=== PATIENT | male | born 1960 | race Caucasian/White ===

== ENCOUNTER 2018-11-24 20:50 | Inpatient (IN) | payer OTHER ==
--- NOTE | 2018-11-24 21:04 | C.PDOC ---
History Of Present Illness Patient called EMS for shortness of breath. Walked down and met the ems after which he had a witnessed arrest. PEA then asystole. After about 14-16 min, 4 epi, and 1 defibrillation for v tach, ROSC. His own defibrillator fired twice after that. Pt is intubated with an adjuct airway. Time Seen by Provider: 11/24/18 21:03 Chief Complaint (Nursing): Cardiac Arrest History Per: EMS Reason For Code Blue: Full Arrest Circumstances: Brought To ED By EMS Arrest Witnessed By: Other (ems) CPR Initiated Prior To MD Arrival?: Yes Down-Time Before ACLS: Mins Treatment Initiated Prior To MD Arrival: Yes: CPR, Intubation, Defibrillation, IVF, ACLS Medication Initiation, IV Access Medications Given Prior To MD Arrival: Yes: Epinephrine - Initial Findings Mentation: Unresponsive Respirations: None (Assisted) Pulse: Weak Rhythm: Other (dual paced) Past Medical History Reviewed: Historical Data, Nursing Documentation, Vital Signs Family History: States: No Known Family Hx Review Of Systems Review Of Systems: ROS cannot be obtained secondary to pt's inabilty to answer questions. Physical Exam - Physical Exam Appears: In Acute Distress Skin: Pale Head: Normacephalic Throat: Other (intubated) Neck: Supple Chest: Symmetrical Cardiovascular: Rhythm Regular Respiratory: Decreased Breath Sounds, Rales, Rhonchi, No Wheezing Gastrointestinal/Abdominal: Soft, No Tenderness, Distention, Other (obese) Back: Normal Inspection Extremity: No Pedal Edema, Other (IO r tibia) Extremity: Bilateral: Atraumatic Neurological/Psych: Other (intubated , unresponsive) Gait: Unable To Assess ED Course And Treatment - Laboratory Results Result Diagrams: 11/24/18 21:09 ECG: Interpreted By Me, Viewed By Me ECG Rhythm: Nonspecific Changes O2 Sat by Pulse Oximetry: 99 Pulse Ox Interpretation: Normal - Radiology CXR: Interpreted by Me, Viewed By Me CXR Interpretation: Yes: Cardiomegaly, Other (acute pulm edema, left chest aicd). No: Infiltrates, Fracture - Other Rad chest X-Ray: Interpreted by Me, Viewed By Me Interpretation: repeat cxr- ett in place, chf Progress Note: 9:[address] jorge luis gold with amiodarone, ct head and will see the pt in the ed. called anesthisia to change the combitube to an ett. 10:10 dr kang at bedside. Disposition Discussed With Dr.: Kamilla Hernandez Comment: accepted the pt onher service and took over the care at 10:13 PM Doctor Will See Patient In The: ED Counseled Patient/Family Regarding: Studies Performed, Diagnosis - Disposition Disposition: HOSPITALIZED Disposition Time: 21:04 Condition: CRITICAL Forms: [facility] (Slovak) - POA Present On Arrival: Poor Glycemic Control - Clinical Impression Clinical Impression: Cardiac arrest Critical Care Time - Critical Care Note Total Time (in mins): 30 Documented critical care: time excludes all time spent performing seperately billable procedures. Decision To Admit - Pt Status Changed To: Hospital Disposition Of: Inpatient - Admit Certification Admit to Inpatient:: After my assessment, the patient will require hospitalization for at least two midnights. This is because of the severity of symptoms shown, intensity of services needed, and/or the medical risk in this patient being treated as an outpatient. - InPatient: Physician Admission Certification:: After my assessment, the patient will req uire hospitalization for at least two midnights. This is because of the severity of symptoms shown, intensity of services needed, and/or the medical risk in this patient being treated as an outpatient. - . Bed Request Type: ICU Admitting Physician: Kamilla Hernandez Patient Diagnosis: Cardiac arrest
[2018-11-24] MEDS ORDERED: Albuterol-Ipratrop 3 mg / 0.5 (3 ml) UD IH SCH (21:15)
[2018-11-24 21:19] LABS: BASO # 0.1 K/uL (0.0-0.2); EOS # 0.6 K/uL (0.0-0.7); MONO # 1.2 K/uL (0.0-0.8)
[2018-11-24 21:45] LABS: ALBUMIN 3.7 g/dL (3.5-5.0); CALCIUM 8.1 mg/dl (8.6-10.4)
[2018-11-24 21:49] LABS: PROTHROMBIN TIME 11.1 SECONDS (9.7-12.2)
[2018-11-24 21:55] LABS: TROPONIN I 0.067 ng/mL (0.00-0.120)
[2018-11-24 21:57] LABS: BASO % 0.4 % (0.0-2.0); EOS % 3.9 % (0.0-4.0); HEMOGLOBIN 16.2 g/dL (12.0-18.0); LYMPH # 4.2 K/uL (1.0-4.3); LYMPH % 27.3 % (20.0-40.0); MEAN CELL VOLUME 102.6 fL (80.0-94.0); MEAN CORPUSCULAR HEMOGLOBIN 32.2 pg (27.0-31.0); MEAN CORPUSCULAR HGB CONC 31.4 g/dL (33.0-37.0); MEAN PLATELET VOLUME 9.8 fL (7.2-11.7); MONO % 7.8 % (0.0-10.0); NEUT # 9.4 K/uL (1.8-7.0); NEUT % 60.6 % (50.0-75.0); NRBC % 0.1 % (0.0-2.0); RBC 5.01 Mil/uL (4.40-5.90); WHITE BLOOD COUNT 15.4 K/uL (4.8-10.8)
[2018-11-24] MEDS ORDERED: Lidocaine 1% PF (5ml) Amp INJ ONE (22:00)
[2018-11-24] MEDS ORDERED: Etomidate 20 mg/10ml Inj IV ONE (22:00)
[2018-11-24] MEDS ORDERED: Succinylcholine Chloride 20 mg/ml Syr (5 ml) IV ONE (22:05)
--- NOTE | 2018-11-24 22:10 | PCM.ANESI ---
Anesthesia Emergent Intubation - Diagnosis Working Diagnosis:: cardiac arrest - Consult Reason for Consult:: difficult intubation - Intubation Attempts Previous Number of Intubation Attempts:: 1 - Pre-Intubation Vital Signs Heart Rate: 80 FIO2: 100 Oxygen Delivery Method: combitube Level Of Consciousness: Sedated, Unable to follow directions - Airway Management Oropharyngeal Area Suctioned: Yes Possible Aspiration: Yes - Method of Intubation Intubation Method: Oral ETT ETT Size: 8.0 Lipline@: 23 Easy: Yes Atramatic: No (glidescop 4 used. ONe attempt by anesthesia. Blood/ secretions in airway.) - Intubation Devices [place] Scope Used: Yes (4) - Placement Confirmation Breath Sounds Present & Equal Bilaterally: Yes Positive EtCO2: Yes Portable CXR: Yes Recommendations: Ventilator, Chest X Ray
[2018-11-24 22:21] LABS: ARTERIAL BLOOD GAS HCO3 17.6 mmol/L (21-28); ARTERIAL BLOOD GAS O2 SAT 99.8 % (95-98); ARTERIAL BLOOD GAS PCO2 74 mm/Hg (35-45); ARTERIAL BLOOD GAS PH 7.08 (7.35-7.45); ARTERIAL BLOOD GAS PO2 167 mm/Hg (80-100); ARTERIAL BLOOD GAS TCO2 24.2 mmol/L (22-28)
--- NOTE | 2018-11-24 22:27 | CP.CCUPN ---
CCU Subjective - Physician Review Events Since Last Encounter (Free Text): 58 male with history of COPD, obesity, CHF, AICD/pacemake placement was brought to ER after cardiac arrest. As per EMS/ER Patient called EMS for shortness of breath. Walked down and met the EMS after which he had a witnessed arrest. PEA then asystole. After about 14-16 min, 4 epi, and 1 defibrillation for v tach, ROSC. His own defibrillator fired twice after that CCU Objective - Vital Signs / Intake & Output Vital Signs (Last 4 hours): Vital Signs Temp Pulse Resp BP Pulse Ox 11/24/18 22:14 99 11/24/18 22:09 80 11/24/18 20:56 97.4 F L 70 16 135/87 99 Intake and Output (Last 8hrs): Intake & Output 11/24/18 11/24/18 11/24/18 06:59 14:59 22:59 Weight 350 lb - Physical Exam Head: Positive for: Atraumatic Pupils: Positive for: Sluggish Conjunctiva: Positive for: Normal Ears: Positive for: Normal Nose (External): Positive for: Atraumatic Neck: Positive for: Normal Range of Motion Respiratory/Chest: Positive for: Rhonchi Cardiovascular: Positive for: Regular Rate and Rhythm Abdomen: Positive for: Normal Bowel Sounds, Other (obese) Upper Extremity: Positive for: Normal Inspection Lower Extremity: Positive for: Normal Inspection Neurological: Positive for: Other (no response to any stimuli, on ventilator) - Medications Active Medications: Active Medications Generic Name Dose Route Start Last Admin Trade Name Freq PRN Reason Stop Dose Admin Amiodarone HCl 900 mg/ 500 mls @ 33.33 mls/hr 11/24/18 21:42 Dextrose IV 11/25/18 12:42 .[id number] ONE Protocol 1 MG/MIN - Patient Studies Lab Studies: Lab Studies 11/24/18 11/24/18 11/24/18 Range/Units 22:17 21:09 21:09 WBC (4.8-10.8) K/uL RBC (4.40-5.90) Mil/uL Hgb (12.0-18.0) g/dL Hct (35.0-51.0) % MCV (80.0-94.0) fL MCH (27.0-31.0) pg MCHC (33.0-37.0) g/dL RDW (11.5-14.5) % Plt Count (130-400) K/uL MPV (7.2-11.7) fL Neut % (Auto) (50.0-75.0) % Lymph % (Auto) (20.0-40.0) % [place] % (Auto) (0.0-10.0) % Eos % (Auto) (0.0-4.0) % Baso % (Auto) (0.0-2.0) % Neut # (Auto) (1.8-7.0) K/uL Lymph # (Auto) (1.0-4.3) K/uL [place] # (Auto) (0.0-0.8) K/uL Eos # (Auto) (0.0-0.7) K/uL Baso # (Auto) (0.0-0.2) K/uL PT 11.1 (9.7-12.2) SECONDS INR 1.0 APTT 39.0 H (21-34) SECONDS Puncture Site Rra pCO2 74 H* (35-45) mm/Hg pO2 167 H (80-100) mm/Hg HCO3 17.6 L (21-28) mmol/L ABG pH 7.08 L* (7.35-7.45) ABG Total CO2 24.2 (22-28) mmol/L ABG O2 Saturation 99.8 H (95-98) % ABG Base Excess -9.4 L (-2.0-3.0) mmol/L Albert Test Na ABG Potassium 5.0 (3.6-5.2) mmol/L A-a O2 Difference 454.0 mm/Hg Respiratory Index 2.7 Glucose 237 H (75-110) mg/dl Lactate 2.9 H (0.7-2.1) mmol/L Vent Mode Prvc Mechanical Rate 16 FiO2 100.0 % Tidal Volume 600 PEEP 5 Crit Value Called To Sudhakar Crit Value Called By freddy Walsh md Crit Value Read Back Y Blood Gas Notified Time 2221 Sodium 136.0 137 (132-148) mmol/L Potassium 4.5 (3.6-5.2) mmol/L Chloride 103.0 99 (98-107) mmol/L Carbon Dioxide 20 L (22-30) mmol/L Anion Gap 23 H (10-20) BUN 18 (9-20) mg/dL Creatinine 1.5 (0.8-1.5) mg/dL Est GFR ( Amer) 58 Est GFR (Non-Af Amer) 48 POC Glucose (mg/dL) (65-110) mg/dL Random Glucose 222 H (75-110) mg/dL Calcium 8.1 L (8.6-10.4) mg/dl Total Bilirubin 0.4 (0.2-1.3) mg/dL AST 72 H (17-59) U/L ALT 70 (21-72) U/L Alkaline Phosphatase 81 (38-126) U/L Troponin I 0.0670 (0.00-0.120) ng/mL NT-Pro-B Natriuret Pep 1480 H (0-900) pg/mL Total Protein 7.4 (6.3-8.3) g/dL Albumin 3.7 (3.5-5.0) g/dL Globulin 3.6 (2.2-3.9) gm/dL Albumin/Globulin Ratio 1.0 (1.0-2.1) Lipase 151 (23-300) U/L Arterial Blood Potassium 5.0 (3.6-5.2) mmol/L 11/24/18 11/24/18 Range/Units 21:09 21:00 WBC 15.4 H (4.8-10.8) K/uL RBC 5.01 (4.40-5.90) Mil/uL Hgb 16.2 (12.0-18.0) g/dL Hct 51.4 H (35.0-51.0) % MCV 102.6 H (80.0-94.0) fL MCH 32.2 H (27.0-31.0) pg MCHC 31.4 L (33.0-37.0) g/dL RDW 17.0 H (11.5-14.5) % Plt Count 238 (130-400) K/uL MPV 9.8 (7.2-11.7) fL Neut % (Auto) 60.6 (50.0-75.0) % Lymph % (Auto) 27.3 (20.0-40.0) % [place] % (Auto) 7.8 (0.0-10.0) % Eos % (Auto) 3.9 (0.0-4.0) % Baso % (Auto) 0.4 (0.0-2.0) % Neut # (Auto) 9.4 H (1.8-7.0) K/uL Lymph # (Auto) 4.2 (1.0-4.3) K/uL [place] # (Auto) 1.2 H (0.0-0.8) K/uL Eos # (Auto) 0.6 (0.0-0.7) K/uL Baso # (Auto) 0.1 (0.0-0.2) K/uL PT (9.7-12.2) SECONDS INR APTT (21-34) SECONDS Puncture Site pCO2 (35-45) mm/Hg pO2 (80-100) mm/Hg HCO3 (21-28) mmol/L ABG pH (7.35-7.45) ABG Total CO2 (22-28) mmol/L ABG O2 Saturation (95-98) % ABG Base Excess (-2.0-3.0) mmol/L Albert Test ABG Potassium (3.6-5.2) mmol/L A-a O2 Difference mm/Hg Respiratory Index Glucose (75-110) mg/dl Lactate (0.7-2.1) mmol/L Vent Mode Mechanical Rate FiO2 % Tidal Volume PEEP Crit Value Called To Crit Value Called By Crit Value Read Back Blood Gas Notified Time Sodium (132-148) mmol/L Potassium (3.6-5.2) mmol/L Chloride (98-107) mmol/L Carbon Dioxide (22-30) mmol/L Anion Gap (10-20) BUN (9-20) mg/dL Creatinine (0.8-1.5) mg/dL Est GFR ( Amer) Est GFR (Non-Af Amer) POC Glucose (mg/dL) 197 H (65-110) mg/dL Random Glucose (75-110) mg/dL Calcium (8.6-10.4) mg/dl Total Bilirubin (0.2-1.3) mg/dL AST (17-59) U/L ALT (21-72) U/L Alkaline Phosphatase (38-126) U/L Troponin I (0.00-0.120) ng/mL NT-Pro-B Natriuret Pep (0-900) pg/mL Total Protein (6.3-8.3) g/dL Albumin (3.5-5.0) g/dL Globulin (2.2-3.9) gm/dL Albumin/Globulin Ratio (1.0-2.1) Lipase (23-300) U/L Arterial Blood Potassium (3.6-5.2) mmol/L Laboratory Results - last 24 hr 11/24/18 11/24/18 11/24/18 21:00 21:09 21:09 WBC 15.4 H RBC 5.01 Hgb 16.2 Hct 51.4 H MCV 102.6 H MCH 32.2 H MCHC 31.4 L RDW 17.0 H Plt Count 238 MPV 9.8 Neut % (Auto) 60.6 Lymph % (Auto) 27.3 [place] % (Auto) 7.8 Eos % (Auto) 3.9 Baso % (Auto) 0.4 Neut # (Auto) 9.4 H Lymph # (Auto) 4.2 [place] # (Auto) 1.2 H Eos # (Auto) 0.6 Baso # (Auto) 0.1 PT 11.1 INR 1.0 APTT 39.0 H Puncture Site pCO2 pO2 HCO3 ABG pH ABG Total CO2 ABG O2 Saturation ABG Base Excess Albert Test ABG Potassium A-a O2 Difference Respiratory Index Glucose Lactate Vent Mode Mechanical Rate FiO2 Tidal Volume PEEP Crit Value Called To Crit Value Called By Crit Value Read Back Blood Gas Notified Time Sodium Potassium Chloride Carbon Dioxide Anion Gap BUN Creatinine Est GFR ( Amer) Est GFR (Non-Af Amer) POC Glucose (mg/dL) 197 H Random Glucose Calcium Total Bilirubin AST ALT Alkaline Phosphatase Troponin I NT-Pro-B Natriuret Pep Total Protein Albumin Globulin Albumin/Globulin Ratio Lipase Arterial Blood Potassium 11/24/18 11/24/18 21:09 22:17 WBC RBC Hgb Hct MCV MCH MCHC RDW Plt Count MPV Neut % (Auto) Lymph % (Auto) [place] % (Auto) Eos % (Auto) Baso % (Auto) Neut # (Auto) Lymph # (Auto) [place] # (Auto) Eos # (Auto) Baso # (Auto) PT INR APTT Puncture Site Rra pCO2 74 H* pO2 167 H HCO3 17.6 L ABG pH 7.08 L* ABG Total CO2 24.2 ABG O2 Saturation 99.8 H ABG Base Excess -9.4 L Albert Test Na ABG Potassium 5.0 A-a O2 Difference 454.0 Respiratory Index 2.7 Glucose 237 H Lactate 2.9 H Vent Mode Prvc Mechanical Rate 16 FiO2 100.0 Tidal Volume 600 PEEP 5 Crit Value Called To Sudhakar Crit Value Called By freddy Walsh md Crit Value Read Back Y Blood Gas Notified Time 2220 Sodium 137 136.0 Potassium 4.5 Chloride 99 103.0 Carbon Dioxide 20 L Anion Gap 23 H BUN 18 Creatinine 1.5 Est GFR ( Amer) 58 Est GFR (Non-Af Amer) 48 POC Glucose (mg/dL) Random Glucose 222 H Calcium 8.1 L Total Bilirubin 0.4 AST 72 H ALT 70 Alkaline Phosphatase 81 Troponin I 0.0670 NT-Pro-B Natriuret Pep 1480 H Total Protein 7.4 Albumin 3.7 Globulin 3.6 Albumin/Globulin Ratio 1.0 Lipase 151 Arterial Blood Potassium 5.0 EKG/Cardiology Studies: Cardiology / EKG Studies 11/24/18 21:04 ELECTROCARDIOGRAM Stat Comment: Mode Of Transportation: BED Reason For Exam: chest pain Fingerstick Blood Sugar Results: 197 Assessment/Plan - Assessment and Plan (Free Text) Assessment: A/P Cardiac arrest, arrhythmia s/p AICD/pacemaker, respiratory failure, COPD, CHF, obesity, R/O pneumonia, R/O MA, ?anoxic encephalopathy - Ventilatory support - Therapeutic hypothermia - Cardiac enzymes - Cardiology consult a per PMD - Antibiotics - Amioderone drip - Neurology consult as per PMD - Poor prognosis critical care 40 min
[2018-11-24] MEDS ORDERED: Sodium Chloride 0.9% 1,000 ML IV SCH (22:45)
[2018-11-24] MEDS: Piperacillin/Tazobact 3.375 GM in Sodium Chloride 100 ML IVPB SCH (23:27)
[2018-11-24 23:35] LABS: SQUAMOUS EPITHIAL 1 /hpf (0-5); URINE BACTERIA OCC (<OCC); URINE BILIRUBIN NEGATIVE (NEGATIVE); URINE BLOOD NEGATIVE (NEGATIVE); URINE CLARITY Hazy (Clear); URINE COLOR Yellow (YELLOW); URINE GLUCOSE (UA) 1+ mg/dL (Normal); URINE LEUKOCYTE ESTERASE TRACE Leu/uL (Negative); URINE PROTEIN 2+ mg/dL (NEGATIVE); URINE UROBILINOGEN NORMAL mg/dL (0.2-1.0)
[2018-11-24 23:48] LABS: BARBITURATES, UR NEGATIVE (NEGATIVE); BENZODIAZEPINES, UR POSITIVE (NEGATIVE); OPIATES, UR NEGATIVE (NEGATIVE); PHENCYCLIDINE, UR NEGATIVE (NEGATIVE)
[2018-11-25] MEDS ORDERED: Iodixanol 320 mg/ml 150 ml Bottle IV ONE (00:10)
[2018-11-25] MEDS: Propofol 10 mg/ml 1,000 MG/100 ML VIAL IV PRN ×7 (01:14→21:27)
[2018-11-25] MEDS ORDERED: Insulin Human Regular 100 UNIT in Sodium Chloride 0.9% 99 ML IV SCH ×2 (01:45→01:59)
[2018-11-25] MEDS: Acetaminophen 650mg/20.3ml solution UD NG PRN ×2 (02:13→18:24)
[2018-11-25 02:37] LABS: BASO % 0.2 % (0.0-2.0); HEMOGLOBIN 16.1 g/dL (12.0-18.0); LYMPH # 0.6 K/uL (1.0-4.3); MEAN CELL VOLUME 100.6 fL (80.0-94.0); MEAN CORPUSCULAR HEMOGLOBIN 32.8 pg (27.0-31.0); MEAN CORPUSCULAR HGB CONC 32.6 g/dL (33.0-37.0); MEAN PLATELET VOLUME 8.7 fL (7.2-11.7); MONO # 1.4 K/uL (0.0-0.8); MONO % 6.9 % (0.0-10.0); NEUT # 17.9 K/uL (1.8-7.0); NEUT % 89.9 % (50.0-75.0); NRBC % 0.1 % (0.0-2.0); PLATELET COUNT 221 K/uL (130-400); RBC 4.92 Mil/uL (4.40-5.90); RED CELL DISTRIBUTION WIDTH 16.6 % (11.5-14.5); WHITE BLOOD COUNT 19.9 K/uL (4.8-10.8)
[2018-11-25 02:46] LABS: PROTHROMBIN TIME 11.2 SECONDS (9.7-12.2)
[2018-11-25 03:00] LABS: ALB/GLOB RATIO 1.1 (1.0-2.1); CALCIUM 7.4 mg/dl (8.6-10.4)
[2018-11-25 03:49] LABS: BANDS 3 % (0-2); LYMPHOCYTE 4 % (20-40); MONOCYTE 6 % (0-10); NEUTROPHIL 87 % (50-75); PLATELET ESTIMATE NORMAL (NORMAL); TOTAL CELLS COUNTED 100
[2018-11-25] MEDS ORDERED: Enoxaparin 40 mg Syringe SC SCH (04:00)
[2018-11-25] MEDS: Piperacillin/Tazobact 3.375 GM in Sodium Chloride 100 ML IVPB SCH ×4 (04:41→22:10)
[2018-11-25 05:41] LABS: ABG ALLEN TEST POS; ARTERIAL BLOOD GAS HCO3 22.8 mmol/L (21-28); ARTERIAL BLOOD GAS O2 SAT 100.4 % (95-98); ARTERIAL BLOOD GAS PCO2 49 mm/Hg (35-45); ARTERIAL BLOOD GAS PO2 221 mm/Hg (80-100); ARTERIAL BLOOD GAS TCO2 25.6 mmol/L (22-28)
--- NOTE | 2018-11-25 08:30 | CT ---
Date of service: 11/25/2018 PROCEDURE: CT HEAD WITHOUT CONTRAST. HISTORY: cardiac arrest COMPARISON: Not available TECHNIQUE: Axial computed tomography images were obtained through the head/brain without intravenous contrast. Radiation dose: Total exam DLP = 2623.28 mGy-cm. This CT exam was performed using one or more of the following dose reduction techniques: Automated exposure control, adjustment of the mA and/or kV according to patient size, and/or use of iterative reconstruction technique. FINDINGS: The examination is technically limited due to patient motion artifact, despite repeated attempts at imaging. HEMORRHAGE: No intracranial hemorrhage. BRAIN: No mass effect or edema. No atrophy. There is moderate periventricular white matter lucency consistent with chronic microvascular ischemic change. No evidence of acute infarct. VENTRICLES: Unremarkable. No hydrocephalus. CALVARIUM: Unremarkable. PARANASAL SINUSES: There is dependent fluid in both maxillary antra. The possibility acute sinusitis must be considered in the appropriate clinical setting. MASTOID AIR CELLS: Unremarkable as visualized. No inflammatory changes. OTHER FINDINGS: None. IMPRESSION: Moderate chronic white matter ischemic change. Fluid dependently in both maxillary antra. Possible acute sinusitis. No intracranial mass, hemorrhage or evidence of acute infarct. The preliminary findings for this examination were reported by [facility] at 12:40 a.m. on 11/25/2018. There is concurrence of this report with the preliminary findings.
[2018-11-25 09:07] LABS: VENOUS BLOOD GAS BASE EXCESS -2.6 mmol/L (0.0-2.0); VENOUS BLOOD GAS PCO2 74 mmHg (40-60); VENOUS BLOOD GAS PO2 24 mm/Hg (30-55); VENOUS BLOOD PH 7.18 (7.32-7.43)
[2018-11-25 09:15] LABS: BASO % 0.1 % (0.0-2.0); EOS % 0.1 % (0.0-4.0); HEMOGLOBIN 16.2 g/dL (12.0-18.0); LYMPH # 0.8 K/uL (1.0-4.3); LYMPH % 4.8 % (20.0-40.0); MEAN CELL VOLUME 99.2 fL (80.0-94.0); MEAN CORPUSCULAR HEMOGLOBIN 31.5 pg (27.0-31.0); MEAN CORPUSCULAR HGB CONC 31.8 g/dL (33.0-37.0); MEAN PLATELET VOLUME 8.9 fL (7.2-11.7); MONO # 1.2 K/uL (0.0-0.8); MONO % 7.1 % (0.0-10.0); NEUT # 15.5 K/uL (1.8-7.0); NEUT % 87.9 % (50.0-75.0); PLATELET COUNT 172 K/uL (130-400); RBC 5.13 Mil/uL (4.40-5.90); RED CELL DISTRIBUTION WIDTH 16.6 % (11.5-14.5); WHITE BLOOD COUNT 17.6 K/uL (4.8-10.8)
--- NOTE | 2018-11-25 09:17 | RAD ---
Date of service: 11/25/2018 PROCEDURE: CHEST RADIOGRAPH, 1 VIEW HISTORY: intubated COMPARISON: 11/24/2018 extensive left perihilar opacity. Possible pneumonia. This appears to have worsened compared to the prior examination. Follow-up advised. FINDINGS: LUNGS: Clear. PLEURA: No pneumothorax or pleural fluid seen. CARDIOVASCULAR: No aortic atherosclerotic calcification present. ETT noted with its tip approximately 2 cm above the tracheal yasemin. AICD noted. OSSEOUS STRUCTURES: No significant abnormalities. VISUALIZED UPPER ABDOMEN: Normal. OTHER FINDINGS: None. IMPRESSION: Increasing left perihilar opacity. Concerning for pneumonia.
[2018-11-25 09:20] LABS: INR 1.1; PROTHROMBIN TIME 11.8 SECONDS (9.7-12.2)
[2018-11-25 09:23] LABS: BLOOD UREA NITROGEN 23 mg/dL (9-20); CALCIUM 8.1 mg/dl (8.6-10.4); GFR NON-AFRICAN AMERICAN 52
[2018-11-25] MEDS: levETIRAcetam 500 MG in Sodium Chloride 0.9% 100 ML IVPB SCH (10:48)
[2018-11-25] MEDS: Heparin25000 units/250ml 1/2NS 25,000 UNITS/250 ML BAG IV PRN (10:49)
[2018-11-25 11:10] LABS: ANISOCYTOSIS SLIGHT; BANDS 6 % (0-2); LYMPHOCYTE 5 % (20-40); MONOCYTE 8 % (0-10); NEUTROPHIL 81 % (50-75); PLATELET ESTIMATE NORMAL (NORMAL); TOTAL CELLS COUNTED 100
--- NOTE | 2018-11-25 11:24 | CP.CCUPN ---
<Ruslan Mary - Last Filed: 11/25/18 11:43> CCU Subjective - Physician Review Subjective (Free Text): 11/25/18 11:22 PGY-1 Critical Care Progress Note for Dr. Ferguson Seen and examined at bedside, intubated on mechanical vent. Sedated. Therapeutic hypothermia. 12 pt ROS unobtained due to condition. CCU Objective - Vital Signs / Intake & Output Vital Signs (Last 4 hours): Vital Signs Temp Pulse Resp BP Pulse Ox 11/25/18 11:06 92.8 F L 60 23 106/78 100 11/25/18 11:00 92.8 F L 60 24 106/78 100 11/25/18 10:50 93.0 F L 60 24 100 11/25/18 10:40 93.0 F L 60 22 100 11/25/18 10:30 93.0 F L 64 16 100 11/25/18 10:20 93.0 F L 69 16 100 11/25/18 10:10 93.2 F L 60 24 100 11/25/18 10:07 102/77 11/25/18 10:05 93.2 F L 60 23 102/77 100 11/25/18 10:00 93.2 F L 60 19 102/77 100 11/25/18 09:50 93.0 F L 68 24 97 11/25/18 09:40 92.8 F L 59 L 24 11/25/18 09:30 92.7 F L 70 17 11/25/18 09:26 92.7 F L 69 20 99/82 L 11/25/18 09:20 92.5 F L 60 20 79 L 11/25/18 09:10 92.5 F L 60 21 84 L 11/25/18 09:00 92.3 F L 64 22 99/82 L 11/25/18 08:50 92.3 F L 66 21 11/25/18 08:40 92.3 F L 64 18 11/25/18 08:30 92.3 F L 64 21 124/89 11/25/18 08:20 92.3 F L 60 21 11/25/18 08:10 92.3 F L 60 21 11/25/18 08:00 92.5 F L 60 22 124/89 77 L 11/25/18 07:50 92.5 F L 60 20 11/25/18 07:40 92.5 F L 64 19 77 L 11/25/18 07:30 92.3 F L 63 20 Intake and Output (Last 8hrs): Intake & Output 11/24/18 11/25/18 11/25/18 22:59 06:59 14:59 Intake Total 394.9 232.3 Output Total 1570 910 Balance -1175.1 -677.7 Weight 158.757 kg 123.4 kg Intake: IV 131.6 100 Intake, IV Amount 263.3 132.3 Right AC 133.2 Right Distal Port Femoral 0 0 Right Medial Port Femoral 28 6 Right Proximal Port 102.1 126.3 Femoral Output: Urine 1570 910 Urethral (Grove) 1570 910 Other: # Bowel Movements 0 0 - Physical Exam Head: Positive for: Atraumatic Pupils: Positive for: Sluggish Conjunctiva: Positive for: Normal Ears: Positive for: Normal Nose (External): Positive for: Atraumatic Neck: Positive for: Normal Range of Motion Respiratory/Chest: Positive for: Rhonchi Cardiovascular: Positive for: Regular Rate and Rhythm Abdomen: Positive for: Normal Bowel Sounds, Other (obese) Upper Extremity: Positive for: Normal Inspection Lower Extremity: Positive for: Normal Inspection Neurological: Positive for: Other (no response to any stimuli, on ventilator) - Medications Active Medications: Active Medications Generic Name Dose Route Start Last Admin Trade Name Freq PRN Reason Stop Dose Admin Acetaminophen 975 mg 11/24/18 22:44 11/25/18 02:13 Tylenol 650mg/20.3ml Solution Ud NG 975 mg Q6 PRN Administration Rigors Aspirin 325 mg 11/25/18 10:00 11/25/18 10:07 Aspirin PO 325 mg DAILY MILEY Administration Famotidine 20 mg 11/24/18 23:00 11/25/18 10:07 Pepcid IVP 20 mg Q12 MILEY Administration Furosemide 40 mg 11/25/18 01:30 11/25/18 10:07 Lasix IV 40 mg Q12 MILEY Administration Piperacillin Sod/Tazobactam 100 mls @ 200 mls/hr 11/24/18 22:45 11/25/18 10:07 Sod 3.375 gm/ Sodium Chloride IVPB 200 mls/hr Q6H MILEY Administration Protocol Propofol 1,000 mg in 100 mls @ 4.763 mls/hr 11/25/18 00:52 11/25/18 10:11 Diprivan IV 27.29 mcg/kg/min .Q21H PRN 26 mls/hr Sedation Administration Protocol 5 MCG/KG/MIN Heparin Sodium/Sodium Chloride 25,000 units in 250 mls @ 14.808 mls/hr 11/25/18 09:49 11/25/18 10:49 Heparin 30985 Units/250ml 1/2 Normal Saline IV 12 units/kg/hr .[id number] PRN 14.808 mls/hr PROTOCOL Administration Protocol 12 UNITS/KG/HR Levetiracetam 500 mg/ Sodium 105 mls @ 420 mls/hr 11/25/18 10:00 11/25/18 10:48 Chloride IVPB 420 mls/hr Q12H MILEY Administration - Patient Studies Lab Studies: Lab Studies 11/25/18 11/25/18 11/25/18 Range/Units 09:03 09:02 09:02 WBC (4.8-10.8) K/uL RBC (4.40-5.90) Mil/uL Hgb (12.0-18.0) g/dL Hct (35.0-51.0) % MCV (80.0-94.0) fL MCH (27.0-31.0) pg MCHC (33.0-37.0) g/dL RDW (11.5-14.5) % Plt Count (130-400) K/uL MPV (7.2-11.7) fL Neut % (Auto) (50.0-75.0) % Lymph % (Auto) (20.0-40.0) % [place] % (Auto) (0.0-10.0) % Eos % (Auto) (0.0-4.0) % Baso % (Auto) (0.0-2.0) % Neut # (Auto) (1.8-7.0) K/uL Lymph # (Auto) (1.0-4.3) K/uL [place] # (Auto) (0.0-0.8) K/uL Eos # (Auto) (0.0-0.7) K/uL Baso # (Auto) (0.0-0.2) K/uL Neutrophils % (Manual) (50-75) % Band Neutrophils % (0-2) % Lymphocytes % (Manual) (20-40) % Monocytes % (Manual) (0-10) % Platelet Estimate (NORMAL) Anisocytosis (manual) PT 11.8 (9.7-12.2) SECONDS INR 1.1 APTT 32.0 D (21-34) SECONDS Puncture Site pCO2 (35-45) mm/Hg pO2 24 L (80-100) mm/Hg HCO3 (21-28) mmol/L ABG pH (7.35-7.45) ABG Total CO2 (22-28) mmol/L ABG O2 Saturation (95-98) % ABG Base Excess (-2.0-3.0) mmol/L Albert Test ABG Potassium (3.6-5.2) mmol/L VBG pH 7.18 L* (7.32-7.43) VBG pCO2 74 H* (40-60) mmHg VBG HCO3 21.0 mmol/L VBG Total CO2 29.9 H (22-28) mmol/L VBG O2 Sat (Calc) 47.2 (40-65) % VBG Base Excess -2.6 L (0.0-2.0) mmol/L VBG Potassium 4.0 (3.6-5.2) mmol/L A-a O2 Difference mm/Hg Respiratory Index Glucose 118 H (75-110) mg/dl Lactate 3.2 H (0.7-2.1) mmol/L Vent Mode Mechanical Rate FiO2 60.0 % Tidal Volume PEEP 5 Crit Value Called To Dr ferguson Crit Value 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 Crit Value Read Back Y Blood Gas Notified Time 910 Sodium 136.0 138 (132-148) mmol/L Potassium 4.8 (3.6-5.2) mmol/L Chloride 100.0 101 (98-107) mmol/L Carbon Dioxide 26 (22-30) mmol/L Anion Gap 16 (10-20) BUN 23 H (9-20) mg/dL Creatinine 1.4 (0.8-1.5) mg/dL Est GFR ( Amer) > 60 Est GFR (Non-Af Amer) 52 POC Glucose (mg/dL) (65-110) mg/dL Random Glucose 120 H D (75-110) mg/dL Calcium 8.1 L (8.6-10.4) mg/dl Phosphorus 5.5 H (2.5-4.5) mg/dL Magnesium 1.8 (1.6-2.3) mg/dL Total Bilirubin (0.2-1.3) mg/dL AST (17-59) U/L ALT (21-72) U/L Alkaline Phosphatase (38-126) U/L Total Creatine Kinase (55-170) U/L Troponin I (0.00-0.120) ng/mL NT-Pro-B Natriuret Pep (0-900) pg/mL Total Protein (6.3-8.3) g/dL Albumin (3.5-5.0) g/dL Globulin (2.2-3.9) gm/dL Albumin/Globulin Ratio (1.0-2.1) Lipase (23-300) U/L TSH 3rd Generation (0.46-4.68) mIU/L Arterial Blood Potassium (3.6-5.2) mmol/L Venous Blood Potassium 4.0 (3.6-5.2) mmol/L Urine Color (YELLOW) Urine Clarity (Clear) Urine pH (5.0-8.0) Ur Specific [place] (1.003-1.030) Urine Protein (NEGATIVE) mg/dL Urine Glucose (UA) (Normal) mg/dL Urine Ketones (NEGATIVE) mg/dL Urine Blood (NEGATIVE) Urine Nitrate (NEGATIVE) Urine Bilirubin (NEGATIVE) Urine Urobilinogen (0.2-1.0) mg/dL Ur Leukocyte Esterase (Negative) [place]icit[place]/uL Urine WBC (Auto) (0-5) /hpf Urine RBC (Auto) (0-3) /hpf Ur Squamous Epith Cells (0-5) /hpf Urine Bacteria (<OCC) Urine Opiates Screen (NEGATIVE) Urine Methadone Screen (NEGATIVE) Ur Barbiturates Screen (NEGATIVE) Ur Phencyclidine Scrn (NEGATIVE) Ur Amphetamines Screen (NEGATIVE) U Benzodiazepines Scrn (NEGATIVE) U Oth Cocaine Metabols (NEGATIVE) U Cannabinoids Screen (NEGATIVE) 11/25/18 11/25/18 11/25/18 Range/Units 09:02 08:59 08:06 WBC 17.6 H (4.8-10.8) K/uL RBC 5.13 (4.40-5.90) Mil/uL Hgb 16.2 (12.0-18.0) g/dL Hct 50.9 (35.0-51.0) % MCV 99.2 H (80.0-94.0) fL MCH 31.5 H (27.0-31.0) pg MCHC 31.8 L (33.0-37.0) g/dL RDW 16.6 H (11.5-14.5) % Plt Count 172 (130-400) K/uL MPV 8.9 (7.2-11.7) fL Neut % (Auto) 87.9 H (50.0-75.0) % Lymph % (Auto) 4.8 L (20.0-40.0) % [place] % (Auto) 7.1 (0.0-10.0) % Eos % (Auto) 0.1 (0.0-4.0) % Baso % (Auto) 0.1 (0.0-2.0) % Neut # (Auto) 15.5 H (1.8-7.0) K/uL Lymph # (Auto) 0.8 L (1.0-4.3) K/uL [place] # (Auto) 1.2 H (0.0-0.8) K/uL Eos # (Auto) 0.0 (0.0-0.7) K/uL Baso # (Auto) 0.0 (0.0-0.2) K/uL Neutrophils % (Manual) 81 H (50-75) % Band Neutrophils % 6 H (0-2) % Lymphocytes % (Manual) 5 L (20-40) % Monocytes % (Manual) 8 (0-10) % Platelet Estimate Normal (NORMAL) Anisocytosis (manual) Slight PT (9.7-12.2) SECONDS INR APTT (21-34) SECONDS Puncture Site pCO2 (35-45) mm/Hg pO2 (80-100) mm/Hg HCO3 (21-28) mmol/L ABG pH (7.35-7.45) ABG Total CO2 (22-28) mmol/L ABG O2 Saturation (95-98) % ABG Base Excess (-2.0-3.0) mmol/L Albert Test ABG Potassium (3.6-5.2) mmol/L VBG pH (7.32-7.43) VBG pCO2 (40-60) mmHg VBG HCO3 mmol/L VBG Total CO2 (22-28) mmol/L VBG O2 Sat (Calc) (40-65) % VBG Base Excess (0.0-2.0) mmol/L VBG Potassium (3.6-5.2) mmol/L A-a O2 Difference mm/Hg Respiratory Index Glucose (75-110) mg/dl Lactate (0.7-2.1) mmol/L Vent Mode Mechanical Rate FiO2 % Tidal Volume PEEP Crit Value Called To Crit Value Called By Crit Value Read Back Blood Gas Notified Time Sodium (132-148) mmol/L Potassium (3.6-5.2) mmol/L Chloride (98-107) mmol/L Carbon Dioxide (22-30) mmol/L Anion Gap (10-20) BUN (9-20) mg/dL Creatinine (0.8-1.5) mg/dL Est GFR ( Amer) Est GFR (Non-Af Amer) POC Glucose (mg/dL) 154 H 157 H (65-110) mg/dL Random Glucose (75-110) mg/dL Calcium (8.6-10.4) mg/dl Phosphorus (2.5-4.5) mg/dL Magnesium (1.6-2.3) mg/dL Total Bilirubin (0.2-1.3) mg/dL AST (17-59) U/L ALT (21-72) U/L Alkaline Phosphatase (38-126) U/L Total Creatine Kinase (55-170) U/L Troponin I (0.00-0.120) ng/mL NT-Pro-B Natriuret Pep (0-900) pg/mL Total Protein (6.3-8.3) g/dL Albumin (3.5-5.0) g/dL Globulin (2.2-3.9) gm/dL Albumin/Globulin Ratio (1.0-2.1) Lipase (23-300) U/L TSH 3rd Generation (0.46-4.68) mIU/L Arterial Blood Potassium (3.6-5.2) mmol/L Venous Blood Potassium (3.6-5.2) mmol/L Urine Color (YELLOW) Urine Clarity (Clear) Urine pH (5.0-8.0) Ur Specific [place] (1.003-1.030) Urine Protein (NEGATIVE) mg/dL Urine Glucose (UA) (Normal) mg/dL Urine Ketones (NEGATIVE) mg/dL Urine Blood (NEGATIVE) Urine Nitrate (NEGATIVE) Urine Bilirubin (NEGATIVE) Urine Urobilinogen (0.2-1.0) mg/dL Ur Leukocyte Esterase (Negative) [place]/uL Urine WBC (Auto) (0-5) /hpf Urine RBC (Auto) (0-3) /hpf Ur Squamous Epith Cells (0-5) /hpf Urine Bacteria (<OCC) Urine Opiates Screen (NEGATIVE) Urine Methadone Screen (NEGATIVE) Ur Barbiturates Screen (NEGATIVE) Ur Phencyclidine Scrn (NEGATIVE) Ur Amphetamines Screen (NEGATIVE) U Benzodiazepines Scrn (NEGATIVE) U Oth Cocaine Metabols (NEGATIVE) U Cannabinoids Screen (NEGATIVE) 11/25/18 11/25/18 11/25/18 Range/Units 07:15 06:59 05:55 WBC (4.8-10.8) K/uL RBC (4.40-5.90) Mil/uL Hgb (12.0-18.0) g/dL Hct (35.0-51.0) % MCV (80.0-94.0) fL MCH (27.0-31.0) pg MCHC (33.0-37.0) g/dL RDW (11.5-14.5) % Plt Count (130-400) K/uL MPV (7.2-11.7) fL Neut % (Auto) (50.0-75.0) % Lymph % (Auto) (20.0-40.0) % [place] % (Auto) (0.0-10.0) % Eos % (Auto) (0.0-4.0) % Baso % (Auto) (0.0-2.0) % Neut # (Auto) (1.8-7.0) K/uL Lymph # (Auto) (1.0-4.3) K/uL [place] # (Auto) (0.0-0.8) K/uL Eos # (Auto) (0.0-0.7) K/uL Baso # (Auto) (0.0-0.2) K/uL Neutrophils % (Manual) (50-75) % Band Neutrophils % (0-2) % Lymphocytes % (Manual) (20-40) % Monocytes % (Manual) (0-10) % Platelet Estimate (NORMAL) Anisocytosis (manual) PT (9.7-12.2) SECONDS INR APTT (21-34) SECONDS Puncture Site pCO2 (35-45) mm/Hg pO2 (80-100) mm/Hg HCO3 (21-28) mmol/L ABG pH (7.35-7.45) ABG Total CO2 (22-28) mmol/L ABG O2 Saturation (95-98) % ABG Base Excess (-2.0-3.0) mmol/L Albert Test ABG Potassium (3.6-5.2) mmol/L VBG pH (7.32-7.43) VBG pCO2 (40-60) mmHg VBG HCO3 mmol/L VBG Total CO2 (22-28) mmol/L VBG O2 Sat (Calc) (40-65) % VBG Base Excess (0.0-2.0) mmol/L VBG Potassium (3.6-5.2) mmol/L A-a O2 Difference mm/Hg Respiratory Index Glucose (75-110) mg/dl Lactate (0.7-2.1) mmol/L Vent Mode Mechanical Rate FiO2 % Tidal Volume PEEP Crit Value Called To Crit Value Called By Crit Value Read Back Blood Gas Notified Time Sodium (132-148) mmol/L Potassium (3.6-5.2) mmol/L Chloride (98-107) mmol/L Carbon Dioxide (22-30) mmol/L Anion Gap (10-20) BUN (9-20) mg/dL Creatinine (0.8-1.5) mg/dL Est GFR ( Amer) Est GFR (Non-Af Amer) POC Glucose (mg/dL) 180 H 155 H 179 H (65-110) mg/dL Random Glucose (75-110) mg/dL Calcium (8.6-10.4) mg/dl Phosphorus (2.5-4.5) mg/dL Magnesium (1.6-2.3) mg/dL Total Bilirubin (0.2-1.3) mg/dL AST (17-59) U/L ALT (21-72) U/L Alkaline Phosphatase (38-126) U/L Total Creatine Kinase (55-170) U/L Troponin I (0.00-0.120) ng/mL NT-Pro-B Natriuret Pep (0-900) pg/mL Total Protein (6.3-8.3) g/dL Albumin (3.5-5.0) g/dL Globulin (2.2-3.9) gm/dL Albumin/Globulin Ratio (1.0-2.1) Lipase (23-300) U/L TSH 3rd Generation (0.46-4.68) mIU/L Arterial Blood Potassium (3.6-5.2) mmol/L Venous Blood Potassium (3.6-5.2) mmol/L Urine Color (YELLOW) Urine Clarity (Clear) Urine pH (5.0-8.0) Ur Specific [place] (1.003-1.030) Urine Protein (NEGATIVE) mg/dL Urine Glucose (UA) (Normal) mg/dL Urine Ketones (NEGATIVE) mg/dL Urine Blood (NEGATIVE) Urine Nitrate (NEGATIVE) Urine Bilirubin (NEGATIVE) Urine Urobilinogen (0.2-1.0) mg/dL Ur Leukocyte Esterase (Negative) [place]/uL Urine WBC (Auto) (0-5) /hpf Urine RBC (Auto) (0-3) /hpf Ur Squamous Epith Cells (0-5) /hpf Urine Bacteria (<OCC) Urine Opiates Screen (NEGATIVE) Urine Methadone Screen (NEGATIVE) Ur Barbiturates Screen (NEGATIVE) Ur Phencyclidine Scrn (NEGATIVE) Ur Amphetamines Screen (NEGATIVE) U Benzodiazepines Scrn (NEGATIVE) U Oth Cocaine Metabols (NEGATIVE) U Cannabinoids Screen (NEGATIVE) 11/25/18 11/25/18 11/25/18 Range/Units 05:28 05:00 03:55 WBC (4.8-10.8) K/uL RBC (4.40-5.90) Mil/uL Hgb (12.0-18.0) g/dL Hct (35.0-51.0) % MCV (80.0-94.0) fL MCH (27.0-31.0) pg MCHC (33.0-37.0) g/dL RDW (11.5-14.5) % Plt Count (130-400) K/uL MPV (7.2-11.7) fL Neut % (Auto) (50.0-75.0) % Lymph % (Auto) (20.0-40.0) % [place] % (Auto) (0.0-10.0) % Eos % (Auto) (0.0-4.0) % Baso % (Auto) (0.0-2.0) % Neut # (Auto) (1.8-7.0) K/uL Lymph # (Auto) (1.0-4.3) K/uL [place] # (Auto) (0.0-0.8) K/uL Eos # (Auto) (0.0-0.7) K/uL Baso # (Auto) (0.0-0.2) K/uL Neutrophils % (Manual) (50-75) % Band Neutrophils % (0-2) % Lymphocytes % (Manual) (20-40) % Monocytes % (Manual) (0-10) % Platelet Estimate (NORMAL) Anisocytosis (manual) PT (9.7-12.2) SECONDS INR APTT (21-34) SECONDS Puncture Site Rr pCO2 49 H (35-45) mm/Hg pO2 221 H (80-100) mm/Hg HCO3 22.8 (21-28) mmol/L ABG pH 7.30 L (7.35-7.45) ABG Total CO2 25.6 (22-28) mmol/L ABG O2 Saturation 100.4 H (95-98) % ABG Base Excess -2.8 L (-2.0-3.0) mmol/L Albert Test Pos ABG Potassium 4.9 (3.6-5.2) mmol/L VBG pH (7.32-7.43) VBG pCO2 (40-60) mmHg VBG HCO3 mmol/L VBG Total CO2 (22-28) mmol/L VBG O2 Sat (Calc) (40-65) % VBG Base Excess (0.0-2.0) mmol/L VBG Potassium (3.6-5.2) mmol/L A-a O2 Difference 443.0 mm/Hg Respiratory Index 2.1 Glucose 136 H (75-110) mg/dl Lactate 2.3 H (0.7-2.1) mmol/L Vent Mode Prvc Mechanical Rate 20 FiO2 100.0 % Tidal Volume 600 PEEP 5 Crit Value Called To Crit Value Called By Crit Value Read Back Blood Gas Notified Time Sodium 133.0 (132-148) mmol/L Potassium (3.6-5.2) mmol/L Chloride 103.0 (98-107) mmol/L Carbon Dioxide (22-30) mmol/L Anion Gap (10-20) BUN (9-20) mg/dL Creatinine (0.8-1.5) mg/dL Est GFR ( Amer) Est GFR (Non-Af Amer) POC Glucose (mg/dL) 201 H 242 H (65-110) mg/dL Random Glucose (75-110) mg/dL Calcium (8.6-10.4) mg/dl Phosphorus (2.5-4.5) mg/dL Magnesium (1.6-2.3) mg/dL Total Bilirubin (0.2-1.3) mg/dL AST (17-59) U/L ALT (21-72) U/L Alkaline Phosphatase (38-126) U/L Total Creatine Kinase (55-170) U/L Troponin I (0.00-0.120) ng/mL NT-Pro-B Natriuret Pep (0-900) pg/mL Total Protein (6.3-8.3) g/dL Albumin (3.5-5.0) g/dL Globulin (2.2-3.9) gm/dL Albumin/Globulin Ratio (1.0-2.1) Lipase (23-300) U/L TSH 3rd Generation (0.46-4.68) mIU/L Arterial Blood Potassium 4.9 (3.6-5.2) mmol/L Venous Blood Potassium (3.6-5.2) mmol/L Urine Color (YELLOW) Urine Clarity (Clear) Urine pH (5.0-8.0) Ur Specific [place] (1.003-1.030) Urine Protein (NEGATIVE) mg/dL Urine Glucose (UA) (Normal) mg/dL Urine Ketones (NEGATIVE) mg/dL Urine Blood (NEGATIVE) Urine Nitrate (NEGATIVE) Urine Bilirubin (NEGATIVE) Urine Urobilinogen (0.2-1.0) mg/dL Ur Leukocyte Esterase (Negative) Felicit[place]/uL Urine WBC (Auto) (0-5) /hpf Urine RBC (Auto) (0-3) /hpf Ur Squamous Epith Cells (0-5) /hpf Urine Bacteria (<OCC) Urine Opiates Screen (NEGATIVE) Urine Methadone Screen (NEGATIVE) Ur Barbiturates Screen (NEGATIVE) Ur Phencyclidine Scrn (NEGATIVE) Ur Amphetamines Screen (NEGATIVE) U Benzodiazepines Scrn (NEGATIVE) U Oth Cocaine Metabols (NEGATIVE) U Cannabinoids Screen (NEGATIVE) 11/25/18 11/25/18 11/25/18 Range/Units 03:02 02:34 02:34 WBC (4.8-10.8) K/uL RBC (4.40-5.90) Mil/uL Hgb (12.0-18.0) g/dL Hct (35.0-51.0) % MCV (80.0-94.0) fL MCH (27.0-31.0) pg MCHC (33.0-37.0) g/dL RDW (11.5-14.5) % Plt Count (130-400) K/uL MPV (7.2-11.7) fL Neut % (Auto) (50.0-75.0) % Lymph % (Auto) (20.0-40.0) % [place] % (Auto) (0.0-10.0) % Eos % (Auto) (0.0-4.0) % Baso % (Auto) (0.0-2.0) % Neut # (Auto) (1.8-7.0) K/uL Lymph # (Auto) (1.0-4.3) K/uL [place] # (Auto) (0.0-0.8) K/uL Eos # (Auto) (0.0-0.7) K/uL Baso # (Auto) (0.0-0.2) K/uL Neutrophils % (Manual) (50-75) % Band Neutrophils % (0-2) % Lymphocytes % (Manual) (20-40) % Monocytes % (Manual) (0-10) % Platelet Estimate (NORMAL) Anisocytosis (manual) PT 11.2 (9.7-12.2) SECONDS INR 1.0 APTT 25.0 D (21-34) SECONDS Puncture Site pCO2 (35-45) mm/Hg pO2 (80-100) mm/Hg HCO3 (21-28) mmol/L ABG pH (7.35-7.45) ABG Total CO2 (22-28) mmol/L ABG O2 Saturation (95-98) % ABG Base Excess (-2.0-3.0) mmol/L Albert Test ABG Potassium (3.6-5.2) mmol/L VBG pH (7.32-7.43) VBG pCO2 (40-60) mmHg VBG HCO3 mmol/L VBG Total CO2 (22-28) mmol/L VBG O2 Sat (Calc) (40-65) % VBG Base Excess (0.0-2.0) mmol/L VBG Potassium (3.6-5.2) mmol/L A-a O2 Difference mm/Hg Respiratory Index Glucose (75-110) mg/dl Lactate (0.7-2.1) mmol/L Vent Mode Mechanical Rate FiO2 % Tidal Volume PEEP Crit Value Called To Crit Value Called By Crit Value Read Back Blood Gas Notified Time Sodium 138 (132-148) mmol/L Potassium 5.4 H (3.6-5.2) mmol/L Chloride 100 (98-107) mmol/L Carbon Dioxide 26 (22-30) mmol/L Anion Gap 18 (10-20) BUN 23 H (9-20) mg/dL Creatinine 1.6 H (0.8-1.5) mg/dL Est GFR ( Amer) 54 Est GFR (Non-Af Amer) 44 POC Glucose (mg/dL) 291 H (65-110) mg/dL Random Glucose 265 H (75-110) mg/dL Calcium 7.4 L (8.6-10.4) mg/dl Phosphorus 6.3 H (2.5-4.5) mg/dL Magnesium 1.7 (1.6-2.3) mg/dL Total Bilirubin 0.8 (0.2-1.3) mg/dL AST 114 H D (17-59) U/L ALT 96 H D (21-72) U/L Alkaline Phosphatase 99 (38-126) U/L Total Creatine Kinase 401 H (55-170) U/L Troponin I (0.00-0.120) ng/mL NT-Pro-B Natriuret Pep (0-900) pg/mL Total Protein 7.8 (6.3-8.3) g/dL Albumin 4.0 (3.5-5.0) g/dL Globulin 3.8 (2.2-3.9) gm/dL Albumin/Globulin Ratio 1.1 (1.0-2.1) Lipase (23-300) U/L TSH 3rd Generation (0.46-4.68) mIU/L Arterial Blood Potassium (3.6-5.2) mmol/L Venous Blood Potassium (3.6-5.2) mmol/L Urine Color (YELLOW) Urine Clarity (Clear) Urine pH (5.0-8.0) Ur Specific [place] (1.003-1.030) Urine Protein (NEGATIVE) mg/dL Urine Glucose (UA) (Normal) mg/dL Urine Ketones (NEGATIVE) mg/dL Urine Blood (NEGATIVE) Urine Nitrate (NEGATIVE) Urine Bilirubin (NEGATIVE) Urine Urobilinogen (0.2-1.0) mg/dL Ur Leukocyte Esterase (Negative) [place]/uL Urine WBC (Auto) (0-5) /hpf Urine RBC (Auto) (0-3) /hpf Ur Squamous Epith Cells (0-5) /hpf Urine Bacteria (<OCC) Urine Opiates Screen (NEGATIVE) Urine Methadone Screen (NEGATIVE) Ur Barbiturates Screen (NEGATIVE) Ur Phencyclidine Scrn (NEGATIVE) Ur Amphetamines Screen (NEGATIVE) U Benzodiazepines Scrn (NEGATIVE) U Oth Cocaine Metabols (NEGATIVE) U Cannabinoids Screen (NEGATIVE) 11/25/18 11/25/18 11/24/18 Range/Units 02:34 01:19 23:21 WBC 19.9 H (4.8-10.8) K/uL RBC 4.92 (4.40-5.90) Mil/uL Hgb 16.1 (12.0-18.0) g/dL Hct 49.5 (35.0-51.0) % MCV 100.6 H D (80.0-94.0) fL MCH 32.8 H (27.0-31.0) pg MCHC 32.6 L (33.0-37.0) g/dL RDW 16.6 H (11.5-14.5) % Plt Count 221 (130-400) K/uL MPV 8.7 (7.2-11.7) fL Neut % (Auto) 89.9 H (50.0-75.0) % Lymph % (Auto) 3.0 L (20.0-40.0) % [place] % (Auto) 6.9 (0.0-10.0) % Eos % (Auto) 0.0 (0.0-4.0) % Baso % (Auto) 0.2 (0.0-2.0) % Neut # (Auto) 17.9 H (1.8-7.0) K/uL Lymph # (Auto) 0.6 L (1.0-4.3) K/uL [place] # (Auto) 1.4 H (0.0-0.8) K/uL Eos # (Auto) 0.0 (0.0-0.7) K/uL Baso # (Auto) 0.0 (0.0-0.2) K/uL Neutrophils % (Manual) 87 H (50-75) % Band Neutrophils % 3 H (0-2) % Lymphocytes % (Manual) 4 L (20-40) % Monocytes % (Manual) 6 (0-10) % Platelet Estimate Normal (NORMAL) Anisocytosis (manual) PT (9.7-12.2) SECONDS INR APTT (21-34) SECONDS Puncture Site pCO2 (35-45) mm/Hg pO2 (80-100) mm/Hg HCO3 (21-28) mmol/L ABG pH (7.35-7.45) ABG Total CO2 (22-28) mmol/L ABG O2 Saturation (95-98) % ABG Base Excess (-2.0-3.0) mmol/L Albert Test ABG Potassium (3.6-5.2) mmol/L VBG pH (7.32-7.43) VBG pCO2 (40-60) mmHg VBG HCO3 mmol/L VBG Total CO2 (22-28) mmol/L VBG O2 Sat (Calc) (40-65) % VBG Base Excess (0.0-2.0) mmol/L VBG Potassium (3.6-5.2) mmol/L A-a O2 Difference mm/Hg Respiratory Index Glucose (75-110) mg/dl Lactate (0.7-2.1) mmol/L Vent Mode Mechanical Rate FiO2 % Tidal Volume PEEP Crit Value Called To Crit Value Called By Crit Value Read Back Blood Gas Notified Time Sodium (132-148) mmol/L Potassium (3.6-5.2) mmol/L Chloride (98-107) mmol/L Carbon Dioxide (22-30) mmol/L Anion Gap (10-20) BUN (9-20) mg/dL Creatinine (0.8-1.5) mg/dL Est GFR ( Amer) Est GFR (Non-Af Amer) POC Glucose (mg/dL) 266 H (65-110) mg/dL Random Glucose (75-110) mg/dL Calcium (8.6-10.4) mg/dl Phosphorus (2.5-4.5) mg/dL Magnesium (1.6-2.3) mg/dL Total Bilirubin (0.2-1.3) mg/dL AST (17-59) U/L ALT (21-72) U/L Alkaline Phosphatase (38-126) U/L Total Creatine Kinase (55-170) U/L Troponin I (0.00-0.120) ng/mL NT-Pro-B Natriuret Pep (0-900) pg/mL Total Protein (6.3-8.3) g/dL Albumin (3.5-5.0) g/dL Globulin (2.2-3.9) gm/dL Albumin/Globulin Ratio (1.0-2.1) Lipase (23-300) U/L TSH 3rd Generation (0.46-4.68) mIU/L Arterial Blood Potassium (3.6-5.2) mmol/L Venous Blood Potassium (3.6-5.2) mmol/L Urine Color (YELLOW) Urine Clarity (Clear) Urine pH (5.0-8.0) Ur Specific [place] (1.003-1.030) Urine Protein (NEGATIVE) mg/dL Urine Glucose (UA) (Normal) mg/dL Urine Ketones (NEGATIVE) mg/dL Urine Blood (NEGATIVE) Urine Nitrate (NEGATIVE) Urine Bilirubin (NEGATIVE) Urine Urobilinogen (0.2-1.0) mg/dL Ur Leukocyte Esterase (Negative) [place]/uL Urine WBC (Auto) (0-5) /hpf Urine RBC (Auto) (0-3) /hpf Ur Squamous Epith Cells (0-5) /hpf Urine Bacteria (<OCC) Urine Opiates Screen Negative (NEGATIVE) Urine Methadone Screen Negative (NEGATIVE) Ur Barbiturates Screen Negative (NEGATIVE) Ur Phencyclidine Scrn Negative (NEGATIVE) Ur Amphetamines Screen Negative (NEGATIVE) U Benzodiazepines Scrn Positive (NEGATIVE) U Oth Cocaine Metabols Negative (NEGATIVE) U Cannabinoids Screen Negative (NEGATIVE) 11/24/18 11/24/18 11/24/18 Range/Units 23:21 22:31 22:17 WBC (4.8-10.8) K/uL RBC (4.40-5.90) Mil/uL Hgb (12.0-18.0) g/dL Hct (35.0-51.0) % MCV (80.0-94.0) fL MCH (27.0-31.0) pg MCHC (33.0-37.0) g/dL RDW (11.5-14.5) % Plt Count (130-400) K/uL MPV (7.2-11.7) fL Neut % (Auto) (50.0-75.0) % Lymph % (Auto) (20.0-40.0) % [place] % (Auto) (0.0-10.0) % Eos % (Auto) (0.0-4.0) % Baso % (Auto) (0.0-2.0) % Neut # (Auto) (1.8-7.0) K/uL Lymph # (Auto) (1.0-4.3) K/uL [place] # (Auto) (0.0-0.8) K/uL Eos # (Auto) (0.0-0.7) K/uL Baso # (Auto) (0.0-0.2) K/uL Neutrophils % (Manual) (50-75) % Band Neutrophils % (0-2) % Lymphocytes % (Manual) (20-40) % Monocytes % (Manual) (0-10) % Platelet Estimate (NORMAL) Anisocytosis (manual) PT (9.7-12.2) SECONDS INR APTT (21-34) SECONDS Puncture Site Rra pCO2 74 H* (35-45) mm/Hg pO2 167 H (80-100) mm/Hg HCO3 17.6 L (21-28) mmol/L ABG pH 7.08 L* (7.35-7.45) ABG Total CO2 24.2 (22-28) mmol/L ABG O2 Saturation 99.8 H (95-98) % ABG Base Excess -9.4 L (-2.0-3.0) mmol/L Albert Test Na ABG Potassium 5.0 (3.6-5.2) mmol/L VBG pH (7.32-7.43) VBG pCO2 (40-60) mmHg VBG HCO3 mmol/L VBG Total CO2 (22-28) mmol/L VBG O2 Sat (Calc) (40-65) % VBG Base Excess (0.0-2.0) mmol/L VBG Potassium (3.6-5.2) mmol/L A-a O2 Difference 454.0 mm/Hg Respiratory Index 2.7 Glucose 237 H (75-110) mg/dl Lactate 2.9 H (0.7-2.1) mmol/L Vent Mode Prvc Mechanical Rate 16 FiO2 100.0 % Tidal Volume 600 PEEP 5 Crit Value Called To Lendl Crit Value Called By freddy Walsh md Crit Value Read Back Y Blood Gas Notified Time 2220 Sodium 136.0 (132-148) mmol/L Potassium (3.6-5.2) mmol/L Chloride 103.0 (98-107) mmol/L Carbon Dioxide (22-30) mmol/L Anion Gap (10-20) BUN (9-20) mg/dL Creatinine (0.8-1.5) mg/dL Est GFR ( Amer) Est GFR (Non-Af Amer) POC Glucose (mg/dL) (65-110) mg/dL Random Glucose (75-110) mg/dL Calcium (8.6-10.4) mg/dl Phosphorus (2.5-4.5) mg/dL Magnesium (1.6-2.3) mg/dL Total Bilirubin (0.2-1.3) mg/dL AST (17-59) U/L ALT (21-72) U/L Alkaline Phosphatase (38-126) U/L Total Creatine Kinase (55-170) U/L Troponin I (0.00-0.120) ng/mL NT-Pro-B Natriuret Pep (0-900) pg/mL Total Protein (6.3-8.3) g/dL Albumin (3.5-5.0) g/dL Globulin (2.2-3.9) gm/dL Albumin/Globulin Ratio (1.0-2.1) Lipase (23-300) U/L TSH 3rd Generation 7.81 H (0.46-4.68) mIU/L Arterial Blood Potassium 5.0 (3.6-5.2) mmol/L Venous Blood Potassium (3.6-5.2) mmol/L Urine Color Yellow (YELLOW) Urine Clarity Hazy (Clear) Urine pH 5.0 (5.0-8.0) Ur Specific [place] 1.021 (1.003-1.030) Urine Protein 2+ H (NEGATIVE) mg/dL Urine Glucose (UA) 1+ H (Normal) mg/dL Urine Ketones Negative (NEGATIVE) mg/dL Urine Blood Negative (NEGATIVE) Urine Nitrate Negative (NEGATIVE) Urine Bilirubin Negative (NEGATIVE) Urine Urobilinogen Normal (0.2-1.0) mg/dL Ur Leukocyte Esterase Trace (Negative) Felicit[place]/uL Urine WBC (Auto) 26 H (0-5) /hpf Urine RBC (Auto) 3 (0-3) /hpf Ur Squamous Epith Cells 1 (0-5) /hpf Urine Bacteria Occ H (<OCC) Urine Opiates Screen (NEGATIVE) Urine Methadone Screen (NEGATIVE) Ur Barbiturates Screen (NEGATIVE) Ur Phencyclidine Scrn (NEGATIVE) Ur Amphetamines Screen (NEGATIVE) U Benzodiazepines Scrn (NEGATIVE) U Oth Cocaine Metabols (NEGATIVE) U Cannabinoids Screen (NEGATIVE) 11/24/18 11/24/18 11/24/18 Range/Units 21:09 21:09 21:09 WBC 15.4 H (4.8-10.8) K/uL RBC 5.01 (4.40-5.90) Mil/uL Hgb 16.2 (12.0-18.0) g/dL Hct 51.4 H (35.0-51.0) % MCV 102.6 H (80.0-94.0) fL MCH 32.2 H (27.0-31.0) pg MCHC 31.4 L (33.0-37.0) g/dL RDW 17.0 H (11.5-14.5) % Plt Count 238 (130-400) K/uL MPV 9.8 (7.2-11.7) fL Neut % (Auto) 60.6 (50.0-75.0) % Lymph % (Auto) 27.3 (20.0-40.0) % [place] % (Auto) 7.8 (0.0-10.0) % Eos % (Auto) 3.9 (0.0-4.0) % Baso % (Auto) 0.4 (0.0-2.0) % Neut # (Auto) 9.4 H (1.8-7.0) K/uL Lymph # (Auto) 4.2 (1.0-4.3) K/uL [place] # (Auto) 1.2 H (0.0-0.8) K/uL Eos # (Auto) 0.6 (0.0-0.7) K/uL Baso # (Auto) 0.1 (0.0-0.2) K/uL Neutrophils % (Manual) (50-75) % Band Neutrophils % (0-2) % Lymphocytes % (Manual) (20-40) % Monocytes % (Manual) (0-10) % Platelet Estimate (NORMAL) Anisocytosis (manual) PT 11.1 (9.7-12.2) SECONDS INR 1.0 APTT 39.0 H (21-34) SECONDS Puncture Site pCO2 (35-45) mm/Hg pO2 (80-100) mm/Hg HCO3 (21-28) mmol/L ABG pH (7.35-7.45) ABG Total CO2 (22-28) mmol/L ABG O2 Saturation (95-98) % ABG Base Excess (-2.0-3.0) mmol/L Albert Test ABG Potassium (3.6-5.2) mmol/L VBG pH (7.32-7.43) VBG pCO2 (40-60) mmHg VBG HCO3 mmol/L VBG Total CO2 (22-28) mmol/L VBG O2 Sat (Calc) (40-65) % VBG Base Excess (0.0-2.0) mmol/L VBG Potassium (3.6-5.2) mmol/L A-a O2 Difference mm/Hg Respiratory Index Glucose (75-110) mg/dl Lactate (0.7-2.1) mmol/L Vent Mode Mechanical Rate FiO2 % Tidal Volume PEEP Crit Value Called To Crit Value Called By Crit Value Read Back Blood Gas Notified Time Sodium 137 (132-148) mmol/L Potassium 4.5 (3.6-5.2) mmol/L Chloride 99 (98-107) mmol/L Carbon Dioxide 20 L (22-30) mmol/L Anion Gap 23 H (10-20) BUN 18 (9-20) mg/dL Creatinine 1.5 (0.8-1.5) mg/dL Est GFR ( Amer) 58 Est GFR (Non-Af Amer) 48 POC Glucose (mg/dL) (65-110) mg/dL Random Glucose 222 H (75-110) mg/dL Calcium 8.1 L (8.6-10.4) mg/dl Phosphorus (2.5-4.5) mg/dL Magnesium (1.6-2.3) mg/dL Total Bilirubin 0.4 (0.2-1.3) mg/dL AST 72 H (17-59) U/L ALT 70 (21-72) U/L Alkaline Phosphatase 81 (38-126) U/L Total Creatine Kinase (55-170) U/L Troponin I 0.0670 (0.00-0.120) ng/mL NT-Pro-B Natriuret Pep 1480 H (0-900) pg/mL Total Protein 7.4 (6.3-8.3) g/dL Albumin 3.7 (3.5-5.0) g/dL Globulin 3.6 (2.2-3.9) gm/dL Albumin/Globulin Ratio 1.0 (1.0-2.1) Lipase 151 (23-300) U/L TSH 3rd Generation (0.46-4.68) mIU/L Arterial Blood Potassium (3.6-5.2) mmol/L Venous Blood Potassium (3.6-5.2) mmol/L Urine Color (YELLOW) Urine Clarity (Clear) Urine pH (5.0-8.0) Ur Specific [place] (1.003-1.030) Urine Protein (NEGATIVE) mg/dL Urine Glucose (UA) (Normal) mg/dL Urine Ketones (NEGATIVE) mg/dL Urine Blood (NEGATIVE) Urine Nitrate (NEGATIVE) Urine Bilirubin (NEGATIVE) Urine Urobilinogen (0.2-1.0) mg/dL Ur Leukocyte Esterase (Negative) [place]icit[place]/uL Urine WBC (Auto) (0-5) /hpf Urine RBC (Auto) (0-3) /hpf Ur Squamous Epith Cells (0-5) /hpf Urine Bacteria (<OCC) Urine Opiates Screen (NEGATIVE) Urine Methadone Screen (NEGATIVE) Ur Barbiturates Screen (NEGATIVE) Ur Phencyclidine Scrn (NEGATIVE) Ur Amphetamines Screen (NEGATIVE) U Benzodiazepines Scrn (NEGATIVE) U Oth Cocaine Metabols (NEGATIVE) U Cannabinoids Screen (NEGATIVE) 11/24/18 Range/Units 21:00 WBC (4.8-10.8) K/uL RBC (4.40-5.90) Mil/uL Hgb (12.0-18.0) g/dL Hct (35.0-51.0) % MCV (80.0-94.0) fL MCH (27.0-31.0) pg MCHC (33.0-37.0) g/dL RDW (11.5-14.5) % Plt Count (130-400) K/uL MPV (7.2-11.7) fL Neut % (Auto) (50.0-75.0) % Lymph % (Auto) (20.0-40.0) % [place] % (Auto) (0.0-10.0) % Eos % (Auto) (0.0-4.0) % Baso % (Auto) (0.0-2.0) % Neut # (Auto) (1.8-7.0) K/uL Lymph # (Auto) (1.0-4.3) K/uL [place] # (Auto) (0.0-0.8) K/uL Eos # (Auto) (0.0-0.7) K/uL Baso # (Auto) (0.0-0.2) K/uL Neutrophils % (Manual) (50-75) % Band Neutrophils % (0-2) % Lymphocytes % (Manual) (20-40) % Monocytes % (Manual) (0-10) % Platelet Estimate (NORMAL) Anisocytosis (manual) PT (9.7-12.2) SECONDS INR APTT (21-34) SECONDS Puncture Site pCO2 (35-45) mm/Hg pO2 (80-100) mm/Hg HCO3 (21-28) mmol/L ABG pH (7.35-7.45) ABG Total CO2 (22-28) mmol/L ABG O2 Saturation (95-98) % ABG Base Excess (-2.0-3.0) mmol/L Albert Test ABG Potassium (3.6-5.2) mmol/L VBG pH (7.32-7.43) VBG pCO2 (40-60) mmHg VBG HCO3 mmol/L VBG Total CO2 (22-28) mmol/L VBG O2 Sat (Calc) (40-65) % VBG Base Excess (0.0-2.0) mmol/L VBG Potassium (3.6-5.2) mmol/L A-a O2 Difference mm/Hg Respiratory Index Glucose (75-110) mg/dl Lactate (0.7-2.1) mmol/L Vent Mode Mechanical Rate FiO2 % Tidal Volume PEEP Crit Value Called To Crit Value Called By Crit Value Read Back Blood Gas Notified Time Sodium (132-148) mmol/L Potassium (3.6-5.2) mmol/L Chloride (98-107) mmol/L Carbon Dioxide (22-30) mmol/L Anion Gap (10-20) BUN (9-20) mg/dL Creatinine (0.8-1.5) mg/dL Est GFR ( Amer) Est GFR (Non-Af Amer) POC Glucose (mg/dL) 197 H (65-110) mg/dL Random Glucose (75-110) mg/dL Calcium (8.6-10.4) mg/dl Phosphorus (2.5-4.5) mg/dL Magnesium (1.6-2.3) mg/dL Total Bilirubin (0.2-1.3) mg/dL AST (17-59) U/L ALT (21-72) U/L Alkaline Phosphatase (38-126) U/L Total Creatine Kinase (55-170) U/L Troponin I (0.00-0.120) ng/mL NT-Pro-B Natriuret Pep (0-900) pg/mL Total Protein (6.3-8.3) g/dL Albumin (3.5-5.0) g/dL Globulin (2.2-3.9) gm/dL Albumin/Globulin Ratio (1.0-2.1) Lipase (23-300) U/L TSH 3rd Generation (0.46-4.68) mIU/L Arterial Blood Potassium (3.6-5.2) mmol/L Venous Blood Potassium (3.6-5.2) mmol/L Urine Color (YELLOW) Urine Clarity (Clear) Urine pH (5.0-8.0) Ur Specific [place] (1.003-1.030) Urine Protein (NEGATIVE) mg/dL Urine Glucose (UA) (Normal) mg/dL Urine Ketones (NEGATIVE) mg/dL Urine Blood (NEGATIVE) Urine Nitrate (NEGATIVE) Urine Bilirubin (NEGATIVE) Urine Urobilinogen (0.2-1.0) mg/dL Ur Leukocyte Esterase (Negative) [place]/uL Urine WBC (Auto) (0-5) /hpf Urine RBC (Auto) (0-3) /hpf Ur Squamous Epith Cells (0-5) /hpf Urine Bacteria (<OCC) Urine Opiates Screen (NEGATIVE) Urine Methadone Screen (NEGATIVE) Ur Barbiturates Screen (NEGATIVE) Ur Phencyclidine Scrn (NEGATIVE) Ur Amphetamines Screen (NEGATIVE) U Benzodiazepines Scrn (NEGATIVE) U Oth Cocaine Metabols (NEGATIVE) U Cannabinoids Screen (NEGATIVE) Laboratory Results - last 24 hr 11/24/18 11/24/18 11/24/18 21:00 21:09 21:09 WBC 15.4 H RBC 5.01 Hgb 16.2 Hct 51.4 H MCV 102.6 H MCH 32.2 H MCHC 31.4 L RDW 17.0 H Plt Count 238 MPV 9.8 Neut % (Auto) 60.6 Lymph % (Auto) 27.3 [place] % (Auto) 7.8 Eos % (Auto) 3.9 Baso % (Auto) 0.4 Neut # (Auto) 9.4 H Lymph # (Auto) 4.2 [place] # (Auto) 1.2 H Eos # (Auto) 0.6 Baso # (Auto) 0.1 Neutrophils % (Manual) Band Neutrophils % Lymphocytes % (Manual) Monocytes % (Manual) Platelet Estimate Anisocytosis (manual) PT 11.1 INR 1.0 APTT 39.0 H Puncture Site pCO2 pO2 HCO3 ABG pH ABG Total CO2 ABG O2 Saturation ABG Base Excess Albert Test ABG Potassium VBG pH VBG pCO2 VBG HCO3 VBG Total CO2 VBG O2 Sat (Calc) VBG Base Excess VBG Potassium A-a O2 Difference Respiratory Index Glucose Lactate Vent Mode Mechanical Rate FiO2 Tidal Volume PEEP Crit Value Called To Crit Value Called By Crit Value Read Back Blood Gas Notified Time Sodium Potassium Chloride Carbon Dioxide Anion Gap BUN Creatinine Est GFR ( Amer) Est GFR (Non-Af Amer) POC Glucose (mg/dL) 197 H Random Glucose Calcium Phosphorus Magnesium Total Bilirubin AST ALT Alkaline Phosphatase Total Creatine Kinase Troponin I NT-Pro-B Natriuret Pep Total Protein Albumin Globulin Albumin/Globulin Ratio Lipase TSH 3rd Generation Arterial Blood Potassium Venous Blood Potassium Urine Color Urine Clarity Urine pH Ur Specific [place] Urine Protein Urine Glucose (UA) Urine Ketones Urine Blood Urine Nitrate Urine Bilirubin Urine Urobilinogen Ur Leukocyte Esterase Urine WBC (Auto) Urine RBC (Auto) Ur Squamous Epith Cells Urine Bacteria Urine Opiates Screen Urine Methadone Screen Ur Barbiturates Screen Ur Phencyclidine Scrn Ur Amphetamines Screen U Benzodiazepines Scrn U Oth Cocaine Metabols U Cannabinoids Screen 11/24/18 11/24/18 11/24/18 21:09 22:17 22:31 WBC RBC Hgb Hct MCV MCH MCHC RDW Plt Count MPV Neut % (Auto) Lymph % (Auto) [place] % (Auto) Eos % (Auto) Baso % (Auto) Neut # (Auto) Lymph # (Auto) [place] # (Auto) Eos # (Auto) Baso # (Auto) Neutrophils % (Manual) Band Neutrophils % Lymphocytes % (Manual) Monocytes % (Manual) Platelet Estimate Anisocytosis (manual) PT INR APTT Puncture Site Rra pCO2 74 H* pO2 167 H HCO3 17.6 L ABG pH 7.08 L* ABG Total CO2 24.2 ABG O2 Saturation 99.8 H ABG Base Excess -9.4 L Albert Test Na ABG Potassium 5.0 VBG pH VBG pCO2 VBG HCO3 VBG Total CO2 VBG O2 Sat (Calc) VBG Base Excess VBG Potassium A-a O2 Difference 454.0 Respiratory Index 2.7 Glucose 237 H Lactate 2.9 H Vent Mode Prvc Mechanical Rate 16 FiO2 100.0 Tidal Volume 600 PEEP 5 Crit Value Called To Lendl Crit Value Called By freddy Walsh md Crit Value Read Back Y Blood Gas Notified Time 2221 Sodium 137 136.0 Potassium 4.5 Chloride 99 103.0 Carbon Dioxide 20 L Anion Gap 23 H BUN 18 Creatinine 1.5 Est GFR ( Amer) 58 Est GFR (Non-Af Amer) 48 POC Glucose (mg/dL) Random Glucose 222 H Calcium 8.1 L Phosphorus Magnesium Total Bilirubin 0.4 AST 72 H ALT 70 Alkaline Phosphatase 81 Total Creatine Kinase Troponin I 0.0670 NT-Pro-B Natriuret Pep 1480 H Total Protein 7.4 Albumin 3.7 Globulin 3.6 Albumin/Globulin Ratio 1.0 Lipase 151 TSH 3rd Generation 7.81 H Arterial Blood Potassium 5.0 Venous Blood Potassium Urine Color Urine Clarity Urine pH Ur Specific [place] Urine Protein Urine Glucose (UA) Urine Ketones Urine Blood Urine Nitrate Urine Bilirubin Urine Urobilinogen Ur Leukocyte Esterase Urine WBC (Auto) Urine RBC (Auto) Ur Squamous Epith Cells Urine Bacteria Urine Opiates Screen Urine Methadone Screen Ur Barbiturates Screen Ur Phencyclidine Scrn Ur Amphetamines Screen U Benzodiazepines Scrn U Oth Cocaine Metabols U Cannabinoids Screen 11/24/18 11/24/18 11/25/18 23:21 23:21 01:19 WBC RBC Hgb Hct MCV MCH MCHC RDW Plt Count MPV Neut % (Auto) Lymph % (Auto) [place] % (Auto) Eos % (Auto) Baso % (Auto) Neut # (Auto) Lymph # (Auto) [place] # (Auto) Eos # (Auto) Baso # (Auto) Neutrophils % (Manual) Band Neutrophils % Lymphocytes % (Manual) Monocytes % (Manual) Platelet Estimate Anisocytosis (manual) PT INR APTT Puncture Site pCO2 pO2 HCO3 ABG pH ABG Total CO2 ABG O2 Saturation ABG Base Excess Albert Test ABG Potassium VBG pH VBG pCO2 VBG HCO3 VBG Total CO2 VBG O2 Sat (Calc) VBG Base Excess VBG Potassium A-a O2 Difference Respiratory Index Glucose Lactate Vent Mode Mechanical Rate FiO2 Tidal Volume PEEP Crit Value Called To Crit Value Called By Crit Value Read Back Blood Gas Notified Time Sodium Potassium Chloride Carbon Dioxide Anion Gap BUN Creatinine Est GFR ( Amer) Est GFR (Non-Af Amer) POC Glucose (mg/dL) 266 H Random Glucose Calcium Phosphorus Magnesium Total Bilirubin AST ALT Alkaline Phosphatase Total Creatine Kinase Troponin I NT-Pro-B Natriuret Pep Total Protein Albumin Globulin Albumin/Globulin Ratio Lipase TSH 3rd Generation Arterial Blood Potassium Venous Blood Potassium Urine Color Yellow Urine Clarity Hazy Urine pH 5.0 Ur Specific [place] 1.021 Urine Protein 2+ H Urine Glucose (UA) 1+ H Urine Ketones Negative Urine Blood Negative Urine Nitrate Negative Urine Bilirubin Negative Urine Urobilinogen Normal Ur Leukocyte Esterase Trace Urine WBC (Auto) 26 H Urine RBC (Auto) 3 Ur Squamous Epith Cells 1 Urine Bacteria Occ H Urine Opiates Screen Negative Urine Methadone Screen Negative Ur Barbiturates Screen Negative Ur Phencyclidine Scrn Negative Ur Amphetamines Screen Negative U Benzodiazepines Scrn Positive U Oth Cocaine Metabols Negative U Cannabinoids Screen Negative 11/25/18 11/25/18 11/25/18 02:34 02:34 02:34 WBC 19.9 H RBC 4.92 Hgb 16.1 Hct 49.5 MCV 100.6 H D MCH 32.8 H MCHC 32.6 L RDW 16.6 H Plt Count 221 MPV 8.7 Neut % (Auto) 89.9 H Lymph % (Auto) 3.0 L [place] % (Auto) 6.9 Eos % (Auto) 0.0 Baso % (Auto) 0.2 Neut # (Auto) 17.9 H Lymph # (Auto) 0.6 L [place] # (Auto) 1.4 H Eos # (Auto) 0.0 Baso # (Auto) 0.0 Neutrophils % (Manual) 87 H Band Neutrophils % 3 H Lymphocytes % (Manual) 4 L Monocytes % (Manual) 6 Platelet Estimate Normal Anisocytosis (manual) PT 11.2 INR 1.0 APTT 25.0 D Puncture Site pCO2 pO2 HCO3 ABG pH ABG Total CO2 ABG O2 Saturation ABG Base Excess Albert Test ABG Potassium VBG pH VBG pCO2 VBG HCO3 VBG Total CO2 VBG O2 Sat (Calc) VBG Base Excess VBG Potassium A-a O2 Difference Respiratory Index Glucose Lactate Vent Mode Mechanical Rate FiO2 Tidal Volume PEEP Crit Value Called To Crit Value Called By Crit Value Read Back Blood Gas Notified Time Sodium 138 Potassium 5.4 H Chloride 100 Carbon Dioxide 26 Anion Gap 18 BUN 23 H Creatinine 1.6 H Est GFR ( Amer) 54 Est GFR (Non-Af Amer) 44 POC Glucose (mg/dL) Random Glucose 265 H Calcium 7.4 L Phosphorus 6.3 H Magnesium 1.7 Total Bilirubin 0.8 AST 114 H D ALT 96 H D Alkaline Phosphatase 99 Total Creatine Kinase 401 H Troponin I NT-Pro-B Natriuret Pep Total Protein 7.8 Albumin 4.0 Globulin 3.8 Albumin/Globulin Ratio 1.1 Lipase TSH 3rd Generation Arterial Blood Potassium Venous Blood Potassium Urine Color Urine Clarity Urine pH Ur Specific [place] Urine Protein Urine Glucose (UA) Urine Ketones Urine Blood Urine Nitrate Urine Bilirubin Urine Urobilinogen Ur Leukocyte Esterase Urine WBC (Auto) Urine RBC (Auto) Ur Squamous Epith Cells Urine Bacteria Urine Opiates Screen Urine Methadone Screen Ur Barbiturates Screen Ur Phencyclidine Scrn Ur Amphetamines Screen U Benzodiazepines Scrn U Oth Cocaine Metabols U Cannabinoids Screen 11/25/18 11/25/18 11/25/18 03:02 03:55 05:00 WBC RBC Hgb Hct MCV MCH MCHC RDW Plt Count MPV Neut % (Auto) Lymph % (Auto) [place] % (Auto) Eos % (Auto) Baso % (Auto) Neut # (Auto) Lymph # (Auto) [place] # (Auto) Eos # (Auto) Baso # (Auto) Neutrophils % (Manual) Band Neutrophils % Lymphocytes % (Manual) Monocytes % (Manual) Platelet Estimate Anisocytosis (manual) PT INR APTT Puncture Site pCO2 pO2 HCO3 ABG pH ABG Total CO2 ABG O2 Saturation ABG Base Excess Albert Test ABG Potassium VBG pH VBG pCO2 VBG HCO3 VBG Total CO2 VBG O2 Sat (Calc) VBG Base Excess VBG Potassium A-a O2 Difference Respiratory Index Glucose Lactate Vent Mode Mechanical Rate FiO2 Tidal Volume PEEP Crit Value Called To Crit Value Called By Crit Value Read Back Blood Gas Notified Time Sodium Potassium Chloride Carbon Dioxide Anion Gap BUN Creatinine Est GFR ( Amer) Est GFR (Non-Af Amer) POC Glucose (mg/dL) 291 H 242 H 201 H Random Glucose Calcium Phosphorus Magnesium Total Bilirubin AST ALT Alkaline Phosphatase Total Creatine Kinase Troponin I NT-Pro-B Natriuret Pep Total Protein Albumin Globulin Albumin/Globulin Ratio Lipase TSH 3rd Generation Arterial Blood Potassium Venous Blood Potassium Urine Color Urine Clarity Urine pH Ur Specific [place] Urine Protein Urine Glucose (UA) Urine Ketones Urine Blood Urine Nitrate Urine Bilirubin Urine Urobilinogen Ur Leukocyte Esterase Urine WBC (Auto) Urine RBC (Auto) Ur Squamous Epith Cells Urine Bacteria Urine Opiates Screen Urine Methadone Screen Ur Barbiturates Screen Ur Phencyclidine Scrn Ur Amphetamines Screen U Benzodiazepines Scrn U Oth Cocaine Metabols U Cannabinoids Screen 11/25/18 11/25/18 11/25/18 05:28 05:55 06:59 WBC RBC Hgb Hct MCV MCH MCHC RDW Plt Count MPV Neut % (Auto) Lymph % (Auto) [place] % (Auto) Eos % (Auto) Baso % (Auto) Neut # (Auto) Lymph # (Auto) [place] # (Auto) Eos # (Auto) Baso # (Auto) Neutrophils % (Manual) Band Neutrophils % Lymphocytes % (Manual) Monocytes % (Manual) Platelet Estimate Anisocytosis (manual) PT INR APTT Puncture Site Rr pCO2 49 H pO2 221 H HCO3 22.8 ABG pH 7.30 L ABG Total CO2 25.6 ABG O2 Saturation 100.4 H ABG Base Excess -2.8 L Albert Test Pos ABG Potassium 4.9 VBG pH VBG pCO2 VBG HCO3 VBG Total CO2 VBG O2 Sat (Calc) VBG Base Excess VBG Potassium A-a O2 Difference 443.0 Respiratory Index 2.1 Glucose 136 H Lactate 2.3 H Vent Mode Prvc Mechanical Rate 20 FiO2 100.0 Tidal Volume 600 PEEP 5 Crit Value Called To Crit Value Called By Crit Value Read Back Blood Gas Notified Time Sodium 133.0 Potassium Chloride 103.0 Carbon Dioxide Anion Gap BUN Creatinine Est GFR ( Amer) Est GFR (Non-Af Amer) POC Glucose (mg/dL) 179 H 155 H Random Glucose Calcium Phosphorus Magnesium Total Bilirubin AST ALT Alkaline Phosphatase Total Creatine Kinase Troponin I NT-Pro-B Natriuret Pep Total Protein Albumin Globulin Albumin/Globulin Ratio Lipase TSH 3rd Generation Arterial Blood Potassium 4.9 Venous Blood Potassium Urine Color Urine Clarity Urine pH Ur Specific [place] Urine Protein Urine Glucose (UA) Urine Ketones Urine Blood Urine Nitrate Urine Bilirubin Urine Urobilinogen Ur Leukocyte Esterase Urine WBC (Auto) Urine RBC (Auto) Ur Squamous Epith Cells Urine Bacteria Urine Opiates Screen Urine Methadone Screen Ur Barbiturates Screen Ur Phencyclidine Scrn Ur Amphetamines Screen U Benzodiazepines Scrn U Oth Cocaine Metabols U Cannabinoids Screen 11/25/18 11/25/18 11/25/18 07:15 08:06 08:59 WBC RBC Hgb Hct MCV MCH MCHC RDW Plt Count MPV Neut % (Auto) Lymph % (Auto) [place] % (Auto) Eos % (Auto) Baso % (Auto) Neut # (Auto) Lymph # (Auto) [place] # (Auto) Eos # (Auto) Baso # (Auto) Neutrophils % (Manual) Band Neutrophils % Lymphocytes % (Manual) Monocytes % (Manual) Platelet Estimate Anisocytosis (manual) PT INR APTT Puncture Site pCO2 pO2 HCO3 ABG pH ABG Total CO2 ABG O2 Saturation ABG Base Excess Albert Test ABG Potassium VBG pH VBG pCO2 VBG HCO3 VBG Total CO2 VBG O2 Sat (Calc) VBG Base Excess VBG Potassium A-a O2 Difference Respiratory Index Glucose Lactate Vent Mode Mechanical Rate FiO2 Tidal Volume PEEP Crit Value Called To Crit Value Called By Crit Value Read Back Blood Gas Notified Time Sodium Potassium Chloride Carbon Dioxide Anion Gap BUN Creatinine Est GFR ( Amer) Est GFR (Non-Af Amer) POC Glucose (mg/dL) 180 H 157 H 154 H Random Glucose Calcium Phosphorus Magnesium Total Bilirubin AST ALT Alkaline Phosphatase Total Creatine Kinase Troponin I NT-Pro-B Natriuret Pep Total Protein Albumin Globulin Albumin/Globulin Ratio Lipase TSH 3rd Generation Arterial Blood Potassium Venous Blood Potassium Urine Color Urine Clarity Urine pH Ur Specific [place] Urine Protein Urine Glucose (UA) Urine Ketones Urine Blood Urine Nitrate Urine Bilirubin Urine Urobilinogen Ur Leukocyte Esterase Urine WBC (Auto) Urine RBC (Auto) Ur Squamous Epith Cells Urine Bacteria Urine Opiates Screen Urine Methadone Screen Ur Barbiturates Screen Ur Phencyclidine Scrn Ur Amphetamines Screen U Benzodiazepines Scrn U Oth Cocaine Metabols U Cannabinoids Screen 11/25/18 11/25/18 11/25/18 09:02 09:02 09:02 WBC 17.6 H RBC 5.13 Hgb 16.2 Hct 50.9 MCV 99.2 H MCH 31.5 H MCHC 31.8 L RDW 16.6 H Plt Count 172 MPV 8.9 Neut % (Auto) 87.9 H Lymph % (Auto) 4.8 L [place] % (Auto) 7.1 Eos % (Auto) 0.1 Baso % (Auto) 0.1 Neut # (Auto) 15.5 H Lymph # (Auto) 0.8 L [place] # (Auto) 1.2 H Eos # (Auto) 0.0 Baso # (Auto) 0.0 Neutrophils % (Manual) 81 H Band Neutrophils % 6 H Lymphocytes % (Manual) 5 L Monocytes % (Manual) 8 Platelet Estimate Normal Anisocytosis (manual) Slight PT 11.8 INR 1.1 APTT 32.0 D Puncture Site pCO2 pO2 HCO3 ABG pH ABG Total CO2 ABG O2 Saturation ABG Base Excess Albert Test ABG Potassium VBG pH VBG pCO2 VBG HCO3 VBG Total CO2 VBG O2 Sat (Calc) VBG Base Excess VBG Potassium A-a O2 Difference Respiratory Index Glucose Lactate Vent Mode Mechanical Rate FiO2 Tidal Volume PEEP Crit Value Called To Crit Value Called By Crit Value Read Back Blood Gas Notified Time Sodium 138 Potassium 4.8 Chloride 101 Carbon Dioxide 26 Anion Gap 16 BUN 23 H Creatinine 1.4 Est GFR ( Amer) > 60 Est GFR (Non-Af Amer) 52 POC Glucose (mg/dL) Random Glucose 120 H D Calcium 8.1 L Phosphorus 5.5 H Magnesium 1.8 Total Bilirubin AST ALT Alkaline Phosphatase Total Creatine Kinase Troponin I NT-Pro-B Natriuret Pep Total Protein Albumin Globulin Albumin/Globulin Ratio Lipase TSH 3rd Generation Arterial Blood Potassium Venous Blood Potassium Urine Color Urine Clarity Urine pH Ur Specific [place] Urine Protein Urine Glucose (UA) Urine Ketones Urine Blood Urine Nitrate Urine Bilirubin Urine Urobilinogen Ur Leukocyte Esterase Urine WBC (Auto) Urine RBC (Auto) Ur Squamous Epith Cells Urine Bacteria Urine Opiates Screen Urine Methadone Screen Ur Barbiturates Screen Ur Phencyclidine Scrn Ur Amphetamines Screen U Benzodiazepines Scrn U Oth Cocaine Metabols U Cannabinoids Screen 11/25/18 09:03 WBC RBC Hgb Hct MCV MCH MCHC RDW Plt Count MPV Neut % (Auto) Lymph % (Auto) [place] % (Auto) Eos % (Auto) Baso % (Auto) Neut # (Auto) Lymph # (Auto) [place] # (Auto) Eos # (Auto) Baso # (Auto) Neutrophils % (Manual) Band Neutrophils % Lymphocytes % (Manual) Monocytes % (Manual) Platelet Estimate Anisocytosis (manual) PT INR APTT Puncture Site pCO2 pO2 24 L HCO3 ABG pH ABG Total CO2 ABG O2 Saturation ABG Base Excess Albert Test ABG Potassium VBG pH 7.18 L* VBG pCO2 74 H* VBG HCO3 21.0 VBG Total CO2 29.9 H VBG O2 Sat (Calc) 47.2 VBG Base Excess -2.6 L VBG Potassium 4.0 A-a O2 Difference Respiratory Index Glucose 118 H Lactate 3.2 H Vent Mode Mechanical Rate FiO2 60.0 Tidal Volume PEEP 5 Crit Value Called To Dr ferguson Crit Value 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 Crit Value Read Back Y Blood Gas Notified Time 910 Sodium 136.0 Potassium Chloride 100.0 Carbon Dioxide Anion Gap BUN Creatinine Est GFR ( Amer) Est GFR (Non-Af Amer) POC Glucose (mg/dL) Random Glucose Calcium Phosphorus Magnesium Total Bilirubin AST ALT Alkaline Phosphatase Total Creatine Kinase Troponin I NT-Pro-B Natriuret Pep Total Protein Albumin Globulin Albumin/Globulin Ratio Lipase TSH 3rd Generation Arterial Blood Potassium Venous Blood Potassium 4.0 Urine Color Urine Clarity Urine pH Ur Specific [place] Urine Protein Urine Glucose (UA) Urine Ketones Urine Blood Urine Nitrate Urine Bilirubin Urine Urobilinogen Ur Leukocyte Esterase Urine WBC (Auto) Urine RBC (Auto) Ur Squamous Epith Cells Urine Bacteria Urine Opiates Screen Urine Methadone Screen Ur Barbiturates Screen Ur Phencyclidine Scrn Ur Amphetamines Screen U Benzodiazepines Scrn U Oth Cocaine Metabols U Cannabinoids Screen Radiology Impressions: Radiology Impressions Head CT 11/24/18 21:43 IMPRESSION: Moderate chronic white matter ischemic change. Fluid dependently in both maxillary antra. Possible acute sinusitis. No intracranial mass, hemorrhage or evidence of acute infarct. Chest X-Ray 11/25/18 07:00 IMPRESSION: Increasing left perihilar opacity. Concerning for pneumonia. EKG/Cardiology Studies: Cardiology / EKG Studies 11/24/18 21:04 ELECTROCARDIOGRAM Stat Comment: Mode Of Transportation: BED Reason For Exam: chest pain Fingerstick Blood Sugar Results: 154 Review of Systems - Review of Systems Systems not reviewed;Unavailable: Intubated Assessment/Plan - Assessment and Plan (Free Text) Assessment: 58 year old obese male with pmhx of COPD, CHF, AICD placement brought in by ALS s/p witnessed cardiac arrest. PEA then asystole. Code approximately 22 minutes per ALS, epi x4 for PEA, defibrillation x 1 for pulseless vtach with ROSC. P atient's own defibrillator fired 2x afterwards. Plan: Neuro -convulsive activity noted per nurse -sedated, propofol gtt -Neurology (Dr. Alcantara) on board -Keppra 500 mg IVPB q12 Pulm -vent settings: R 20, VT 600mL, FiO2 60%, PEEP 5 -CXR (11/25): increasing L perihilar opacity concerning for PNA -empiric coverage with zosyn CV -T 92.8, therapeutic hypothermia -VBG pH 7.18, pC02 74, HCO3 21, lactate 3.2 -EKG: atrial sensed ventricular paced rhythm -troponin wnl Heme -WBC 17.6 (11/25) with bandemia GI -pepcid 20 mg IVP q12 Endo -no acute issues ID -zosyn 3.375 q6h for empiric coverage -f/u cultures PPx, Diet, Disposition -DVT: heparin gtt -GI: pepcid 20 mg IVP q12 -Diet: NPO Case discussed with Dr. Ivan Mary DO, PGY-1 <Wilfredo Ferguson S - Last Filed: 11/25/18 18:39> CCU Subjective - Physician Review Critical Care Time Spent (in minutes): 45 CCU Objective - Vital Signs / Intake & Output Vital Signs (Last 4 hours): Vital Signs Temp Pulse Resp BP Pulse Ox 11/25/18 18:00 90.7 F L 64 24 126/87 11/25/18 17:50 90.7 F L 60 14 11/25/18 17:40 90.9 F L 60 24 11/25/18 17:30 92.3 F L 60 24 92 L 11/25/18 17:20 92.3 F L 69 24 94 L 11/25/18 17:10 92.3 F L 73 14 122/81 90 L 11/25/18 17:00 92.1 F L 65 24 122/81 93 L 11/25/18 16:50 92.1 F L 74 25 H 94 L 11/25/18 16:40 91.9 F L 68 18 97 11/25/18 16:30 91.8 F L 64 14 99 11/25/18 16:20 91.6 F L 60 17 97 11/25/18 16:10 91.4 F L 60 15 99 11/25/18 16:07 91.4 F L 60 17 118/101 H 96 11/25/18 16:00 91.4 F L 60 17 118/101 H 96 11/25/18 15:50 91.4 F L 60 16 98 11/25/18 15:40 91.4 F L 62 19 99 11/25/18 15:30 91.2 F L 60 16 99 11/25/18 15:20 91.2 F L 60 16 98 11/25/18 15:10 91.2 F L 60 16 99 11/25/18 15:07 91.2 F L 60 17 56/35 L 98 11/25/18 15:00 91.2 F L 64 16 11/25/18 14:50 91.2 F L 74 21 11/25/18 14:40 91.2 F L 64 16 100 Intake and Output (Last 8hrs): Intake & Output 11/25/18 11/25/18 11/25/18 06:59 14:59 22:59 Intake Total 394.9 569.9 528.7 Output Total 1570 191 610 Balance -1175.1 -1340.1 -81.3 Weight 272 lb 0.807 oz Intake: IV 131.6 200 180 Intake, IV Amount 263.3 369.9 348.7 Right AC 133.2 59.6 44.7 Right Distal Port Femoral 0 50 200 Right Medial Port Femoral 28 56 Right Proximal Port 102.1 204.3 104 Femoral Output: Urine 1570 191 610 Urethral (Grove) 1570 1910 610 Other: # Bowel Movements 0 0 - Medications Active Medications: Active Medications Generic Name Dose Route Start Last Admin Trade Name Freq PRN Reason Stop Dose Admin Acetaminophen 975 mg 11/24/18 22:44 11/25/18 18:24 Tylenol 650mg/20.3ml Solution Ud NG 975 mg Q6 PRN Administration Rigors Aspirin 325 mg 11/25/18 10:00 11/25/18 10:07 Aspirin PO 325 mg DAILY MILEY Administration Famotidine 20 mg 11/24/18 23:00 11/25/18 10:07 Pepcid IVP 20 mg Q12 MILEY Administration Furosemide 40 mg 11/25/18 01:30 11/25/18 10:07 Lasix IV 40 mg Q12 MIELY Administration Piperacillin Sod/Tazobactam 100 mls @ 200 mls/hr 11/24/18 22:45 11/25/18 16: 21 Sod 3.375 gm/ Sodium Chloride IVPB 200 mls/hr Q6H MILEY Administration Protocol Heparin Sodium/Sodium Chloride 25,000 units in 250 mls @ 14.808 mls/hr 09:49 11/25/18 18:00 Heparin 41547 Units/250ml 1/2 Normal Saline IV 0 units/kg/hr .[id number] PRN 0 mls/hr PROTOCOL Titration Protocol 12 UNITS/KG/HR Levetiracetam 500 mg/ Sodium 105 mls @ 420 mls/hr 11/25/18 10:00 11/25/18 10:48 Chloride IVPB 420 mls/hr Q12H MILEY Administration Propofol 1,000 mg in 100 mls @ 3.702 mls/hr 11/25/18 12:27 11/25/18 17:57 Diprivan IV 35 mcg/kg/min .Q24H PRN 25.914 mls/hr TITRATE PER MD ORDER Administration Protocol 5 MCG/KG/MIN - Patient Studies Lab Studies: Lab Studies 11/25/18 11/25/18 11/25/18 Range/Units 17:23 14:50 14:50 WBC 16.0 H (4.8-10.8) K/uL RBC 5.14 (4.40-5.90) Mil/uL Hgb 16.9 (12.0-18.0) g/dL Hct 51.0 (35.0-51.0) % MCV 99.2 H (80.0-94.0) fL MCH 32.9 H (27.0-31.0) pg MCHC 33.2 (33.0-37.0) g/dL RDW 16.0 H (11.5-14.5) % Plt Count 165 (130-400) K/uL MPV 8.9 (7.2-11.7) fL Neut % (Auto) 88.2 H (50.0-75.0) % Lymph % (Auto) 5.5 L (20.0-40.0) % [place] % (Auto) 5.8 (0.0-10.0) % Eos % (Auto) 0.2 (0.0-4.0) % Baso % (Auto) 0.3 (0.0-2.0) % Neut # (Auto) 14.1 H (1.8-7.0) K/uL Lymph # (Auto) 0.9 L (1.0-4.3) K/uL [place] # (Auto) 0.9 H (0.0-0.8) K/uL Eos # (Auto) 0.0 (0.0-0.7) K/uL Baso # (Auto) 0.0 (0.0-0.2) K/uL Neutrophils % (Manual) 84 H (50-75) % Band Neutrophils % (0-2) % Lymphocytes % (Manual) 10 L (20-40) % Monocytes % (Manual) 6 (0-10) % Platelet Estimate Normal (NORMAL) RBC Morphology Normal Anisocytosis (manual) PT (9.7-12.2) SECONDS INR APTT 137.0 H* D (21-34) SECONDS Puncture Site pCO2 (35-45) mm/Hg pO2 (80-100) mm/Hg HCO3 (21-28) mmol/L ABG pH (7.35-7.45) ABG Total CO2 (22-28) mmol/L ABG O2 Saturation (95-98) % ABG Base Excess (-2.0-3.0) mmol/L Albert Test ABG Potassium (3.6-5.2) mmol/L VBG pH (7.32-7.43) VBG pCO2 (40-60) mmHg VBG HCO3 mmol/L VBG Total CO2 (22-28) mmol/L VBG O2 Sat (Calc) (40-65) % VBG Base Excess (0.0-2.0) mmol/L VBG Potassium (3.6-5.2) mmol/L A-a O2 Difference mm/Hg Respiratory Index Glucose (75-110) mg/dl Lactate (0.7-2.1) mmol/L Vent Mode Mechanical Rate FiO2 % Tidal Volume PEEP Crit Value Called To Crit Value Called By Crit Value Read Back Blood Gas Notified Time Sodium 140 (132-148) mmol/L Potassium 4.2 (3.6-5.2) mmol/L Chloride 98 (98-107) mmol/L Carbon Dioxide 30 (22-30) mmol/L Anion Gap 16 (10-20) BUN 21 H (9-20) mg/dL Creatinine 1.3 (0.8-1.5) mg/dL Est GFR ( Amer) > 60 Est GFR (Non-Af Amer) 56 POC Glucose (mg/dL) (65-110) mg/dL Random Glucose 132 H (75-110) mg/dL Calcium 8.4 L (8.6-10.4) mg/dl Phosphorus 5.0 H (2.5-4.5) mg/dL Magnesium 1.9 (1.6-2.3) mg/dL Total Bilirubin (0.2-1.3) mg/dL AST (17-59) U/L ALT (21-72) U/L Alkaline Phosphatase (38-126) U/L Total Creatine Kinase (55-170) U/L Troponin I (0.00-0.120) ng/mL NT-Pro-B Natriuret Pep (0-900) pg/mL Total Protein (6.3-8.3) g/dL Albumin (3.5-5.0) g/dL Globulin (2.2-3.9) gm/dL Albumin/Globulin Ratio (1.0-2.1) Lipase (23-300) U/L TSH 3rd Generation (0.46-4.68) mIU/L Arterial Blood Potassium (3.6-5.2) mmol/L Venous Blood Potassium (3.6-5.2) mmol/L Urine Color (YELLOW) Urine Clarity (Clear) Urine pH (5.0-8.0) Ur Specific [place] (1.003-1.030) Urine Protein (NEGATIVE) mg/dL Urine Glucose (UA) (Normal) mg/dL Urine Ketones (NEGATIVE) mg/dL Urine Blood (NEGATIVE) Urine Nitrate (NEGATIVE) Urine Bilirubin (NEGATIVE) Urine Urobilinogen (0.2-1.0) mg/dL Ur Leukocyte Esterase (Negative) [place]icit[place]/uL Urine WBC (Auto) (0-5) /hpf Urine RBC (Auto) (0-3) /hpf Ur Squamous Epith Cells (0-5) /hpf Urine Bacteria (<OCC) Urine Opiates Screen (NEGATIVE) Urine Methadone Screen (NEGATIVE) Ur Barbiturates Screen (NEGATIVE) Ur Phencyclidine Scrn (NEGATIVE) Ur Amphetamines Screen (NEGATIVE) U Benzodiazepines Scrn (NEGATIVE) U Oth Cocaine Metabols (NEGATIVE) U Cannabinoids Screen (NEGATIVE) 11/25/18 11/25/18 11/25/18 Range/Units 09:03 09:02 09:02 WBC (4.8-10.8) K/uL RBC (4.40-5.90) Mil/uL Hgb (12.0-18.0) g/dL Hct (35.0-51.0) % MCV (80.0-94.0) fL MCH (27.0-31.0) pg MCHC (33.0-37.0) g/dL RDW (11.5-14.5) % Plt Count (130-400) K/uL MPV (7.2-11.7) fL Neut % (Auto) (50.0-75.0) % Lymph % (Auto) (20.0-40.0) % [place] % (Auto) (0.0-10.0) % Eos % (Auto) (0.0-4.0) % Baso % (Auto) (0.0-2.0) % Neut # (Auto) (1.8-7.0) K/uL Lymph # (Auto) (1.0-4.3) K/uL [place] # (Auto) (0.0-0.8) K/uL Eos # (Auto) (0.0-0.7) K/uL Baso # (Auto) (0.0-0.2) K/uL Neutrophils % (Manual) (50-75) % Band Neutrophils % (0-2) % Lymphocytes % (Manual) (20-40) % Monocytes % (Manual) (0-10) % Platelet Estimate (NORMAL) RBC Morphology Anisocytosis (manual) PT 11.8 (9.7-12.2) SECONDS INR 1.1 APTT 32.0 D (21-34) SECONDS Puncture Site pCO2 (35-45) mm/Hg pO2 24 L (80-100) mm/Hg HCO3 (21-28) mmol/L ABG pH (7.35-7.45) ABG Total CO2 (22-28) mmol/L ABG O2 Saturation (95-98) % ABG Base Excess (-2.0-3.0) mmol/L Albert Test ABG Potassium (3.6-5.2) mmol/L VBG pH 7.18 L* (7.32-7.43) VBG pCO2 74 H* (40-60) mmHg VBG HCO3 21.0 mmol/L VBG Total CO2 29.9 H (22-28) mmol/L VBG O2 Sat (Calc) 47.2 (40-65) % VBG Base Excess -2.6 L (0.0-2.0) mmol/L VBG Potassium 4.0 (3.6-5.2) mmol/L A-a O2 Difference mm/Hg Respiratory Index Glucose 118 H (75-110) mg/dl Lactate 3.2 H (0.7-2.1) mmol/L Vent Mode Mechanical Rate FiO2 60.0 % Tidal Volume PEEP 5 Crit Value Called To Dr ferguson Crit Value 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 Crit Value Read Back Y Blood Gas Notified Time 910 Sodium 136.0 138 (132-148) mmol/L Potassium 4.8 (3.6-5.2) mmol/L Chloride 100.0 101 (98-107) mmol/L Carbon Dioxide 26 (22-30) mmol/L Anion Gap 16 (10-20) BUN 23 H (9-20) mg/dL Creatinine 1.4 (0.8-1.5) mg/dL Est GFR ( Amer) > 60 Est GFR (Non-Af Amer) 52 POC Glucose (mg/dL) (65-110) mg/dL Random Glucose 120 H D (75-110) mg/dL Calcium 8.1 L (8.6-10.4) mg/dl Phosphorus 5.5 H (2.5-4.5) mg/dL Magnesium 1.8 (1.6-2.3) mg/dL Total Bilirubin (0.2-1.3) mg/dL AST (17-59) U/L ALT (21-72) U/L Alkaline Phosphatase (38-126) U/L Total Creatine Kinase (55-170) U/L Troponin I (0.00-0.120) ng/mL NT-Pro-B Natriuret Pep (0-900) pg/mL Total Protein (6.3-8.3) g/dL Albumin (3.5-5.0) g/dL Globulin (2.2-3.9) gm/dL Albumin/Globulin Ratio (1.0-2.1) Lipase (23-300) U/L TSH 3rd Generation (0.46-4.68) mIU/L Arterial Blood Potassium (3.6-5.2) mmol/L Venous Blood Potassium 4.0 (3.6-5.2) mmol/L Urine Color (YELLOW) Urine Clarity (Clear) Urine pH (5.0-8.0) Ur Specific [place] (1.003-1.030) Urine Protein (NEGATIVE) mg/dL Urine Glucose (UA) (Normal) mg/dL Urine Ketones (NEGATIVE) mg/dL Urine Blood (NEGATIVE) Urine Nitrate (NEGATIVE) Urine Bilirubin (NEGATIVE) Urine Urobilinogen (0.2-1.0) mg/dL Ur Leukocyte Esterase (Negative) Felicit[place]/uL Urine WBC (Auto) (0-5) /hpf Urine RBC (Auto) (0-3) /hpf Ur Squamous Epith Cells (0-5) /hpf Urine Bacteria (<OCC) Urine Opiates Screen (NEGATIVE) Urine Methadone Screen (NEGATIVE) Ur Barbiturates Screen (NEGATIVE) Ur Phencyclidine Scrn (NEGATIVE) Ur Amphetamines Screen (NEGATIVE) U Benzodiazepines Scrn (NEGATIVE) U Oth Cocaine Metabols (NEGATIVE) U Cannabinoids Screen (NEGATIVE) 11/25/18 11/25/18 11/25/18 Range/Units 09:02 08:59 08:06 WBC 17.6 H (4.8-10.8) K/uL RBC 5.13 (4.40-5.90) Mil/uL Hgb 16.2 (12.0-18.0) g/dL Hct 50.9 (35.0-51.0) % MCV 99.2 H (80.0-94.0) fL MCH 31.5 H (27.0-31.0) pg MCHC 31.8 L (33.0-37.0) g/dL RDW 16.6 H (11.5-14.5) % Plt Count 172 (130-400) K/uL MPV 8.9 (7.2-11.7) fL Neut % (Auto) 87.9 H (50.0-75.0) % Lymph % (Auto) 4.8 L (20.0-40.0) % [place] % (Auto) 7.1 (0.0-10.0) % Eos % (Auto) 0.1 (0.0-4.0) % Baso % (Auto) 0.1 (0.0-2.0) % Neut # (Auto) 15.5 H (1.8-7.0) K/uL Lymph # (Auto) 0.8 L (1.0-4.3) K/uL [place] # (Auto) 1.2 H (0.0-0.8) K/uL Eos # (Auto) 0.0 (0.0-0.7) K/uL Baso # (Auto) 0.0 (0.0-0.2) K/uL Neutrophils % (Manual) 81 H (50-75) % Band Neutrophils % 6 H (0-2) % Lymphocytes % (Manual) 5 L (20-40) % Monocytes % (Manual) 8 (0-10) % Platelet Estimate Normal (NORMAL) RBC Morphology Anisocytosis (manual) Slight PT (9.7-12.2) SECONDS INR APTT (21-34) SECONDS Puncture Site pCO2 (35-45) mm/Hg pO2 (80-100) mm/Hg HCO3 (21-28) mmol/L ABG pH (7.35-7.45) ABG Total CO2 (22-28) mmol/L ABG O2 Saturation (95-98) % ABG Base Excess (-2.0-3.0) mmol/L Albert Test ABG Potassium (3.6-5.2) mmol/L VBG pH (7.32-7.43) VBG pCO2 (40-60) mmHg VBG HCO3 mmol/L VBG Total CO2 (22-28) mmol/L VBG O2 Sat (Calc) (40-65) % VBG Base Excess (0.0-2.0) mmol/L VBG Potassium (3.6-5.2) mmol/L A-a O2 Difference mm/Hg Respiratory Index Glucose (75-110) mg/dl Lactate (0.7-2.1) mmol/L Vent Mode Mechanical Rate FiO2 % Tidal Volume PEEP Crit Value Called To Crit Value Called By Crit Value Read Back Blood Gas Notified Time Sodium (132-148) mmol/L Potassium (3.6-5.2) mmol/L Chloride (98-107) mmol/L Carbon Dioxide (22-30) mmol/L Anion Gap (10-20) BUN (9-20) mg/dL Creatinine (0.8-1.5) mg/dL Est GFR ( Amer) Est GFR (Non-Af Amer) POC Glucose (mg/dL) 154 H 157 H (65-110) mg/dL Random Glucose (75-110) mg/dL Calcium (8.6-10.4) mg/dl Phosphorus (2.5-4.5) mg/dL Magnesium (1.6-2.3) mg/dL Total Bilirubin (0.2-1.3) mg/dL AST (17-59) U/L ALT (21-72) U/L Alkaline Phosphatase (38-126) U/L Total Creatine Kinase (55-170) U/L Troponin I (0.00-0.120) ng/mL NT-Pro-B Natriuret Pep (0-900) pg/mL Total Protein (6.3-8.3) g/dL Albumin (3.5-5.0) g/dL Globulin (2.2-3.9) gm/dL Albumin/Globulin Ratio (1.0-2.1) Lipase (23-300) U/L TSH 3rd Generation (0.46-4.68) mIU/L Arterial Blood Potassium (3.6-5.2) mmol/L Venous Blood Potassium (3.6-5.2) mmol/L Urine Color (YELLOW) Urine Clarity (Clear) Urine pH (5.0-8.0) Ur Specific [place] (1.003-1.030) Urine Protein (NEGATIVE) mg/dL Urine Glucose (UA) (Normal) mg/dL Urine Ketones (NEGATIVE) mg/dL Urine Blood (NEGATIVE) Urine Nitrate (NEGATIVE) Urine Bilirubin (NEGATIVE) Urine Urobilinogen (0.2-1.0) mg/dL Ur Leukocyte Esterase (Negative) Felicit[place]/uL Urine WBC (Auto) (0-5) /hpf Urine RBC (Auto) (0-3) /hpf Ur Squamous Epith Cells (0-5) /hpf Urine Bacteria (<OCC) Urine Opiates Screen (NEGATIVE) Urine Methadone Screen (NEGATIVE) Ur Barbiturates Screen (NEGATIVE) Ur Phencyclidine Scrn (NEGATIVE) Ur Amphetamines Screen (NEGATIVE) U Benzodiazepines Scrn (NEGATIVE) U Oth Cocaine Metabols (NEGATIVE) U Cannabinoids Screen (NEGATIVE) 11/25/18 11/25/18 11/25/18 Range/Units 07:15 06:59 05:55 WBC (4.8-10.8) K/uL RBC (4.40-5.90) Mil/uL Hgb (12.0-18.0) g/dL Hct (35.0-51.0) % MCV (80.0-94.0) fL MCH (27.0-31.0) pg MCHC (33.0-37.0) g/dL RDW (11.5-14.5) % Plt Count (130-400) K/uL MPV (7.2-11.7) fL Neut % (Auto) (50.0-75.0) % Lymph % (Auto) (20.0-40.0) % [place] % (Auto) (0.0-10.0) % Eos % (Auto) (0.0-4.0) % Baso % (Auto) (0.0-2.0) % Neut # (Auto) (1.8-7.0) K/uL Lymph # (Auto) (1.0-4.3) K/uL [place] # (Auto) (0.0-0.8) K/uL Eos # (Auto) (0.0-0.7) K/uL Baso # (Auto) (0.0-0.2) K/uL Neutrophils % (Manual) (50-75) % Band Neutrophils % (0-2) % Lymphocytes % (Manual) (20-40) % Monocytes % (Manual) (0-10) % Platelet Estimate (NORMAL) RBC Morphology Anisocytosis (manual) PT (9.7-12.2) SECONDS INR APTT (21-34) SECONDS Puncture Site pCO2 (35-45) mm/Hg pO2 (80-100) mm/Hg HCO3 (21-28) mmol/L ABG pH (7.35-7.45) ABG Total CO2 (22-28) mmol/L ABG O2 Saturation (95-98) % ABG Base Excess (-2.0-3.0) mmol/L Albert Test ABG Potassium (3.6-5.2) mmol/L VBG pH (7.32-7.43) VBG pCO2 (40-60) mmHg VBG HCO3 mmol/L VBG Total CO2 (22-28) mmol/L VBG O2 Sat (Calc) (40-65) % VBG Base Excess (0.0-2.0) mmol/L VBG Potassium (3.6-5.2) mmol/L A-a O2 Difference mm/Hg Respiratory Index Glucose (75-110) mg/dl Lactate (0.7-2.1) mmol/L Vent Mode Mechanical Rate FiO2 % Tidal Volume PEEP Crit Value Called To Crit Value Called By Crit Value Read Back Blood Gas Notified Time Sodium (132-148) mmol/L Potassium (3.6-5.2) mmol/L Chloride (98-107) mmol/L Carbon Dioxide (22-30) mmol/L Anion Gap (10-20) BUN (9-20) mg/dL Creatinine (0.8-1.5) mg/dL Est GFR ( Amer) Est GFR (Non-Af Amer) POC Glucose (mg/dL) 180 H 155 H 179 H (65-110) mg/dL Random Glucose (75-110) mg/dL Calcium (8.6-10.4) mg/dl Phosphorus (2.5-4.5) mg/dL Magnesium (1.6-2.3) mg/dL Total Bilirubin (0.2-1.3) mg/dL AST (17-59) U/L ALT (21-72) U/L Alkaline Phosphatase (38-126) U/L Total Creatine Kinase (55-170) U/L Troponin I (0.00-0.120) ng/mL NT-Pro-B Natriuret Pep (0-900) pg/mL Total Protein (6.3-8.3) g/dL Albumin (3.5-5.0) g/dL Globulin (2.2-3.9) gm/dL Albumin/Globulin Ratio (1.0-2.1) Lipase (23-300) U/L TSH 3rd Generation (0.46-4.68) mIU/L Arterial Blood Potassium (3.6-5.2) mmol/L Venous Blood Potassium (3.6-5.2) mmol/L Urine Color (YELLOW) Urine Clarity (Clear) Urine pH (5.0-8.0) Ur Specific [place] (1.003-1.030) Urine Protein (NEGATIVE) mg/dL Urine Glucose (UA) (Normal) mg/dL Urine Ketones (NEGATIVE) mg/dL Urine Blood (NEGATIVE) Urine Nitrate (NEGATIVE) Urine Bilirubin (NEGATIVE) Urine Urobilinogen (0.2-1.0) mg/dL Ur Leukocyte Esterase (Negative) Felicit[place]/uL Urine WBC (Auto) (0-5) /hpf Urine RBC (Auto) (0-3) /hpf Ur Squamous Epith Cells (0-5) /hpf Urine Bacteria (<OCC) Urine Opiates Screen (NEGATIVE) Urine Methadone Screen (NEGATIVE) Ur Barbiturates Screen (NEGATIVE) Ur Phencyclidine Scrn (NEGATIVE) Ur Amphetamines Screen (NEGATIVE) U Benzodiazepines Scrn (NEGATIVE) U Oth Cocaine Metabols (NEGATIVE) U Cannabinoids Screen (NEGATIVE) 11/25/18 11/25/18 11/25/18 Range/Units 05:28 05:00 03:55 WBC (4.8-10.8) K/uL RBC (4.40-5.90) Mil/uL Hgb (12.0-18.0) g/dL Hct (35.0-51.0) % MCV (80.0-94.0) fL MCH (27.0-31.0) pg MCHC (33.0-37.0) g/dL RDW (11.5-14.5) % Plt Count (130-400) K/uL MPV (7.2-11.7) fL Neut % (Auto) (50.0-75.0) % Lymph % (Auto) (20.0-40.0) % [place] % (Auto) (0.0-10.0) % Eos % (Auto) (0.0-4.0) % Baso % (Auto) (0.0-2.0) % Neut # (Auto) (1.8-7.0) K/uL Lymph # (Auto) (1.0-4.3) K/uL [place] # (Auto) (0.0-0.8) K/uL Eos # (Auto) (0.0-0.7) K/uL Baso # (Auto) (0.0-0.2) K/uL Neutrophils % (Manual) (50-75) % Band Neutrophils % (0-2) % Lymphocytes % (Manual) (20-40) % Monocytes % (Manual) (0-10) % Platelet Estimate (NORMAL) RBC Morphology Anisocytosis (manual) PT (9.7-12.2) SECONDS INR APTT (21-34) SECONDS Puncture Site Rr pCO2 49 H (35-45) mm/Hg pO2 221 H (80-100) mm/Hg HCO3 22.8 (21-28) mmol/L ABG pH 7.30 L (7.35-7.45) ABG Total CO2 25.6 (22-28) mmol/L ABG O2 Saturation 100.4 H (95-98) % ABG Base Excess -2.8 L (-2.0-3.0) mmol/L Albert Test Pos ABG Potassium 4.9 (3.6-5.2) mmol/L VBG pH (7.32-7.43) VBG pCO2 (40-60) mmHg VBG HCO3 mmol/L VBG Total CO2 (22-28) mmol/L VBG O2 Sat (Calc) (40-65) % VBG Base Excess (0.0-2.0) mmol/L VBG Potassium (3.6-5.2) mmol/L A-a O2 Difference 443.0 mm/Hg Respiratory Index 2.1 Glucose 136 H (75-110) mg/dl Lactate 2.3 H (0.7-2.1) mmol/L Vent Mode Prvc Mechanical Rate 20 FiO2 100.0 % Tidal Volume 600 PEEP 5 Crit Value Called To Crit Value Called By Crit Value Read Back Blood Gas Notified Time Sodium 133.0 (132-148) mmol/L Potassium (3.6-5.2) mmol/L Chloride 103.0 (98-107) mmol/L Carbon Dioxide (22-30) mmol/L Anion Gap (10-20) BUN (9-20) mg/dL Creatinine (0.8-1.5) mg/dL Est GFR ( Amer) Est GFR (Non-Af Amer) POC Glucose (mg/dL) 201 H 242 H (65-110) mg/dL Random Glucose (75-110) mg/dL Calcium (8.6-10.4) mg/dl Phosphorus (2.5-4.5) mg/dL Magnesium (1.6-2.3) mg/dL Total Bilirubin (0.2-1.3) mg/dL AST (17-59) U/L ALT (21-72) U/L Alkaline Phosphatase (38-126) U/L Total Creatine Kinase (55-170) U/L Troponin I (0.00-0.120) ng/mL NT-Pro-B Natriuret Pep (0-900) pg/mL Total Protein (6.3-8.3) g/dL Albumin (3.5-5.0) g/dL Globulin (2.2-3.9) gm/dL Albumin/Globulin Ratio (1.0-2.1) Lipase (23-300) U/L TSH 3rd Generation (0.46-4.68) mIU/L Arterial Blood Potassium 4.9 (3.6-5.2) mmol/L Venous Blood Potassium (3.6-5.2) mmol/L Urine Color (YELLOW) Urine Clarity (Clear) Urine pH (5.0-8.0) Ur Specific [place] (1.003-1.030) Urine Protein (NEGATIVE) mg/dL Urine Glucose (UA) (Normal) mg/dL Urine Ketones (NEGATIVE) mg/dL Urine Blood (NEGATIVE) Urine Nitrate (NEGATIVE) Urine Bilirubin (NEGATIVE) Urine Urobilinogen (0.2-1.0) mg/dL Ur Leukocyte Esterase (Negative) [place]/uL Urine WBC (Auto) (0-5) /hpf Urine RBC (Auto) (0-3) /hpf Ur Squamous Epith Cells (0-5) /hpf Urine Bacteria (<OCC) Urine Opiates Screen (NEGATIVE) Urine Methadone Screen (NEGATIVE) Ur Barbiturates Screen (NEGATIVE) Ur Phencyclidine Scrn (NEGATIVE) Ur Amphetamines Screen (NEGATIVE) U Benzodiazepines Scrn (NEGATIVE) U Oth Cocaine Metabols (NEGATIVE) U Cannabinoids Screen (NEGATIVE) 11/25/18 11/25/18 11/25/18 Range/Units 03:02 02:34 02:34 WBC (4.8-10.8) K/uL RBC (4.40-5.90) Mil/uL Hgb (12.0-18.0) g/dL Hct (35.0-51.0) % MCV (80.0-94.0) fL MCH (27.0-31.0) pg MCHC (33.0-37.0) g/dL RDW (11.5-14.5) % Plt Count (130-400) K/uL MPV (7.2-11.7) fL Neut % (Auto) (50.0-75.0) % Lymph % (Auto) (20.0-40.0) % [place] % (Auto) (0.0-10.0) % Eos % (Auto) (0.0-4.0) % Baso % (Auto) (0.0-2.0) % Neut # (Auto) (1.8-7.0) K/uL Lymph # (Auto) (1.0-4.3) K/uL [place] # (Auto) (0.0-0.8) K/uL Eos # (Auto) (0.0-0.7) K/uL Baso # (Auto) (0.0-0.2) K/uL Neutrophils % (Manual) (50-75) % Band Neutrophils % (0-2) % Lymphocytes % (Manual) (20-40) % Monocytes % (Manual) (0-10) % Platelet Estimate (NORMAL) RBC Morphology Anisocytosis (manual) PT 11.2 (9.7-12.2) SECONDS INR 1.0 APTT 25.0 D (21-34) SECONDS Puncture Site pCO2 (35-45) mm/Hg pO2 (80-100) mm/Hg HCO3 (21-28) mmol/L ABG pH (7.35-7.45) ABG Total CO2 (22-28) mmol/L ABG O2 Saturation (95-98) % ABG Base Excess (-2.0-3.0) mmol/L Albert Test ABG Potassium (3.6-5.2) mmol/L VBG pH (7.32-7.43) VBG pCO2 (40-60) mmHg VBG HCO3 mmol/L VBG Total CO2 (22-28) mmol/L VBG O2 Sat (Calc) (40-65) % VBG Base Excess (0.0-2.0) mmol/L VBG Potassium (3.6-5.2) mmol/L A-a O2 Difference mm/Hg Respiratory Index Glucose (75-110) mg/dl Lactate (0.7-2.1) mmol/L Vent Mode Mechanical Rate FiO2 % Tidal Volume PEEP Crit Value Called To Crit Value Called By Crit Value Read Back Blood Gas Notified Time Sodium 138 (132-148) mmol/L Potassium 5.4 H (3.6-5.2) mmol/L Chloride 100 (98-107) mmol/L Carbon Dioxide 26 (22-30) mmol/L Anion Gap 18 (10-20) BUN 23 H (9-20) mg/dL Creatinine 1.6 H (0.8-1.5) mg/dL Est GFR ( Amer) 54 Est GFR (Non-Af Amer) 44 POC Glucose (mg/dL) 291 H (65-110) mg/dL Random Glucose 265 H (75-110) mg/dL Calcium 7.4 L (8.6-10.4) mg/dl Phosphorus 6.3 H (2.5-4.5) mg/dL Magnesium 1.7 (1.6-2.3) mg/dL Total Bilirubin 0.8 (0.2-1.3) mg/dL AST 114 H D (17-59) U/L ALT 96 H D (21-72) U/L Alkaline Phosphatase 99 (38-126) U/L Total Creatine Kinase 401 H (55-170) U/L Troponin I (0.00-0.120) ng/mL NT-Pro-B Natriuret Pep (0-900) pg/mL Total Protein 7.8 (6.3-8.3) g/dL Albumin 4.0 (3.5-5.0) g/dL Globulin 3.8 (2.2-3.9) gm/dL Albumin/Globulin Ratio 1.1 (1.0-2.1) Lipase (23-300) U/L TSH 3rd Generation (0.46-4.68) mIU/L Arterial Blood Potassium (3.6-5.2) mmol/L Venous Blood Potassium (3.6-5.2) mmol/L Urine Color (YELLOW) Urine Clarity (Clear) Urine pH (5.0-8.0) Ur Specific [place] (1.003-1.030) Urine Protein (NEGATIVE) mg/dL Urine Glucose (UA) (Normal) mg/dL Urine Ketones (NEGATIVE) mg/dL Urine Blood (NEGATIVE) Urine Nitrate (NEGATIVE) Urine Bilirubin (NEGATIVE) Urine Urobilinogen (0.2-1.0) mg/dL Ur Leukocyte Esterase (Negative) [place]/uL Urine WBC (Auto) (0-5) /hpf Urine RBC (Auto) (0-3) /hpf Ur Squamous Epith Cells (0-5) /hpf Urine Bacteria (<OCC) Urine Opiates Screen (NEGATIVE) Urine Methadone Screen (NEGATIVE) Ur Barbiturates Screen (NEGATIVE) Ur Phencyclidine Scrn (NEGATIVE) Ur Amphetamines Screen (NEGATIVE) U Benzodiazepines Scrn (NEGATIVE) U Oth Cocaine Metabols (NEGATIVE) U Cannabinoids Screen (NEGATIVE) 11/25/18 11/25/18 11/24/18 Range/Units 02:34 01:19 23:21 WBC 19.9 H (4.8-10.8) K/uL RBC 4.92 (4.40-5.90) Mil/uL Hgb 16.1 (12.0-18.0) g/dL Hct 49.5 (35.0-51.0) % MCV 100.6 H D (80.0-94.0) fL MCH 32.8 H (27.0-31.0) pg MCHC 32.6 L (33.0-37.0) g/dL RDW 16.6 H (11.5-14.5) % Plt Count 221 (130-400) K/uL MPV 8.7 (7.2-11.7) fL Neut % (Auto) 89.9 H (50.0-75.0) % Lymph % (Auto) 3.0 L (20.0-40.0) % [place] % (Auto) 6.9 (0.0-10.0) % Eos % (Auto) 0.0 (0.0-4.0) % Baso % (Auto) 0.2 (0.0-2.0) % Neut # (Auto) 17.9 H (1.8-7.0) K/uL Lymph # (Auto) 0.6 L (1.0-4.3) K/uL [place] # (Auto) 1.4 H (0.0-0.8) K/uL Eos # (Auto) 0.0 (0.0-0.7) K/uL Baso # (Auto) 0.0 (0.0-0.2) K/uL Neutrophils % (Manual) 87 H (50-75) % Band Neutrophils % 3 H (0-2) % Lymphocytes % (Manual) 4 L (20-40) % Monocytes % (Manual) 6 (0-10) % Platelet Estimate Normal (NORMAL) RBC Morphology Anisocytosis (manual) PT (9.7-12.2) SECONDS INR APTT (21-34) SECONDS Puncture Site pCO2 (35-45) mm/Hg pO2 (80-100) mm/Hg HCO3 (21-28) mmol/L ABG pH (7.35-7.45) ABG Total CO2 (22-28) mmol/L ABG O2 Saturation (95-98) % ABG Base Excess (-2.0-3.0) mmol/L Albert Test ABG Potassium (3.6-5.2) mmol/L VBG pH (7.32-7.43) VBG pCO2 (40-60) mmHg VBG HCO3 mmol/L VBG Total CO2 (22-28) mmol/L VBG O2 Sat (Calc) (40-65) % VBG Base Excess (0.0-2.0) mmol/L VBG Potassium (3.6-5.2) mmol/L A-a O2 Difference mm/Hg Respiratory Index Glucose (75-110) mg/dl Lactate (0.7-2.1) mmol/L Vent Mode Mechanical Rate FiO2 % Tidal Volume PEEP Crit Value Called To Crit Value Called By Crit Value Read Back Blood Gas Notified Time Sodium (132-148) mmol/L Potassium (3.6-5.2) mmol/L Chloride (98-107) mmol/L Carbon Dioxide (22-30) mmol/L Anion Gap (10-20) BUN (9-20) mg/dL Creatinine (0.8-1.5) mg/dL Est GFR ( Amer) Est GFR (Non-Af Amer) POC Glucose (mg/dL) 266 H (65-110) mg/dL Random Glucose (75-110) mg/dL Calcium (8.6-10.4) mg/dl Phosphorus (2.5-4.5) mg/dL Magnesium (1.6-2.3) mg/dL Total Bilirubin (0.2-1.3) mg/dL AST (17-59) U/L ALT (21-72) U/L Alkaline Phosphatase (38-126) U/L Total Creatine Kinase (55-170) U/L Troponin I (0.00-0.120) ng/mL NT-Pro-B Natriuret Pep (0-900) pg/mL Total Protein (6.3-8.3) g/dL Albumin (3.5-5.0) g/dL Globulin (2.2-3.9) gm/dL Albumin/Globulin Ratio (1.0-2.1) Lipase (23-300) U/L TSH 3rd Generation (0.46-4.68) mIU/L Arterial Blood Potassium (3.6-5.2) mmol/L Venous Blood Potassium (3.6-5.2) mmol/L Urine Color (YELLOW) Urine Clarity (Clear) Urine pH (5.0-8.0) Ur Specific [place] (1.003-1.030) Urine Protein (NEGATIVE) mg/dL Urine Glucose (UA) (Normal) mg/dL Urine Ketones (NEGATIVE) mg/dL Urine Blood (NEGATIVE) Urine Nitrate (NEGATIVE) Urine Bilirubin (NEGATIVE) Urine Urobilinogen (0.2-1.0) mg/dL Ur Leukocyte Esterase (Negative) Felicita/uL Urine WBC (Auto) (0-5) /hpf Urine RBC (Auto) (0-3) /hpf Ur Squamous Epith Cells (0-5) /hpf Urine Bacteria (<OCC) Urine Opiates Screen Negative (NEGATIVE) Urine Methadone Screen Negative (NEGATIVE) Ur Barbiturates Screen Negative (NEGATIVE) Ur Phencyclidine Scrn Negative (NEGATIVE) Ur Amphetamines Screen Negative (NEGATIVE) U Benzodiazepines Scrn Positive (NEGATIVE) U Oth Cocaine Metabols Negative (NEGATIVE) U Cannabinoids Screen Negative (NEGATIVE) 11/24/18 11/24/18 11/24/18 Range/Units 23:21 22:31 22:17 WBC (4.8-10.8) K/uL RBC (4.40-5.90) Mil/uL Hgb (12.0-18.0) g/dL Hct (35.0-51.0) % MCV (80.0-94.0) fL MCH (27.0-31.0) pg MCHC (33.0-37.0) g/dL RDW (11.5-14.5) % Plt Count (130-400) K/uL MPV (7.2-11.7) fL Neut % (Auto) (50.0-75.0) % Lymph % (Auto) (20.0-40.0) % [place] % (Auto) (0.0-10.0) % Eos % (Auto) (0.0-4.0) % Baso % (Auto) (0.0-2.0) % Neut # (Auto) (1.8-7.0) K/uL Lymph # (Auto) (1.0-4.3) K/uL [place] # (Auto) (0.0-0.8) K/uL Eos # (Auto) (0.0-0.7) K/uL Baso # (Auto) (0.0-0.2) K/uL Neutrophils % (Manual) (50-75) % Band Neutrophils % (0-2) % Lymphocytes % (Manual) (20-40) % Monocytes % (Manual) (0-10) % Platelet Estimate (NORMAL) RBC Morphology Anisocytosis (manual) PT (9.7-12.2) SECONDS INR APTT (21-34) SECONDS Puncture Site Rra pCO2 74 H* (35-45) mm/Hg pO2 167 H (80-100) mm/Hg HCO3 17.6 L (21-28) mmol/L ABG pH 7.08 L* (7.35-7.45) ABG Total CO2 24.2 (22-28) mmol/L ABG O2 Saturation 99.8 H (95-98) % ABG Base Excess -9.4 L (-2.0-3.0) mmol/L Albert Test Na ABG Potassium 5.0 (3.6-5.2) mmol/L VBG pH (7.32-7.43) VBG pCO2 (40-60) mmHg VBG HCO3 mmol/L VBG Total CO2 (22-28) mmol/L VBG O2 Sat (Calc) (40-65) % VBG Base Excess (0.0-2.0) mmol/L VBG Potassium (3.6-5.2) mmol/L A-a O2 Difference 454.0 mm/Hg Respiratory Index 2.7 Glucose 237 H (75-110) mg/dl Lactate 2.9 H (0.7-2.1) mmol/L Vent Mode Prvc Mechanical Rate 16 FiO2 100.0 % Tidal Volume 600 PEEP 5 Crit Value Called To Sudhakar Crit Value Called By freddy Walsh md Crit Value Read Back Y Blood Gas Notified Time 2220 Sodium 136.0 (132-148) mmol/L Potassium (3.6-5.2) mmol/L Chloride 103.0 (98-107) mmol/L Carbon Dioxide (22-30) mmol/L Anion Gap (10-20) BUN (9-20) mg/dL Creatinine (0.8-1.5) mg/dL Est GFR ( Amer) Est GFR (Non-Af Amer) POC Glucose (mg/dL) (65-110) mg/dL Random Glucose (75-110) mg/dL Calcium (8.6-10.4) mg/dl Phosphorus (2.5-4.5) mg/dL Magnesium (1.6-2.3) mg/dL Total Bilirubin (0.2-1.3) mg/dL AST (17-59) U/L ALT (21-72) U/L Alkaline Phosphatase (38-126) U/L Total Creatine Kinase (55-170) U/L Troponin I (0.00-0.120) ng/mL NT-Pro-B Natriuret Pep (0-900) pg/mL Total Protein (6.3-8.3) g/dL Albumin (3.5-5.0) g/dL Globulin (2.2-3.9) gm/dL Albumin/Globulin Ratio (1.0-2.1) Lipase (23-300) U/L TSH 3rd Generation 7.81 H (0.46-4.68) mIU/L Arterial Blood Potassium 5.0 (3.6-5.2) mmol/L Venous Blood Potassium (3.6-5.2) mmol/L Urine Color Yellow (YELLOW) Urine Clarity Hazy (Clear) Urine pH 5.0 (5.0-8.0) Ur Specific [place] 1.021 (1.003-1.030) Urine Protein 2+ H (NEGATIVE) mg/dL Urine Glucose (UA) 1+ H (Normal) mg/dL Urine Ketones Negative (NEGATIVE) mg/dL Urine Blood Negative (NEGATIVE) Urine Nitrate Negative (NEGATIVE) Urine Bilirubin Negative (NEGATIVE) Urine Urobilinogen Normal (0.2-1.0) mg/dL Ur Leukocyte Esterase Trace (Negative) Felicit[place]/uL Urine WBC (Auto) 26 H (0-5) /hpf Urine RBC (Auto) 3 (0-3) /hpf Ur Squamous Epith Cells 1 (0-5) /hpf Urine Bacteria Occ H (<OCC) Urine Opiates Screen (NEGATIVE) Urine Methadone Screen (NEGATIVE) Ur Barbiturates Screen (NEGATIVE) Ur Phencyclidine Scrn (NEGATIVE) Ur Amphetamines Screen (NEGATIVE) U Benzodiazepines Scrn (NEGATIVE) U Oth Cocaine Metabols (NEGATIVE) U Cannabinoids Screen (NEGATIVE) 11/24/18 11/24/18 11/24/18 Range/Units 21:09 21:09 21:09 WBC 15.4 H (4.8-10.8) K/uL RBC 5.01 (4.40-5.90) Mil/uL Hgb 16.2 (12.0-18.0) g/dL Hct 51.4 H (35.0-51.0) % MCV 102.6 H (80.0-94.0) fL MCH 32.2 H (27.0-31.0) pg MCHC 31.4 L (33.0-37.0) g/dL RDW 17.0 H (11.5-14.5) % Plt Count 238 (130-400) K/uL MPV 9.8 (7.2-11.7) fL Neut % (Auto) 60.6 (50.0-75.0) % Lymph % (Auto) 27.3 (20.0-40.0) % [place] % (Auto) 7.8 (0.0-10.0) % Eos % (Auto) 3.9 (0.0-4.0) % Baso % (Auto) 0.4 (0.0-2.0) % Neut # (Auto) 9.4 H (1.8-7.0) K/uL Lymph # (Auto) 4.2 (1.0-4.3) K/uL [place] # (Auto) 1.2 H (0.0-0.8) K/uL Eos # (Auto) 0.6 (0.0-0.7) K/uL Baso # (Auto) 0.1 (0.0-0.2) K/uL Neutrophils % (Manual) (50-75) % Band Neutrophils % (0-2) % Lymphocytes % (Manual) (20-40) % Monocytes % (Manual) (0-10) % Platelet Estimate (NORMAL) RBC Morphology Anisocytosis (manual) PT 11.1 (9.7-12.2) SECONDS INR 1.0 APTT 39.0 H (21-34) SECONDS Puncture Site pCO2 (35-45) mm/Hg pO2 (80-100) mm/Hg HCO3 (21-28) mmol/L ABG pH (7.35-7.45) ABG Total CO2 (22-28) mmol/L ABG O2 Saturation (95-98) % ABG Base Excess (-2.0-3.0) mmol/L Albert Test ABG Potassium (3.6-5.2) mmol/L VBG pH (7.32-7.43) VBG pCO2 (40-60) mmHg VBG HCO3 mmol/L VBG Total CO2 (22-28) mmol/L VBG O2 Sat (Calc) (40-65) % VBG Base Excess (0.0-2.0) mmol/L VBG Potassium (3.6-5.2) mmol/L A-a O2 Difference mm/Hg Respiratory Index Glucose (75-110) mg/dl Lactate (0.7-2.1) mmol/L Vent Mode Mechanical Rate FiO2 % Tidal Volume PEEP Crit Value Called To Crit Value Called By Crit Value Read Back Blood Gas Notified Time Sodium 137 (132-148) mmol/L Potassium 4.5 (3.6-5.2) mmol/L Chloride 99 (98-107) mmol/L Carbon Dioxide 20 L (22-30) mmol/L Anion Gap 23 H (10-20) BUN 18 (9-20) mg/dL Creatinine 1.5 (0.8-1.5) mg/dL Est GFR ( Amer) 58 Est GFR (Non-Af Amer) 48 POC Glucose (mg/dL) (65-110) mg/dL Random Glucose 222 H (75-110) mg/dL Calcium 8.1 L (8.6-10.4) mg/dl Phosphorus (2.5-4.5) mg/dL Magnesium (1.6-2.3) mg/dL Total Bilirubin 0.4 (0.2-1.3) mg/dL AST 72 H (17-59) U/L ALT 70 (21-72) U/L Alkaline Phosphatase 81 (38-126) U/L Total Creatine Kinase (55-170) U/L Troponin I 0.0670 (0.00-0.120) ng/mL NT-Pro-B Natriuret Pep 1480 H (0-900) pg/mL Total Protein 7.4 (6.3-8.3) g/dL Albumin 3.7 (3.5-5.0) g/dL Globulin 3.6 (2.2-3.9) gm/dL Albumin/Globulin Ratio 1.0 (1.0-2.1) Lipase 151 (23-300) U/L TSH 3rd Generation (0.46-4.68) mIU/L Arterial Blood Potassium (3.6-5.2) mmol/L Venous Blood Potassium (3.6-5.2) mmol/L Urine Color (YELLOW) Urine Clarity (Clear) Urine pH (5.0-8.0) Ur Specific [place] (1.003-1.030) Urine Protein (NEGATIVE) mg/dL Urine Glucose (UA) (Normal) mg/dL Urine Ketones (NEGATIVE) mg/dL Urine Blood (NEGATIVE) Urine Nitrate (NEGATIVE) Urine Bilirubin (NEGATIVE) Urine Urobilinogen (0.2-1.0) mg/dL Ur Leukocyte Esterase (Negative) Felicit[place]/uL Urine WBC (Auto) (0-5) /hpf Urine RBC (Auto) (0-3) /hpf Ur Squamous Epith Cells (0-5) /hpf Urine Bacteria (<OCC) Urine Opiates Screen (NEGATIVE) Urine Methadone Screen (NEGATIVE) Ur Barbiturates Screen (NEGATIVE) Ur Phencyclidine Scrn (NEGATIVE) Ur Amphetamines Screen (NEGATIVE) U Benzodiazepines Scrn (NEGATIVE) U Oth Cocaine Metabols (NEGATIVE) U Cannabinoids Screen (NEGATIVE) 11/24/18 Range/Units 21:00 WBC (4.8-10.8) K/uL RBC (4.40-5.90) Mil/uL Hgb (12.0-18.0) g/dL Hct (35.0-51.0) % MCV (80.0-94.0) fL MCH (27.0-31.0) pg MCHC (33.0-37.0) g/dL RDW (11.5-14.5) % Plt Count (130-400) K/uL MPV (7.2-11.7) fL Neut % (Auto) (50.0-75.0) % Lymph % (Auto) (20.0-40.0) % [place] % (Auto) (0.0-10.0) % Eos % (Auto) (0.0-4.0) % Baso % (Auto) (0.0-2.0) % Neut # (Auto) (1.8-7.0) K/uL Lymph # (Auto) (1.0-4.3) K/uL [place] # (Auto) (0.0-0.8) K/uL Eos # (Auto) (0.0-0.7) K/uL Baso # (Auto) (0.0-0.2) K/uL Neutrophils % (Manual) (50-75) % Band Neutrophils % (0-2) % Lymphocytes % (Manual) (20-40) % Monocytes % (Manual) (0-10) % Platelet Estimate (NORMAL) RBC Morphology Anisocytosis (manual) PT (9.7-12.2) SECONDS INR APTT (21-34) SECONDS Puncture Site pCO2 (35-45) mm/Hg pO2 (80-100) mm/Hg HCO3 (21-28) mmol/L ABG pH (7.35-7.45) ABG Total CO2 (22-28) mmol/L ABG O2 Saturation (95-98) % ABG Base Excess (-2.0-3.0) mmol/L Albert Test ABG Potassium (3.6-5.2) mmol/L VBG pH (7.32-7.43) VBG pCO2 (40-60) mmHg VBG HCO3 mmol/L VBG Total CO2 (22-28) mmol/L VBG O2 Sat (Calc) (40-65) % VBG Base Excess (0.0-2.0) mmol/L VBG Potassium (3.6-5.2) mmol/L A-a O2 Difference mm/Hg Respiratory Index Glucose (75-110) mg/dl Lactate (0.7-2.1) mmol/L Vent Mode Mechanical Rate FiO2 % Tidal Volume PEEP Crit Value Called To Crit Value Called By Crit Value Read Back Blood Gas Notified Time Sodium (132-148) mmol/L Potassium (3.6-5.2) mmol/L Chloride (98-107) mmol/L Carbon Dioxide (22-30) mmol/L Anion Gap (10-20) BUN (9-20) mg/dL Creatinine (0.8-1.5) mg/dL Est GFR ( Amer) Est GFR (Non-Af Amer) POC Glucose (mg/dL) 197 H (65-110) mg/dL Random Glucose (75-110) mg/dL Calcium (8.6-10.4) mg/dl Phosphorus (2.5-4.5) mg/dL Magnesium (1.6-2.3) mg/dL Total Bilirubin (0.2-1.3) mg/dL AST (17-59) U/L ALT (21-72) U/L Alkaline Phosphatase (38-126) U/L Total Creatine Kinase (55-170) U/L Troponin I (0.00-0.120) ng/mL NT-Pro-B Natriuret Pep (0-900) pg/mL Total Protein (6.3-8.3) g/dL Albumin (3.5-5.0) g/dL Globulin (2.2-3.9) gm/dL Albumin/Globulin Ratio (1.0-2.1) Lipase (23-300) U/L TSH 3rd Generation (0.46-4.68) mIU/L Arterial Blood Potassium (3.6-5.2) mmol/L Venous Blood Potassium (3.6-5.2) mmol/L Urine Color (YELLOW) Urine Clarity (Clear) Urine pH (5.0-8.0) Ur Specific [place] (1.003-1.030) Urine Protein (NEGATIVE) mg/dL Urine Glucose (UA) (Normal) mg/dL Urine Ketones (NEGATIVE) mg/dL Urine Blood (NEGATIVE) Urine Nitrate (NEGATIVE) Urine Bilirubin (NEGATIVE) Urine Urobilinogen (0.2-1.0) mg/dL Ur Leukocyte Esterase (Negative) Felicit[place]/uL Urine WBC (Auto) (0-5) /hpf Urine RBC (Auto) (0-3) /hpf Ur Squamous Epith Cells (0-5) /hpf Urine Bacteria (<OCC) Urine Opiates Screen (NEGATIVE) Urine Methadone Screen (NEGATIVE) Ur Barbiturates Screen (NEGATIVE) Ur Phencyclidine Scrn (NEGATIVE) Ur Amphetamines Screen (NEGATIVE) U Benzodiazepines Scrn (NEGATIVE) U Oth Cocaine Metabols (NEGATIVE) U Cannabinoids Screen (NEGATIVE) Laboratory Results - last 24 hr 11/24/18 11/24/18 11/24/18 21:00 21:09 21:09 WBC 15.4 H RBC 5.01 Hgb 16.2 Hct 51.4 H MCV 102.6 H MCH 32.2 H MCHC 31.4 L RDW 17.0 H Plt Count 238 MPV 9.8 Neut % (Auto) 60.6 Lymph % (Auto) 27.3 [place] % (Auto) 7.8 Eos % (Auto) 3.9 Baso % (Auto) 0.4 Neut # (Auto) 9.4 H Lymph # (Auto) 4.2 [place] # (Auto) 1.2 H Eos # (Auto) 0.6 Baso # (Auto) 0.1 Neutrophils % (Manual) Band Neutrophils % Lymphocytes % (Manual) Monocytes % (Manual) Platelet Estimate RBC Morphology Anisocytosis (manual) PT 11.1 INR 1.0 APTT 39.0 H Puncture Site pCO2 pO2 HCO3 ABG pH ABG Total CO2 ABG O2 Saturation ABG Base Excess Albert Test ABG Potassium VBG pH VBG pCO2 VBG HCO3 VBG Total CO2 VBG O2 Sat (Calc) VBG Base Excess VBG Potassium A-a O2 Difference Respiratory Index Glucose Lactate Vent Mode Mechanical Rate FiO2 Tidal Volume PEEP Crit Value Called To Crit Value Called By Crit Value Read Back Blood Gas Notified Time Sodium Potassium Chloride Carbon Dioxide Anion Gap BUN Creatinine Est GFR ( Amer) Est GFR (Non-Af Amer) POC Glucose (mg/dL) 197 H Random Glucose Calcium Phosphorus Magnesium Total Bilirubin AST ALT Alkaline Phosphatase Total Creatine Kinase Troponin I NT-Pro-B Natriuret Pep Total Protein Albumin Globulin Albumin/Globulin Ratio Lipase TSH 3rd Generation Arterial Blood Potassium Venous Blood Potassium Urine Color Urine Clarity Urine pH Ur Specific [place] Urine Protein Urine Glucose (UA) Urine Ketones Urine Blood Urine Nitrate Urine Bilirubin Urine Urobilinogen Ur Leukocyte Esterase Urine WBC (Auto) Urine RBC (Auto) Ur Squamous Epith Cells Urine Bacteria Urine Opiates Screen Urine Methadone Screen Ur Barbiturates Screen Ur Phencyclidine Scrn Ur Amphetamines Screen U Benzodiazepines Scrn U Oth Cocaine Metabols U Cannabinoids Screen 11/24/18 11/24/18 11/24/18 21:09 22:17 22:31 WBC RBC Hgb Hct MCV MCH MCHC RDW Plt Count MPV Neut % (Auto) Lymph % (Auto) [place] % (Auto) Eos % (Auto) Baso % (Auto) Neut # (Auto) Lymph # (Auto) [place] # (Auto) Eos # (Auto) Baso # (Auto) Neutrophils % (Manual) Band Neutrophils % Lymphocytes % (Manual) Monocytes % (Manual) Platelet Estimate RBC Morphology Anisocytosis (manual) PT INR APTT Puncture Site Rra pCO2 74 H* pO2 167 H HCO3 17.6 L ABG pH 7.08 L* ABG Total CO2 24.2 ABG O2 Saturation 99.8 H ABG Base Excess -9.4 L Albert Test Na ABG Potassium 5.0 VBG pH VBG pCO2 VBG HCO3 VBG Total CO2 VBG O2 Sat (Calc) VBG Base Excess VBG Potassium A-a O2 Difference 454.0 Respiratory Index 2.7 Glucose 237 H Lactate 2.9 H Vent Mode Prvc Mechanical Rate 16 FiO2 100.0 Tidal Volume 600 PEEP 5 Crit Value Called To Lendl Crit Value Called By freddy Walsh md Crit Value Read Back Y Blood Gas Notified Time 222 Sodium 137 136.0 Potassium 4.5 Chloride 99 103.0 Carbon Dioxide 20 L Anion Gap 23 H BUN 18 Creatinine 1.5 Est GFR ( Amer) 58 Est GFR (Non-Af Amer) 48 POC Glucose (mg/dL) Random Glucose 222 H Calcium 8.1 L Phosphorus Magnesium Total Bilirubin 0.4 AST 72 H ALT 70 Alkaline Phosphatase 81 Total Creatine Kinase Troponin I 0.0670 NT-Pro-B Natriuret Pep 1480 H Total Protein 7.4 Albumin 3.7 Globulin 3.6 Albumin/Globulin Ratio 1.0 Lipase 151 TSH 3rd Generation 7.81 H Arterial Blood Potassium 5.0 Venous Blood Potassium Urine Color Urine Clarity Urine pH Ur Specific [place] Urine Protein Urine Glucose (UA) Urine Ketones Urine Blood Urine Nitrate Urine Bilirubin Urine Urobilinogen Ur Leukocyte Esterase Urine WBC (Auto) Urine RBC (Auto) Ur Squamous Epith Cells Urine Bacteria Urine Opiates Screen Urine Methadone Screen Ur Barbiturates Screen Ur Phencyclidine Scrn Ur Amphetamines Screen U Benzodiazepines Scrn U Oth Cocaine Metabols U Cannabinoids Screen 11/24/18 11/24/18 11/25/18 23:21 23:21 01:19 WBC RBC Hgb Hct MCV MCH MCHC RDW Plt Count MPV Neut % (Auto) Lymph % (Auto) [place] % (Auto) Eos % (Auto) Baso % (Auto) Neut # (Auto) Lymph # (Auto) [place] # (Auto) Eos # (Auto) Baso # (Auto) Neutrophils % (Manual) Band Neutrophils % Lymphocytes % (Manual) Monocytes % (Manual) Platelet Estimate RBC Morphology Anisocytosis (manual) PT INR APTT Puncture Site pCO2 pO2 HCO3 ABG pH ABG Total CO2 ABG O2 Saturation ABG Base Excess Albert Test ABG Potassium VBG pH VBG pCO2 VBG HCO3 VBG Total CO2 VBG O2 Sat (Calc) VBG Base Excess VBG Potassium A-a O2 Difference Respiratory Index Glucose Lactate Vent Mode Mechanical Rate FiO2 Tidal Volume PEEP Crit Value Called To Crit Value Called By Crit Value Read Back Blood Gas Notified Time Sodium Potassium Chloride Carbon Dioxide Anion Gap BUN Creatinine Est GFR ( Amer) Est GFR (Non-Af Amer) POC Glucose (mg/dL) 266 H Random Glucose Calcium Phosphorus Magnesium Total Bilirubin AST ALT Alkaline Phosphatase Total Creatine Kinase Troponin I NT-Pro-B Natriuret Pep Total Protein Albumin Globulin Albumin/Globulin Ratio Lipase TSH 3rd Generation Arterial Blood Potassium Venous Blood Potassium Urine Color Yellow Urine Clarity Hazy Urine pH 5.0 Ur Specific [place] 1.021 Urine Protein 2+ H Urine Glucose (UA) 1+ H Urine Ketones Negative Urine Blood Negative Urine Nitrate Negative Urine Bilirubin Negative Urine Urobilinogen Normal Ur Leukocyte Esterase Trace Urine WBC (Auto) 26 H Urine RBC (Auto) 3 Ur Squamous Epith Cells 1 Urine Bacteria Occ H Urine Opiates Screen Negative Urine Methadone Screen Negative Ur Barbiturates Screen Negative Ur Phencyclidine Scrn Negative Ur Amphetamines Screen Negative U Benzodiazepines Scrn Positive U Oth Cocaine Metabols Negative U Cannabinoids Screen Negative 11/25/18 11/25/18 11/25/18 02:34 02:34 02:34 WBC 19.9 H RBC 4.92 Hgb 16.1 Hct 49.5 MCV 100.6 H D MCH 32.8 H MCHC 32.6 L RDW 16.6 H Plt Count 221 MPV 8.7 Neut % (Auto) 89.9 H Lymph % (Auto) 3.0 L [place] % (Auto) 6.9 Eos % (Auto) 0.0 Baso % (Auto) 0.2 Neut # (Auto) 17.9 H Lymph # (Auto) 0.6 L [place] # (Auto) 1.4 H Eos # (Auto) 0.0 Baso # (Auto) 0.0 Neutrophils % (Manual) 87 H Band Neutrophils % 3 H Lymphocytes % (Manual) 4 L Monocytes % (Manual) 6 Platelet Estimate Normal RBC Morphology Anisocytosis (manual) PT 11.2 INR 1.0 APTT 25.0 D Puncture Site pCO2 pO2 HCO3 ABG pH ABG Total CO2 ABG O2 Saturation ABG Base Excess Albert Test ABG Potassium VBG pH VBG pCO2 VBG HCO3 VBG Total CO2 VBG O2 Sat (Calc) VBG Base Excess VBG Potassium A-a O2 Difference Respiratory Index Glucose Lactate Vent Mode Mechanical Rate FiO2 Tidal Volume PEEP Crit Value Called To Crit Value Called By Crit Value Read Back Blood Gas Notified Time Sodium 138 Potassium 5.4 H Chloride 100 Carbon Dioxide 26 Anion Gap 18 BUN 23 H Creatinine 1.6 H Est GFR ( Amer) 54 Est GFR (Non-Af Amer) 44 POC Glucose (mg/dL) Random Glucose 265 H Calcium 7.4 L Phosphorus 6.3 H Magnesium 1.7 Total Bilirubin 0.8 AST 114 H D ALT 96 H D Alkaline Phosphatase 99 Total Creatine Kinase 401 H Troponin I NT-Pro-B Natriuret Pep Total Protein 7.8 Albumin 4.0 Globulin 3.8 Albumin/Globulin Ratio 1.1 Lipase TSH 3rd Generation Arterial Blood Potassium Venous Blood Potassium Urine Color Urine Clarity Urine pH Ur Specific [place] Urine Protein Urine Glucose (UA) Urine Ketones Urine Blood Urine Nitrate Urine Bilirubin Urine Urobilinogen Ur Leukocyte Esterase Urine WBC (Auto) Urine RBC (Auto) Ur Squamous Epith Cells Urine Bacteria Urine Opiates Screen Urine Methadone Screen Ur Barbiturates Screen Ur Phencyclidine Scrn Ur Amphetamines Screen U Benzodiazepines Scrn U Oth Cocaine Metabols U Cannabinoids Screen 11/25/18 11/25/18 11/25/18 03:02 03:55 05:00 WBC RBC Hgb Hct MCV MCH MCHC RDW Plt Count MPV Neut % (Auto) Lymph % (Auto) [place] % (Auto) Eos % (Auto) Baso % (Auto) Neut # (Auto) Lymph # (Auto) [place] # (Auto) Eos # (Auto) Baso # (Auto) Neutrophils % (Manual) Band Neutrophils % Lymphocytes % (Manual) Monocytes % (Manual) Platelet Estimate RBC Morphology Anisocytosis (manual) PT INR APTT Puncture Site pCO2 pO2 HCO3 ABG pH ABG Total CO2 ABG O2 Saturation ABG Base Excess Albert Test ABG Potassium VBG pH VBG pCO2 VBG HCO3 VBG Total CO2 VBG O2 Sat (Calc) VBG Base Excess VBG Potassium A-a O2 Difference Respiratory Index Glucose Lactate Vent Mode Mechanical Rate FiO2 Tidal Volume PEEP Crit Value Called To Crit Value Called By Crit Value Read Back Blood Gas Notified Time Sodium Potassium Chloride Carbon Dioxide Anion Gap BUN Creatinine Est GFR ( Amer) Est GFR (Non-Af Amer) POC Glucose (mg/dL) 291 H 242 H 201 H Random Glucose Calcium Phosphorus Magnesium Total Bilirubin AST ALT Alkaline Phosphatase Total Creatine Kinase Troponin I NT-Pro-B Natriuret Pep Total Protein Albumin Globulin Albumin/Globulin Ratio Lipase TSH 3rd Generation Arterial Blood Potassium Venous Blood Potassium Urine Color Urine Clarity Urine pH Ur Specific [place] Urine Protein Urine Glucose (UA) Urine Ketones Urine Blood Urine Nitrate Urine Bilirubin Urine Urobilinogen Ur Leukocyte Esterase Urine WBC (Auto) Urine RBC (Auto) Ur Squamous Epith Cells Urine Bacteria Urine Opiates Screen Urine Methadone Screen Ur Barbiturates Screen Ur Phencyclidine Scrn Ur Amphetamines Screen U Benzodiazepines Scrn U Oth Cocaine Metabols U Cannabinoids Screen 11/25/18 11/25/18 11/25/18 05:28 05:55 06:59 WBC RBC Hgb Hct MCV MCH MCHC RDW Plt Count MPV Neut % (Auto) Lymph % (Auto) [place] % (Auto) Eos % (Auto) Baso % (Auto) Neut # (Auto) Lymph # (Auto) [place] # (Auto) Eos # (Auto) Baso # (Auto) Neutrophils % (Manual) Band Neutrophils % Lymphocytes % (Manual) Monocytes % (Manual) Platelet Estimate RBC Morphology Anisocytosis (manual) PT INR APTT Puncture Site Rr pCO2 49 H pO2 221 H HCO3 22.8 ABG pH 7.30 L ABG Total CO2 25.6 ABG O2 Saturation 100.4 H ABG Base Excess -2.8 L Albert Test Pos ABG Potassium 4.9 VBG pH VBG pCO2 VBG HCO3 VBG Total CO2 VBG O2 Sat (Calc) VBG Base Excess VBG Potassium A-a O2 Difference 443.0 Respiratory Index 2.1 Glucose 136 H Lactate 2.3 H Vent Mode Prvc Mechanical Rate 20 FiO2 100.0 Tidal Volume 600 PEEP 5 Crit Value Called To Crit Value Called By Crit Value Read Back Blood Gas Notified Time Sodium 133.0 Potassium Chloride 103.0 Carbon Dioxide Anion Gap BUN Creatinine Est GFR ( Amer) Est GFR (Non-Af Amer) POC Glucose (mg/dL) 179 H 155 H Random Glucose Calcium Phosphorus Magnesium Total Bilirubin AST ALT Alkaline Phosphatase Total Creatine Kinase Troponin I NT-Pro-B Natriuret Pep Total Protein Albumin Globulin Albumin/Globulin Ratio Lipase TSH 3rd Generation Arterial Blood Potassium 4.9 Venous Blood Potassium Urine Color Urine Clarity Urine pH Ur Specific [place] Urine Protein Urine Glucose (UA) Urine Ketones Urine Blood Urine Nitrate Urine Bilirubin Urine Urobilinogen Ur Leukocyte Esterase Urine WBC (Auto) Urine RBC (Auto) Ur Squamous Epith Cells Urine Bacteria Urine Opiates Screen Urine Methadone Screen Ur Barbiturates Screen Ur Phencyclidine Scrn Ur Amphetamines Screen U Benzodiazepines Scrn U Oth Cocaine Metabols U Cannabinoids Screen 11/25/18 11/25/18 11/25/18 07:15 08:06 08:59 WBC RBC Hgb Hct MCV MCH MCHC RDW Plt Count MPV Neut % (Auto) Lymph % (Auto) [place] % (Auto) Eos % (Auto) Baso % (Auto) Neut # (Auto) Lymph # (Auto) [place] # (Auto) Eos # (Auto) Baso # (Auto) Neutrophils % (Manual) Band Neutrophils % Lymphocytes % (Manual) Monocytes % (Manual) Platelet Estimate RBC Morphology Anisocytosis (manual) PT INR APTT Puncture Site pCO2 pO2 HCO3 ABG pH ABG Total CO2 ABG O2 Saturation ABG Base Excess [place] Test ABG Potassium VBG pH VBG pCO2 VBG HCO3 VBG Total CO2 VBG O2 Sat (Calc) VBG Base Excess VBG Potassium A-a O2 Difference Respiratory Index Glucose Lactate Vent Mode Mechanical Rate FiO2 Tidal Volume PEEP Crit Value Called To Crit Value Called By Crit Value Read Back Blood Gas Notified Time Sodium Potassium Chloride Carbon Dioxide Anion Gap BUN Creatinine Est GFR ( Amer) Est GFR (Non-Af Amer) POC Glucose (mg/dL) 180 H 157 H 154 H Random Glucose Calcium Phosphorus Magnesium Total Bilirubin AST ALT Alkaline Phosphatase Total Creatine Kinase Troponin I NT-Pro-B Natriuret Pep Total Protein Albumin Globulin Albumin/Globulin Ratio Lipase TSH 3rd Generation Arterial Blood Potassium Venous Blood Potassium Urine Color Urine Clarity Urine pH Ur Specific [place] Urine Protein Urine Glucose (UA) Urine Ketones Urine Blood Urine Nitrate Urine Bilirubin Urine Urobilinogen Ur Leukocyte Esterase Urine WBC (Auto) Urine RBC (Auto) Ur Squamous Epith Cells Urine Bacteria Urine Opiates Screen Urine Methadone Screen Ur Barbiturates Screen Ur Phencyclidine Scrn Ur Amphetamines Screen U Benzodiazepines Scrn U Oth Cocaine Metabols U Cannabinoids Screen 11/25/18 11/25/18 11/25/18 09:02 09:02 09:02 WBC 17.6 H RBC 5.13 Hgb 16.2 Hct 50.9 MCV 99.2 H MCH 31.5 H MCHC 31.8 L RDW 16.6 H Plt Count 172 MPV 8.9 Neut % (Auto) 87.9 H Lymph % (Auto) 4.8 L [place] % (Auto) 7.1 Eos % (Auto) 0.1 Baso % (Auto) 0.1 Neut # (Auto) 15.5 H Lymph # (Auto) 0.8 L [place] # (Auto) 1.2 H Eos # (Auto) 0.0 Baso # (Auto) 0.0 Neutrophils % (Manual) 81 H Band Neutrophils % 6 H Lymphocytes % (Manual) 5 L Monocytes % (Manual) 8 Platelet Estimate Normal RBC Morphology Anisocytosis (manual) Slight PT 11.8 INR 1.1 APTT 32.0 D Puncture Site pCO2 pO2 HCO3 ABG pH ABG Total CO2 ABG O2 Saturation ABG Base Excess [place] Test ABG Potassium VBG pH VBG pCO2 VBG HCO3 VBG Total CO2 VBG O2 Sat (Calc) VBG Base Excess VBG Potassium A-a O2 Difference Respiratory Index Glucose Lactate Vent Mode Mechanical Rate FiO2 Tidal Volume PEEP Crit Value Called To Crit Value Called By Crit Value Read Back Blood Gas Notified Time Sodium 138 Potassium 4.8 Chloride 101 Carbon Dioxide 26 Anion Gap 16 BUN 23 H Creatinine 1.4 Est GFR ( Amer) > 60 Est GFR (Non-Af Amer) 52 POC Glucose (mg/dL) Random Glucose 120 H D Calcium 8.1 L Phosphorus 5.5 H Magnesium 1.8 Total Bilirubin AST ALT Alkaline Phosphatase Total Creatine Kinase Troponin I NT-Pro-B Natriuret Pep Total Protein Albumin Globulin Albumin/Globulin Ratio Lipase TSH 3rd Generation Arterial Blood Potassium Venous Blood Potassium Urine Color Urine Clarity Urine pH Ur Specific [place] Urine Protein Urine Glucose (UA) Urine Ketones Urine Blood Urine Nitrate Urine Bilirubin Urine Urobilinogen Ur Leukocyte Esterase Urine WBC (Auto) Urine RBC (Auto) Ur Squamous Epith Cells Urine Bacteria Urine Opiates Screen Urine Methadone Screen Ur Barbiturates Screen Ur Phencyclidine Scrn Ur Amphetamines Screen U Benzodiazepines Scrn U Oth Cocaine Metabols U Cannabinoids Screen 11/25/18 11/25/18 11/25/18 09:03 14:50 14:50 WBC 16.0 H RBC 5.14 Hgb 16.9 Hct 51.0 MCV 99.2 H MCH 32.9 H MCHC 33.2 RDW 16.0 H Plt Count 165 MPV 8.9 Neut % (Auto) 88.2 H Lymph % (Auto) 5.5 L [place] % (Auto) 5.8 Eos % (Auto) 0.2 Baso % (Auto) 0.3 Neut # (Auto) 14.1 H Lymph # (Auto) 0.9 L [place] # (Auto) 0.9 H Eos # (Auto) 0.0 Baso # (Auto) 0.0 Neutrophils % (Manual) 84 H Band Neutrophils % Lymphocytes % (Manual) 10 L Monocytes % (Manual) 6 Platelet Estimate Normal RBC Morphology Normal Anisocytosis (manual) PT INR APTT Puncture Site pCO2 pO2 24 L HCO3 ABG pH ABG Total CO2 ABG O2 Saturation ABG Base Excess Albert Test ABG Potassium VBG pH 7.18 L* VBG pCO2 74 H* VBG HCO3 21.0 VBG Total CO2 29.9 H VBG O2 Sat (Calc) 47.2 VBG Base Excess -2.6 L VBG Potassium 4.0 A-a O2 Difference Respiratory Index Glucose 118 H Lactate 3.2 H Vent Mode Mechanical Rate FiO2 60.0 Tidal Volume PEEP 5 Crit Value Called To Dr ferguson Crit Value 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 Crit Value Read Back Y Blood Gas Notified Time 910 Sodium 136.0 140 Potassium 4.2 Chloride 100.0 98 Carbon Dioxide 30 Anion Gap 16 BUN 21 H Creatinine 1.3 Est GFR ( Amer) > 60 Est GFR (Non-Af Amer) 56 POC Glucose (mg/dL) Random Glucose 132 H Calcium 8.4 L Phosphorus 5.0 H Magnesium 1.9 Total Bilirubin AST ALT Alkaline Phosphatase Total Creatine Kinase Troponin I NT-Pro-B Natriuret Pep Total Protein Albumin Globulin Albumin/Globulin Ratio Lipase TSH 3rd Generation Arterial Blood Potassium Venous Blood Potassium 4.0 Urine Color Urine Clarity Urine pH Ur Specific [place] Urine Protein Urine Glucose (UA) Urine Ketones Urine Blood Urine Nitrate Urine Bilirubin Urine Urobilinogen Ur Leukocyte Esterase Urine WBC (Auto) Urine RBC (Auto) Ur Squamous Epith Cells Urine Bacteria Urine Opiates Screen Urine Methadone Screen Ur Barbiturates Screen Ur Phencyclidine Scrn Ur Amphetamines Screen U Benzodiazepines Scrn U Oth Cocaine Metabols U Cannabinoids Screen 11/25/18 17:23 WBC RBC Hgb Hct MCV MCH MCHC RDW Plt Count MPV Neut % (Auto) Lymph % (Auto) [place] % (Auto) Eos % (Auto) Baso % (Auto) Neut # (Auto) Lymph # (Auto) [place] # (Auto) Eos # (Auto) Baso # (Auto) Neutrophils % (Manual) Band Neutrophils % Lymphocytes % (Manual) Monocytes % (Manual) Platelet Estimate RBC Morphology Anisocytosis (manual) PT INR APTT 137.0 H* D Puncture Site pCO2 pO2 HCO3 ABG pH ABG Total CO2 ABG O2 Saturation ABG Base Excess Albert Test ABG Potassium VBG pH VBG pCO2 VBG HCO3 VBG Total CO2 VBG O2 Sat (Calc) VBG Base Excess VBG Potassium A-a O2 Difference Respiratory Index Glucose Lactate Vent Mode Mechanical Rate FiO2 Tidal Volume PEEP Crit Value Called To Crit Value Called By Crit Value Read Back Blood Gas Notified Time Sodium Potassium Chloride Carbon Dioxide Anion Gap BUN Creatinine Est GFR ( Amer) Est GFR (Non-Af Amer) POC Glucose (mg/dL) Random Glucose Calcium Phosphorus Magnesium Total Bilirubin AST ALT Alkaline Phosphatase Total Creatine Kinase Troponin I NT-Pro-B Natriuret Pep Total Protein Albumin Globulin Albumin/Globulin Ratio Lipase TSH 3rd Generation Arterial Blood Potassium Venous Blood Potassium Urine Color Urine Clarity Urine pH Ur Specific [place] Urine Protein Urine Glucose (UA) Urine Ketones Urine Blood Urine Nitrate Urine Bilirubin Urine Urobilinogen Ur Leukocyte Esterase Urine WBC (Auto) Urine RBC (Auto) Ur Squamous Epith Cells Urine Bacteria Urine Opiates Screen Urine Methadone Screen Ur Barbiturates Screen Ur Phencyclidine Scrn Ur Amphetamines Screen U Benzodiazepines Scrn U Oth Cocaine Metabols U Cannabinoids Screen Radiology Impressions: Radiology Impressions Chest X-Ray 11/24/18 21:04 IMPRESSION: Two external defibrillator pads project over the lower chest. Dual lead left-sided pacemaker. Cardiomegaly. Atherosclerotic calcifications present. Moderate interstitial prominence may reflect infection or edema. Head CT 11/24/18 21:43 IMPRESSION: Moderate chronic white matter ischemic change. Fluid dependently in both maxillary antra. Possible acute sinusitis. No intracranial mass, hemorrhage or evidence of acute infarct. Chest X-Ray 11/24/18 21:51 IMPRESSION: Moderate interstitial prominence may reflect infection or edema. Bilateral hilar prominence versus central vascular congestion. Cardiomegaly. Aortic ectasia. Dual lead left-sided AICD. Endotracheal tube terminates approximately 5 cm above the yasemin. 2 external defibrillator pads noted. Head/Neck CTA 11/25/18 00:16 IMPRESSION: Calcified plaque in the carotid bifurcations with no significant stenosis CT Angiography of the Brain. HISTORY: cardiac arrest COMPARISON: None available. TECHNIQUE: CT angiography of the intracranial arteries was performed. Coronal and sagittal maximum intensity projection reformated images were generated. Radiation dose: Total exam DLP = 983.74 mGy-cm. This CT exam was performed using one or more of the following dose reduction techniques: Automated exposure control, adjustment of the mA and/or kV according to patient size, and/or use of iterative reconstruction technique. FINDINGS: INTERNAL CEREBRAL ARTERIES: Unremarkable. The skull base, petrous, cavernous and supraclinoid segments are bilaterally widely patent. ANTERIOR CEREBRAL ARTERIES: Unremarkable. A1 and A2 segments are widely patent. Smaller distal branches unremarkable, as visualized. MIDDLE CEREBRAL ARTERIES: Unremarkable. M1 and M2 segments are widely patent. Perisylvian branches grossly symmetric. POSTERIOR CIRCULATION: Basilar Artery: Unremarkable. Distal Vertebral Arteries: Unremarkable. Posterior Cerebral Arteries: Unremarkable. Posterior Inferior Cerebellar Arteries: Unremarkable. ANEURYSM/ VASCULAR MALFORMATIONS: None. OTHER FINDINGS: The report concurs with the preliminary [facility] report IMPRESSION: Unremarkable CT Angiography of the Brain. Chest X-Ray 11/25/18 07:00 IMPRESSION: Increasing left perihilar opacity. Concerning for pneumonia. EKG/Cardiology Studies: Cardiology / EKG Studies 11/24/18 21:04 ELECTROCARDIOGRAM Stat Comment: Mode Of Transportation: BED Reason For Exam: chest pain Attending/Attestation - Attestation I have personally seen and examined this patient.: Yes I have fully participated in the care of the patient.: Yes I have reviewed all pertinent clinical information: Yes Notes (Text): 11/25/18 18:38 Patient seen and examined in the intensive care unit. Case discussed with housestaff in the morning rounds. 58 year old obese male with pmhx of COPD, CHF, AICD placement brought in by ALS s/p witnessed cardiac arrest. PEA then asystole. Code approximately 22 minutes per ALS, epi x4 for PEA, defibrillation x 1 for pulseless vtach with ROSC. Patient's own defibrillator fired 2x afterwards. Twitching and myoclonic jerks of the body noted Started on Keppra Continue with code freeze EEG and repeat CAT scan of head Prognosis Continue heparin drip, case discussed with cardiology
--- NOTE | 2018-11-25 12:26 | CP.PCM.CON ---
History of Present Illness - History of Present Illness History of Present Illness: Consultation s/p cardiac arrest 58-year-old male brought in after a witnessed cardiac arrest by EMS apparently called EMS for complaints of shortness of breath walkdown and met the EMS after which she had a witnessed arrest PEA then asystole after about 14 to 16 minutes patient had 4 episodes 1 defibrillation for V. tach had return of spontaneous circulation patient had a history of AICD which fired twice patient was intubated and brought to [facility] emergency room. Past medical history significant for CHF obesity COPD AICD/pacemaker. Patient currently nonresponsive on hypothermia protocol as per review of active medication record patient is on aspirin Lasix Zosyn being sedated with propofol on IV heparin drip and getting amiodarone and is receiving hypothermia protocol. EKG showed atrial sensed V paced rhythm initial troponin was normal. NT proBNP was 1480. Review of Systems - Review of Systems Systems not reviewed;Unavailable: Acuity of Condition - Constitutional Constitutional: As Per HPI - EENT Eyes: As Per HPI Ears: As Per HPI Nose/Mouth/Throat: As Per HPI - Cardiovascular Cardiovascular: As Per HPI - Respiratory Respiratory: As Per HPI - Gastrointestinal Gastrointestinal: As Per HPI - Genitourinary Genitourinary: As Per HPI - Reproductive: Male Reproductive:Male: As Per HPI - Musculoskeletal Musculoskeletal: As Per HPI - Integumentary Integumentary: As Per HPI - Neurological Neurological: As Per HPI - Psychiatric Psychiatric: As Per HPI - Endocrine Endocrine: As Per HPI - Hematologic/Lymphatic Hematologic: As Per HPI Past Patient History - Past Medical History & Family History Past Medical History?: Yes - Past Social History Smoking Status: Never Smoked - CARDIAC Hx Hypertension: Yes Hx Pacemaker: Yes - PULMONARY Hx Chronic Obstructive Pulmonary Disease (COPD): Yes Hx Sleep Apnea: Yes - NEUROLOGICAL Hx Migraine: Yes - HEENT Hx Cataracts: Yes - INTEGUMENTARY Other/Comment: rash - MUSCULOSKELETAL/RHEUMATOLOGICAL Hx Back Pain: Yes Hx Falls: No - GASTROINTESTINAL Hx Gastroesophageal Reflux: Yes Hx Nausea: Yes - PSYCHIATRIC Hx Anxiety: Yes Hx Depression: Yes Hx Substance Use: No - SURGICAL HISTORY Other/Comment: pacemaker 1 month ago - ANESTHESIA Hx Anesthesia: Yes (unknown) Hx Anesthesia Reactions: No Meds Allergies/Adverse Reactions: Allergies Allergy/AdvReac Type Severity Reaction Status Date / Time Unobtainable Allergy Verified 11/24/18 21:04 - Medications Medications: Current Medications Acetaminophen (Tylenol 650mg/20.3ml Solution Ud) 975 mg NG Q6 PRN PRN Reason: Rigors Last Admin: 11/25/18 02:13 Dose: 975 mg Aspirin (Aspirin) 325 mg PO DAILY [facility] Last Admin: 11/25/18 10:07 Dose: 325 mg Famotidine (Pepcid) 20 mg IVP Q12 [facility] Last Admin: 11/25/18 10:07 Dose: 20 mg Furosemide (Lasix) 40 mg IV Q12 [facility] Last Admin: 11/25/18 10:07 Dose: 40 mg Piperacillin Sod/Tazobactam (Sod 3.375 gm/ Sodium Chloride) 100 mls @ 200 mls/hr IVPB Q6H [facility]; Protocol Last Admin: 11/25/18 10:07 Dose: 200 mls/hr Heparin Sodium/Sodium Chloride (Heparin 37711 Units/250ml 1/2 Normal Saline) 2 5,000 units in 250 mls @ 14.808 mls/hr IV .[id number] PRN; Protocol PRN Reason: PROTOCOL Last Admin: 11/25/18 10:49 Dose: 12 units/kg/hr, 14.808 mls/hr Levetiracetam 500 mg/ Sodium (Chloride) 105 mls @ 420 mls/hr IVPB Q12H [facility] Last Admin: 11/25/18 10:48 Dose: 420 mls/hr Propofol (Diprivan) 1,000 mg in 100 mls @ 3.702 mls/hr IV .Q24H PRN; Protocol PRN Reason: TITRATE PER MD ORDER Physical Exam - Constitutional Appears: Toxic - Head Exam Head Exam: ATRAUMATIC, NORMAL INSPECTION, NORMOCEPHALIC - Eye Exam Eye Exam: PERRL - ENT Exam ENT Exam: Mucous Membranes Moist, Normal Exam - Neck Exam Neck exam: Positive for: Normal Inspection - Respiratory Exam Respiratory Exam: Clear to Auscultation Bilateral, Rales, NORMAL BREATHING PAT TERN - Cardiovascular Exam Cardiovascular Exam: REGULAR RHYTHM, RRR, +S1, +S2, Systolic Murmur - GI/Abdominal Exam GI & Abdominal Exam: Normal Bowel Sounds, Soft. absent: Tenderness - Extremities Exam Extremities exam: Positive for: normal inspection - Back Exam Back exam: NORMAL INSPECTION - Neurological Exam Neurological exam: Altered - Skin Skin Exam: Dry, Intact, Normal Color, Warm Results - Vital Signs Recent Vital Signs: Last Vital Signs Temp 95.5 F L 11/25/18 12:00 Pulse 60 11/25/18 12:00 Resp 24 11/25/18 12:00 BP 109/80 11/25/18 12:00 Pulse Ox 100 11/25/18 12:00 - Labs Result Diagrams: 11/25/18 09:02 11/25/18 09:02 Labs: Laboratory Results - last 24 hr 11/24/18 11/24/18 11/24/18 21:00 21:09 21:09 WBC 15.4 H RBC 5.01 Hgb 16.2 Hct 51.4 H MCV 102.6 H MCH 32.2 H MCHC 31.4 L RDW 17.0 H Plt Count 238 MPV 9.8 Neut % (Auto) 60.6 Lymph % (Auto) 27.3 Granite % (Auto) 7.8 Eos % (Auto) 3.9 Baso % (Auto) 0.4 Neut # (Auto) 9.4 H Lymph # (Auto) 4.2 Granite # (Auto) 1.2 H Eos # (Auto) 0.6 Baso # (Auto) 0.1 Neutrophils % (Manual) Band Neutrophils % Lymphocytes % (Manual) Monocytes % (Manual) Platelet Estimate Anisocytosis (manual) PT 11.1 INR 1.0 APTT 39.0 H Puncture Site pCO2 pO2 HCO3 ABG pH ABG Total CO2 ABG O2 Saturation ABG Base Excess Albert Test ABG Potassium VBG pH VBG pCO2 VBG HCO3 VBG Total CO2 VBG O2 Sat (Calc) VBG Base Excess VBG Potassium A-a O2 Difference Respiratory Index Glucose Lactate Vent Mode Mechanical Rate FiO2 Tidal Volume PEEP Crit Value Called To Crit Value Called By Crit Value Read Back Blood Gas Notified Time Sodium Potassium Chloride Carbon Dioxide Anion Gap BUN Creatinine Est GFR ( Amer) Est GFR (Non-Af Amer) POC Glucose (mg/dL) 197 H Random Glucose Calcium Phosphorus Magnesium Total Bilirubin AST ALT Alkaline Phosphatase Total Creatine Kinase Troponin I NT-Pro-B Natriuret Pep Total Protein Albumin Globulin Albumin/Globulin Ratio Lipase TSH 3rd Generation Arterial Blood Potassium Venous Blood Potassium Urine Color Urine Clarity Urine pH Ur Specific [place] Urine Protein Urine Glucose (UA) Urine Ketones Urine Blood Urine Nitrate Urine Bilirubin Urine Urobilinogen Ur Leukocyte Esterase Urine WBC (Auto) Urine RBC (Auto) Ur Squamous Epith Cells Urine Bacteria Urine Opiates Screen Urine Methadone Screen Ur Barbiturates Screen Ur Phencyclidine Scrn Ur Amphetamines Screen U Benzodiazepines Scrn U Oth Cocaine Metabols U Cannabinoids Screen 11/24/18 11/24/18 11/24/18 21:09 22:17 22:31 WBC RBC Hgb Hct MCV MCH MCHC RDW Plt Count MPV Neut % (Auto) Lymph % (Auto) Granite % (Auto) Eos % (Auto) Baso % (Auto) Neut # (Auto) Lymph # (Auto) [place] # (Auto) Eos # (Auto) Baso # (Auto) Neutrophils % (Manual) Band Neutrophils % Lymphocytes % (Manual) Monocytes % (Manual) Platelet Estimate Anisocytosis (manual) PT INR APTT Puncture Site Rra pCO2 74 H* pO2 167 H HCO3 17.6 L ABG pH 7.08 L* ABG Total CO2 24.2 ABG O2 Saturation 99.8 H ABG Base Excess -9.4 L Albert Test Na ABG Potassium 5.0 VBG pH VBG pCO2 VBG HCO3 VBG Total CO2 VBG O2 Sat (Calc) VBG Base Excess VBG Potassium A-a O2 Difference 454.0 Respiratory Index 2.7 Glucose 237 H Lactate 2.9 H Vent Mode Prvc Mechanical Rate 16 FiO2 100.0 Tidal Volume 600 PEEP 5 Crit Value Called To Lendl Crit Value Called By freddy Walsh md Crit Value Read Back Y Blood Gas Notified Time 2221 Sodium 137 136.0 Potassium 4.5 Chloride 99 103.0 Carbon Dioxide 20 L Anion Gap 23 H BUN 18 Creatinine 1.5 Est GFR ( Amer) 58 Est GFR (Non-Af Amer) 48 POC Glucose (mg/dL) Random Glucose 222 H Calcium 8.1 L Phosphorus Magnesium Total Bilirubin 0.4 AST 72 H ALT 70 Alkaline Phosphatase 81 Total Creatine Kinase Troponin I 0.0670 NT-Pro-B Natriuret Pep 1480 H Total Protein 7.4 Albumin 3.7 Globulin 3.6 Albumin/Globulin Ratio 1.0 Lipase 151 TSH 3rd Generation 7.81 H Arterial Blood Potassium 5.0 Venous Blood Potassium Urine Color Urine Clarity Urine pH Ur Specific [place] Urine Protein Urine Glucose (UA) Urine Ketones Urine Blood Urine Nitrate Urine Bilirubin Urine Urobilinogen Ur Leukocyte Esterase Urine WBC (Auto) Urine RBC (Auto) Ur Squamous Epith Cells Urine Bacteria Urine Opiates Screen Urine Methadone Screen Ur Barbiturates Screen Ur Phencyclidine Scrn Ur Amphetamines Screen U Benzodiazepines Scrn U Oth Cocaine Metabols U Cannabinoids Screen 11/24/18 11/24/18 11/25/18 23:21 23:21 01:19 WBC RBC Hgb Hct MCV MCH MCHC RDW Plt Count MPV Neut % (Auto) Lymph % (Auto) Granite % (Auto) Eos % (Auto) Baso % (Auto) Neut # (Auto) Lymph # (Auto) [place] # (Auto) Eos # (Auto) Baso # (Auto) Neutrophils % (Manual) Band Neutrophils % Lymphocytes % (Manual) Monocytes % (Manual) Platelet Estimate Anisocytosis (manual) PT INR APTT Puncture Site pCO2 pO2 HCO3 ABG pH ABG Total CO2 ABG O2 Saturation ABG Base Excess Albert Test ABG Potassium VBG pH VBG pCO2 VBG HCO3 VBG Total CO2 VBG O2 Sat (Calc) VBG Base Excess VBG Potassium A-a O2 Difference Respiratory Index Glucose Lactate Vent Mode Mechanical Rate FiO2 Tidal Volume PEEP Crit Value Called To Crit Value Called By Crit Value Read Back Blood Gas Notified Time Sodium Potassium Chloride Carbon Dioxide Anion Gap BUN Creatinine Est GFR ( Amer) Est GFR (Non-Af Amer) POC Glucose (mg/dL) 266 H Random Glucose Calcium Phosphorus Magnesium Total Bilirubin AST ALT Alkaline Phosphatase Total Creatine Kinase Troponin I NT-Pro-B Natriuret Pep Total Protein Albumin Globulin Albumin/Globulin Ratio Lipase TSH 3rd Generation Arterial Blood Potassium Venous Blood Potassium Urine Color Yellow Urine Clarity Hazy Urine pH 5.0 Ur Specific [place] 1.021 Urine Protein 2+ H Urine Glucose (UA) 1+ H Urine Ketones Negative Urine Blood Negative Urine Nitrate Negative Urine Bilirubin Negative Urine Urobilinogen Normal Ur Leukocyte Esterase Trace Urine WBC (Auto) 26 H Urine RBC (Auto) 3 Ur Squamous Epith Cells 1 Urine Bacteria Occ H Urine Opiates Screen Negative Urine Methadone Screen Negative Ur Barbiturates Screen Negative Ur Phencyclidine Scrn Negative Ur Amphetamines Screen Negative U Benzodiazepines Scrn Positive U Oth Cocaine Metabols Negative U Cannabinoids Screen Negative 11/25/18 11/25/18 11/25/18 02:34 02:34 02:34 WBC 19.9 H RBC 4.92 Hgb 16.1 Hct 49.5 MCV 100.6 H D MCH 32.8 H MCHC 32.6 L RDW 16.6 H Plt Count 221 MPV 8.7 Neut % (Auto) 89.9 H Lymph % (Auto) 3.0 L [place] % (Auto) 6.9 Eos % (Auto) 0.0 Baso % (Auto) 0.2 Neut # (Auto) 17.9 H Lymph # (Auto) 0.6 L [place] # (Auto) 1.4 H Eos # (Auto) 0.0 Baso # (Auto) 0.0 Neutrophils % (Manual) 87 H Band Neutrophils % 3 H Lymphocytes % (Manual) 4 L Monocytes % (Manual) 6 Platelet Estimate Normal Anisocytosis (manual) PT 11.2 INR 1.0 APTT 25.0 D Puncture Site pCO2 pO2 HCO3 ABG pH ABG Total CO2 ABG O2 Saturation ABG Base Excess Albert Test ABG Potassium VBG pH VBG pCO2 VBG HCO3 VBG Total CO2 VBG O2 Sat (Calc) VBG Base Excess VBG Potassium A-a O2 Difference Respiratory Index Glucose Lactate Vent Mode Mechanical Rate FiO2 Tidal Volume PEEP Crit Value Called To Crit Value Called By Crit Value Read Back Blood Gas Notified Time Sodium 138 Potassium 5.4 H Chloride 100 Carbon Dioxide 26 Anion Gap 18 BUN 23 H Creatinine 1.6 H Est GFR ( Amer) 54 Est GFR (Non-Af Amer) 44 POC Glucose (mg/dL) Random Glucose 265 H Calcium 7.4 L Phosphorus 6.3 H Magnesium 1.7 Total Bilirubin 0.8 AST 114 H D ALT 96 H D Alkaline Phosphatase 99 Total Creatine Kinase 401 H Troponin I NT-Pro-B Natriuret Pep Total Protein 7.8 Albumin 4.0 Globulin 3.8 Albumin/Globulin Ratio 1.1 Lipase TSH 3rd Generation Arterial Blood Potassium Venous Blood Potassium Urine Color Urine Clarity Urine pH Ur Specific [place] Urine Protein Urine Glucose (UA) Urine Ketones Urine Blood Urine Nitrate Urine Bilirubin Urine Urobilinogen Ur Leukocyte Esterase Urine WBC (Auto) Urine RBC (Auto) Ur Squamous Epith Cells Urine Bacteria Urine Opiates Screen Urine Methadone Screen Ur Barbiturates Screen Ur Phencyclidine Scrn Ur Amphetamines Screen U Benzodiazepines Scrn U Oth Cocaine Metabols U Cannabinoids Screen 11/25/18 11/25/18 11/25/18 03:02 03:55 05:00 WBC RBC Hgb Hct MCV MCH MCHC RDW Plt Count MPV Neut % (Auto) Lymph % (Auto) Gran[place] % (Auto) Eos % (Auto) Baso % (Auto) Neut # (Auto) Lymph # (Auto) [place] # (Auto) Eos # (Auto) Baso # (Auto) Neutrophils % (Manual) Band Neutrophils % Lymphocytes % (Manual) Monocytes % (Manual) Platelet Estimate Anisocytosis (manual) PT INR APTT Puncture Site pCO2 pO2 HCO3 ABG pH ABG Total CO2 ABG O2 Saturation ABG Base Excess Albert Test ABG Potassium VBG pH VBG pCO2 VBG HCO3 VBG Total CO2 VBG O2 Sat (Calc) VBG Base Excess VBG Potassium A-a O2 Difference Respiratory Index Glucose Lactate Vent Mode Mechanical Rate FiO2 Tidal Volume PEEP Crit Value Called To Crit Value Called By Crit Value Read Back Blood Gas Notified Time Sodium Potassium Chloride Carbon Dioxide Anion Gap BUN Creatinine Est GFR ( Amer) Est GFR (Non-Af Amer) POC Glucose (mg/dL) 291 H 242 H 201 H Random Glucose Calcium Phosphorus Magnesium Total Bilirubin AST ALT Alkaline Phosphatase Total Creatine Kinase Troponin I NT-Pro-B Natriuret Pep Total Protein Albumin Globulin Albumin/Globulin Ratio Lipase TSH 3rd Generation Arterial Blood Potassium Venous Blood Potassium Urine Color Urine Clarity Urine pH Ur Specific [place] Urine Protein Urine Glucose (UA) Urine Ketones Urine Blood Urine Nitrate Urine Bilirubin Urine Urobilinogen Ur Leukocyte Esterase Urine WBC (Auto) Urine RBC (Auto) Ur Squamous Epith Cells Urine Bacteria Urine Opiates Screen Urine Methadone Screen Ur Barbiturates Screen Ur Phencyclidine Scrn Ur Amphetamines Screen U Benzodiazepines Scrn U Oth Cocaine Metabols U Cannabinoids Screen 11/25/18 11/25/18 11/25/18 05:28 05:55 06:59 WBC RBC Hgb Hct MCV MCH MCHC RDW Plt Count MPV Neut % (Auto) Lymph % (Auto) Granite % (Auto) Eos % (Auto) Baso % (Auto) Neut # (Auto) Lymph # (Auto) [place] # (Auto) Eos # (Auto) Baso # (Auto) Neutrophils % (Manual) Band Neutrophils % Lymphocytes % (Manual) Monocytes % (Manual) Platelet Estimate Anisocytosis (manual) PT INR APTT Puncture Site Rr pCO2 49 H pO2 221 H HCO3 22.8 ABG pH 7.30 L ABG Total CO2 25.6 ABG O2 Saturation 100.4 H ABG Base Excess -2.8 L Albert Test Pos ABG Potassium 4.9 VBG pH VBG pCO2 VBG HCO3 VBG Total CO2 VBG O2 Sat (Calc) VBG Base Excess VBG Potassium A-a O2 Difference 443.0 Respiratory Index 2.1 Glucose 136 H Lactate 2.3 H Vent Mode Prvc Mechanical Rate 20 FiO2 100.0 Tidal Volume 600 PEEP 5 Crit Value Called To Crit Value Called By Crit Value Read Back Blood Gas Notified Time Sodium 133.0 Potassium Chloride 103.0 Carbon Dioxide Anion Gap BUN Creatinine Est GFR ( Amer) Est GFR (Non-Af Amer) POC Glucose (mg/dL) 179 H 155 H Random Glucose Calcium Phosphorus Magnesium Total Bilirubin AST ALT Alkaline Phosphatase Total Creatine Kinase Troponin I NT-Pro-B Natriuret Pep Total Protein Albumin Globulin Albumin/Globulin Ratio Lipase TSH 3rd Generation Arterial Blood Potassium 4.9 Venous Blood Potassium Urine Color Urine Clarity Urine pH Ur Specific [place] Urine Protein Urine Glucose (UA) Urine Ketones Urine Blood Urine Nitrate Urine Bilirubin Urine Urobilinogen Ur Leukocyte Esterase Urine WBC (Auto) Urine RBC (Auto) Ur Squamous Epith Cells Urine Bacteria Urine Opiates Screen Urine Methadone Screen Ur Barbiturates Screen Ur Phencyclidine Scrn Ur Amphetamines Screen U Benzodiazepines Scrn U Oth Cocaine Metabols U Cannabinoids Screen 11/25/18 11/25/18 11/25/18 07:15 08:06 08:59 WBC RBC Hgb Hct MCV MCH MCHC RDW Plt Count MPV Neut % (Auto) Lymph % (Auto) [place] % (Auto) Eos % (Auto) Baso % (Auto) Neut # (Auto) Lymph # (Auto) [place] # (Auto) Eos # (Auto) Baso # (Auto) Neutrophils % (Manual) Band Neutrophils % Lymphocytes % (Manual) Monocytes % (Manual) Platelet Estimate Anisocytosis (manual) PT INR APTT Puncture Site pCO2 pO2 HCO3 ABG pH ABG Total CO2 ABG O2 Saturation ABG Base Excess Albert Test ABG Potassium VBG pH VBG pCO2 VBG HCO3 VBG Total CO2 VBG O2 Sat (Calc) VBG Base Excess VBG Potassium A-a O2 Difference Respiratory Index Glucose Lactate Vent Mode Mechanical Rate FiO2 Tidal Volume PEEP Crit Value Called To Crit Value Called By Crit Value Read Back Blood Gas Notified Time Sodium Potassium Chloride Carbon Dioxide Anion Gap BUN Creatinine Est GFR ( Amer) Est GFR (Non-Af Amer) POC Glucose (mg/dL) 180 H 157 H 154 H Random Glucose Calcium Phosphorus Magnesium Total Bilirubin AST ALT Alkaline Phosphatase Total Creatine Kinase Troponin I NT-Pro-B Natriuret Pep Total Protein Albumin Globulin Albumin/Globulin Ratio Lipase TSH 3rd Generation Arterial Blood Potassium Venous Blood Potassium Urine Color Urine Clarity Urine pH Ur Specific [place] Urine Protein Urine Glucose (UA) Urine Ketones Urine Blood Urine Nitrate Urine Bilirubin Urine Urobilinogen Ur Leukocyte Esterase Urine WBC (Auto) Urine RBC (Auto) Ur Squamous Epith Cells Urine Bacteria Urine Opiates Screen Urine Methadone Screen Ur Barbiturates Screen Ur Phencyclidine Scrn Ur Amphetamines Screen U Benzodiazepines Scrn U Oth Cocaine Metabols U Cannabinoids Screen 11/25/18 11/25/18 11/25/18 09:02 09:02 09:02 WBC 17.6 H RBC 5.13 Hgb 16.2 Hct 50.9 MCV 99.2 H MCH 31.5 H MCHC 31.8 L RDW 16.6 H Plt Count 172 MPV 8.9 Neut % (Auto) 87.9 H Lymph % (Auto) 4.8 L [place] % (Auto) 7.1 Eos % (Auto) 0.1 Baso % (Auto) 0.1 Neut # (Auto) 15.5 H Lymph # (Auto) 0.8 L [place] # (Auto) 1.2 H Eos # (Auto) 0.0 Baso # (Auto) 0.0 Neutrophils % (Manual) 81 H Band Neutrophils % 6 H Lymphocytes % (Manual) 5 L Monocytes % (Manual) 8 Platelet Estimate Normal Anisocytosis (manual) Slight PT 11.8 INR 1.1 APTT 32.0 D Puncture Site pCO2 pO2 HCO3 ABG pH ABG Total CO2 ABG O2 Saturation ABG Base Excess Albert Test ABG Potassium VBG pH VBG pCO2 VBG HCO3 VBG Total CO2 VBG O2 Sat (Calc) VBG Base Excess VBG Potassium A-a O2 Difference Respiratory Index Glucose Lactate Vent Mode Mechanical Rate FiO2 Tidal Volume PEEP Crit Value Called To Crit Value Called By Crit Value Read Back Blood Gas Notified Time Sodium 138 Potassium 4.8 Chloride 101 Carbon Dioxide 26 Anion Gap 16 BUN 23 H Creatinine 1.4 Est GFR ( Amer) > 60 Est GFR (Non-Af Amer) 52 POC Glucose (mg/dL) Random Glucose 120 H D Calcium 8.1 L Phosphorus 5.5 H Magnesium 1.8 Total Bilirubin AST ALT Alkaline Phosphatase Total Creatine Kinase Troponin I NT-Pro-B Natriuret Pep Total Protein Albumin Globulin Albumin/Globulin Ratio Lipase TSH 3rd Generation Arterial Blood Potassium Venous Blood Potassium Urine Color Urine Clarity Urine pH Ur Specific [place] Urine Protein Urine Glucose (UA) Urine Ketones Urine Blood Urine Nitrate Urine Bilirubin Urine Urobilinogen Ur Leukocyte Esterase Urine WBC (Auto) Urine RBC (Auto) Ur Squamous Epith Cells Urine Bacteria Urine Opiates Screen Urine Methadone Screen Ur Barbiturates Screen Ur Phencyclidine Scrn Ur Amphetamines Screen U Benzodiazepines Scrn U Oth Cocaine Metabols U Cannabinoids Screen 11/25/18 09:03 WBC RBC Hgb Hct MCV MCH MCHC RDW Plt Count MPV Neut % (Auto) Lymph % (Auto) [place] % (Auto) Eos % (Auto) Baso % (Auto) Neut # (Auto) Lymph # (Auto) [place] # (Auto) Eos # (Auto) Baso # (Auto) Neutrophils % (Manual) Band Neutrophils % Lymphocytes % (Manual) Monocytes % (Manual) Platelet Estimate Anisocytosis (manual) PT INR APTT Puncture Site pCO2 pO2 24 L HCO3 ABG pH ABG Total CO2 ABG O2 Saturation ABG Base Excess Albert Test ABG Potassium VBG pH 7.18 L* VBG pCO2 74 H* VBG HCO3 21.0 VBG Total CO2 29.9 H VBG O2 Sat (Calc) 47.2 VBG Base Excess -2.6 L VBG Potassium 4.0 A-a O2 Difference Respiratory Index Glucose 118 H Lactate 3.2 H Vent Mode Mechanical Rate FiO2 60.0 Tidal Volume PEEP 5 Crit Value Called To Dr ferguson Crit Value 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 soaker soda worker Crit Value Read Back Y Blood Gas Notified Time 910 Sodium 136.0 Potassium Chloride 100.0 Carbon Dioxide Anion Gap BUN Creatinine Est GFR ( Amer) Est GFR (Non-Af Amer) POC Glucose (mg/dL) Random Glucose Calcium Phosphorus Magnesium Total Bilirubin AST ALT Alkaline Phosphatase Total Creatine Kinase Troponin I NT-Pro-B Natriuret Pep Total Protein Albumin Globulin Albumin/Globulin Ratio Lipase TSH 3rd Generation Arterial Blood Potassium Venous Blood Potassium 4.0 Urine Color Urine Clarity Urine pH Ur Specific [place] Urine Protein Urine Glucose (UA) Urine Ketones Urine Blood Urine Nitrate Urine Bilirubin Urine Urobilinogen Ur Leukocyte Esterase Urine WBC (Auto) Urine RBC (Auto) Ur Squamous Epith Cells Urine Bacteria Urine Opiates Screen Urine Methadone Screen Ur Barbiturates Screen Ur Phencyclidine Scrn Ur Amphetamines Screen U Benzodiazepines Scrn U Oth Cocaine Metabols U Cannabinoids Screen Assessment & Plan (1) Cardiac arrest Assessment and Plan: etiology unclear echo neuro eval ? PE on IV heparin getting hypothermia protocol overall poor prognosis further titration based on clinical course Status: Acute
--- NOTE | 2018-11-25 13:07 | CT ---
Date of service: 11/25/2018 PROCEDURE: CT Angiography of the neck with contrast HISTORY: cardiac arrest COMPARISON: None. TECHNIQUE: Contiguous axial images of the neck were obtained from the level of the skull-base to the superior mediastinum in the arteriographic phase of enhancement. Coronal and sagittal reformats or also generated. IV contrast dose: Radiation dose: Total exam DLP = 983.74 mGy-cm. This CT exam was performed using one or more of the following dose reduction techniques: Automated exposure control, adjustment of the mA and/or kV according to patient size, and/or use of iterative reconstruction technique. FINDINGS: RIGHT CAROTID ARTERIES: Common Carotid Artery: Normal. Carotid Bifurcation: Calcified plaque with no significant stenosis Internal Carotid Artery:Normal. External Carotid Artery (proximal branches): Normal. LEFT CAROTID ARTERIES: Common Carotid Artery: Normal. Carotid Bifurcation: Calcified plaque with no significant stenosis Internal Carotid Artery:Normal. External Carotid Artery (proximal branches): Normal. VERTEBRAL ARTERIES: Right Vertebral Artery: Normal. Left Vertebral Artery: Normal. OTHER FINDINGS: no aortic atherosclerotic calcification or mural plaque present. Bilateral posterior upper lobe infiltrates IMPRESSION: Calcified plaque in the carotid bifurcations with no significant stenosis CT Angiography of the Brain. HISTORY: cardiac arrest COMPARISON: None available. TECHNIQUE: CT angiography of the intracranial arteries was performed. Coronal and sagittal maximum intensity projection reformated images were generated. Radiation dose: Total exam DLP = 983.74 mGy-cm. This CT exam was performed using one or more of the following dose reduction techniques: Automated exposure control, adjustment of the mA and/or kV according to patient size, and/or use of iterative reconstruction technique. FINDINGS: INTERNAL CEREBRAL ARTERIES: Unremarkable. The skull base, petrous, cavernous and supraclinoid segments are bilaterally widely patent. ANTERIOR CEREBRAL ARTERIES: Unremarkable. A1 and A2 segments are widely patent. Smaller distal branches unremarkable, as visualized. MIDDLE CEREBRAL ARTERIES: Unremarkable. M1 and M2 segments are widely patent. Perisylvian branches grossly symmetric. POSTERIOR CIRCULATION: Basilar Artery: Unremarkable. Distal Vertebral Arteries: Unremarkable. Posterior Cerebral Arteries: Unremarkable. Posterior Inferior Cerebellar Arteries: Unremarkable. ANEURYSM/ VASCULAR MALFORMATIONS: None. OTHER FINDINGS: The report concurs with the preliminary [facility] report IMPRESSION: Unremarkable CT Angiography of the Brain.
[2018-11-25 14:57] LABS: BASO % 0.3 % (0.0-2.0); EOS % 0.2 % (0.0-4.0); HEMOGLOBIN 16.9 g/dL (12.0-18.0); LYMPH # 0.9 K/uL (1.0-4.3); LYMPH % 5.5 % (20.0-40.0); MEAN CELL VOLUME 99.2 fL (80.0-94.0); MEAN CORPUSCULAR HEMOGLOBIN 32.9 pg (27.0-31.0); MEAN CORPUSCULAR HGB CONC 33.2 g/dL (33.0-37.0); MEAN PLATELET VOLUME 8.9 fL (7.2-11.7); MONO # 0.9 K/uL (0.0-0.8); MONO % 5.8 % (0.0-10.0); NEUT # 14.1 K/uL (1.8-7.0); NEUT % 88.2 % (50.0-75.0); NRBC % 0.1 % (0.0-2.0); PLATELET COUNT 165 K/uL (130-400); RBC 5.14 Mil/uL (4.40-5.90)
[2018-11-25 15:12] LABS: BLOOD UREA NITROGEN 21 mg/dL (9-20); CALCIUM 8.4 mg/dl (8.6-10.4); GFR NON-AFRICAN AMERICAN 56
--- NOTE | 2018-11-25 15:22 | RAD ---
HISTORY: chest pain COMPARISON: No prior. TECHNIQUE: Chest, one view. FINDINGS: 2 external defibrillator pads project over the lower chest. LUNGS: Moderate interstitial prominence may reflect infection or edema. Please note that chest x-ray has limited sensitivity for the detection of pulmonary masses. PLEURA: No significant pleural effusion identified. No definite pneumothorax . CARDIOVASCULAR: Dual lead left-sided pacemaker. Cardiomegaly. Atherosclerotic calcifications present. OSSEOUS STRUCTURES: Degenerative changes. Osseous demineralization. VISUALIZED UPPER ABDOMEN: Unremarkable. OTHER FINDINGS: None. IMPRESSION: Two external defibrillator pads project over the lower chest. Dual lead left-sided pacemaker. Cardiomegaly. Atherosclerotic calcifications present. Moderate interstitial prominence may reflect infection or edema.
[2018-11-25 15:27] LABS: LYMPHOCYTE 10 % (20-40); MONOCYTE 6 % (0-10); NEUTROPHIL 84 % (50-75); TOTAL CELLS COUNTED 100
[2018-11-25 15:28] LABS: PLATELET ESTIMATE NORMAL (NORMAL)
--- NOTE | 2018-11-25 15:28 | RAD ---
HISTORY: post intubation COMPARISON: Chest x-ray performed 11/24/18 at 2113 hr TECHNIQUE: Chest, one view. FINDINGS: Endotracheal tube terminates approximately 5 cm above the yasemin. LUNGS: Moderate interstitial prominence may reflect infection or edema. Bilateral hilar prominence versus central vascular congestion. Please note that chest x-ray has limited sensitivity for the detection of pulmonary masses. PLEURA: No significant pleural effusion identified. No definite pneumothorax . CARDIOVASCULAR: Cardiomegaly. Aortic ectasia. Dual lead left-sided AICD. 2 external defibrillator pads noted. OSSEOUS STRUCTURES: Degenerative changes of the spine. VISUALIZED UPPER ABDOMEN: Unremarkable. OTHER FINDINGS: None. IMPRESSION: Moderate interstitial prominence may reflect infection or edema. Bilateral hilar prominence versus central vascular congestion. Cardiomegaly. Aortic ectasia. Dual lead left-sided AICD. Endotracheal tube terminates approximately 5 cm above the yasemin. 2 external defibrillator pads noted.
[2018-11-25] MEDS ORDERED: levETIRAcetam 1,000 MG in Sodium Chloride 0.9% 100 ML IVPB ONE (16:02)
[2018-11-25 20:40] LABS: BASO % 0.1 % (0.0-2.0); EOS % 0.2 % (0.0-4.0); LYMPH # 1.2 K/uL (1.0-4.3); MEAN CELL VOLUME 96.6 fL (80.0-94.0); MEAN CORPUSCULAR HEMOGLOBIN 31.7 pg (27.0-31.0); MEAN CORPUSCULAR HGB CONC 32.8 g/dL (33.0-37.0); MEAN PLATELET VOLUME 9.2 fL (7.2-11.7); MONO # 0.9 K/uL (0.0-0.8); MONO % 5.6 % (0.0-10.0); NEUT # 14.5 K/uL (1.8-7.0); NEUT % 87.1 % (50.0-75.0); NRBC % 0.1 % (0.0-2.0); PLATELET COUNT 154 K/uL (130-400); RBC 5.38 Mil/uL (4.40-5.90); RED CELL DISTRIBUTION WIDTH 16.4 % (11.5-14.5); WHITE BLOOD COUNT 16.6 K/uL (4.8-10.8)
[2018-11-25 20:53] LABS: BLOOD UREA NITROGEN 23 mg/dL (9-20); CALCIUM 8.5 mg/dl (8.6-10.4); GFR NON-AFRICAN AMERICAN > 60
[2018-11-25 22:41] LABS: EOSINOPHIL 1 % (0-4); LYMPHOCYTE 6 % (20-40); MONOCYTE 5 % (0-10); NEUTROPHIL 88 % (50-75); PLATELET ESTIMATE NORMAL (NORMAL); TOTAL CELLS COUNTED 100
[2018-11-26] MEDS: Propofol 10 mg/ml 1,000 MG/100 ML VIAL IV PRN ×5 (01:20→22:30)
[2018-11-26] MEDS: Acetaminophen 650mg/20.3ml solution UD NG PRN (01:30)
[2018-11-26] MEDS: Piperacillin/Tazobact 3.375 GM in Sodium Chloride 100 ML IVPB SCH ×4 (04:31→22:38)
[2018-11-26 05:29] LABS: ABG ALLEN TEST POS; ARTERIAL BLOOD GAS HCO3 25.1 mmol/L (21-28); ARTERIAL BLOOD GAS HEMOGLOBIN 17.2 g/dL (11.7-17.4); ARTERIAL BLOOD GAS O2 SAT 99.5 % (95-98); ARTERIAL BLOOD GAS PCO2 45 mm/Hg (35-45); ARTERIAL BLOOD GAS PH 7.37 (7.35-7.45); ARTERIAL BLOOD GAS PO2 108 mm/Hg (80-100); ARTERIAL BLOOD GAS TCO2 27.4 mmol/L (22-28)
[2018-11-26 05:52] LABS: BASO % 0.2 % (0.0-2.0); EOS # 0.1 K/uL (0.0-0.7); EOS % 0.3 % (0.0-4.0); HEMOGLOBIN 16.9 g/dL (12.0-18.0); LYMPH % 6.3 % (20.0-40.0); MEAN CELL VOLUME 97.8 fL (80.0-94.0); MEAN CORPUSCULAR HEMOGLOBIN 31.8 pg (27.0-31.0); MEAN CORPUSCULAR HGB CONC 32.5 g/dL (33.0-37.0); MEAN PLATELET VOLUME 9.4 fL (7.2-11.7); MONO % 6.4 % (0.0-10.0); NEUT # 13.1 K/uL (1.8-7.0); NEUT % 86.8 % (50.0-75.0); PLATELET COUNT 151 K/uL (130-400); RBC 5.31 Mil/uL (4.40-5.90); RED CELL DISTRIBUTION WIDTH 16.3 % (11.5-14.5); WHITE BLOOD COUNT 15.1 K/uL (4.8-10.8)
[2018-11-26 06:17] LABS: ALBUMIN 3.8 g/dL (3.5-5.0); ALT/SGPT 71 U/L (21-72); AST/SGOT 89 U/L (17-59); BLOOD UREA NITROGEN 24 mg/dL (9-20); CALCIUM 8.2 mg/dl (8.6-10.4); GFR NON-AFRICAN AMERICAN 56
--- NOTE | 2018-11-26 06:57 | CARD ---
APPROVED REPORT Date of service: 11/25/2018 EXAM: Two-dimensional and M-mode echocardiogram with Doppler and color Doppler. Other Information Quality : TDSRhythm : INDICATION Dyspnea RISK FACTORS Hypertension 2D DIMENSIONS IVSd1.5 (0.7-1.1cm)LVDd5.3 (3.9-5.9cm) PWd1.4 (0.7-1.1cm)LA Grcnhm03 (18-58mL) LVDs4.2 (2.5-4.0cm)FS (%) 21.0 % M-Mode DIMENSIONS Left Atrium (MM)4.19 (2.5-4.0cm)IVSd1.86 (0.7-1.1cm) Aortic Root3.43 (2.2-3.7cm)LVDd6.07 (4.0-5.6cm) Aortic Cusp Exc.2.06 (1.5-2.0cm)PWd1.38 (0.7-1.1cm) FS (%) 38 %LVDs3.76 (2.0-3.8cm) Mitral Valve MV E Abwyxrsj82.2cm/sMV A Vqwfovus84.7cm/sE/A ratio0.8 TDI Lateral E' Peak V4.29cm/sMedial E' Peak V4.29cm/sE/Lateral E'16.4 E/Medial E'16.4 Tricuspid Valve TR Peak Rmuohsrm163tx/sTR Peak Gr.46bkEpEDOZ40hwSf LEFT VENTRICLE The Left Ventricle is mildly dilated. There is mild concentric left ventricular hypertrophy. Left ventricle systolic function is mildly impaired. The Ejection Fraction is 40-45%. Regional wall motion abnormalities noted. Tissue Doppler imaging reveals abnormal left ventricular diastolic dysfunction. RIGHT VENTRICLE The right ventricle is normal size. There is normal right ventricular wall thickness. Systolic function is mildly reduced. There is a pacemaker lead in the right ventricle. ATRIA The left atrium is mildly dilated. The right atrium is mildly dilated. The interatrial septum is intact with no evidence for an atrial septal defect. AORTIC VALVE The aortic valve is normal in structure. No aortic regurgitation is present. There is no aortic valvular stenosis. MITRAL VALVE The mitral valve is normal in structure. There is no evidence of mitral valve prolapse. There is no mitral valve stenosis. Mitral regurgitation is mild. TRICUSPID VALVE The tricuspid valve is normal in structure. There is trace tricuspid regurgitation. Right ventricular systolic pressure is estimated at less than 30 mmHg. There is no pulmonary hypertension. PULMONIC VALVE The pulmonic valve is not well visualized. There is mild pulmonic valvular regurgitation. GREAT VESSELS The aortic root is normal in size. PERICARDIAL EFFUSION There is no significant pericardial effusion. <Conclusion> Left ventricle systolic function is mildly impaired. The Ejection Fraction is 40-45%. Diastolic dysfunction. Hypertensive heart disease. No aortic regurgitation is present. Mitral regurgitation is mild. There is trace tricuspid regurgitation. There is no pulmonary hypertension. There is mild pulmonic valvular regurgitation.
--- NOTE | 2018-11-26 07:40 | CP.PCM.PN ---
<Reina Bergman - Last Filed: 11/26/18 16:56> Subjective - Date & Time of Evaluation Date of Evaluation: 11/26/18 Time of Evaluation: 07:36 - Subjective Subjective: Reina Bergman, PGY [address] Romano: Pt remained intubated and sedated. Will be entering warming stage of code freeze today. Objective - Vital Signs/Intake and Output Vital Signs (last 24 hours): Temp Pulse Resp BP Pulse Ox 93.7 F L 70 20 127/90 99 11/26/18 06:20 11/26/18 06:20 11/26/18 06:20 11/26/18 06:17 11/26/18 06:20 Intake and Output: 11/26/18 11/26/18 06:59 18:59 Intake Total 1120.50 Output Total 1166 Balance -45.50 - Medications Medications: Current Medications Aspirin (Aspirin) 325 mg PO DAILY MILEY Last Admin: 11/25/18 10:07 Dose: 325 mg Famotidine (Pepcid) 20 mg IVP Q12 MILEY Last Admin: 11/25/18 22:09 Dose: 20 mg Furosemide (Lasix) 40 mg IV Q12 MILEY Last Admin: 11/25/18 22:09 Dose: 40 mg Piperacillin Sod/Tazobactam (Sod 3.375 gm/ Sodium Chloride) 100 mls @ 200 mls/hr IVPB Q6H MILEY; Protocol Last Admin: 11/26/18 04:31 Dose: 200 mls/hr Heparin Sodium/Sodium Chloride (Heparin 44017 Units/250ml 1/2 Normal Saline) 25,000 units in 250 mls @ 14.808 mls/hr IV .[id number] PRN; Protocol PRN Reason: PROTOCOL Last Titration: 11/26/18 02:50 Dose: 5.99 units/kg/hr, 7.4 mls/hr Levetiracetam 500 mg/ Sodium (Chloride) 105 mls @ 420 mls/hr IVPB Q12H MILEY Last Admin: 11/25/18 10:48 Dose: 420 mls/hr Propofol (Diprivan) 1,000 mg in 100 mls @ 3.702 mls/hr IV .Q24H PRN; Protocol PRN Reason: TITRATE PER MD ORDER Last Titration: 11/26/18 06:27 Dose: 40 mcg/kg/min, 29.616 mls/hr - Labs Labs: 11/26/18 05:48 11/26/18 05:48 PT 11.8 SECONDS (9.7-12.2) 11/25/18 09:02 INR 1.1 11/25/18 09:02 APTT 137.0 SECONDS (21-34) H* D 11/25/18 17:23 - Constitutional Appears: Other (intubated and sedated) - Head Exam Head Exam: ATRAUMATIC, NORMAL INSPECTION - Eye Exam Eye Exam: EOMI, Normal appearance - ENT Exam Additional comments: ETT noted and secured - Respiratory Exam Respiratory Exam: absent: Respiratory Distress - Cardiovascular Exam Cardiovascular Exam: RRR, +S1, +S2. absent: Gallop, Murmur - GI/Abdominal Exam GI & Abdominal Exam: Soft, Normal Bowel Sounds. absent: Guarding, Rigid - Back Exam Back Exam: absent: CVA tenderness (L), CVA tenderness (R) - Neurological Exam Additional comments: Pt is intubated and sedated Assessment and Plan - Assessment and Plan (Free Text) Assessment: Pt is a 58 yo obese male with pmhx of COPD, CHF, AICD placement brought in by ALS s/p cardiac arrest. PEA then asystole. Code approximately 22 minutes per ALS, epi x4 for PEA, defibrillation x 1 for pulseless vtach with ROSC. Patient's own defibrillator fired 2x afterwards. Plan: Code freeze protocol - will enter warming phase today Echo completed: RV normal size, LV EF 40-45% with noted diastolic dysfunction Episode of VTACH noted on AICD on interrogation prior to episode which brought pt to hospital Pt on heparin drip for suspected PE <Chase Romano - Last Filed: 12/01/18 09:36> Objective - Vital Signs/Intake and Output Vital Signs (last 24 hours): Temp Pulse Resp BP Pulse Ox 98.9 F 60 0 L 46/21 L 83 L 12/01/18 04:00 12/01/18 05:41 12/01/18 06:00 12/01/18 05:41 12/01/18 05:41 Intake and Output: 12/01/18 12/01/18 06:59 18:59 Intake Total 77.50 Output Total 0 Balance 77.50 - Medications Medications: Current Medications Acetaminophen (Tylenol 650mg/20.3ml Solution Ud) 975 mg GT Q6 PRN Last Admin: 11/27/18 02:49 Dose: 975 mg Hydromorphone HCl (Dilaudid) 1 mg IVP Q4H PRN PRN Reason: Agitation Morphine Sulfate 100 mg/ (Sodium Chloride) 100 mls @ 30 mls/hr IV .Q3H20M PRN; Protocol PRN Reason: Pain, severe (8-10) Last Admin: 11/30/18 19:33 Dose: 30 mls/hr - Labs Labs: 11/29/18 05:52 11/29/18 05:47 PT 12.8 SECONDS (9.7-12.2) H 11/27/18 20:16 INR 1.2 11/27/18 20:16 APTT 31.0 SECONDS (21-34) D 11/27/18 20:16 Assessment and Plan (1) Cardiac arrest Status: Acute Attending/Attestation - Attestation I have personally seen and examined this patient.: Yes I have fully participated in the care of the patient.: Yes I have reviewed all pertinent clinical information, including history, physical exam and plan: Yes
[2018-11-26] MEDS ORDERED: Acetaminophen 650mg/20.3ml solution UD PO STA (08:11)
--- NOTE | 2018-11-26 08:54 | RAD ---
Chest x-ray single frontal view HISTORY: Intubated. Comparison: 11/25/2018 Findings: Lines and tubes in stable position. Left-sided pacemaker. Enlarged ectatic aorta. Cardiomegaly. Bilateral hilar prominence. Moderate to severe venous congestion. Patchy consolidative opacification at the right lung base. Punctate nodular density in the bilateral mid lung zones. Degenerative changes in the spine and shoulders. Chronic deformity of the mid left clavicle. Impression: Lines and tubes in stable position. Left-sided pacemaker. Enlarged ectatic aorta. Cardiomegaly. Bilateral hilar prominence. Moderate to severe venous congestion. Patchy consolidative opacification at the right lung base. Punctate nodular density in the bilateral mid lung zones.
[2018-11-26 09:12] LABS: ANISOCYTOSIS SLIGHT; BANDS 3 % (0-2); EOSINOPHIL 1 % (0-4); LYMPHOCYTE 4 % (20-40); MONOCYTE 5 % (0-10); NEUTROPHIL 87 % (50-75); PLATELET ESTIMATE NORMAL (NORMAL); TOTAL CELLS COUNTED 100
--- NOTE | 2018-11-26 09:21 | PCM.VEEG ---
Video EEG - Procedure Start Date: 11/25/18 Start Time: 18:10 End Date: 11/26/18 End Time: 09:00 Technical Summary: DATA ACQUISITION: This was a multichannel inpatient video-EEG, a minimum of 22 channels were uti lized, performed in accordance with recommendations specified by the [place] [employer] (Courtney Condon et al. ACNS Guideline 1: Minimum Technical Requirements for Performing Clinical Electroencephalography. Journal of Clinical Neurophysiology 2016;33:303-7). The 10-20 electrode placement system was utilized in accordance with guidelines detailed by the International Federation of Clinical Neurophysiology (Fay Duarte et al. The Ten-Twenty Electrode System of the International Federation. Recommendations for the Practice of Clinical Neurophysiology: Guidelines of the International Federation of Clinical Physiology 1999; EEG Suppl. 52.). DATA REVIEW / SPIKE DETECTION / DIGITAL ANALYSIS: The entire EEG was scanned and reviewed. Synchronized audio and video recording were reviewed at the time of each alarm and whenever an abnormality or suspicious activity was noted. The entire recording was analyzed utilizing an automated digital spike and seizure analysis program and all automatic spike and seizure detections were manually reviewed. A compressed spectral array was displayed and reviewed alongside the raw EEG tracings. In addition, further analysis of the EEG was performed when abnormalities were identified, including montage changes, dipole source localization, and frequency band identification. Video portion of the study is necessary to correlate abnormal EEG activity with clinical behavior. This study was attended 24 hours per day. - Interpretation Description of the study: Indication cardiac arrest EEG Finding during wakefulness: There was an excessive amount of muscle artifact, that did not allow a proper evaluation of the EEG. There was no normal awake architecture seen, thought out the record and when the patient was not stimulated the frequencies were in the 4 to 5 Hz seen diffusely bilaterally with inter mixed bifrontal sharp waves, with minimal reactivity of the EEG. In addition there were periods of relative EEG attenuation lasting 1 to 2 seconds. There were also occasional sharp waves seen bifrontally. EEG Finding during sleep: No discernible sleep architecture was seen. Interictal non-epileptiform abnormalities: None Interictal epileptiform abnormalities: None Ictal epileptiform abnormalities: None - Impression Impression: Poor EEG record due to marked muscle activity that does not allow a proper EEG evaluation. This was an abnormal video EEG, monitoring study, due to the presence of; 1- Moderate attenuated slowing and disorganization of the EEG No seizures were seen. Not in status epilepticus. INTERPRETATION: The above findings are in keeping with a moderate non specific diffuse disturbance of cortical activity, in keeping with a diffuse santacruz matter dysfunction. The findings do not suggest a specific etiology. Technically poor EEG due to excessive muscle artifact.
--- NOTE | 2018-11-26 09:52 | HP ---
The patient was seen and examined on 11/25/2018. CHIEF COMPLAINT: Cardiac arrest. HISTORY OF PRESENT ILLNESS: Mr. Eric Ford is a 58-year-old male. EMS was called for shortness of breath. he had a witnessed cardiac arrest, PEA, then asystole after about 14 to 15 minutes. Four epinephrine and one defibrillation given for ventricular tachycardia. His own defibrillator fired twice. After that, the patient is intubated with an adjuvant airway. I saw the patient in the ICU. EKG shows atrial sensed V-paced rhythm. Initial troponin was normal. ProBNP was 1480. PAST MEDICAL HISTORY: History of pacemaker, hypertension, COPD, sleep apnea, migraine, cataract, back pain, nausea, anxiety, and depression. ALLERGIES: THE PATIENT'S ALLERGIES ARE UNOBTAINABLE, THE PATIENT IS UNRESPONSIVE. FAMILY HISTORY: Unknown. HABITS: Unknown. HOME MEDICATIONS: Unknown. REVIEW OF SYSTEMS: The patient is intubated, unresponsive. Cannot do review of systems. PHYSICAL EXAMINATION: VITAL SIGNS: Temperature 91.4, pulse 60, blood pressure 118/101, respiratory rate 17. HEENT: Head: Normocephalic and atraumatic. Eyes: Closed. Nose: Patent. Mucous membranes moist. NECK: Supple. RESPIRATORY: Clear to auscultation. Bilateral rales. Normal breathing pattern. CARDIOVASCULAR: Regular rate and rhythm. RPR. Positive S1, positive S2. Systolic murmur. ABDOMEN: Soft. Bowel sounds are present. No organomegaly. EXTREMITIES: No edema. No cyanosis. NEUROLOGICAL: We cannot do examination. LABORATORY DATA: White blood cell is 17.6, hemoglobin 16.3, hematocrit 50.9, platelets 172. Sodium 138, potassium 4.2, BUN 23, creatinine 1.4, glucose of 120. ASSESSMENT AND PLAN: Mr. Eric Ford is a 58-year-old male with leukocytosis, hyperglycemia, came with cardiac arrest, etiology unclear. Pulmonary embolism, on intravenous heparin. Getting hypothermia protocol. Has hypothermia. Overall poor prognosis. Further titration based on clinical course. Appreciated cardiology input. Seen by Jaquelin, nurse practitioner. Neurologist is loading the patient with Keppra 1 g intravenously one dose followed by Keppra 500 mg every 12 hours. Continue with electroencephalogram for further evaluation of the patient's seizure activity. CAT scan of the head was done. CAT scan shows moderate chronic white matter ischemic changes, fluid dependently in both maxillary and possibly acute sinusitis. No intracranial mass, hemorrhage, or evidence of acute infarction. Chest x-ray shows increasing left perihilar opacity concerning of pneumonia. Looks like the patient has a history of chronic obstructive pulmonary disease, congestive heart failure, automatic implantable cardioverter-defibrillator. Has witnessed cardiac arrest, pulseless electrical activity, then asystole. Code approximately 22 minutes per advanced life support, epinephrine 4 for pulseless electrical activity. Defibrillation one time for pulseless ventricular tachycardia with presybeterian of spontaneous circulation. The patient is on defibrillator, fired x2. Convulsive rescue team noted per nursing staff, started Keppra. Pepcid given, gastrointestinal prophylaxis. Started on Zosyn for clinical coverage. Heparin was given for deep venous thrombosis prophylaxis. The patient is nothing by mouth. Repeat labs. We will follow up. Kamilla Hernandez MD MTDD
[2018-11-26 10:05] LABS: BASO % 0.2 % (0.0-2.0); EOS # 0.1 K/uL (0.0-0.7); EOS % 0.4 % (0.0-4.0); HEMOGLOBIN 15.7 g/dL (12.0-18.0); LYMPH % 7.5 % (20.0-40.0); MEAN CELL VOLUME 97.2 fL (80.0-94.0); MEAN CORPUSCULAR HEMOGLOBIN 32.8 pg (27.0-31.0); MEAN CORPUSCULAR HGB CONC 33.8 g/dL (33.0-37.0); MEAN PLATELET VOLUME 9.3 fL (7.2-11.7); MONO # 0.6 K/uL (0.0-0.8); MONO % 4.7 % (0.0-10.0); NEUT # 11.3 K/uL (1.8-7.0); NEUT % 87.2 % (50.0-75.0); PLATELET COUNT 166 K/uL (130-400); RBC 4.79 Mil/uL (4.40-5.90); RED CELL DISTRIBUTION WIDTH 16.2 % (11.5-14.5)
[2018-11-26] MEDS: levETIRAcetam 500 MG in Sodium Chloride 0.9% 100 ML IVPB SCH (10:18)
[2018-11-26 10:21] LABS: ALBUMIN 3.4 g/dL (3.5-5.0); ALT/SGPT 63 U/L (21-72); AST/SGOT 96 U/L (17-59); BLOOD UREA NITROGEN 24 mg/dL (9-20); GFR NON-AFRICAN AMERICAN 56
[2018-11-26] MEDS: Heparin25000 units/250ml 1/2NS 25,000 UNITS/250 ML BAG IV PRN (10:25)
--- NOTE | 2018-11-26 10:32 | CP.PCM.PN ---
Subjective - Date & Time of Evaluation Date of Evaluation: 11/26/18 Time of Evaluation: 10:30 - Subjective Subjective: in rewarming phase of code freeze no response so far Objective - Vital Signs/Intake and Output Vital Signs (last 24 hours): Temp Pulse Resp BP Pulse Ox 95.4 F L 72 24 100/63 100 11/26/18 09:40 11/26/18 09:40 11/26/18 09:40 11/26/18 09:25 11/26/18 09:40 Intake and Output: 11/26/18 11/26/18 06:59 18:59 Intake Total 1135.50 209.7 Output Total 1166 166 Balance -30.50 43.7 - Medications Medications: Current Medications Aspirin (Aspirin) 325 mg PO DAILY MILEY Last Admin: 11/26/18 09:26 Dose: 325 mg Famotidine (Pepcid) 20 mg IVP Q12 MILEY Last Admin: 11/26/18 09:25 Dose: 20 mg Furosemide (Lasix) 40 mg IV Q12 MILEY Last Admin: 11/26/18 09:25 Dose: 40 mg Piperacillin Sod/Tazobactam (Sod 3.375 gm/ Sodium Chloride) 100 mls @ 200 mls/hr IVPB Q6H MILEY; Protocol Last Admin: 11/26/18 04:31 Dose: 200 mls/hr Heparin Sodium/Sodium Chloride (Heparin 47993 Units/250ml 1/2 Normal Saline) 25,000 units in 250 mls @ 14.808 mls/hr IV .[id number] PRN; Protocol PRN Reason: PROTOCOL Last Admin: 11/26/18 10:25 Dose: 5.99 units/kg/hr, 7.4 mls/hr Levetiracetam 500 mg/ Sodium (Chloride) 105 mls @ 420 mls/hr IVPB Q12H MILEY Last Admin: 11/26/18 10:18 Dose: 420 mls/hr Propofol (Diprivan) 1,000 mg in 100 mls @ 3.702 mls/hr IV .Q24H PRN; Protocol PRN Reason: TITRATE PER MD ORDER Last Admin: 11/26/18 09:21 Dose: 40 mcg/kg/min, 29.616 mls/hr Vancomycin/Sodium Chloride (Vancomycin 1 Gm/Ns 200 Ml) 1 gm in 200 mls @ 133.333 mls/hr IVPB Q12H MILEY; Protocol Stop: 12/01/18 11:01 - Labs Labs: 11/26/18 09:49 11/26/18 09:49 PT 11.8 SECONDS (9.7-12.2) 11/25/18 09:02 INR 1.1 11/25/18 09:02 APTT 57.0 SECONDS (21-34) H D 11/26/18 09:49 - Constitutional Appears: Toxic - Head Exam Head Exam: ATRAUMATIC, NORMAL INSPECTION, NORMOCEPHALIC - Eye Exam Pupil Exam: Miosis - ENT Exam ENT Exam: Mucous Membranes Moist, Normal Exam - Neck Exam Neck Exam: Full ROM, Normal Inspection. absent: Lymphadenopathy - Respiratory Exam Respiratory Exam: Clear to Ausculation Bilateral, NORMAL BREATHING PATTERN Additional comments: intubated - Cardiovascular Exam Cardiovascular Exam: REGULAR RHYTHM, +S1, +S2, Murmur - GI/Abdominal Exam GI & Abdominal Exam: Soft, Normal Bowel Sounds. absent: Tenderness - Extremities Exam Extremities Exam: Full ROM, Normal Capillary Refill, Normal Inspection. absent: Joint Swelling, Pedal Edema - Back Exam Back Exam: NORMAL INSPECTION - Neurological Exam Neurological Exam: Altered - Skin Skin Exam: Dry, Intact, Normal Color, Warm Assessment and Plan (1) Cardiac arrest Assessment & Plan: EF 40-45% In rewarming phase on IV heparin for possible PE etiology ? v-tach induced for myocardial scar from prior ablation procedure minimal response overall poor prognosis and chance of survival Status: Acute
[2018-11-26 10:45] LABS: BANDS 7 % (0-2); LYMPHOCYTE 5 % (20-40); MONOCYTE 3 % (0-10); NEUTROPHIL 85 % (50-75); TOTAL CELLS COUNTED 100
[2018-11-26 10:46] LABS: ANISOCYTOSIS SLIGHT; PLATELET ESTIMATE NORMAL (NORMAL)
[2018-11-26] MEDS: Vancomycin 1 gm/NS 200 ml 1 GM/200 ML BAG IVPB SCH ×2 (11:17→23:39)
[2018-11-26] MEDS ORDERED: Potassium Chloride 20 mEq ER Tab PO ONE (11:24)
--- NOTE | 2018-11-26 11:25 | CP.PCM.CON ---
<Valentin Sanders - Last Filed: 11/26/18 15:29> History of Present Illness - History of Present Illness History of Present Illness: PGY-1 Neurology consult note for Dr Nuñez Patient is a 58 year old male with pmhx of COPD, CHF, AICD placement, brought to the ED by ambulance on 11/24 for sudden cardiac arrest at home, on PEA and asystole, ACLS protocol and 4 rounds of epi given to patient at site for 22 minutes, was brought to [facility] and intubated in hospital. Consult placed for Neurology for witnessed generalized seizure by nursing staff since admission to ICU. Patient is currently sedated and intubated, does not respond to command, no family at bedside, not clear if patient had previous seizures in the past or if this is new onset. Patient received loading dose of Keppra yesterday, is cur rently on Keppra 500mg Q12H. Patient placed on 24 hour video EEG since yesterday. As per nurse, patient opens his eyes at times, and has mild tremors on left arm. ROS unobtainable due to patient's current status. Pmhx/shx: as above All: unobtainable Meds: see record Sochx/fhx: unobtainable Review of Systems - Review of Systems Systems not reviewed;Unavailable: Acuity of Condition, Intubated Past Patient History - Past Medical History & Family History Past Medical History?: Yes - Past Social History Smoking Status: Never Smoked - CARDIAC Hx Hypertension: Yes Hx Pacemaker: Yes - PULMONARY Hx Chronic Obstructive Pulmonary Disease (COPD): Yes Hx Sleep Apnea: Yes - NEUROLOGICAL Hx Migraine: Yes - HEENT Hx Cataracts: Yes - INTEGUMENTARY Other/Comment: rash - MUSCULOSKELETAL/RHEUMATOLOGICAL Hx Back Pain: Yes Hx Falls: No - GASTROINTESTINAL Hx Gastroesophageal Reflux: Yes Hx Nausea: Yes - PSYCHIATRIC Hx Anxiety: Yes Hx Depression: Yes Hx Substance Use: No - SURGICAL HISTORY Other/Comment: pacemaker 1 month ago - ANESTHESIA Hx Anesthesia: Yes (unknown) Hx Anesthesia Reactions: No Meds Allergies/Adverse Reactions: Allergies Allergy/AdvReac Type Severity Reaction Status Date / Time Unobtainable Allergy Verified 11/24/18 21:04 - Medications Medications: Current Medications Acetaminophen (Tylenol 325mg Tab) 975 mg GT Q6 PRN PRN Reason: Fever >100.4 F Aspirin (Aspirin) 325 mg PO DAILY [facility] Last Admin: 11/26/18 09:26 Dose: 325 mg Famotidine (Pepcid) 20 mg IVP Q12 [facility] Last Admin: 11/26/18 09:25 Dose: 20 mg Furosemide (Lasix) 40 mg IV Q12 [facility] Last Admin: 11/26/18 09:25 Dose: 40 mg Piperacillin Sod/Tazobactam (Sod 3.375 gm/ Sodium Chloride) 100 mls @ 200 mls/hr IVPB Q6H [facility]; Protocol Last Admin: 11/26/18 10:33 Dose: 200 mls/hr Heparin Sodium/Sodium Chloride (Heparin 67403 Units/250ml 1/2 Normal Saline) 25,000 units in 250 mls @ 14.808 mls/hr IV .[id number] PRN; Protocol PRN Reason: PROTOCOL Last Admin: 11/26/18 10:25 Dose: 5.99 units/kg/hr, 7.4 mls/hr Levetiracetam 500 mg/ Sodium (Chloride) 105 mls @ 420 mls/hr IVPB Q12H [facility] Last Admin: 11/26/18 10:18 Dose: 420 mls/hr Propofol (Diprivan) 1,000 mg in 100 mls @ 3.702 mls/hr IV .Q24H PRN; Protocol PRN Reason: TITRATE PER MD ORDER Last Admin: 11/26/18 09:21 Dose: 40 mcg/kg/min, 29.616 mls/hr Vancomycin/Sodium Chloride (Vancomycin 1 Gm/Ns 200 Ml) 1 gm in 200 mls @ 133.333 mls/hr IVPB Q12H [facility]; Protocol Stop: 12/01/18 11:01 Last Admin: 11/26/18 11:17 Dose: 133.333 mls/hr Potassium Chloride (K-Dur 20 Meq Er Tab) 40 meq PO ONCE ONE Stop: 11/26/18 11:25 Physical Exam - Constitutional Appears: In Acute Distress - Head Exam Head Exam: ATRAUMATIC, NORMOCEPHALIC Additional comments: head wrapped with dressing for vEEG - Eye Exam Pupil Exam: Mydriatic, NORMAL ACCOMODATION - ENT Exam Additional comments: intubated - Neurological Exam Additional comments: not alert, unable to assess for orientation due to pt on sedation and intubated unable to do full neurological exam due to pt status - Expanded Neurological Exam Expanded Coma Scale Eye Opening: None Coma Scale Motor Response: None Coma Scale Verbal: None Coma Scale Total: 3 Results - Vital Signs Recent Vital Signs: Last Vital Signs Temp 96.5 F L 11/26/18 11:00 Pulse 73 11/26/18 11:00 Resp 21 11/26/18 11:00 BP 142/93 H 11/26/18 11:00 Pulse Ox 97 11/26/18 11:00 - Labs Result Diagrams: 11/26/18 09:49 11/26/18 09:49 Labs: Laboratory Results - last 24 hr 11/25/18 11/25/18 11/25/18 14:50 14:50 17:23 WBC 16.0 H RBC 5.14 Hgb 16.9 Hct 51.0 MCV 99.2 H MCH 32.9 H MCHC 33.2 RDW 16.0 H Plt Count 165 MPV 8.9 Neut % (Auto) 88.2 H Lymph % (Auto) 5.5 L York % (Auto) 5.8 Eos % (Auto) 0.2 Baso % (Auto) 0.3 Neut # (Auto) 14.1 H Lymph # (Auto) 0.9 L [place] # (Auto) 0.9 H Eos # (Auto) 0.0 Baso # (Auto) 0.0 Neutrophils % (Manual) 84 H Band Neutrophils % Lymphocytes % (Manual) 10 L Monocytes % (Manual) 6 Eosinophils % (Manual) Platelet Estimate Normal RBC Morphology Normal Anisocytosis (manual) APTT 137.0 H* D Puncture Site pCO2 pO2 HCO3 ABG pH ABG Total CO2 ABG O2 Saturation ABG Base Excess ABG Hemoglobin ABG Carboxyhemoglobin POC ABG HHb (Measured) ABG Methemoglobin Albert Test A-a O2 Difference Respiratory Index Hgb O2 Saturation Vent Mode Mechanical Rate FiO2 Tidal Volume PEEP Sodium 140 Potassium 4.2 Chloride 98 Carbon Dioxide 30 Anion Gap 16 BUN 21 H Creatinine 1.3 Est GFR ( Amer) > 60 Est GFR (Non-Af Amer) 56 Random Glucose 132 H Calcium 8.4 L Phosphorus 5.0 H Magnesium 1.9 Total Bilirubin AST ALT Alkaline Phosphatase Total Protein Albumin Globulin Albumin/Globulin Ratio 11/25/18 11/25/18 11/26/18 20:31 20:31 01:00 WBC 16.6 H RBC 5.38 Hgb 17.0 Hct 52.0 H MCV 96.6 H D MCH 31.7 H MCHC 32.8 L RDW 16.4 H Plt Count 154 MPV 9.2 Neut % (Auto) 87.1 H Lymph % (Auto) 7.0 L York % (Auto) 5.6 Eos % (Auto) 0.2 Baso % (Auto) 0.1 Neut # (Auto) 14.5 H Lymph # (Auto) 1.2 York # (Auto) 0.9 H Eos # (Auto) 0.0 Baso # (Auto) 0.0 Neutrophils % (Manual) 88 H Band Neutrophils % Lymphocytes % (Manual) 6 L Monocytes % (Manual) 5 Eosinophils % (Manual) 1 Platelet Estimate Normal RBC Morphology Anisocytosis (manual) APTT 120.0 H* D Puncture Site pCO2 pO2 HCO3 ABG pH ABG Total CO2 ABG O2 Saturation ABG Base Excess ABG Hemoglobin ABG Carboxyhemoglobin POC ABG HHb (Measured) ABG Methemoglobin Albert Test A-a O2 Difference Respiratory Index Hgb O2 Saturation Vent Mode Mechanical Rate FiO2 Tidal Volume PEEP Sodium 139 Potassium 4.3 Chloride 98 Carbon Dioxide 27 Anion Gap 18 BUN 23 H Creatinine 1.2 Est GFR ( Amer) > 60 Est GFR (Non-Af Amer) > 60 Random Glucose 125 H Calcium 8.5 L Phosphorus 4.7 H Magnesium 2.0 Total Bilirubin AST ALT Alkaline Phosphatase Total Protein Albumin Globulin Albumin/Globulin Ratio 11/26/18 11/26/18 11/26/18 05:20 05:48 05:48 WBC 15.1 H RBC 5.31 Hgb 16.9 Hct 51.9 H MCV 97.8 H MCH 31.8 H MCHC 32.5 L RDW 16.3 H Plt Count 151 MPV 9.4 Neut % (Auto) 86.8 H Lymph % (Auto) 6.3 L York % (Auto) 6.4 Eos % (Auto) 0.3 Baso % (Auto) 0.2 Neut # (Auto) 13.1 H Lymph # (Auto) 1.0 York # (Auto) 1.0 H Eos # (Auto) 0.1 Baso # (Auto) 0.0 Neutrophils % (Manual) 87 H Band Neutrophils % 3 H Lymphocytes % (Manual) 4 L Monocytes % (Manual) 5 Eosinophils % (Manual) 1 Platelet Estimate Normal RBC Morphology Anisocytosis (manual) Slight APTT Puncture Site Rr pCO2 45 pO2 108 H HCO3 25.1 ABG pH 7.37 ABG Total CO2 27.4 ABG O2 Saturation 99.5 H ABG Base Excess 0.2 ABG Hemoglobin 17.2 ABG Carboxyhemoglobin 1.5 POC ABG HHb (Measured) 0.5 ABG Methemoglobin 0.7 Albert Test Pos A-a O2 Difference 277.0 Respiratory Index 2.8 Hgb O2 Saturation 97.2 Vent Mode Prvc Mechanical Rate 24 FiO2 60.0 Tidal Volume 600 PEEP 5 Sodium 138 Potassium 4.0 Chloride 99 Carbon Dioxide 28 Anion Gap 16 BUN 24 H Creatinine 1.3 Est GFR ( Amer) > 60 Est GFR (Non-Af Amer) 56 Random Glucose 110 Calcium 8.2 L Phosphorus 5.4 H Magnesium 2.0 Total Bilirubin 0.8 AST 89 H D ALT 71 Alkaline Phosphatase 96 Total Protein 7.6 Albumin 3.8 Globulin 3.8 Albumin/Globulin Ratio 1.0 11/26/18 11/26/18 11/26/18 09:49 09:49 09:49 WBC 13.0 H RBC 4.79 Hgb 15.7 Hct 46.6 MCV 97.2 H MCH 32.8 H MCHC 33.8 RDW 16.2 H Plt Count 166 MPV 9.3 Neut % (Auto) 87.2 H Lymph % (Auto) 7.5 L [place] % (Auto) 4.7 Eos % (Auto) 0.4 Baso % (Auto) 0.2 Neut # (Auto) 11.3 H Lymph # (Auto) 1.0 York # (Auto) 0.6 Eos # (Auto) 0.1 Baso # (Auto) 0.0 Neutrophils % (Manual) 85 H Band Neutrophils % 7 H Lymphocytes % (Manual) 5 L Monocytes % (Manual) 3 Eosinophils % (Manual) Platelet Estimate Normal RBC Morphology Anisocytosis (manual) Slight APTT 57.0 H D Puncture Site pCO2 pO2 HCO3 ABG pH ABG Total CO2 ABG O2 Saturation ABG Base Excess ABG Hemoglobin ABG Carboxyhemoglobin POC ABG HHb (Measured) ABG Methemoglobin Albert Test A-a O2 Difference Respiratory Index Hgb O2 Saturation Vent Mode Mechanical Rate FiO2 Tidal Volume PEEP Sodium 138 Potassium 3.0 L Chloride 98 Carbon Dioxide 26 Anion Gap 18 BUN 24 H Creatinine 1.3 Est GFR ( Amer) > 60 Est GFR (Non-Af Amer) 56 Random Glucose 105 Calcium 8.0 L Phosphorus 4.8 H Magnesium 1.8 Total Bilirubin 0.7 AST 96 H ALT 63 Alkaline Phosphatase 84 Total Protein 6.8 Albumin 3.4 L Globulin 3.4 Albumin/Globulin Ratio 1.0 Assessment & Plan - Assessment and Plan (Free Text) Plan: 58 year old male with pmhx of COPD, CHF, AICD placement, was brought to hospital by [facility] ambulance for sudden cardiac arrest, currently sedated and intubated, consulted for possible gen seizure, video EEG shows sharp waves, patient loaded with 1gm Keppra, continued with 500mg Keppra Q12H, possible anoxic brain injury 1. keppra 1gm IVPB today 2. increase keppra to 750mg Q12H, start tomorrow morning 3. continuous video EEG ordered for tomorrow 4. palliative care - f/u recs 5. seizure precautions 6. continue medical management as per cardio and medical team Plan d/w Dr Joaquin Sanders PGY-1 - Date & Time Date: 11/26/18 Time: 10:15 <Humaira Nuñez - Last Filed: 12/02/18 11:27> Results - Vital Signs Recent Vital Signs: Last Vital Signs Temp 98.9 F 12/01/18 04:00 Pulse 60 12/01/18 05:41 Resp 0 L 12/01/18 06:00 BP 46/21 L 12/01/18 05:41 Pulse Ox 83 L 12/01/18 05:41 - Labs Result Diagrams: 11/29/18 05:52 11/29/18 05:47 Assessment & Plan - Assessment and Plan (Free Text) Plan: All medical record entries made by the Resident. were at my direction and personally dictated by me. I have reviewed the chart and agree that the record accurately reflects my personal performance of the history, physical exam, medical decision making, and the department course for this patient. 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 His prognosis is guarded. Dr Nuñez Neurology
--- NOTE | 2018-11-26 11:30 | CP.CCUPN ---
<Ruslan Mary - Last Filed: 11/26/18 11:27> CCU Subjective - Physician Review Subjective (Free Text): 11/26/18 11:27 PGY-1 Critical Care Progress Note for Dr. Love See and examined at bedside this AM on mechanical vent, FIO2 60% sedated, on propofol gtt heparin gtt for possible PE Neuro recs appreciated keppra 500 q12 for seizure activity continuous VEEG in rewarming phase of code freeze no response thus far CCU Objective - Vital Signs / Intake & Output Vital Signs (Last 4 hours): Vital Signs Temp Pulse Resp BP Pulse Ox 11/26/18 11:00 96.3 F L 78 24 142/93 H 97 11/26/18 10:50 96.3 F L 75 24 100 11/26/18 10:40 96.3 F L 78 25 H 100 11/26/18 10:30 96.1 F L 76 24 100 11/26/18 10:20 96.1 F L 76 24 100 11/26/18 10:10 95.9 F L 77 25 H 100 11/26/18 10:04 95.9 F L 77 25 H 134/82 100 11/26/18 10:00 95.9 F L 76 21 134/82 100 11/26/18 09:50 95.7 F L 74 24 100 11/26/18 09:40 95.4 F L 72 24 100 11/26/18 09:30 95.2 F L 68 24 98 11/26/18 09:25 100/63 11/26/18 09:21 62 24 100/63 11/26/18 09:20 94.8 F L 66 21 99 11/26/18 09:10 94.8 F L 64 24 99 11/26/18 09:04 94.6 F L 63 24 100/63 99 11/26/18 09:00 94.6 F L 63 24 99 11/26/18 08:50 94.5 F L 62 24 99 11/26/18 08:40 94.5 F L 62 24 99 11/26/18 08:30 94.6 F L 60 20 99 11/26/18 08:20 94.6 F L 60 12 100 11/26/18 08:10 94.8 F L 61 5 L 100 05/08/19 08:04 94.8 F L 62 12 98/62 L 100 11/26/18 08:00 94.8 F L 63 21 98/62 L 99 11/26/18 07:50 95.0 F L 61 24 100 11/26/18 07:45 96.3 F L 61 24 107/72 11/26/18 07:40 94.8 F L 62 24 100 11/26/18 07:30 94.8 F L 63 24 100 Intake and Output (Last 8hrs): Intake & Output 11/25/18 11/26/18 11/26/18 22:59 06:59 14:59 Intake Total 877.1 787.10 484.1 Output Total 832 944 366 Balance 45.1 -156.90 118.1 Weight 123.5 kg Intake: IV 280 375.90 94.1 Intake, IV Amount 597.1 371.2 390.0 Right AC 89.1 62.9 37.0 Right Distal Port Femoral 300 100 204 Right Proximal Port 208 208.3 149.0 Femoral Other 40 Output: Urine 832 944 366 Urethral (Grove) 832 944 366 Other: # Bowel Movements 0 0 0 - Physical Exam Head: Positive for: Atraumatic Pupils: Positive for: Sluggish Conjunctiva: Positive for: Normal Ears: Positive for: Normal Nose (External): Positive for: Atraumatic Neck: Positive for: Normal Range of Motion Respiratory/Chest: Positive for: Rhonchi Cardiovascular: Positive for: Regular Rate and Rhythm Abdomen: Positive for: Normal Bowel Sounds, Other (obese) Upper Extremity: Positive for: Normal Inspection Lower Extremity: Positive for: Normal Inspection Neurological: Positive for: Other (no response to any stimuli, on ventilator) - Medications Active Medications: Active Medications Generic Name Dose Route Start Last Admin Trade Name Freq PRN Reason Stop Dose Admin Acetaminophen 975 mg 11/26/18 11:17 Tylenol 325mg Tab GT Q6 PRN Fever >100.4 F Aspirin 325 mg 11/25/18 10:00 11/26/18 09:26 Aspirin PO 325 mg DAILY MILEY Administration Famotidine 20 mg 11/24/18 23:00 11/26/18 09:25 Pepcid IVP 20 mg Q12 MILEY Administration Furosemide 40 mg 11/25/18 01:30 11/26/18 09:25 Lasix IV 40 mg Q12 MILEY Administration Piperacillin Sod/Tazobactam 100 mls @ 200 mls/hr 11/24/18 22:45 11/26/18 10:33 Sod 3.375 gm/ Sodium Chloride IVPB 200 mls/hr Q6H MILEY Administration Protocol Heparin Sodium/Sodium Chloride 25,000 units in 250 mls @ 14.808 mls/hr 11/25/18 09:49 11/26/18 10:25 Heparin 11442 Units/250ml 1/2 Normal Saline IV 5.99 units/kg/hr .[id number] PRN 7.4 mls/hr PROTOCOL Administration Protocol 12 UNITS/KG/HR Levetiracetam 500 mg/ Sodium 105 mls @ 420 mls/hr 11/25/18 10:00 11/26/18 10:18 Chloride IVPB 420 mls/hr Q12H MILEY Administration Propofol 1,000 mg in 100 mls @ 3.702 mls/hr 11/25/18 12:27 11/26/18 09:21 Diprivan IV 40 mcg/kg/min .Q24H PRN 29.616 mls/hr TITRATE PER MD ORDER Administration Protocol 5 MCG/KG/MIN Vancomycin/Sodium Chloride 1 gm in 200 mls @ 133.333 mls/hr 11/26/18 11:00 11/26/18 11:17 Vancomycin 1 Gm/Ns 200 Ml IVPB 12/01/18 11:01 133.333 mls/hr Q12H MILEY Administration Protocol - Patient Studies Lab Studies: Microbiology Studies 11/24/18 23:35 S.aureus & Coag-Neg Staph PNA FISH - Final Blood Blood Culture - Preliminary Gram Positive Cocci Gram Stain - Final 11/24/18 23:35 Blood Culture - Preliminary Blood NO GROWTH AFTER 24 HOURS Lab Studies 11/26/18 11/26/18 11/26/18 Range/Units 09:49 09:49 09:49 WBC 13.0 H (4.8-10.8) K/uL RBC 4.79 (4.40-5.90) Mil/uL Hgb 15.7 (12.0-18.0) g/dL Hct 46.6 (35.0-51.0) % MCV 97.2 H (80.0-94.0) fL MCH 32.8 H (27.0-31.0) pg MCHC 33.8 (33.0-37.0) g/dL RDW 16.2 H (11.5-14.5) % Plt Count 166 (130-400) K/uL MPV 9.3 (7.2-11.7) fL Neut % (Auto) 87.2 H (50.0-75.0) % Lymph % (Auto) 7.5 L (20.0-40.0) % Alcorn % (Auto) 4.7 (0.0-10.0) % Eos % (Auto) 0.4 (0.0-4.0) % Baso % (Auto) 0.2 (0.0-2.0) % Neut # (Auto) 11.3 H (1.8-7.0) K/uL Lymph # (Auto) 1.0 (1.0-4.3) K/uL Alcorn # (Auto) 0.6 (0.0-0.8) K/uL Eos # (Auto) 0.1 (0.0-0.7) K/uL Baso # (Auto) 0.0 (0.0-0.2) K/uL Neutrophils % (Manual) 85 H (50-75) % Band Neutrophils % 7 H (0-2) % Lymphocytes % (Manual) 5 L (20-40) % Monocytes % (Manual) 3 (0-10) % Eosinophils % (Manual) (0-4) % Platelet Estimate Normal (NORMAL) RBC Morphology Anisocytosis (manual) Slight APTT 57.0 H D (21-34) SECONDS Puncture Site pCO2 (35-45) mm/Hg pO2 (80-100) mm/Hg HCO3 (21-28) mmol/L ABG pH (7.35-7.45) ABG Total CO2 (22-28) mmol/L ABG O2 Saturation (95-98) % ABG Base Excess (-2.0-3.0) mmol/L ABG Hemoglobin (11.7-17.4) g/dL ABG Carboxyhemoglobin (0.5-1.5) % POC ABG HHb (Measured) (0.0-5.0) % ABG Methemoglobin (0.0-3.0) % Albert Test A-a O2 Difference mm/Hg Respiratory Index Hgb O2 Saturation (95.0-98.0) % Vent Mode Mechanical Rate FiO2 % Tidal Volume PEEP Sodium 138 (132-148) mmol/L Potassium 3.0 L (3.6-5.2) mmol/L Chloride 98 (98-107) mmol/L Carbon Dioxide 26 (22-30) mmol/L Anion Gap 18 (10-20) BUN 24 H (9-20) mg/dL Creatinine 1.3 (0.8-1.5) mg/dL Est GFR ( Amer) > 60 Est GFR (Non-Af Amer) 56 Random Glucose 105 (75-110) mg/dL Calcium 8.0 L (8.6-10.4) mg/dl Phosphorus 4.8 H (2.5-4.5) mg/dL Magnesium 1.8 (1.6-2.3) mg/dL Total Bilirubin 0.7 (0.2-1.3) mg/dL AST 96 H (17-59) U/L ALT 63 (21-72) U/L Alkaline Phosphatase 84 (38-126) U/L Total Protein 6.8 (6.3-8.3) g/dL Albumin 3.4 L (3.5-5.0) g/dL Globulin 3.4 (2.2-3.9) gm/dL Albumin/Globulin Ratio 1.0 (1.0-2.1) 11/26/18 11/26/18 11/26/18 Range/Units 05:48 05:48 05:20 WBC 15.1 H (4.8-10.8) K/uL RBC 5.31 (4.40-5.90) Mil/uL Hgb 16.9 (12.0-18.0) g/dL Hct 51.9 H (35.0-51.0) % MCV 97.8 H (80.0-94.0) fL MCH 31.8 H (27.0-31.0) pg MCHC 32.5 L (33.0-37.0) g/dL RDW 16.3 H (11.5-14.5) % Plt Count 151 (130-400) K/uL MPV 9.4 (7.2-11.7) fL Neut % (Auto) 86.8 H (50.0-75.0) % Lymph % (Auto) 6.3 L (20.0-40.0) % Alcorn % (Auto) 6.4 (0.0-10.0) % Eos % (Auto) 0.3 (0.0-4.0) % Baso % (Auto) 0.2 (0.0-2.0) % Neut # (Auto) 13.1 H (1.8-7.0) K/uL Lymph # (Auto) 1.0 (1.0-4.3) K/uL Alcorn # (Auto) 1.0 H (0.0-0.8) K/uL Eos # (Auto) 0.1 (0.0-0.7) K/uL Baso # (Auto) 0.0 (0.0-0.2) K/uL Neutrophils % (Manual) 87 H (50-75) % Band Neutrophils % 3 H (0-2) % Lymphocytes % (Manual) 4 L (20-40) % Monocytes % (Manual) 5 (0-10) % Eosinophils % (Manual) 1 (0-4) % Platelet Estimate Normal (NORMAL) RBC Morphology Anisocytosis (manual) Slight APTT (21-34) SECONDS Puncture Site Rr pCO2 45 (35-45) mm/Hg pO2 108 H (80-100) mm/Hg HCO3 25.1 (21-28) mmol/L ABG pH 7.37 (7.35-7.45) ABG Total CO2 27.4 (22-28) mmol/L ABG O2 Saturation 99.5 H (95-98) % ABG Base Excess 0.2 (-2.0-3.0) mmol/L ABG Hemoglobin 17.2 (11.7-17.4) g/dL ABG Carboxyhemoglobin 1.5 (0.5-1.5) % POC ABG HHb (Measured) 0.5 (0.0-5.0) % ABG Methemoglobin 0.7 (0.0-3.0) % Albert Test Pos A-a O2 Difference 277.0 mm/Hg Respiratory Index 2.8 Hgb O2 Saturation 97.2 (95.0-98.0) % Vent Mode Prvc Mechanical Rate 24 FiO2 60.0 % Tidal Volume 600 PEEP 5 Sodium 138 (132-148) mmol/L Potassium 4.0 (3.6-5.2) mmol/L Chloride 99 (98-107) mmol/L Carbon Dioxide 28 (22-30) mmol/L Anion Gap 16 (10-20) BUN 24 H (9-20) mg/dL Creatinine 1.3 (0.8-1.5) mg/dL Est GFR ( Amer) > 60 Est GFR (Non-Af Amer) 56 Random Glucose 110 (75-110) mg/dL Calcium 8.2 L (8.6-10.4) mg/dl Phosphorus 5.4 H (2.5-4.5) mg/dL Magnesium 2.0 (1.6-2.3) mg/dL Total Bilirubin 0.8 (0.2-1.3) mg/dL AST 89 H D (17-59) U/L ALT 71 (21-72) U/L Alkaline Phosphatase 96 (38-126) U/L Total Protein 7.6 (6.3-8.3) g/dL Albumin 3.8 (3.5-5.0) g/dL Globulin 3.8 (2.2-3.9) gm/dL Albumin/Globulin Ratio 1.0 (1.0-2.1) 11/26/18 11/25/18 11/25/18 Range/Units 01:00 20:31 20:31 WBC 16.6 H (4.8-10.8) K/uL RBC 5.38 (4.40-5.90) Mil/uL Hgb 17.0 (12.0-18.0) g/dL Hct 52.0 H (35.0-51.0) % MCV 96.6 H D (80.0-94.0) fL MCH 31.7 H (27.0-31.0) pg MCHC 32.8 L (33.0-37.0) g/dL RDW 16.4 H (11.5-14.5) % Plt Count 154 (130-400) K/uL MPV 9.2 (7.2-11.7) fL Neut % (Auto) 87.1 H (50.0-75.0) % Lymph % (Auto) 7.0 L (20.0-40.0) % Alcorn % (Auto) 5.6 (0.0-10.0) % Eos % (Auto) 0.2 (0.0-4.0) % Baso % (Auto) 0.1 (0.0-2.0) % Neut # (Auto) 14.5 H (1.8-7.0) K/uL Lymph # (Auto) 1.2 (1.0-4.3) K/uL Alcorn # (Auto) 0.9 H (0.0-0.8) K/uL Eos # (Auto) 0.0 (0.0-0.7) K/uL Baso # (Auto) 0.0 (0.0-0.2) K/uL Neutrophils % (Manual) 88 H (50-75) % Band Neutrophils % (0-2) % Lymphocytes % (Manual) 6 L (20-40) % Monocytes % (Manual) 5 (0-10) % Eosinophils % (Manual) 1 (0-4) % Platelet Estimate Normal (NORMAL) RBC Morphology Anisocytosis (manual) APTT 120.0 H* D (21-34) SECONDS Puncture Site pCO2 (35-45) mm/Hg pO2 (80-100) mm/Hg HCO3 (21-28) mmol/L ABG pH (7.35-7.45) ABG Total CO2 (22-28) mmol/L ABG O2 Saturation (95-98) % ABG Base Excess (-2.0-3.0) mmol/L ABG Hemoglobin (11.7-17.4) g/dL ABG Carboxyhemoglobin (0.5-1.5) % POC ABG HHb (Measured) (0.0-5.0) % ABG Methemoglobin (0.0-3.0) % Albert Test A-a O2 Difference mm/Hg Respiratory Index Hgb O2 Saturation (95.0-98.0) % Vent Mode Mechanical Rate FiO2 % Tidal Volume PEEP Sodium 139 (132-148) mmol/L Potassium 4.3 (3.6-5.2) mmol/L Chloride 98 (98-107) mmol/L Carbon Dioxide 27 (22-30) mmol/L Anion Gap 18 (10-20) BUN 23 H (9-20) mg/dL Creatinine 1.2 (0.8-1.5) mg/dL Est GFR ( Amer) > 60 Est GFR (Non-Af Amer) > 60 Random Glucose 125 H (75-110) mg/dL Calcium 8.5 L (8.6-10.4) mg/dl Phosphorus 4.7 H (2.5-4.5) mg/dL Magnesium 2.0 (1.6-2.3) mg/dL Total Bilirubin (0.2-1.3) mg/dL AST (17-59) U/L ALT (21-72) U/L Alkaline Phosphatase (38-126) U/L Total Protein (6.3-8.3) g/dL Albumin (3.5-5.0) g/dL Globulin (2.2-3.9) gm/dL Albumin/Globulin Ratio (1.0-2.1) 11/25/18 11/25/18 11/25/18 Range/Units 17:23 14:50 14:50 WBC 16.0 H (4.8-10.8) K/uL RBC 5.14 (4.40-5.90) Mil/uL Hgb 16.9 (12.0-18.0) g/dL Hct 51.0 (35.0-51.0) % MCV 99.2 H (80.0-94.0) fL MCH 32.9 H (27.0-31.0) pg MCHC 33.2 (33.0-37.0) g/dL RDW 16.0 H (11.5-14.5) % Plt Count 165 (130-400) K/uL MPV 8.9 (7.2-11.7) fL Neut % (Auto) 88.2 H (50.0-75.0) % Lymph % (Auto) 5.5 L (20.0-40.0) % Alcorn % (Auto) 5.8 (0.0-10.0) % Eos % (Auto) 0.2 (0.0-4.0) % Baso % (Auto) 0.3 (0.0-2.0) % Neut # (Auto) 14.1 H (1.8-7.0) K/uL Lymph # (Auto) 0.9 L (1.0-4.3) K/uL Alcorn # (Auto) 0.9 H (0.0-0.8) K/uL Eos # (Auto) 0.0 (0.0-0.7) K/uL Baso # (Auto) 0.0 (0.0-0.2) K/uL Neutrophils % (Manual) 84 H (50-75) % Band Neutrophils % (0-2) % Lymphocytes % (Manual) 10 L (20-40) % Monocytes % (Manual) 6 (0-10) % Eosinophils % (Manual) (0-4) % Platelet Estimate Normal (NORMAL) RBC Morphology Normal Anisocytosis (manual) APTT 137.0 H* D (21-34) SECONDS Puncture Site pCO2 (35-45) mm/Hg pO2 (80-100) mm/Hg HCO3 (21-28) mmol/L ABG pH (7.35-7.45) ABG Total CO2 (22-28) mmol/L ABG O2 Saturation (95-98) % ABG Base Excess (-2.0-3.0) mmol/L ABG Hemoglobin (11.7-17.4) g/dL ABG Carboxyhemoglobin (0.5-1.5) % POC ABG HHb (Measured) (0.0-5.0) % ABG Methemoglobin (0.0-3.0) % Albert Test A-a O2 Difference mm/Hg Respiratory Index Hgb O2 Saturation (95.0-98.0) % Vent Mode Mechanical Rate FiO2 % Tidal Volume PEEP Sodium 140 (132-148) mmol/L Potassium 4.2 (3.6-5.2) mmol/L Chloride 98 (98-107) mmol/L Carbon Dioxide 30 (22-30) mmol/L Anion Gap 16 (10-20) BUN 21 H (9-20) mg/dL Creatinine 1.3 (0.8-1.5) mg/dL Est GFR ( Amer) > 60 Est GFR (Non-Af Amer) 56 Random Glucose 132 H (75-110) mg/dL Calcium 8.4 L (8.6-10.4) mg/dl Phosphorus 5.0 H (2.5-4.5) mg/dL Magnesium 1.9 (1.6-2.3) mg/dL Total Bilirubin (0.2-1.3) mg/dL AST (17-59) U/L ALT (21-72) U/L Alkaline Phosphatase (38-126) U/L Total Protein (6.3-8.3) g/dL Albumin (3.5-5.0) g/dL Globulin (2.2-3.9) gm/dL Albumin/Globulin Ratio (1.0-2.1) Laboratory Results - last 24 hr 11/25/18 11/25/18 11/25/18 14:50 14:50 17:23 WBC 16.0 H RBC 5.14 Hgb 16.9 Hct 51.0 MCV 99.2 H MCH 32.9 H MCHC 33.2 RDW 16.0 H Plt Count 165 MPV 8.9 Neut % (Auto) 88.2 H Lymph % (Auto) 5.5 L Alcorn % (Auto) 5.8 Eos % (Auto) 0.2 Baso % (Auto) 0.3 Neut # (Auto) 14.1 H Lymph # (Auto) 0.9 L Alcorn # (Auto) 0.9 H Eos # (Auto) 0.0 Baso # (Auto) 0.0 Neutrophils % (Manual) 84 H Band Neutrophils % Lymphocytes % (Manual) 10 L Monocytes % (Manual) 6 Eosinophils % (Manual) Platelet Estimate Normal RBC Morphology Normal Anisocytosis (manual) APTT 137.0 H* D Puncture Site pCO2 pO2 HCO3 ABG pH ABG Total CO2 ABG O2 Saturation ABG Base Excess ABG Hemoglobin ABG Carboxyhemoglobin POC ABG HHb (Measured) ABG Methemoglobin Albert Test A-a O2 Difference Respiratory Index Hgb O2 Saturation Vent Mode Mechanical Rate FiO2 Tidal Volume PEEP Sodium 140 Potassium 4.2 Chloride 98 Carbon Dioxide 30 Anion Gap 16 BUN 21 H Creatinine 1.3 Est GFR ( Amer) > 60 Est GFR (Non-Af Amer) 56 Random Glucose 132 H Calcium 8.4 L Phosphorus 5.0 H Magnesium 1.9 Total Bilirubin AST ALT Alkaline Phosphatase Total Protein Albumin Globulin Albumin/Globulin Ratio 11/25/18 11/25/18 11/26/18 20:31 20:31 01:00 WBC 16.6 H RBC 5.38 Hgb 17.0 Hct 52.0 H MCV 96.6 H D MCH 31.7 H MCHC 32.8 L RDW 16.4 H Plt Count 154 MPV 9.2 Neut % (Auto) 87.1 H Lymph % (Auto) 7.0 L Alcorn % (Auto) 5.6 Eos % (Auto) 0.2 Baso % (Auto) 0.1 Neut # (Auto) 14.5 H Lymph # (Auto) 1.2 Alcorn # (Auto) 0.9 H Eos # (Auto) 0.0 Baso # (Auto) 0.0 Neutrophils % (Manual) 88 H Band Neutrophils % Lymphocytes % (Manual) 6 L Monocytes % (Manual) 5 Eosinophils % (Manual) 1 Platelet Estimate Normal RBC Morphology Anisocytosis (manual) APTT 120.0 H* D Puncture Site pCO2 pO2 HCO3 ABG pH ABG Total CO2 ABG O2 Saturation ABG Base Excess ABG Hemoglobin ABG Carboxyhemoglobin POC ABG HHb (Measured) ABG Methemoglobin Albert Test A-a O2 Difference Respiratory Index Hgb O2 Saturation Vent Mode Mechanical Rate FiO2 Tidal Volume PEEP Sodium 139 Potassium 4.3 Chloride 98 Carbon Dioxide 27 Anion Gap 18 BUN 23 H Creatinine 1.2 Est GFR ( Amer) > 60 Est GFR (Non-Af Amer) > 60 Random Glucose 125 H Calcium 8.5 L Phosphorus 4.7 H Magnesium 2.0 Total Bilirubin AST ALT Alkaline Phosphatase Total Protein Albumin Globulin Albumin/Globulin Ratio 11/26/18 11/26/18 11/26/18 05:20 05:48 05:48 WBC 15.1 H RBC 5.31 Hgb 16.9 Hct 51.9 H MCV 97.8 H MCH 31.8 H MCHC 32.5 L RDW 16.3 H Plt Count 151 MPV 9.4 Neut % (Auto) 86.8 H Lymph % (Auto) 6.3 L Alcorn % (Auto) 6.4 Eos % (Auto) 0.3 Baso % (Auto) 0.2 Neut # (Auto) 13.1 H Lymph # (Auto) 1.0 Alcorn # (Auto) 1.0 H Eos # (Auto) 0.1 Baso # (Auto) 0.0 Neutrophils % (Manual) 87 H Band Neutrophils % 3 H Lymphocytes % (Manual) 4 L Monocytes % (Manual) 5 Eosinophils % (Manual) 1 Platelet Estimate Normal RBC Morphology Anisocytosis (manual) Slight APTT Puncture Site Rr pCO2 45 pO2 108 H HCO3 25.1 ABG pH 7.37 ABG Total CO2 27.4 ABG O2 Saturation 99.5 H ABG Base Excess 0.2 ABG Hemoglobin 17.2 ABG Carboxyhemoglobin 1.5 POC ABG HHb (Measured) 0.5 ABG Methemoglobin 0.7 Albert Test Pos A-a O2 Difference 277.0 Respiratory Index 2.8 Hgb O2 Saturation 97.2 Vent Mode Prvc Mechanical Rate 24 FiO2 60.0 Tidal Volume 600 PEEP 5 Sodium 138 Potassium 4.0 Chloride 99 Carbon Dioxide 28 Anion Gap 16 BUN 24 H Creatinine 1.3 Est GFR ( Amer) > 60 Est GFR (Non-Af Amer) 56 Random Glucose 110 Calcium 8.2 L Phosphorus 5.4 H Magnesium 2.0 Total Bilirubin 0.8 AST 89 H D ALT 71 Alkaline Phosphatase 96 Total Protein 7.6 Albumin 3.8 Globulin 3.8 Albumin/Globulin Ratio 1.0 11/26/18 11/26/18 11/26/18 09:49 09:49 09:49 WBC 13.0 H RBC 4.79 Hgb 15.7 Hct 46.6 MCV 97.2 H MCH 32.8 H MCHC 33.8 RDW 16.2 H Plt Count 166 MPV 9.3 Neut % (Auto) 87.2 H Lymph % (Auto) 7.5 L Alcorn % (Auto) 4.7 Eos % (Auto) 0.4 Baso % (Auto) 0.2 Neut # (Auto) 11.3 H Lymph # (Auto) 1.0 Alcorn # (Auto) 0.6 Eos # (Auto) 0.1 Baso # (Auto) 0.0 Neutrophils % (Manual) 85 H Band Neutrophils % 7 H Lymphocytes % (Manual) 5 L Monocytes % (Manual) 3 Eosinophils % (Manual) Platelet Estimate Normal RBC Morphology Anisocytosis (manual) Slight APTT 57.0 H D Puncture Site pCO2 pO2 HCO3 ABG pH ABG Total CO2 ABG O2 Saturation ABG Base Excess ABG Hemoglobin ABG Carboxyhemoglobin POC ABG HHb (Measured) ABG Methemoglobin Albert Test A-a O2 Difference Respiratory Index Hgb O2 Saturation Vent Mode Mechanical Rate FiO2 Tidal Volume PEEP Sodium 138 Potassium 3.0 L Chloride 98 Carbon Dioxide 26 Anion Gap 18 BUN 24 H Creatinine 1.3 Est GFR ( Amer) > 60 Est GFR (Non-Af Amer) 56 Random Glucose 105 Calcium 8.0 L Phosphorus 4.8 H Magnesium 1.8 Total Bilirubin 0.7 AST 96 H ALT 63 Alkaline Phosphatase 84 Total Protein 6.8 Albumin 3.4 L Globulin 3.4 Albumin/Globulin Ratio 1.0 Radiology Impressions: Radiology Impressions Chest X-Ray 11/24/18 21:04 IMPRESSION: Two external defibrillator pads project over the lower chest. Dual lead left-sided pacemaker. Cardiomegaly. Atherosclerotic calcifications present. Moderate interstitial prominence may reflect infection or edema. Chest X-Ray 11/24/18 21:51 IMPRESSION: Moderate interstitial prominence may reflect infection or edema. Bilateral hilar prominence versus central vascular congestion. Cardiomegaly. Aortic ectasia. Dual lead left-sided AICD. Endotracheal tube terminates approximately 5 cm above the yasemin. 2 external defibrillator pads noted. Head/Neck CTA 11/25/18 00:16 IMPRESSION: Calcified plaque in the carotid bifurcations with no significant stenosis CT Angiography of the Brain. HISTORY: cardiac arrest COMPARISON: None available. TECHNIQUE: CT angiography of the intracranial arteries was performed. Coronal and sagittal maximum intensity projection reformated images were generated. Radiation dose: Total exam DLP = 983.74 mGy-cm. This CT exam was performed using one or more of the following dose reduction techniques: Automated exposure control, adjustment of the mA and/or kV according to patient size, and/or use of iterative reconstruction technique. FINDINGS: INTERNAL CEREBRAL ARTERIES: Unremarkable. The skull base, petrous, cavernous and supraclinoid segments are bilaterally widely patent. ANTERIOR CEREBRAL ARTERIES: Unremarkable. A1 and A2 segments are widely patent. Smaller distal branches unremarkable, as visualized. MIDDLE CEREBRAL ARTERIES: Unremarkable. M1 and M2 segments are widely patent. Perisylvian branches grossly symmetric. POSTERIOR CIRCULATION: Basilar Artery: Unremarkable. Distal Vertebral Arteries: Unremarkable. Posterior Cerebral Arteries: Unremarkable. Posterior Inferior Cerebellar Arteries: Unremarkable. ANEURYSM/ VASCULAR MALFORMATIONS: None. OTHER FINDINGS: The report concurs with the preliminary [facility] report IMPRESSION: Unremarkable CT Angiography of the Brain. Chest X-Ray 11/26/18 07:00 Impression: Lines and tubes in stable position. Left-sided pacemaker. Enlarged ectatic aorta. Cardiomegaly. Bilateral hilar prominence. Moderate to severe venous congestion. Patchy consolidative opacification at the right lung base. Punctate nodular density in the bilateral mid lung zones. Fingerstick Blood Sugar Results: 109 Review of Systems - Review of Systems All systems: reviewed and no additional remarkable complaints except Review of Systems: as per HPI Assessment/Plan - Assessment and Plan (Free Text) Assessment: 58 year old obese male with pmhx of COPD, CHF, AICD placement brought in by ALS s/p witnessed cardiac arrest. PEA then asystole. Code approximately 22 minutes per ALS, epi x4 for PEA, defibrillation x 1 for pulseless vtach with ROSC. Patient's own defibrillator fired 2x afterwards. Plan: Neuro -convulsive activity noted per nurse -sedated, propofol gtt -Neurology (Dr. Alcantara) on board -Keppra 500 mg IVPB q12 Pulm -vent settings: R 20, VT 600mL, FiO2 60%, PEEP 5 -CXR (11/25): increasing L perihilar opacity concerning for PNA -empiric coverage with zosyn CV -T 92.8, therapeutic hypothermia -VBG pH 7.18, pC02 74, HCO3 21, lactate 3.2 -EKG: atrial sensed ventricular paced rhythm -troponin wnl Heme -WBC 17.6 (11/25) with bandemia GI -pepcid 20 mg IVP q12 Endo -no acute issues ID -zosyn 3.375 q6h for empiric coverage -f/u cultures PPx, Diet, Disposition -DVT: heparin gtt -GI: pepcid 20 mg IVP q12 -Diet: NPO Case discussed with Dr. Ivan Mary DO, PGY-1 <Wilfredo Love S - Last Filed: 11/26/18 17:16> CCU Subjective - Physician Review Critical Care Time Spent (in minutes): 40 CCU Objective - Vital Signs / Intake & Output Vital Signs (Last 4 hours): Vital Signs Temp Pulse Resp BP Pulse Ox 11/26/18 17:04 83.7 F L 84 18 149/92 H 98 11/26/18 17:00 82.0 F L 86 24 99 11/26/18 16:58 80.6 F L 103 H 17 133/97 H 100 11/26/18 16:50 75.4 F L 87 14 88 L 11/26/18 16:40 66.6 F L 95 H 16 99 11/26/18 16:30 97.0 F L 80 24 99 11/26/18 16:20 97.0 F L 79 24 99 11/26/18 16:10 96.8 F L 89 24 99 11/26/18 16:04 96.8 F L 78 24 140/92 H 99 11/26/18 16:00 96.8 F L 82 24 140/92 H 99 11/26/18 15:50 96.6 F L 112 H 21 99 11/26/18 15:45 96.6 F L 97 H 13 148/96 H 99 11/26/18 15:41 96.6 F L 84 13 144/102 H 99 11/26/18 15:40 96.6 F L 82 20 97 11/26/18 15:30 96.6 F L 83 24 98 11/26/18 15:20 96.4 F L 80 24 99 11/26/18 15:10 96.4 F L 77 24 99 11/26/18 15:04 96.3 F L 110 H 24 144/100 H 98 11/26/18 15:00 96.3 F L 77 24 100 11/26/18 14:50 96.3 F L 76 24 100 11/26/18 14:45 97.4 F L 77 19 144/100 H 11/26/18 14:40 96.1 F L 77 24 100 11/26/18 14:30 96.3 F L 72 24 99 11/26/18 14:20 96.3 F L 73 20 99 11/26/18 14:10 96.3 F L 71 24 99 11/26/18 14:04 96.3 F L 71 24 122/87 99 11/26/18 14:00 96.3 F L 70 24 99 11/26/18 13:50 96.3 F L 98 H 24 99 11/26/18 13:45 73 24 122/87 11/26/18 13:40 96.3 F L 70 24 98 11/26/18 13:30 96.3 F L 71 24 99 11/26/18 13:20 96.3 F L 66 24 99 Intake and Output (Last 8hrs): Intake & Output 11/26/18 11/26/18 11/26/18 06:59 14:59 22:59 Intake Total 787.10 791.3 284.4 Output Total 944 811 415 Balance -156.90 -19.7 -130.6 Weight 272 lb 4.334 oz Intake: IV 375.90 99.1 95 Intake, IV Amount 371.2 692.2 189.4 Right AC 62.9 59.2 22.2 Right Distal Port Femoral 100 406 104 Right Proximal Port 208.3 227.0 63.2 Femoral Other 40 Output: Urine [phone] Urethral (Gro[place]) [phone] Other: # Bowel Movements 0 0 1 - Medications Active Medications: Active Medications Generic Name Dose Route Start Last Admin Trade Name Freq PRN Reason Stop Dose Admin Acetaminophen 975 mg 11/26/18 11:45 Tylenol 650mg/20.3ml Solution Ud GT Q6 PRN Aspirin 325 mg 11/25/18 10:00 11/26/18 09:26 Aspirin PO 325 mg DAILY MILEY Administration Famotidine 20 mg 11/24/18 23:00 11/26/18 09:25 Pepcid IVP 20 mg Q12 MILEY Administration Furosemide 40 mg 11/25/18 01:30 11/26/18 09:25 Lasix IV 40 mg Q12 MILEY Administration Piperacillin Sod/Tazobactam 100 mls @ 200 mls/hr 11/24/18 22:45 11/26/18 10:33 Sod 3.375 gm/ Sodium Chloride IVPB 200 mls/hr Q6H MILEY Administration Protocol Heparin Sodium/Sodium Chloride 25,000 units in 250 mls @ 14.808 mls/hr 11/25/18 09:49 11/26/18 10:25 Heparin 87101 Units/250ml 1/2 Normal Saline IV 5.99 units/kg/hr .[id number] PRN 7.4 mls/hr PROTOCOL Administration Protocol 12 UNITS/KG/HR Propofol 1,000 mg in 100 mls @ 3.702 mls/hr 11/25/18 12:27 11/26/18 16:19 Diprivan IV 25.12 mcg/kg/min .Q24H PRN 18.6 mls/hr TITRATE PER MD ORDER Administration Protocol 5 MCG/KG/MIN Vancomycin/Sodium Chloride 1 gm in 200 mls @ 133.333 mls/hr 11/26/18 11:00 11/26/18 11:17 Vancomycin 1 Gm/Ns 200 Ml IVPB 12/01/18 11:01 133.333 mls/hr Q12H MILEY Administration Protocol Levetiracetam 750 mg/ Sodium 107.5 mls @ 420 mls/hr 11/27/18 10:00 Chloride IVPB Q12H IMLEY - Patient Studies Lab Studies: Microbiology Studies 11/24/18 23:35 S.aureus & Coag-Neg Staph PNA FISH - Final Blood Blood Culture - Preliminary Gram Positive Cocci Gram Stain - Final 11/24/18 23:35 Blood Culture - Preliminary Blood NO GROWTH AFTER 24 HOURS Lab Studies 11/26/18 11/26/18 11/26/18 Range/Units 15:37 15:37 09:49 WBC (4.8-10.8) K/uL RBC (4.40-5.90) Mil/uL Hgb (12.0-18.0) g/dL Hct (35.0-51.0) % MCV (80.0-94.0) fL MCH (27.0-31.0) pg MCHC (33.0-37.0) g/dL RDW (11.5-14.5) % Plt Count (130-400) K/uL MPV (7.2-11.7) fL Neut % (Auto) (50.0-75.0) % Lymph % (Auto) (20.0-40.0) % Alcorn % (Auto) (0.0-10.0) % Eos % (Auto) (0.0-4.0) % Baso % (Auto) (0.0-2.0) % Neut # (Auto) (1.8-7.0) K/uL Lymph # (Auto) (1.0-4.3) K/uL Alcorn # (Auto) (0.0-0.8) K/uL Eos # (Auto) (0.0-0.7) K/uL Baso # (Auto) (0.0-0.2) K/uL Neutrophils % (Manual) (50-75) % Band Neutrophils % (0-2) % Lymphocytes % (Manual) (20-40) % Monocytes % (Manual) (0-10) % Eosinophils % (Manual) (0-4) % Platelet Estimate (NORMAL) Anisocytosis (manual) APTT 55.0 H (21-34) SECONDS Puncture Site pCO2 (35-45) mm/Hg pO2 (80-100) mm/Hg HCO3 (21-28) mmol/L ABG pH (7.35-7.45) ABG Total CO2 (22-28) mmol/L ABG O2 Saturation (95-98) % ABG Base Excess (-2.0-3.0) mmol/L ABG Hemoglobin (11.7-17.4) g/dL ABG Carboxyhemoglobin (0.5-1.5) % POC ABG HHb (Measured) (0.0-5.0) % ABG Methemoglobin (0.0-3.0) % Albert Test A-a O2 Difference mm/Hg Respiratory Index Hgb O2 Saturation (95.0-98.0) % Vent Mode Mechanical Rate FiO2 % Tidal Volume PEEP Sodium 140 138 (132-148) mmol/L Potassium 3.7 3.0 L (3.6-5.2) mmol/L Chloride 98 98 (98-107) mmol/L Carbon Dioxide 31 H 26 (22-30) mmol/L Anion Gap 15 18 (10-20) BUN 22 H 24 H (9-20) mg/dL Creatinine 1.3 1.3 (0.8-1.5) mg/dL Est GFR ( Amer) > 60 > 60 Est GFR (Non-Af Amer) 56 56 Random Glucose 120 H 105 (75-110) mg/dL Calcium 7.9 L 8.0 L (8.6-10.4) mg/dl Phosphorus 4.8 H (2.5-4.5) mg/dL Magnesium 1.8 (1.6-2.3) mg/dL Total Bilirubin 0.7 0.7 (0.2-1.3) mg/dL AST 106 H 96 H (17-59) U/L ALT 71 63 (21-72) U/L Alkaline Phosphatase 84 84 (38-126) U/L Total Protein 7.4 6.8 (6.3-8.3) g/dL Albumin 3.8 3.4 L (3.5-5.0) g/dL Globulin 3.6 3.4 (2.2-3.9) gm/dL Albumin/Globulin Ratio 1.0 1.0 (1.0-2.1) 11/26/18 11/26/18 11/26/18 Range/Units 09:49 09:49 05:48 WBC 13.0 H 15.1 H (4.8-10.8) K/uL RBC 4.79 5.31 (4.40-5.90) Mil/uL Hgb 15.7 16.9 (12.0-18.0) g/dL Hct 46.6 51.9 H (35.0-51.0) % MCV 97.2 H 97.8 H (80.0-94.0) fL MCH 32.8 H 31.8 H (27.0-31.0) pg MCHC 33.8 32.5 L (33.0-37.0) g/dL RDW 16.2 H 16.3 H (11.5-14.5) % Plt Count 166 151 (130-400) K/uL MPV 9.3 9.4 (7.2-11.7) fL Neut % (Auto) 87.2 H 86.8 H (50.0-75.0) % Lymph % (Auto) 7.5 L 6.3 L (20.0-40.0) % Alcorn % (Auto) 4.7 6.4 (0.0-10.0) % Eos % (Auto) 0.4 0.3 (0.0-4.0) % Baso % (Auto) 0.2 0.2 (0.0-2.0) % Neut # (Auto) 11.3 H 13.1 H (1.8-7.0) K/uL Lymph # (Auto) 1.0 1.0 (1.0-4.3) K/uL Alcorn # (Auto) 0.6 1.0 H (0.0-0.8) K/uL Eos # (Auto) 0.1 0.1 (0.0-0.7) K/uL Baso # (Auto) 0.0 0.0 (0.0-0.2) K/uL Neutrophils % (Manual) 85 H 87 H (50-75) % Band Neutrophils % 7 H 3 H (0-2) % Lymphocytes % (Manual) 5 L 4 L (20-40) % Monocytes % (Manual) 3 5 (0-10) % Eosinophils % (Manual) 1 (0-4) % Platelet Estimate Normal Normal (NORMAL) Anisocytosis (manual) Slight Slight APTT 57.0 H D (21-34) SECONDS Puncture Site pCO2 (35-45) mm/Hg pO2 (80-100) mm/Hg HCO3 (21-28) mmol/L ABG pH (7.35-7.45) ABG Total CO2 (22-28) mmol/L ABG O2 Saturation (95-98) % ABG Base Excess (-2.0-3.0) mmol/L ABG Hemoglobin (11.7-17.4) g/dL ABG Carboxyhemoglobin (0.5-1.5) % POC ABG HHb (Measured) (0.0-5.0) % ABG Methemoglobin (0.0-3.0) % Albert Test A-a O2 Difference mm/Hg Respiratory Index Hgb O2 Saturation (95.0-98.0) % Vent Mode Mechanical Rate FiO2 % Tidal Volume PEEP Sodium (132-148) mmol/L Potassium (3.6-5.2) mmol/L Chloride (98-107) mmol/L Carbon Dioxide (22-30) mmol/L Anion Gap (10-20) BUN (9-20) mg/dL Creatinine (0.8-1.5) mg/dL Est GFR ( Amer) Est GFR (Non-Af Amer) Random Glucose (75-110) mg/dL Calcium (8.6-10.4) mg/dl Phosphorus (2.5-4.5) mg/dL Magnesium (1.6-2.3) mg/dL Total Bilirubin (0.2-1.3) mg/dL AST (17-59) U/L ALT (21-72) U/L Alkaline Phosphatase (38-126) U/L Total Protein (6.3-8.3) g/dL Albumin (3.5-5.0) g/dL Globulin (2.2-3.9) gm/dL Albumin/Globulin Ratio (1.0-2.1) 11/26/18 11/26/18 11/26/18 Range/Units 05:48 05:20 01:00 WBC (4.8-10.8) K/uL RBC (4.40-5.90) Mil/uL Hgb (12.0-18.0) g/dL Hct (35.0-51.0) % MCV (80.0-94.0) fL MCH (27.0-31.0) pg MCHC (33.0-37.0) g/dL RDW (11.5-14.5) % Plt Count (130-400) K/uL MPV (7.2-11.7) fL Neut % (Auto) (50.0-75.0) % Lymph % (Auto) (20.0-40.0) % Alcorn % (Auto) (0.0-10.0) % Eos % (Auto) (0.0-4.0) % Baso % (Auto) (0.0-2.0) % Neut # (Auto) (1.8-7.0) K/uL Lymph # (Auto) (1.0-4.3) K/uL Alcorn # (Auto) (0.0-0.8) K/uL Eos # (Auto) (0.0-0.7) K/uL Baso # (Auto) (0.0-0.2) K/uL Neutrophils % (Manual) (50-75) % Band Neutrophils % (0-2) % Lymphocytes % (Manual) (20-40) % Monocytes % (Manual) (0-10) % Eosinophils % (Manual) (0-4) % Platelet Estimate (NORMAL) Anisocytosis (manual) APTT 120.0 H* D (21-34) SECONDS Puncture Site Rr pCO2 45 (35-45) mm/Hg pO2 108 H (80-100) mm/Hg HCO3 25.1 (21-28) mmol/L ABG pH 7.37 (7.35-7.45) ABG Total CO2 27.4 (22-28) mmol/L ABG O2 Saturation 99.5 H (95-98) % ABG Base Excess 0.2 (-2.0-3.0) mmol/L ABG Hemoglobin 17.2 (11.7-17.4) g/dL ABG Carboxyhemoglobin 1.5 (0.5-1.5) % POC ABG HHb (Measured) 0.5 (0.0-5.0) % ABG Methemoglobin 0.7 (0.0-3.0) % Albert Test Pos A-a O2 Difference 277.0 mm/Hg Respiratory Index 2.8 Hgb O2 Saturation 97.2 (95.0-98.0) % Vent Mode Prvc Mechanical Rate 24 FiO2 60.0 % Tidal Volume 600 PEEP 5 Sodium 138 (132-148) mmol/L Potassium 4.0 (3.6-5.2) mmol/L Chloride 99 (98-107) mmol/L Carbon Dioxide 28 (22-30) mmol/L Anion Gap 16 (10-20) BUN 24 H (9-20) mg/dL Creatinine 1.3 (0.8-1.5) mg/dL Est GFR ( Amer) > 60 Est GFR (Non-Af Amer) 56 Random Glucose 110 (75-110) mg/dL Calcium 8.2 L (8.6-10.4) mg/dl Phosphorus 5.4 H (2.5-4.5) mg/dL Magnesium 2.0 (1.6-2.3) mg/dL Total Bilirubin 0.8 (0.2-1.3) mg/dL AST 89 H D (17-59) U/L ALT 71 (21-72) U/L Alkaline Phosphatase 96 (38-126) U/L Total Protein 7.6 (6.3-8.3) g/dL Albumin 3.8 (3.5-5.0) g/dL Globulin 3.8 (2.2-3.9) gm/dL Albumin/Globulin Ratio 1.0 (1.0-2.1) 11/25/18 11/25/18 11/25/18 Range/Units 20:31 20:31 17:23 WBC 16.6 H (4.8-10.8) K/uL RBC 5.38 (4.40-5.90) Mil/uL Hgb 17.0 (12.0-18.0) g/dL Hct 52.0 H (35.0-51.0) % MCV 96.6 H D (80.0-94.0) fL MCH 31.7 H (27.0-31.0) pg MCHC 32.8 L (33.0-37.0) g/dL RDW 16.4 H (11.5-14.5) % Plt Count 154 (130-400) K/uL MPV 9.2 (7.2-11.7) fL Neut % (Auto) 87.1 H (50.0-75.0) % Lymph % (Auto) 7.0 L (20.0-40.0) % Alcorn % (Auto) 5.6 (0.0-10.0) % Eos % (Auto) 0.2 (0.0-4.0) % Baso % (Auto) 0.1 (0.0-2.0) % Neut # (Auto) 14.5 H (1.8-7.0) K/uL Lymph # (Auto) 1.2 (1.0-4.3) K/uL Alcorn # (Auto) 0.9 H (0.0-0.8) K/uL Eos # (Auto) 0.0 (0.0-0.7) K/uL Baso # (Auto) 0.0 (0.0-0.2) K/uL Neutrophils % (Manual) 88 H (50-75) % Band Neutrophils % (0-2) % Lymphocytes % (Manual) 6 L (20-40) % Monocytes % (Manual) 5 (0-10) % Eosinophils % (Manual) 1 (0-4) % Platelet Estimate Normal (NORMAL) Anisocytosis (manual) APTT 137.0 H* D (21-34) SECONDS Puncture Site pCO2 (35-45) mm/Hg pO2 (80-100) mm/Hg HCO3 (21-28) mmol/L ABG pH (7.35-7.45) ABG Total CO2 (22-28) mmol/L ABG O2 Saturation (95-98) % ABG Base Excess (-2.0-3.0) mmol/L ABG Hemoglobin (11.7-17.4) g/dL ABG Carboxyhemoglobin (0.5-1.5) % POC ABG HHb (Measured) (0.0-5.0) % ABG Methemoglobin (0.0-3.0) % Albert Test A-a O2 Difference mm/Hg Respiratory Index Hgb O2 Saturation (95.0-98.0) % Vent Mode Mechanical Rate FiO2 % Tidal Volume PEEP Sodium 139 (132-148) mmol/L Potassium 4.3 (3.6-5.2) mmol/L Chloride 98 (98-107) mmol/L Carbon Dioxide 27 (22-30) mmol/L Anion Gap 18 (10-20) BUN 23 H (9-20) mg/dL Creatinine 1.2 (0.8-1.5) mg/dL Est GFR ( Amer) > 60 Est GFR (Non-Af Amer) > 60 Random Glucose 125 H (75-110) mg/dL Calcium 8.5 L (8.6-10.4) mg/dl Phosphorus 4.7 H (2.5-4.5) mg/dL Magnesium 2.0 (1.6-2.3) mg/dL Total Bilirubin (0.2-1.3) mg/dL AST (17-59) U/L ALT (21-72) U/L Alkaline Phosphatase (38-126) U/L Total Protein (6.3-8.3) g/dL Albumin (3.5-5.0) g/dL Globulin (2.2-3.9) gm/dL Albumin/Globulin Ratio (1.0-2.1) Laboratory Results - last 24 hr 11/25/18 11/25/18 11/25/18 17:23 20:31 20:31 WBC 16.6 H RBC 5.38 Hgb 17.0 Hct 52.0 H MCV 96.6 H D MCH 31.7 H MCHC 32.8 L RDW 16.4 H Plt Count 154 MPV 9.2 Neut % (Auto) 87.1 H Lymph % (Auto) 7.0 L Alcorn % (Auto) 5.6 Eos % (Auto) 0.2 Baso % (Auto) 0.1 Neut # (Auto) 14.5 H Lymph # (Auto) 1.2 Alcorn # (Auto) 0.9 H Eos # (Auto) 0.0 Baso # (Auto) 0.0 Neutrophils % (Manual) 88 H Band Neutrophils % Lymphocytes % (Manual) 6 L Monocytes % (Manual) 5 Eosinophils % (Manual) 1 Platelet Estimate Normal Anisocytosis (manual) APTT 137.0 H* D Puncture Site pCO2 pO2 HCO3 ABG pH ABG Total CO2 ABG O2 Saturation ABG Base Excess ABG Hemoglobin ABG Carboxyhemoglobin POC ABG HHb (Measured) ABG Methemoglobin Albert Test A-a O2 Difference Respiratory Index Hgb O2 Saturation Vent Mode Mechanical Rate FiO2 Tidal Volume PEEP Sodium 139 Potassium 4.3 Chloride 98 Carbon Dioxide 27 Anion Gap 18 BUN 23 H Creatinine 1.2 Est GFR ( Amer) > 60 Est GFR (Non-Af Amer) > 60 Random Glucose 125 H Calcium 8.5 L Phosphorus 4.7 H Magnesium 2.0 Total Bilirubin AST ALT Alkaline Phosphatase Total Protein Albumin Globulin Albumin/Globulin Ratio 11/26/18 11/26/18 11/26/18 01:00 05:20 05:48 WBC RBC Hgb Hct MCV MCH MCHC RDW Plt Count MPV Neut % (Auto) Lymph % (Auto) Alcorn % (Auto) Eos % (Auto) Baso % (Auto) Neut # (Auto) Lymph # (Auto) Alcorn # (Auto) Eos # (Auto) Baso # (Auto) Neutrophils % (Manual) Band Neutrophils % Lymphocytes % (Manual) Monocytes % (Manual) Eosinophils % (Manual) Platelet Estimate Anisocytosis (manual) APTT 120.0 H* D Puncture Site Rr pCO2 45 pO2 108 H HCO3 25.1 ABG pH 7.37 ABG Total CO2 27.4 ABG O2 Saturation 99.5 H ABG Base Excess 0.2 ABG Hemoglobin 17.2 ABG Carboxyhemoglobin 1.5 POC ABG HHb (Measured) 0.5 ABG Methemoglobin 0.7 Albert Test Pos A-a O2 Difference 277.0 Respiratory Index 2.8 Hgb O2 Saturation 97.2 Vent Mode Prvc Mechanical Rate 24 FiO2 60.0 Tidal Volume 600 PEEP 5 Sodium 138 Potassium 4.0 Chloride 99 Carbon Dioxide 28 Anion Gap 16 BUN 24 H Creatinine 1.3 Est GFR ( Amer) > 60 Est GFR (Non-Af Amer) 56 Random Glucose 110 Calcium 8.2 L Phosphorus 5.4 H Magnesium 2.0 Total Bilirubin 0.8 AST 89 H D ALT 71 Alkaline Phosphatase 96 Total Protein 7.6 Albumin 3.8 Globulin 3.8 Albumin/Globulin Ratio 1.0 11/26/18 11/26/18 11/26/18 05:48 09:49 09:49 WBC 15.1 H 13.0 H RBC 5.31 4.79 Hgb 16.9 15.7 Hct 51.9 H 46.6 MCV 97.8 H 97.2 H MCH 31.8 H 32.8 H MCHC 32.5 L 33.8 RDW 16.3 H 16.2 H Plt Count 151 166 MPV 9.4 9.3 Neut % (Auto) 86.8 H 87.2 H Lymph % (Auto) 6.3 L 7.5 L Alcorn % (Auto) 6.4 4.7 Eos % (Auto) 0.3 0.4 Baso % (Auto) 0.2 0.2 Neut # (Auto) 13.1 H 11.3 H Lymph # (Auto) 1.0 1.0 Alcorn # (Auto) 1.0 H 0.6 Eos # (Auto) 0.1 0.1 Baso # (Auto) 0.0 0.0 Neutrophils % (Manual) 87 H 85 H Band Neutrophils % 3 H 7 H Lymphocytes % (Manual) 4 L 5 L Monocytes % (Manual) 5 3 Eosinophils % (Manual) 1 Platelet Estimate Normal Normal Anisocytosis (manual) Slight Slight APTT 57.0 H D Puncture Site pCO2 pO2 HCO3 ABG pH ABG Total CO2 ABG O2 Saturation ABG Base Excess ABG Hemoglobin ABG Carboxyhemoglobin POC ABG HHb (Measured) ABG Methemoglobin Albert Test A-a O2 Difference Respiratory Index Hgb O2 Saturation Vent Mode Mechanical Rate FiO2 Tidal Volume PEEP Sodium Potassium Chloride Carbon Dioxide Anion Gap BUN Creatinine Est GFR ( Amer) Est GFR (Non-Af Amer) Random Glucose Calcium Phosphorus Magnesium Total Bilirubin AST ALT Alkaline Phosphatase Total Protein Albumin Globulin Albumin/Globulin Ratio 11/26/18 11/26/18 11/26/18 09:49 15:37 15:37 WBC RBC Hgb Hct MCV MCH MCHC RDW Plt Count MPV Neut % (Auto) Lymph % (Auto) Alcorn % (Auto) Eos % (Auto) Baso % (Auto) Neut # (Auto) Lymph # (Auto) Alcorn # (Auto) Eos # (Auto) Baso # (Auto) Neutrophils % (Manual) Band Neutrophils % Lymphocytes % (Manual) Monocytes % (Manual) Eosinophils % (Manual) Platelet Estimate Anisocytosis (manual) APTT 55.0 H Puncture Site pCO2 pO2 HCO3 ABG pH ABG Total CO2 ABG O2 Saturation ABG Base Excess ABG Hemoglobin ABG Carboxyhemoglobin POC ABG HHb (Measured) ABG Methemoglobin Albert Test A-a O2 Difference Respiratory Index Hgb O2 Saturation Vent Mode Mechanical Rate FiO2 Tidal Volume PEEP Sodium 138 140 Potassium 3.0 L 3.7 Chloride 98 98 Carbon Dioxide 26 31 H Anion Gap 18 15 BUN 24 H 22 H Creatinine 1.3 1.3 Est GFR ( Amer) > 60 > 60 Est GFR (Non-Af Amer) 56 56 Random Glucose 105 120 H Calcium 8.0 L 7.9 L Phosphorus 4.8 H Magnesium 1.8 Total Bilirubin 0.7 0.7 AST 96 H 106 H ALT 63 71 Alkaline Phosphatase 84 84 Total Protein 6.8 7.4 Albumin 3.4 L 3.8 Globulin 3.4 3.6 Albumin/Globulin Ratio 1.0 1.0 Radiology Impressions: Radiology Impressions Chest X-Ray 11/26/18 07:00 Impression: Lines and tubes in stable position. Left-sided pacemaker. Enlarged ectatic aorta. Cardiomegaly. Bilateral hilar prominence. Moderate to severe venous congestion. Patchy consolidative opacification at the right lung base. Punctate nodular density in the bilateral mid lung zones. Attending/Attestation - Attestation I have personally seen and examined this patient.: Yes I have fully participated in the care of the patient.: Yes I have reviewed all pertinent clinical information: Yes Notes (Text): 11/26/18 17:15 Patient seen and examined Patient in the rewarming phase of "freeze No change in mental status with GCS score of 3 Continuous EEG monitoring Neurology follow-up Continue Keppra On IV heparin
[2018-11-26] MEDS ORDERED: Acetaminophen 650mg/20.3ml solution UD GT PRN (11:45)
--- NOTE | 2018-11-26 13:17 | PCM.PCON ---
History of Present Illness - History of Present Illness History of Present Illness: Palliative consult requested by Doctor Love for goals of care discussion Patient is a 58 yo male admitted from home S/P witnessed cardiac arrest. per EMS report, patient called with complains of SOB, and he was able to meet EMS than he sustained cardiac arrest. The PEA changed to Asystoly. The CPR and ACLS was provided for about 12 - 14 min .Patient was intubated on field. In ED Code Freeze called, transferred to ICU. Neuro consult with Doctor Nuñez. 24 hr EEG completed today, readings are pending. BC + Gram + cocci, Zosyn IV started Ct Head - intracranial bleeding Advance Directive on chart indicates Full Code. Prognosis is guarded. Palliative care was aksed to assist in goals of care discussion. PMH: PPM, HTN, COPD, back pain, anxiety, depression Soc. Hx: Single, brother Kendell involved in care [phone] Fam. Hx: unknown Review of Systems - Review of Systems All systems: reviewed and no additional remarkable complaints except Review of Systems: ROS unobtainable from patient due to intubation and AMS. ROS obtained from nursing; patient remains intubated and sedated. Physical Exam - Constitutional Appears: In Acute Distress - Head Exam Head Exam: ATRAUMATIC, NORMAL INSPECTION, NORMOCEPHALIC - Eye Exam Pupil Exam: Fixed Additional comments: corneal reflex absent - ENT Exam Additional comments: ETT - Neck Exam Neck exam: Positive for: Normal Inspection - Respiratory Exam Additional comments: FiO2 60 %, intubated - Cardiovascular Exam Cardiovascular Exam: Bradycardia, Irregular Rhythm - GI/Abdominal Exam GI & Abdominal Exam: Distended, Firm, Hypoactive Bowel Sounds - Rectal Exam Rectal Exam: Deferred - Exam Exam: NORMAL INSPECTION - Extremities Exam Extremities exam: Positive for: pedal edema - Back Exam Back exam: NORMAL INSPECTION - Psychiatric Exam Psychiatric exam: Flat Affect - Skin Skin Exam: Dry, Intact, Warm Palliative Care Assessment - Pain Scale Pain Score: 0 Pain Scale Used: Numeric - Pain Description Intensity of pain at present: 0 - Obris Scale Sensory Perception: Completely Limited Moisture: Occasionally Moist Activity: Bedfast Mobility: Completely Immobile Nutrition: Probably Inadequate Friction & Shear: Potential Problem Total Score - Skin Risk Assessment: 10 - Psychosocial Distress Patient screened for psychosocial distress: No Psychosocial Intervention(s): Patient unable to discuss psychosocial distress due to condition Palliative Care - Goals Goal(s) of care: To be discussed with family tomorrow. End of life care discussed: No - Plan Interdisciplinary involved: Nurse, Physician (Family meting scheduled for 11/26/18 at 10 am) Assessment & Plan - Assessment and Plan (Free Text) Assessment: Impression * This is critically ill patient with GCS 3 * Patient needs max assistance with repositioning in bed * Boris Scale score of 10, at high risk for pressure sore * Prognosis is poor due to most likely anoxic brain injuries * Patient's wishes for the end of life care indicated on Advance Directive suggests ' Full Code regardless of health status" * EEG inconsistent due to frequent artifacts, but indicates cerebral and santacruz matter changes Suggestion * Continue life support * Promote skin integrity * Would repeat EEG and fallow up with Neuro recommendations * Family meeting to fallow to discuss Code status; patient's condition has changed drastically to the point where using life support needs to be discussed again * Patient may need further tests, such as brain flow to examine the brain functions Palliative care will continue to fallow with this patient. Family meeting scheduled for 10 am tomorrow morning.
--- NOTE | 2018-11-26 13:38 | CP.PCM.PCO ---
Physician Communication Note - Physician Communication Note Physician Communication Note: Family meeting at 10 am tomorrow
[2018-11-26] MEDS ORDERED: levETIRAcetam 1,000 MG in Sodium Chloride 0.9% 100 ML IVPB ONE (15:00)
[2018-11-26 16:00] LABS: ALBUMIN 3.8 g/dL (3.5-5.0); ALT/SGPT 71 U/L (21-72); AST/SGOT 106 U/L (17-59); BLOOD UREA NITROGEN 22 mg/dL (9-20); CALCIUM 7.9 mg/dl (8.6-10.4); GFR NON-AFRICAN AMERICAN 56
[2018-11-27] MEDS: Propofol 10 mg/ml 1,000 MG/100 ML VIAL IV PRN (02:46)
--- NOTE | 2018-11-27 03:24 | CARD ---
APPROVED REPORT Date of service: 11/24/2018 EKG Measurement Heart [id number] <Conclusion> Atrial-sensed ventricular-paced rhythm Abnormal ECG
[2018-11-27] MEDS: Piperacillin/Tazobact 3.375 GM in Sodium Chloride 100 ML IVPB SCH ×4 (04:31→22:24)
[2018-11-27 05:50] LABS: ARTERIAL BLOOD GAS HCO3 28.6 mmol/L (21-28); ARTERIAL BLOOD GAS HEMOGLOBIN 15.7 g/dL (11.7-17.4); ARTERIAL BLOOD GAS O2 SAT 99.6 % (95-98); ARTERIAL BLOOD GAS PCO2 29 mm/Hg (35-45); ARTERIAL BLOOD GAS PH 7.56 (7.35-7.45); ARTERIAL BLOOD GAS PO2 114 mm/Hg (80-100); ARTERIAL BLOOD GAS TCO2 26.9 mmol/L (22-28)
[2018-11-27 06:52] LABS: BASO % 0.3 % (0.0-2.0); EOS % 0.3 % (0.0-4.0); HEMOGLOBIN 15.1 g/dL (12.0-18.0); LYMPH # 0.9 K/uL (1.0-4.3); MEAN CELL VOLUME 97.4 fL (80.0-94.0); MEAN CORPUSCULAR HEMOGLOBIN 31.9 pg (27.0-31.0); MEAN CORPUSCULAR HGB CONC 32.7 g/dL (33.0-37.0); MONO # 0.8 K/uL (0.0-0.8); MONO % 6.9 % (0.0-10.0); NEUT # 9.4 K/uL (1.8-7.0); NEUT % 84.5 % (50.0-75.0); PLATELET COUNT 185 K/uL (130-400); RBC 4.73 Mil/uL (4.40-5.90); RED CELL DISTRIBUTION WIDTH 16.3 % (11.5-14.5); WHITE BLOOD COUNT 11.2 K/uL (4.8-10.8)
[2018-11-27 07:24] VITALS: BMI 40.2
[2018-11-27 07:38] LABS: ALBUMIN 3.4 g/dL (3.5-5.0); CALCIUM 7.8 mg/dl (8.6-10.4)
[2018-11-27] MEDS ORDERED: Heparin25000 units/250ml 1/2NS 25,000 UNITS/250 ML BAG IV PRN ×2 (07:58→09:00)
[2018-11-27 08:30] LABS: BANDS 1 % (0-2); LYMPHOCYTE 9 % (20-40); MONOCYTE 6 % (0-10); NEUTROPHIL 84 % (50-75); PLATELET ESTIMATE NORMAL (NORMAL); TOTAL CELLS COUNTED 100
[2018-11-27 08:31] LABS: ANISOCYTOSIS SLIGHT
--- NOTE | 2018-11-27 09:01 | RAD ---
Chest x-ray single frontal view HISTORY: Follow-up. COMPARISON: 11/26/2018 FINDINGS: Moderate venous congestion. Prominent consolidative opacification in the right lung base as well as the left mid to lower lung zones. Additional consolidative changes in the right suprahilar region. Small bilateral pleural effusions. Enlarged ectatic aorta. Cardiomegaly. Left-sided pacemaker. Endotracheal tube approximately 1.2 centimeters above the yasemin. NG tube extending into the stomach. IMPRESSION: Moderate venous congestion. Prominent consolidative opacification in the right lung base as well as the left mid to lower lung zones. Additional consolidative changes in the right suprahilar region. Small bilateral pleural effusions. Enlarged ectatic aorta. Cardiomegaly. Left-sided pacemaker. Endotracheal tube approximately 1.2 centimeters above the yasemin. NG tube extending into the stomach.
--- NOTE | 2018-11-27 10:28 | CP.PCM.PN ---
<Valentin Sanders - Last Filed: 11/27/18 15:09> Subjective - Date & Time of Evaluation Date of Evaluation: 11/27/18 Time of Evaluation: 10:00 - Subjective Subjective: PGY-[address] Matos Patient is seen and examined at bedside. Patient remains intubated, is off sedation at this time. As per nurse, patient had one episode of vomiting earlier today, tube feedings are being held. Patient is not awake or oriented, but responds to verbal stimuli and sternal rub. Family at bedside, palliative care consulted. ROS unattainable due to patient's current status. Objective - Vital Signs/Intake and Output Vital Signs (last 24 hours): Temp Pulse Resp BP Pulse Ox 100.7 F H 80 24 130/61 100 11/27/18 04:00 11/27/18 09:20 11/27/18 09:20 11/27/18 09:54 11/27/18 09:20 Intake and Output: 11/27/18 11/27/18 06:59 18:59 Intake Total 1217.2 322.3 Output Total 1840 223 Balance -622.8 99.3 - Medications Medications: Current Medications Acetaminophen (Tylenol 650mg/20.3ml Solution Ud) 975 mg GT Q6 PRN Last Admin: 11/27/18 02:49 Dose: 975 mg Aspirin (Aspirin) 325 mg PO DAILY [facility] Last Admin: 11/27/18 09:52 Dose: 325 mg Famotidine (Pepcid) 20 mg IVP Q12 [facility] Last Admin: 11/27/18 09:54 Dose: 20 mg Furosemide (Lasix) 40 mg IV Q12 [facility] Last Admin: 11/27/18 09:54 Dose: 40 mg Piperacillin Sod/Tazobactam (Sod 3.375 gm/ Sodium Chloride) 100 mls @ 200 mls/hr IVPB Q6H [facility]; Protocol Last Admin: 11/27/18 09:51 Dose: 200 mls/hr Propofol (Diprivan) 1,000 mg in 100 mls @ 3.702 mls/hr IV .Q24H PRN; Protocol PRN Reason: TITRATE PER MD ORDER Last Titration: 11/27/18 07:53 Dose: 15 mcg/kg/min, 11.106 mls/hr Vancomycin/Sodium Chloride (Vancomycin 1 Gm/Ns 200 Ml) 1 gm in 200 mls @ 133.333 mls/hr IVPB Q12H [facility]; Protocol Stop: 12/01/18 11:01 Last Admin: 11/26/18 23:39 Dose: 133.333 mls/hr Levetiracetam 750 mg/ Sodium (Chloride) 107.5 mls @ 420 mls/hr IVPB Q12H [facility] Last Admin: 11/27/18 09:52 Dose: 420 mls/hr Heparin Sodium/Sodium Chloride (Heparin 15030 Units/250ml 1/2 Normal Saline) 25,000 units in 250 mls @ 11.66 mls/hr IV .[id number] PRN; Protocol PRN Reason: PROTOCOL Potassium Chloride (Potassium Chloride 20 Meq/100 Ml) 20 meq in 100 mls @ 50 mls/hr IVPB ONCE ONE Stop: 11/27/18 10:59 Last Admin: 11/27/18 08:52 Dose: 50 mls/hr Potassium Chloride (Potassium Chloride 20 Meq/100 Ml) 20 meq in 100 mls @ 50 mls/hr IVPB ONCE ONE Stop: 11/27/18 13:14 - Labs Labs: 11/27/18 06:47 11/27/18 06:46 PT 11.8 SECONDS (9.7-12.2) 11/25/18 09:02 INR 1.1 11/25/18 09:02 APTT 29.0 SECONDS (21-34) D 11/27/18 06:48 - Constitutional Appears: Chronically Ill - Head Exam Head Exam: ATRAUMATIC, NORMOCEPHALIC - Eye Exam Eye Exam: absent: EOMI, Normal appearance Pupil Exam: NORMAL ACCOMODATION - ENT Exam ENT Exam: Normal Exam Additional comments: intubated - Neurological Exam Neurological Exam: absent: Alert, Awake, CN II-XII Intact, Oriented x3 Assessment and Plan - Assessment and Plan (Free Text) Plan: 58 year old male with pmhx of COPD, CHF, AICD placement s/p cardiac arrest and with anoxic encephalopathy, neurological exam shows stem function intact, but not responsive. Left sided neglect noticed on Physical exam, CT head w/o contrast ordered, will follow up results 1. CT head w/o contrast to rule out new stroke - f/u results 2. continue Keppra 750mg PO Q12H 3. no video eeg at this time 4. Dr Matos discussed with family in regard to patient's current status 5. palliative care and pastoral care 6. continue med management as per ICU, cardio and medical team Plan discussed with Dr Joaquin Sanders, PGY-1 <Humaira Matos - Last Filed: 12/02/18 11:15> Subjective - Subjective Subjective: On exam: Awake, off sedation. Opens eyes to sternal rub. Appears to have left sided neglect. Appears to also open eyes to voice- follows one step commands. Pupils 3mm-2mm with light. +dolls eyes, +corneals, weak gag. no facial asymmetry no spontaneous movement in limbs. +1 dtr ul and ll bl. Toes up going. Objective - Vital Signs/Intake and Output Vital Signs (last 24 hours): Temp Pulse Resp BP Pulse Ox 100.7 F H 96 H 24 148/88 95 11/27/18 04:00 11/27/18 11:20 11/27/18 11:20 11/27/18 11:05 11/27/18 11:20 Intake and Output: 11/27/18 11/27/18 06:59 18:59 Intake Total 1217.2 833.95 Output Total 1840 563 Balance -622.8 270.95 - Medications Medications: Current Medications Acetaminophen (Tylenol 650mg/20.3ml Solution Ud) 975 mg GT Q6 PRN Last Admin: 11/27/18 02:49 Dose: 975 mg Aspirin (Aspirin) 325 mg PO DAILY [facility] Last Admin: 11/27/18 09:52 Dose: 325 mg Famotidine (Pepcid) 20 mg IVP Q12 [facility] Last Admin: 11/27/18 09:54 Dose: 20 mg Furosemide (Lasix) 40 mg IV Q12 [facility] Last Admin: 11/27/18 09:54 Dose: 40 mg Piperacillin Sod/Tazobactam (Sod 3.375 gm/ Sodium Chloride) 100 mls @ 200 mls/hr IVPB Q6H [facility]; Protocol Last Admin: 11/27/18 09:51 Dose: 200 mls/hr Propofol (Diprivan) 1,000 mg in 100 mls @ 3.702 mls/hr IV .Q24H PRN; Protocol PRN Reason: TITRATE PER MD ORDER Last Titration: 11/27/18 07:53 Dose: 15 mcg/kg/min, 11.106 mls/hr Vancomycin/Sodium Chloride (Vancomycin 1 Gm/Ns 200 Ml) 1 gm in 200 mls @ 133.333 mls/hr IVPB Q12H [facility]; Protocol Stop: 12/01/18 11:01 Last Admin: 11/26/18 23:39 Dose: 133.333 mls/hr Levetiracetam 750 mg/ Sodium (Chloride) 107.5 mls @ 420 mls/hr IVPB Q12H [facility] Last Admin: 11/27/18 09:52 Dose: 420 mls/hr Heparin Sodium/Sodium Chloride (Heparin 05619 Units/250ml 1/2 Normal Saline) 25,000 units in 250 mls @ 11.66 mls/hr IV .[id number] PRN; Protocol PRN Reason: PROTOCOL Potassium Chloride (Potassium Chloride 20 Meq/100 Ml) 20 meq in 100 mls @ 50 mls/hr IVPB ONCE ONE Stop: 11/27/18 13:14 Last Admin: 11/27/18 10:30 Dose: 50 mls/hr - Labs Labs: 11/27/18 06:47 11/27/18 06:46 PT 11.8 SECONDS (9.7-12.2) 11/25/18 09:02 INR 1.1 11/25/18 09:02 APTT 29.0 SECONDS (21-34) D 11/27/18 06:48 Assessment and Plan - Assessment and Plan (Free Text) Plan: All medical record entries made by the Resident were at my direction and personally dictated by me. I have reviewed the chart and agree that the record accurately reflects my personal performance of the history, physical exam, medical decision making, and the department course for this patient. I have also personally directed, reviewed, and agree with the discharge instructions and disposition. MR Rodas is now losing brainstem function, and his poor prognosis was discussed with his family. 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 DR. matos Neurology
[2018-11-27] MEDS ORDERED: Potassium Chloride 20 mEq ER Tab PO ONE (11:30)
[2018-11-27] MEDS: Vancomycin 1 gm/NS 200 ml 1 GM/200 ML BAG IVPB SCH ×2 (11:50→22:26)
--- NOTE | 2018-11-27 11:55 | PCM.PPROG ---
History of Present Illness - History of Present Illness History of Present Illness: PC Progress note Patient examined in bed on sedation vacation since this morning. Weak gag reflex. Vomited large amount of undigested food. Corneal reflexes absent, keeps eyes open. Kepra increased to 750 mg as per Neuro. o2Sat 99%, FiO2 60%. Review of Systems - Review of Systems All systems: reviewed and no additional remarkable complaints except Review of Systems: ROS unobtainable from patient due to condition. Per nursing , patient is post Code Freeze, unresponsive to stimuli. Physical Exam - Constitutional Appears: In Acute Distress - Head Exam Head Exam: NORMOCEPHALIC - Eye Exam Pupil Exam: Fixed - ENT Exam Additional comments: ETT, OGT - Neck Exam Neck exam: Positive for: Normal Inspection - Respiratory Exam Additional comments: On MV support - Cardiovascular Exam Cardiovascular Exam: Irregular Rhythm - GI/Abdominal Exam GI & Abdominal Exam: Diminished Bowel Sounds, Distended - Rectal Exam Rectal Exam: Deferred - Extremities Exam Extremities exam: Positive for: normal inspection - Back Exam Back exam: NORMAL INSPECTION - Neurological Exam Neurological exam: Motor Sensory Deficit - Psychiatric Exam Psychiatric exam: Flat Affect - Skin Skin Exam: Dry, Intact, Normal Color Palliative Care Assessment - Pain Scale Pain Score: 0 Pain Scale Used: Numeric - Pain Description Intensity of pain at present: 0 - Boris Scale Sensory Perception: Very Limited Moisture: Occasionally Moist Activity: Bedfast Mobility: Completely Immobile Nutrition: Probably Inadequate Friction & Shear: Potential Problem Total Score - Skin Risk Assessment: 11 - Psychosocial Distress Patient screened for psychosocial distress: Yes Psychosocial Intervention(s): Family admits to Spiritual and psychosocial distress due to patient's condition. Refereed to Pastoral Care for spiritual support. Palliative Care - Goals Goal(s) of care: To be discussed with family tomorrow. End of life care discussed: Yes End of life discussion: End of life care discussed at family meeting attended by patient's girlfriend Moose and three children who came [place] from 3 [place] patient. Patient's clinical condition reviewed and discussed as having guarded prognosis . Family informed of tests' results and made aware of Neurology fallowing the patient. Patient Advance Directive on chart discussed with family. Girlfriend Moose , named as 1st surrogate decision maker, agreed that circumstances have changed drastically. If patient was not expected to have a meaningful recovery, family supported promotion of natural . We agreed that it was too soon to make any decision just yet and agreed to fallow on Doctor Nuñez's recommendations.This was shared with Nursing staff and Neuro Resident. - Plan Interdisciplinary involved: Nurse, Physician (Family meting scheduled for 11/26/18 at 10 am), Pastoral care (Discharge planing is still to be discussed based on patient's condition, possible terminal extubation.) Assessment & Plan - Assessment and Plan (Free Text) Assessment: Impression * GCS 3 * Does not tolerate OGT feedings well, vomiting X1 * At risk for aspiration * At risk for pressure sores, Boris scale of 11 * Family is considering terminal extubation if meaningful recovery was not expected * Spiritual distress among family Suggestion * Fallow up on recommendations from Doctor Nuñez * Aspiration precautions * Promote skin integrity * Artificial eye gtt * Pastoral care for spiritual support Further family meetings to fallow based on patient's condition. Advance care planing 57 min.
--- NOTE | 2018-11-27 12:28 | CP.CCUPN ---
<Ruslan Mary - Last Filed: 11/27/18 12:23> CCU Subjective - Physician Review Subjective (Free Text): 11/27/18 12:23 PGY-1 Critical Care Progress Note for Dr. Fitzpatrick Seen and examined at bedside this AM on mechanical vent, FIO2 60% propofol gtt heparin gtt for possible PE keppra increased to 750 mg BID per Neuro recs corneal reflexes absent, keeps eyes open cough, no gag reflex Prognosis poor, palliative care on board Family considering terminal extubation if no meaningful recovery expected CCU Objective - Vital Signs / Intake & Output Vital Signs (Last 4 hours): Vital Signs Pulse Resp BP Pulse Ox 11/27/18 11:20 96 H 24 95 11/27/18 11:10 88 24 95 11/27/18 11:05 113 H 9 L 148/88 96 11/27/18 11:00 87 24 110/74 95 11/27/18 10:55 93 H 24 95 11/27/18 10:40 80 24 97 11/27/18 10:30 94 H 24 97 11/27/18 10:20 60 22 93 L 11/27/18 10:10 86 24 97 11/27/18 10:04 87 24 110/74 96 11/27/18 10:00 87 24 97 11/27/18 09:54 130/61 11/27/18 09:50 93 H 13 97 11/27/18 09:40 102 H 27 H 95 11/27/18 09:30 88 25 H 99 11/27/18 09:20 80 24 100 11/27/18 09:10 80 24 100 11/27/18 09:04 78 24 130/61 100 11/27/18 09:00 78 24 100 11/27/18 08:50 78 24 100 11/27/18 08:40 78 24 100 11/27/18 08:30 78 24 100 Intake and Output (Last 8hrs): Intake & Output 11/26/18 11/27/18 11/27/18 22:59 06:59 14:59 Intake Total 722.4 827.2 833.95 Output Total 815 1550 563 Balance -92.6 -722.8 270.95 Weight 116.6 kg 116.6 kg Intake: IV 195 100 200 Intake, IV Amount 427.4 507.2 573.95 Left Antecubital 22.2 54.2 Right AC 59.2 37.0 0 Right Distal Port Femoral 212 310 239 Right Medial Port Femoral 55.8 138.0 130.75 Right Proximal Port 100.4 0 150 Femoral Oral 100 160 60 Other 60 Output: Urine 815 1550 563 Urethral (Grove) 815 1550 563 Emesis 0 0 0 Other: # Bowel Movements 0 0 0 - Physical Exam Head: Positive for: Atraumatic Pupils: Positive for: Sluggish Conjunctiva: Positive for: Normal Ears: Positive for: Normal Nose (External): Positive for: Atraumatic Neck: Positive for: Normal Range of Motion Respiratory/Chest: Positive for: Rhonchi Cardiovascular: Positive for: Regular Rate and Rhythm Abdomen: Positive for: Normal Bowel Sounds, Other (obese) Upper Extremity: Positive for: Normal Inspection Lower Extremity: Positive for: Normal Inspection Neurological: Positive for: Other (no response to any stimuli, on ventilator) - Medications Active Medications: Active Medications Generic Name Dose Route Start Last Admin Trade Name Freq PRN Reason Stop Dose Admin Acetaminophen 975 mg 11/26/18 11:45 11/27/18 02:49 Tylenol 650mg/20.3ml Solution Ud GT 975 mg Q6 PRN Administration Aspirin 325 mg 11/25/18 10:00 11/27/18 09:52 Aspirin PO 325 mg DAILY MILEY Administration Famotidine 20 mg 11/24/18 23:00 11/27/18 09:54 Pepcid IVP 20 mg Q12 MILEY Administration Furosemide 40 mg 11/25/18 01:30 11/27/18 09:54 Lasix IV 40 mg Q12 MILEY Administration Piperacillin Sod/Tazobactam 100 mls @ 200 mls/hr 11/24/18 22:45 11/27/18 09:51 Sod 3.375 gm/ Sodium Chloride IVPB 200 mls/hr Q6H MILEY Administration Protocol Propofol 1,000 mg in 100 mls @ 3.702 mls/hr 11/25/18 12:27 11/27/18 07:53 Diprivan IV 15 mcg/kg/min .Q24H PRN 11.106 mls/hr TITRATE PER MD ORDER Titration Protocol 5 MCG/KG/MIN Vancomycin/Sodium Chloride 1 gm in 200 mls @ 133.333 mls/hr 11/26/18 11:00 11/27/18 11:50 Vancomycin 1 Gm/Ns 200 Ml IVPB 12/01/18 11:01 133.333 mls/hr Q12H MILEY Administration Protocol Levetiracetam 750 mg/ Sodium 107.5 mls @ 420 mls/hr 11/27/18 10:00 11/27/18 09:52 Chloride IVPB 420 mls/hr Q12H MILEY Administration Heparin Sodium/Sodium Chloride 25,000 units in 250 mls @ 11.66 mls/hr 11/27/18 09:00 Heparin 36050 Units/250ml 1/2 Normal Saline IV .[id number] PRN PROTOCOL Protocol 10 UNITS/KG/HR Potassium Chloride 20 meq in 100 mls @ 50 mls/hr 11/27/18 11:15 11/27/18 10:30 Potassium Chloride 20 Meq/100 Ml IVPB 11/27/18 13:14 50 mls/hr ONCE ONE Administration - Patient Studies Lab Studies: Microbiology Studies 11/24/18 23:35 S.aureus & Coag-Neg Staph PNA FISH - Final Blood Blood Culture - Preliminary Gram Positive Cocci Gram Stain - Final 11/24/18 23:21 Urine Culture - Final Urine,Grove Enterococcus Faecalis 11/24/18 23:35 Blood Culture - Preliminary Blood NO GROWTH AFTER 48 HOURS 11/25/18 06:39 MRSA Culture (Admit) - Final Nose MRSA NOT DETECTED Lab Studies 11/27/18 11/27/18 11/27/18 Range/Units 06:48 06:47 06:46 WBC 11.2 H (4.8-10.8) K/uL RBC 4.73 (4.40-5.90) Mil/uL Hgb 15.1 (12.0-18.0) g/dL Hct 46.1 (35.0-51.0) % MCV 97.4 H (80.0-94.0) fL MCH 31.9 H (27.0-31.0) pg MCHC 32.7 L (33.0-37.0) g/dL RDW 16.3 H (11.5-14.5) % Plt Count 185 (130-400) K/uL MPV 10.0 (7.2-11.7) fL Neut % (Auto) 84.5 H (50.0-75.0) % Lymph % (Auto) 8.0 L (20.0-40.0) % Bledsoe % (Auto) 6.9 (0.0-10.0) % Eos % (Auto) 0.3 (0.0-4.0) % Baso % (Auto) 0.3 (0.0-2.0) % Neut # (Auto) 9.4 H (1.8-7.0) K/uL Lymph # (Auto) 0.9 L (1.0-4.3) K/uL Bledsoe # (Auto) 0.8 (0.0-0.8) K/uL Eos # (Auto) 0.0 (0.0-0.7) K/uL Baso # (Auto) 0.0 (0.0-0.2) K/uL Neutrophils % (Manual) 84 H (50-75) % Band Neutrophils % 1 (0-2) % Lymphocytes % (Manual) 9 L (20-40) % Monocytes % (Manual) 6 (0-10) % Platelet Estimate Normal (NORMAL) Anisocytosis (manual) Slight APTT 29.0 D (21-34) SECONDS Puncture Site pCO2 (35-45) mm/Hg pO2 (80-100) mm/Hg HCO3 (21-28) mmol/L ABG pH (7.35-7.45) ABG Total CO2 (22-28) mmol/L ABG O2 Saturation (95-98) % ABG Base Excess (-2.0-3.0) mmol/L ABG Hemoglobin (11.7-17.4) g/dL ABG Carboxyhemoglobin (0.5-1.5) % POC ABG HHb (Measured) (0.0-5.0) % ABG Methemoglobin (0.0-3.0) % Albert Test A-a O2 Difference mm/Hg Respiratory Index Hgb O2 Saturation (95.0-98.0) % Vent Mode Mechanical Rate FiO2 % Tidal Volume PEEP Sodium 140 (132-148) mmol/L Potassium 2.9 L (3.6-5.2) mmol/L Chloride 98 (98-107) mmol/L Carbon Dioxide 29 (22-30) mmol/L Anion Gap 16 (10-20) BUN 24 H (9-20) mg/dL Creatinine 1.5 (0.8-1.5) mg/dL Est GFR ( Amer) 58 Est GFR (Non-Af Amer) 48 Random Glucose 137 H (75-110) mg/dL Calcium 7.8 L (8.6-10.4) mg/dl Phosphorus 2.7 (2.5-4.5) mg/dL Magnesium 1.8 (1.6-2.3) mg/dL Total Bilirubin 0.9 (0.2-1.3) mg/dL AST 104 H (17-59) U/L ALT 58 (21-72) U/L Alkaline Phosphatase 68 (38-126) U/L Total Protein 6.7 (6.3-8.3) g/dL Albumin 3.4 L (3.5-5.0) g/dL Globulin 3.4 (2.2-3.9) gm/dL Albumin/Globulin Ratio 1.0 (1.0-2.1) 11/27/18 11/26/18 11/26/18 Range/Units 05:45 15:37 15:37 WBC (4.8-10.8) K/uL RBC (4.40-5.90) Mil/uL Hgb (12.0-18.0) g/dL Hct (35.0-51.0) % MCV (80.0-94.0) fL MCH (27.0-31.0) pg MCHC (33.0-37.0) g/dL RDW (11.5-14.5) % Plt Count (130-400) K/uL MPV (7.2-11.7) fL Neut % (Auto) (50.0-75.0) % Lymph % (Auto) (20.0-40.0) % Bledsoe % (Auto) (0.0-10.0) % Eos % (Auto) (0.0-4.0) % Baso % (Auto) (0.0-2.0) % Neut # (Auto) (1.8-7.0) K/uL Lymph # (Auto) (1.0-4.3) K/uL Bledsoe # (Auto) (0.0-0.8) K/uL Eos # (Auto) (0.0-0.7) K/uL Baso # (Auto) (0.0-0.2) K/uL Neutrophils % (Manual) (50-75) % Band Neutrophils % (0-2) % Lymphocytes % (Manual) (20-40) % Monocytes % (Manual) (0-10) % Platelet Estimate (NORMAL) Anisocytosis (manual) APTT 55.0 H (21-34) SECONDS Puncture Site Rra pCO2 29 L (35-45) mm/Hg pO2 114 H (80-100) mm/Hg HCO3 28.6 H (21-28) mmol/L ABG pH 7.56 H (7.35-7.45) ABG Total CO2 26.9 (22-28) mmol/L ABG O2 Saturation 99.6 H (95-98) % ABG Base Excess 4.7 H (-2.0-3.0) mmol/L ABG Hemoglobin 15.7 (11.7-17.4) g/dL ABG Carboxyhemoglobin 1.6 H (0.5-1.5) % POC ABG HHb (Measured) 0.4 (0.0-5.0) % ABG Methemoglobin 0.9 (0.0-3.0) % Albert Test Na A-a O2 Difference 278.0 mm/Hg Respiratory Index 2.4 Hgb O2 Saturation 97.1 (95.0-98.0) % Vent Mode Prvc Mechanical Rate 24 FiO2 60.0 % Tidal Volume 600 PEEP 5 Sodium 140 (132-148) mmol/L Potassium 3.7 (3.6-5.2) mmol/L Chloride 98 (98-107) mmol/L Carbon Dioxide 31 H (22-30) mmol/L Anion Gap 15 (10-20) BUN 22 H (9-20) mg/dL Creatinine 1.3 (0.8-1.5) mg/dL Est GFR ( Amer) > 60 Est GFR (Non-Af Amer) 56 Random Glucose 120 H (75-110) mg/dL Calcium 7.9 L (8.6-10.4) mg/dl Phosphorus (2.5-4.5) mg/dL Magnesium (1.6-2.3) mg/dL Total Bilirubin 0.7 (0.2-1.3) mg/dL AST 106 H (17-59) U/L ALT 71 (21-72) U/L Alkaline Phosphatase 84 (38-126) U/L Total Protein 7.4 (6.3-8.3) g/dL Albumin 3.8 (3.5-5.0) g/dL Globulin 3.6 (2.2-3.9) gm/dL Albumin/Globulin Ratio 1.0 (1.0-2.1) Laboratory Results - last 24 hr 11/26/18 11/26/18 11/27/18 15:37 15:37 05:45 WBC RBC Hgb Hct MCV MCH MCHC RDW Plt Count MPV Neut % (Auto) Lymph % (Auto) Bledsoe % (Auto) Eos % (Auto) Baso % (Auto) Neut # (Auto) Lymph # (Auto) Bledsoe # (Auto) Eos # (Auto) Baso # (Auto) Neutrophils % (Manual) Band Neutrophils % Lymphocytes % (Manual) Monocytes % (Manual) Platelet Estimate Anisocytosis (manual) APTT 55.0 H Puncture Site Rra pCO2 29 L pO2 114 H HCO3 28.6 H ABG pH 7.56 H ABG Total CO2 26.9 ABG O2 Saturation 99.6 H ABG Base Excess 4.7 H ABG Hemoglobin 15.7 ABG Carboxyhemoglobin 1.6 H POC ABG HHb (Measured) 0.4 ABG Methemoglobin 0.9 Albert Test Na A-a O2 Difference 278.0 Respiratory Index 2.4 Hgb O2 Saturation 97.1 Vent Mode Prvc Mechanical Rate 24 FiO2 60.0 Tidal Volume 600 PEEP 5 Sodium 140 Potassium 3.7 Chloride 98 Carbon Dioxide 31 H Anion Gap 15 BUN 22 H Creatinine 1.3 Est GFR ( Amer) > 60 Est GFR (Non-Af Amer) 56 Random Glucose 120 H Calcium 7.9 L Phosphorus Magnesium Total Bilirubin 0.7 AST 106 H ALT 71 Alkaline Phosphatase 84 Total Protein 7.4 Albumin 3.8 Globulin 3.6 Albumin/Globulin Ratio 1.0 11/27/18 11/27/18 11/27/18 06:46 06:47 06:48 WBC 11.2 H RBC 4.73 Hgb 15.1 Hct 46.1 MCV 97.4 H MCH 31.9 H MCHC 32.7 L RDW 16.3 H Plt Count 185 MPV 10.0 Neut % (Auto) 84.5 H Lymph % (Auto) 8.0 L Bledsoe % (Auto) 6.9 Eos % (Auto) 0.3 Baso % (Auto) 0.3 Neut # (Auto) 9.4 H Lymph # (Auto) 0.9 L Bledsoe # (Auto) 0.8 Eos # (Auto) 0.0 Baso # (Auto) 0.0 Neutrophils % (Manual) 84 H Band Neutrophils % 1 Lymphocytes % (Manual) 9 L Monocytes % (Manual) 6 Platelet Estimate Normal Anisocytosis (manual) Slight APTT 29.0 D Puncture Site pCO2 pO2 HCO3 ABG pH ABG Total CO2 ABG O2 Saturation ABG Base Excess ABG Hemoglobin ABG Carboxyhemoglobin POC ABG HHb (Measured) ABG Methemoglobin Albert Test A-a O2 Difference Respiratory Index Hgb O2 Saturation Vent Mode Mechanical Rate FiO2 Tidal Volume PEEP Sodium 140 Potassium 2.9 L Chloride 98 Carbon Dioxide 29 Anion Gap 16 BUN 24 H Creatinine 1.5 Est GFR ( Amer) 58 Est GFR (Non-Af Amer) 48 Random Glucose 137 H Calcium 7.8 L Phosphorus 2.7 Magnesium 1.8 Total Bilirubin 0.9 AST 104 H ALT 58 Alkaline Phosphatase 68 Total Protein 6.7 Albumin 3.4 L Globulin 3.4 Albumin/Globulin Ratio 1.0 Radiology Impressions: Radiology Impressions Chest X-Ray 11/27/18 07:00 IMPRESSION: Moderate venous congestion. Prominent consolidative opacification in the right lung base as well as the left mid to lower lung zones. Additional consolidative changes in the right suprahilar region. Small bilateral pleural effusions. Enlarged ectatic aorta. Cardiomegaly. Left-sided pacemaker. Endotracheal tube approximately 1.2 centimeters above the yasemin. NG tube extending into the stomach. Fingerstick Blood Sugar Results: 153 Review of Systems - Review of Systems Systems not reviewed;Unavailable: Intubated Assessment/Plan - Assessment and Plan (Free Text) Assessment: 58 year old obese male with pmhx of COPD, CHF, AICD placement brought in by ALS s/p witnessed cardiac arrest. PEA then asystole. Code approximately 22 minutes per ALS, epi x4 for PEA, defibrillation x 1 for pulseless vtach with ROSC. Patient's own defibrillator fired 2x afterwards. Plan: Neuro -on mechanical vent FIO2 60%, PEEP 5 -sedated, propofol gtt -Neurology (Dr. Alcantara) on board -Keppra 750 mg IVPB q12 Pulm -vent settings: R 20, VT 600mL, FiO2 60%, PEEP 5 -CXR (11/25): increasing L perihilar opacity concerning for PNA -empiric coverage with zosyn CV -T 100.7 -ABG pH 7.56, pC02 29, HCO3 28.6 -EKG: atrial sensed ventricular paced rhythm -troponin wnl Heme -WBC 11.2 GI -pepcid 20 mg IVP q12 Endo -no acute issues ID -vanc/zosyn for empiric coverage -cultures no growth after 48 hrs PPx, Diet, Disposition -DVT: heparin gtt -GI: pepcid 20 mg IVP q12 -Diet: NPO Case discussed with Dr. Nanette Mary DO, PGY-1 <Trenton Fitzpatrick - Last Filed: 11/27/18 15:23> CCU Objective - Vital Signs / Intake & Output Vital Signs (Last 4 hours): Vital Signs Pulse Resp BP Pulse Ox 11/27/18 14:30 90 24 11/27/18 14:22 92 H 11/27/18 14:00 94 H 97 11/27/18 13:50 102 H 96 11/27/18 13:40 94 H 24 97 11/27/18 13:30 92 H 24 97 11/27/18 13:20 98 H 24 97 11/27/18 13:10 90 24 98 11/27/18 13:04 98 H 24 121/79 97 11/27/18 13:00 92 H 24 97 11/27/18 12:50 100 H 24 97 11/27/18 12:40 91 H 24 97 11/27/18 12:30 90 24 97 11/27/18 12:20 92 H 24 97 11/27/18 12:10 95 H 24 96 11/27/18 12:04 92 H 24 124/81 96 11/27/18 12:00 105 H 24 95 11/27/18 11:50 108 H 24 95 11/27/18 11:40 105 H 24 97 11/27/18 11:30 90 24 95 Intake and Output (Last 8hrs): Intake & Output 05/09/19 05/09/19 05/09/19 06:59 14:59 22:59 Intake Total 827.2 833.95 Output Total 1550 563 Balance -722.8 270.95 Weight 257 lb 0.944 oz 257 lb 0.944 oz Intake: IV 100 200 Intake, IV Amount 507.2 573.95 Left Antecubital 22.2 54.2 Right AC 37.0 0 Right Distal Port Femoral 310 239 Right Medial Port Femoral 138.0 130.75 Right Proximal Port 0 150 Femoral Oral 160 60 Other 60 Output: Urine 1550 563 Urethral (Grove) 1550 563 Emesis 0 0 Other: # Bowel Movements 0 0 - Medications Active Medications: Active Medications Generic Name Dose Route Start Last Admin Trade Name Freq PRN Reason Stop Dose Admin Acetaminophen 975 mg 11/26/18 11:45 11/27/18 02:49 Tylenol 650mg/20.3ml Solution Ud GT 975 mg Q6 PRN Administration Aspirin 325 mg 11/25/18 10:00 11/27/18 09:52 Aspirin PO 325 mg DAILY MILEY Administration Famotidine 20 mg 11/24/18 23:00 11/27/18 09:54 Pepcid IVP 20 mg Q12 MILEY Administration Furosemide 40 mg 11/25/18 01:30 11/27/18 09:54 Lasix IV 40 mg Q12 MILEY Administration Piperacillin Sod/Tazobactam 100 mls @ 200 mls/hr 11/24/18 22:45 11/27/18 09:51 Sod 3.375 gm/ Sodium Chloride IVPB 200 mls/hr Q6H MILEY Administration Protocol Propofol 1,000 mg in 100 mls @ 3.702 mls/hr 11/25/18 12:27 11/27/18 07:53 Diprivan IV 15 mcg/kg/min .Q24H PRN 11.106 mls/hr TITRATE PER MD ORDER Titration Protocol 5 MCG/KG/MIN Vancomycin/Sodium Chloride 1 gm in 200 mls @ 133.333 mls/hr 11/26/18 11:00 11/27/18 11:50 Vancomycin 1 Gm/Ns 200 Ml IVPB 12/01/18 11:01 133.333 mls/hr Q12H MILEY Administration Protocol Levetiracetam 750 mg/ Sodium 107.5 mls @ 420 mls/hr 11/27/18 10:00 11/27/18 09:52 Chloride IVPB 420 mls/hr Q12H MILEY Administration Heparin Sodium/Sodium Chloride 25,000 units in 250 mls @ 11.66 mls/hr 11/27/18 09:00 Heparin 53794 Units/250ml 1/2 Normal Saline IV .[id number] PRN PROTOCOL Protocol 10 UNITS/KG/HR - Patient Studies Lab Studies: Microbiology Studies 11/24/18 23:35 S.aureus & Coag-Neg Staph PNA FISH - Final Blood Blood Culture - Preliminary Gram Positive Cocci Gram Stain - Final 11/24/18 23:21 Urine Culture - Final Urine,Grove Enterococcus Faecalis 11/24/18 23:35 Blood Culture - Preliminary Blood NO GROWTH AFTER 48 HOURS 11/25/18 06:39 MRSA Culture (Admit) - Final Nose MRSA NOT DETECTED Lab Studies 11/27/18 11/27/18 11/27/18 Range/Units 13:53 06:48 06:47 WBC 11.2 H (4.8-10.8) K/uL RBC 4.73 (4.40-5.90) Mil/uL Hgb 15.1 (12.0-18.0) g/dL Hct 46.1 (35.0-51.0) % MCV 97.4 H (80.0-94.0) fL MCH 31.9 H (27.0-31.0) pg MCHC 32.7 L (33.0-37.0) g/dL RDW 16.3 H (11.5-14.5) % Plt Count 185 (130-400) K/uL MPV 10.0 (7.2-11.7) fL Neut % (Auto) 84.5 H (50.0-75.0) % Lymph % (Auto) 8.0 L (20.0-40.0) % Bledsoe % (Auto) 6.9 (0.0-10.0) % Eos % (Auto) 0.3 (0.0-4.0) % Baso % (Auto) 0.3 (0.0-2.0) % Neut # (Auto) 9.4 H (1.8-7.0) K/uL Lymph # (Auto) 0.9 L (1.0-4.3) K/uL Bledsoe # (Auto) 0.8 (0.0-0.8) K/uL Eos # (Auto) 0.0 (0.0-0.7) K/uL Baso # (Auto) 0.0 (0.0-0.2) K/uL Neutrophils % (Manual) 84 H (50-75) % Band Neutrophils % 1 (0-2) % Lymphocytes % (Manual) 9 L (20-40) % Monocytes % (Manual) 6 (0-10) % Platelet Estimate Normal (NORMAL) Anisocytosis (manual) Slight APTT 36.7 H D 29.0 D (21-34) SECONDS Puncture Site pCO2 (35-45) mm/Hg pO2 (80-100) mm/Hg HCO3 (21-28) mmol/L ABG pH (7.35-7.45) ABG Total CO2 (22-28) mmol/L ABG O2 Saturation (95-98) % ABG Base Excess (-2.0-3.0) mmol/L ABG Hemoglobin (11.7-17.4) g/dL ABG Carboxyhemoglobin (0.5-1.5) % POC ABG HHb (Measured) (0.0-5.0) % ABG Methemoglobin (0.0-3.0) % Albert Test A-a O2 Difference mm/Hg Respiratory Index Hgb O2 Saturation (95.0-98.0) % Vent Mode Mechanical Rate FiO2 % Tidal Volume PEEP Sodium (132-148) mmol/L Potassium (3.6-5.2) mmol/L Chloride (98-107) mmol/L Carbon Dioxide (22-30) mmol/L Anion Gap (10-20) BUN (9-20) mg/dL Creatinine (0.8-1.5) mg/dL Est GFR ( Amer) Est GFR (Non-Af Amer) Random Glucose (75-110) mg/dL Calcium (8.6-10.4) mg/dl Phosphorus (2.5-4.5) mg/dL Magnesium (1.6-2.3) mg/dL Total Bilirubin (0.2-1.3) mg/dL AST (17-59) U/L ALT (21-72) U/L Alkaline Phosphatase (38-126) U/L Total Protein (6.3-8.3) g/dL Albumin (3.5-5.0) g/dL Globulin (2.2-3.9) gm/dL Albumin/Globulin Ratio (1.0-2.1) 11/27/18 11/27/18 11/26/18 Range/Units 06:46 05:45 15:37 WBC (4.8-10.8) K/uL RBC (4.40-5.90) Mil/uL Hgb (12.0-18.0) g/dL Hct (35.0-51.0) % MCV (80.0-94.0) fL MCH (27.0-31.0) pg MCHC (33.0-37.0) g/dL RDW (11.5-14.5) % Plt Count (130-400) K/uL MPV (7.2-11.7) fL Neut % (Auto) (50.0-75.0) % Lymph % (Auto) (20.0-40.0) % Bledsoe % (Auto) (0.0-10.0) % Eos % (Auto) (0.0-4.0) % Baso % (Auto) (0.0-2.0) % Neut # (Auto) (1.8-7.0) K/uL Lymph # (Auto) (1.0-4.3) K/uL Bledsoe # (Auto) (0.0-0.8) K/uL Eos # (Auto) (0.0-0.7) K/uL Baso # (Auto) (0.0-0.2) K/uL Neutrophils % (Manual) (50-75) % Band Neutrophils % (0-2) % Lymphocytes % (Manual) (20-40) % Monocytes % (Manual) (0-10) % Platelet Estimate (NORMAL) Anisocytosis (manual) APTT 55.0 H (21-34) SECONDS Puncture Site Rra pCO2 29 L (35-45) mm/Hg pO2 114 H (80-100) mm/Hg HCO3 28.6 H (21-28) mmol/L ABG pH 7.56 H (7.35-7.45) ABG Total CO2 26.9 (22-28) mmol/L ABG O2 Saturation 99.6 H (95-98) % ABG Base Excess 4.7 H (-2.0-3.0) mmol/L ABG Hemoglobin 15.7 (11.7-17.4) g/dL ABG Carboxyhemoglobin 1.6 H (0.5-1.5) % POC ABG HHb (Measured) 0.4 (0.0-5.0) % ABG Methemoglobin 0.9 (0.0-3.0) % Albert Test Na A-a O2 Difference 278.0 mm/Hg Respiratory Index 2.4 Hgb O2 Saturation 97.1 (95.0-98.0) % Vent Mode Prvc Mechanical Rate 24 FiO2 60.0 % Tidal Volume 600 PEEP 5 Sodium 140 (132-148) mmol/L Potassium 2.9 L (3.6-5.2) mmol/L Chloride 98 (98-107) mmol/L Carbon Dioxide 29 (22-30) mmol/L Anion Gap 16 (10-20) BUN 24 H (9-20) mg/dL Creatinine 1.5 (0.8-1.5) mg/dL Est GFR ( Amer) 58 Est GFR (Non-Af Amer) 48 Random Glucose 137 H (75-110) mg/dL Calcium 7.8 L (8.6-10.4) mg/dl Phosphorus 2.7 (2.5-4.5) mg/dL Magnesium 1.8 (1.6-2.3) mg/dL Total Bilirubin 0.9 (0.2-1.3) mg/dL AST 104 H (17-59) U/L ALT 58 (21-72) U/L Alkaline Phosphatase 68 (38-126) U/L Total Protein 6.7 (6.3-8.3) g/dL Albumin 3.4 L (3.5-5.0) g/dL Globulin 3.4 (2.2-3.9) gm/dL Albumin/Globulin Ratio 1.0 (1.0-2.1) 11/26/18 Range/Units 15:37 WBC (4.8-10.8) K/uL RBC (4.40-5.90) Mil/uL Hgb (12.0-18.0) g/dL Hct (35.0-51.0) % MCV (80.0-94.0) fL MCH (27.0-31.0) pg MCHC (33.0-37.0) g/dL RDW (11.5-14.5) % Plt Count (130-400) K/uL MPV (7.2-11.7) fL Neut % (Auto) (50.0-75.0) % Lymph % (Auto) (20.0-40.0) % Bledsoe % (Auto) (0.0-10.0) % Eos % (Auto) (0.0-4.0) % Baso % (Auto) (0.0-2.0) % Neut # (Auto) (1.8-7.0) K/uL Lymph # (Auto) (1.0-4.3) K/uL Bledsoe # (Auto) (0.0-0.8) K/uL Eos # (Auto) (0.0-0.7) K/uL Baso # (Auto) (0.0-0.2) K/uL Neutrophils % (Manual) (50-75) % Band Neutrophils % (0-2) % Lymphocytes % (Manual) (20-40) % Monocytes % (Manual) (0-10) % Platelet Estimate (NORMAL) Anisocytosis (manual) APTT (21-34) SECONDS Puncture Site pCO2 (35-45) mm/Hg pO2 (80-100) mm/Hg HCO3 (21-28) mmol/L ABG pH (7.35-7.45) ABG Total CO2 (22-28) mmol/L ABG O2 Saturation (95-98) % ABG Base Excess (-2.0-3.0) mmol/L ABG Hemoglobin (11.7-17.4) g/dL ABG Carboxyhemoglobin (0.5-1.5) % POC ABG HHb (Measured) (0.0-5.0) % ABG Methemoglobin (0.0-3.0) % Albert Test A-a O2 Difference mm/Hg Respiratory Index Hgb O2 Saturation (95.0-98.0) % Vent Mode Mechanical Rate FiO2 % Tidal Volume PEEP Sodium 140 (132-148) mmol/L Potassium 3.7 (3.6-5.2) mmol/L Chloride 98 (98-107) mmol/L Carbon Dioxide 31 H (22-30) mmol/L Anion Gap 15 (10-20) BUN 22 H (9-20) mg/dL Creatinine 1.3 (0.8-1.5) mg/dL Est GFR ( Amer) > 60 Est GFR (Non-Af Amer) 56 Random Glucose 120 H (75-110) mg/dL Calcium 7.9 L (8.6-10.4) mg/dl Phosphorus (2.5-4.5) mg/dL Magnesium (1.6-2.3) mg/dL Total Bilirubin 0.7 (0.2-1.3) mg/dL AST 106 H (17-59) U/L ALT 71 (21-72) U/L Alkaline Phosphatase 84 (38-126) U/L Total Protein 7.4 (6.3-8.3) g/dL Albumin 3.8 (3.5-5.0) g/dL Globulin 3.6 (2.2-3.9) gm/dL Albumin/Globulin Ratio 1.0 (1.0-2.1) Laboratory Results - last 24 hr 11/26/18 11/26/18 11/27/18 15:37 15:37 05:45 WBC RBC Hgb Hct MCV MCH MCHC RDW Plt Count MPV Neut % (Auto) Lymph % (Auto) Bledsoe % (Auto) Eos % (Auto) Baso % (Auto) Neut # (Auto) Lymph # (Auto) Bledsoe # (Auto) Eos # (Auto) Baso # (Auto) Neutrophils % (Manual) Band Neutrophils % Lymphocytes % (Manual) Monocytes % (Manual) Platelet Estimate Anisocytosis (manual) APTT 55.0 H Puncture Site Rra pCO2 29 L pO2 114 H HCO3 28.6 H ABG pH 7.56 H ABG Total CO2 26.9 ABG O2 Saturation 99.6 H ABG Base Excess 4.7 H ABG Hemoglobin 15.7 ABG Carboxyhemoglobin 1.6 H POC ABG HHb (Measured) 0.4 ABG Methemoglobin 0.9 Albert Test Na A-a O2 Difference 278.0 Respiratory Index 2.4 Hgb O2 Saturation 97.1 Vent Mode Prvc Mechanical Rate 24 FiO2 60.0 Tidal Volume 600 PEEP 5 Sodium 140 Potassium 3.7 Chloride 98 Carbon Dioxide 31 H Anion Gap 15 BUN 22 H Creatinine 1.3 Est GFR ( Amer) > 60 Est GFR (Non-Af Amer) 56 Random Glucose 120 H Calcium 7.9 L Phosphorus Magnesium Total Bilirubin 0.7 AST 106 H ALT 71 Alkaline Phosphatase 84 Total Protein 7.4 Albumin 3.8 Globulin 3.6 Albumin/Globulin Ratio 1.0 11/27/18 11/27/18 11/27/18 06:46 06:47 06:48 WBC 11.2 H RBC 4.73 Hgb 15.1 Hct 46.1 MCV 97.4 H MCH 31.9 H MCHC 32.7 L RDW 16.3 H Plt Count 185 MPV 10.0 Neut % (Auto) 84.5 H Lymph % (Auto) 8.0 L Bledsoe % (Auto) 6.9 Eos % (Auto) 0.3 Baso % (Auto) 0.3 Neut # (Auto) 9.4 H Lymph # (Auto) 0.9 L Bledsoe # (Auto) 0.8 Eos # (Auto) 0.0 Baso # (Auto) 0.0 Neutrophils % (Manual) 84 H Band Neutrophils % 1 Lymphocytes % (Manual) 9 L Monocytes % (Manual) 6 Platelet Estimate Normal Anisocytosis (manual) Slight APTT 29.0 D Puncture Site pCO2 pO2 HCO3 ABG pH ABG Total CO2 ABG O2 Saturation ABG Base Excess ABG Hemoglobin ABG Carboxyhemoglobin POC ABG HHb (Measured) ABG Methemoglobin Albert Test A-a O2 Difference Respiratory Index Hgb O2 Saturation Vent Mode Mechanical Rate FiO2 Tidal Volume PEEP Sodium 140 Potassium 2.9 L Chloride 98 Carbon Dioxide 29 Anion Gap 16 BUN 24 H Creatinine 1.5 Est GFR ( Amer) 58 Est GFR (Non-Af Amer) 48 Random Glucose 137 H Calcium 7.8 L Phosphorus 2.7 Magnesium 1.8 Total Bilirubin 0.9 AST 104 H ALT 58 Alkaline Phosphatase 68 Total Protein 6.7 Albumin 3.4 L Globulin 3.4 Albumin/Globulin Ratio 1.0 11/27/18 13:53 WBC RBC Hgb Hct MCV MCH MCHC RDW Plt Count MPV Neut % (Auto) Lymph % (Auto) Bledsoe % (Auto) Eos % (Auto) Baso % (Auto) Neut # (Auto) Lymph # (Auto) Bledsoe # (Auto) Eos # (Auto) Baso # (Auto) Neutrophils % (Manual) Band Neutrophils % Lymphocytes % (Manual) Monocytes % (Manual) Platelet Estimate Anisocytosis (manual) APTT 36.7 H D Puncture Site pCO2 pO2 HCO3 ABG pH ABG Total CO2 ABG O2 Saturation ABG Base Excess ABG Hemoglobin ABG Carboxyhemoglobin POC ABG HHb (Measured) ABG Methemoglobin Albert Test A-a O2 Difference Respiratory Index Hgb O2 Saturation Vent Mode Mechanical Rate FiO2 Tidal Volume PEEP Sodium Potassium Chloride Carbon Dioxide Anion Gap BUN Creatinine Est GFR ( Amer) Est GFR (Non-Af Amer) Random Glucose Calcium Phosphorus Magnesium Total Bilirubin AST ALT Alkaline Phosphatase Total Protein Albumin Globulin Albumin/Globulin Ratio Radiology Impressions: Radiology Impressions Chest X-Ray 11/27/18 07:00 IMPRESSION: Moderate venous congestion. Prominent consolidative opacification in the right lung base as well as the left mid to lower lung zones. Additional consolidative changes in the right suprahilar region. Small bilateral pleural effusions. Enlarged ectatic aorta. Cardiomegaly. Left-sided pacemaker. Endotracheal tube approximately 1.2 centimeters above the yasemin. NG tube extending into the stomach. Head CT 11/27/18 11:55 IMPRESSION: Probable trace interval right posterior frontal parietal convexity sulcal subarachnoid blood. No intraparenchymal definitive hemorrhage or hematoma seen. A diffuse amorphous hypodensity with perceived interval decreased sulcal prominence/sulcal effacement suggested-. Interval increased cerebral marked cerebral edema suspect. Particularly pronounced in each occipital lobe. No gross compression of the ventricles appreciated. Given the suggested CT cerebral edema pattern, continued close surveillance recommended regarding potential herniation. Additionally note worthy is the perceived interval trace right posterior frontal parietal convexity sulcal subarachnoid blood presence. Prior to dictating this exam, these findings were called up to the ICU and directly discussed with the nurse taking care of the patient, Nedra at 2:23 p.m. on 11/27/2018 Attending/Attestation - Attestation I have personally seen and examined this patient.: Yes I have fully participated in the care of the patient.: Yes I have reviewed all pertinent clinical information: Yes Notes (Text): 11/27/18 15:21 Today: November The Patient was seen and examined at the bedside, Medical records reviewed, and management issues were discussed and formulated with the house staff. I have reviewed all the relevant clinical, laboratory, hemodynamic, radiographic data and medications Events reviewed Pain issues, skin care, head of the bed elevation, glycemic control were addressed. Agree with above resident's assessment and treatment plans of care as transcribed in Dr. Mary's note.
--- NOTE | 2018-11-27 13:42 | CP.PCM.PN ---
Subjective - Date & Time of Evaluation Date of Evaluation: 11/27/18 Time of Evaluation: 13:39 - Subjective Subjective: corneal reflexes absent family considering terminal extubation if no meaningful recovery expected keppra increased as per Neuro Objective - Vital Signs/Intake and Output Vital Signs (last 24 hours): Temp Pulse Resp BP Pulse Ox 100.7 F H 96 H 24 148/88 95 11/27/18 04:00 11/27/18 11:20 11/27/18 11:20 11/27/18 11:05 11/27/18 11:20 Intake and Output: 11/27/18 11/27/18 06:59 18:59 Intake Total 1217.2 833.95 Output Total 1840 563 Balance -622.8 270.95 - Medications Medications: Current Medications Acetaminophen (Tylenol 650mg/20.3ml Solution Ud) 975 mg GT Q6 PRN Last Admin: 11/27/18 02:49 Dose: 975 mg Aspirin (Aspirin) 325 mg PO DAILY [facility] Last Admin: 11/27/18 09:52 Dose: 325 mg Famotidine (Pepcid) 20 mg IVP Q12 [facility] Last Admin: 11/27/18 09:54 Dose: 20 mg Furosemide (Lasix) 40 mg IV Q12 [facility] Last Admin: 11/27/18 09:54 Dose: 40 mg Piperacillin Sod/Tazobactam (Sod 3.375 gm/ Sodium Chloride) 100 mls @ 200 mls/hr IVPB Q6H [facility]; Protocol Last Admin: 11/27/18 09:51 Dose: 200 mls/hr Propofol (Diprivan) 1,000 mg in 100 mls @ 3.702 mls/hr IV .Q24H PRN; Protocol PRN Reason: TITRATE PER MD ORDER Last Titration: 11/27/18 07:53 Dose: 15 mcg/kg/min, 11.106 mls/hr Vancomycin/Sodium Chloride (Vancomycin 1 Gm/Ns 200 Ml) 1 gm in 200 mls @ 133.333 mls/hr IVPB Q12H [facility]; Protocol Stop: 12/01/18 11:01 Last Admin: 11/27/18 11:50 Dose: 133.333 mls/hr Levetiracetam 750 mg/ Sodium (Chloride) 107.5 mls @ 420 mls/hr IVPB Q12H [facility] Last Admin: 11/27/18 09:52 Dose: 420 mls/hr Heparin Sodium/Sodium Chloride (Heparin 65395 Units/250ml 1/2 Normal Saline) 25,000 units in 250 mls @ 11.66 mls/hr IV .[id number] PRN; Protocol PRN Reason: PROTOCOL - Labs Labs: 11/27/18 06:47 11/27/18 06:46 PT 11.8 SECONDS (9.7-12.2) 11/25/18 09:02 INR 1.1 11/25/18 09:02 APTT 29.0 SECONDS (21-34) D 11/27/18 06:48 - Constitutional Appears: Toxic - Head Exam Head Exam: ATRAUMATIC, NORMAL INSPECTION, NORMOCEPHALIC - Eye Exam Pupil Exam: Miosis Additional comments: absent corneal reflex - ENT Exam ENT Exam: Mucous Membranes Moist, Normal Exam - Neck Exam Neck Exam: Full ROM, Normal Inspection. absent: Lymphadenopathy - Respiratory Exam Respiratory Exam: Clear to Ausculation Bilateral, NORMAL BREATHING PATTERN - Cardiovascular Exam Cardiovascular Exam: REGULAR RHYTHM, +S1, +S2, Murmur - GI/Abdominal Exam GI & Abdominal Exam: Soft, Normal Bowel Sounds. absent: Tenderness - Extremities Exam Extremities Exam: Full ROM, Normal Capillary Refill, Normal Inspection. absent: Joint Swelling, Pedal Edema - Back Exam Back Exam: NORMAL INSPECTION - Neurological Exam Neurological Exam: Altered - Skin Skin Exam: Dry, Intact, Normal Color, Warm Assessment and Plan (1) Cardiac arrest Assessment & Plan: minimal to no response after rewarming overall poor prognosis on IV heparin corneal reflexes absent add home dose of amiodarone Status: Acute
--- NOTE | 2018-11-27 14:39 | CT ---
Date of service: 11/27/2018 PROCEDURE: CT HEAD WITHOUT CONTRAST. HISTORY: stroke COMPARISON: 11/25/2018 TECHNIQUE: Axial computed tomography images were obtained through the head/brain without intravenous contrast. Radiation dose: Total exam DLP = 1607.29 mGy-cm. This CT exam was performed using one or more of the following dose reduction techniques: Automated exposure control, adjustment of the mA and/or kV according to patient size, and/or use of iterative reconstruction technique. FINDINGS: HEMORRHAGE: There is trace hyperdensity perceived in a high right frontal parietal convexity sulci overseas axis series 4, image 57 concerning for potential the trace subarachnoid blood here. No intraparenchymal hematomas are noted. BRAIN: There is paucity and the perceived effacement of the mid to posterior cerebral sulci fairly symmetrical and a diffuse cerebral edema pattern is suspect. No midline shift seen. Patchy periventricular and patchy posterior parietal deep white matter hypodensities compatible with microvascular ischemic changes are noted. Findings are probably slightly increased in conspicuity there is less streak and motion artifact on this exam than the prior. There is a symmetrical posterior hypodensity in the posterior inferior occipital regions as well without discrete sulci. Accentuated intra cerebral edema here is suspect. No atrophy or chronic microvascular ischemic changes. VENTRICLES: The overall shape in a gross caliber of the ventricles appear fairly similar. CALVARIUM: Unremarkable. PARANASAL SINUSES: Unremarkable as visualized. No significant inflammatory changes. MASTOID AIR CELLS: Unremarkable as visualized. No inflammatory changes. OTHER FINDINGS: None. IMPRESSION: Probable trace interval right posterior frontal parietal convexity sulcal subarachnoid blood. No intraparenchymal definitive hemorrhage or hematoma seen. A diffuse amorphous hypodensity with perceived interval decreased sulcal prominence/sulcal effacement suggested-. Interval increased cerebral marked cerebral edema suspect. Particularly pronounced in each occipital lobe. No gross compression of the ventricles appreciated. Given the suggested CT cerebral edema pattern, continued close surveillance recommended regarding potential herniation. Additionally note worthy is the perceived interval trace right posterior frontal parietal convexity sulcal subarachnoid blood presence. Prior to dictating this exam, these findings were called up to the ICU and directly discussed with the nurse taking care of the patient, Nedra at 2:23 p.m. on 11/27/2018
[2018-11-27 20:27] LABS: INR 1.2; PROTHROMBIN TIME 12.8 SECONDS (9.7-12.2)
[2018-11-28] MEDS: Piperacillin/Tazobact 3.375 GM in Sodium Chloride 100 ML IVPB SCH ×4 (04:48→21:53)
[2018-11-28 05:37] LABS: BASO % 0.3 % (0.0-2.0); EOS % 0.1 % (0.0-4.0); LYMPH # 0.9 K/uL (1.0-4.3); LYMPH % 8.4 % (20.0-40.0); MEAN CELL VOLUME 96.1 fL (80.0-94.0); MEAN CORPUSCULAR HGB CONC 33.3 g/dL (33.0-37.0); MEAN PLATELET VOLUME 9.2 fL (7.2-11.7); MONO # 0.9 K/uL (0.0-0.8); MONO % 8.6 % (0.0-10.0); NEUT # 9.1 K/uL (1.8-7.0); NEUT % 82.6 % (50.0-75.0); NRBC % 0.1 % (0.0-2.0); PLATELET COUNT 187 K/uL (130-400); RED CELL DISTRIBUTION WIDTH 16.2 % (11.5-14.5)
[2018-11-28 05:40] LABS: ABG ALLEN TEST POS; ARTERIAL BLOOD GAS HCO3 31.3 mmol/L (21-28); ARTERIAL BLOOD GAS O2 SAT 99.1 % (95-98); ARTERIAL BLOOD GAS PCO2 28 mm/Hg (35-45); ARTERIAL BLOOD GAS PH 7.62 (7.35-7.45); ARTERIAL BLOOD GAS PO2 82 mm/Hg (80-100); ARTERIAL BLOOD GAS TCO2 29.7 mmol/L (22-28)
[2018-11-28 06:01] LABS: ALBUMIN 3.6 g/dL (3.5-5.0); ALT/SGPT 46 U/L (21-72); AST/SGOT 107 U/L (17-59); BLOOD UREA NITROGEN 27 mg/dL (9-20); CALCIUM 8.1 mg/dl (8.6-10.4); GFR NON-AFRICAN AMERICAN 52
[2018-11-28 06:18] LABS: LIPASE 61 U/L (23-300)
[2018-11-28] MEDS ORDERED: Potassium Phosphate 15 MMOLE in Dextrose 5% In Water 250 ML IVPB ONE (06:40)
[2018-11-28] MEDS ORDERED: Potassium Chloride 20 mEq/15 ml LIQ UD PO SCH (06:45)
[2018-11-28 06:54] LABS: BANDS 2 % (0-2); LYMPHOCYTE 8 % (20-40); MONOCYTE 7 % (0-10); NEUTROPHIL 83 % (50-75); PLATELET ESTIMATE NORMAL (NORMAL); TOTAL CELLS COUNTED 100
[2018-11-28] MEDS: Magnesium Sulfate 1 gm in D5W 1 GM/100 ML BAG IVPB SCH ×2 (07:22→08:08)
--- NOTE | 2018-11-28 08:43 | RAD ---
Date of service: 11/28/2018 HISTORY: ff up/vent COMPARISON: 11/27/2018. FINDINGS: Endotracheal tube terminates in the mid trachea. The nasogastric tube terminates in the stomach. LUNGS: Limited portable examination due to patient rotation to the right. The lungs are well inflated. Again seen is airspace in the right perihilar region and lower lobe. There is discoid atelectasis in the left lower lobe. PLEURA: Small right pleural effusion. No left pleural effusion. No pneumothorax CARDIOVASCULAR: Persistent mild cardiomegaly. Stable position of left-sided AICD. No aortic atherosclerotic calcifications present. OSSEOUS STRUCTURES: Within normal limits for the patient's age. VISUALIZED UPPER ABDOMEN: Normal. OTHER FINDINGS: None. IMPRESSION: Little interval change in right perihilar and lower lobe atelectasis/pneumonia and small right pleural effusion.
--- NOTE | 2018-11-28 08:55 | CP.PCM.PN ---
Subjective - Date & Time of Evaluation Date of Evaluation: 11/28/18 Time of Evaluation: 08:51 - Subjective Subjective: Reina Begrman, PGY-[address] Romano: Pt was seen and examined this AM and was noted to still be extubated. Pt had no acute overnight events. Objective - Vital Signs/Intake and Output Vital Signs (last 24 hours): Temp Pulse Resp BP Pulse Ox 99.2 F 96 H 24 179/98 H 94 L 11/28/18 04:00 11/28/18 08:19 11/28/18 08:19 11/28/18 08:19 11/28/18 08:18 Intake and Output: 11/28/18 11/28/18 06:59 18:59 Intake Total 300 250 Output Total 1400 90 Balance -1100 160 - Medications Medications: Current Medications Acetaminophen (Tylenol 650mg/20.3ml Solution Ud) 975 mg GT Q6 PRN Last Admin: 11/27/18 02:49 Dose: 975 mg Amiodarone HCl (Cordarone) 200 mg PO BID [facility] Aspirin (Aspirin) 325 mg PO DAILY [facility] Last Admin: 11/27/18 09:52 Dose: 325 mg Carvedilol (Coreg) 6.25 mg PO BID [facility] Famotidine (Pepcid) 20 mg IVP Q12 [facility] Last Admin: 11/27/18 21:17 Dose: 20 mg Furosemide (Lasix) 40 mg IV Q12 [facility] Last Admin: 11/27/18 21:17 Dose: 40 mg Piperacillin Sod/Tazobactam (Sod 3.375 gm/ Sodium Chloride) 100 mls @ 200 mls/hr IVPB Q6H [facility]; Protocol Last Admin: 11/28/18 04:48 Dose: 200 mls/hr Propofol (Diprivan) 1,000 mg in 100 mls @ 3.702 mls/hr IV .Q24H PRN; Protocol PRN Reason: TITRATE PER MD ORDER Last Titration: 11/27/18 10:00 Dose: 0 mcg/kg/min, 0 mls/hr Vancomycin/Sodium Chloride (Vancomycin 1 Gm/Ns 200 Ml) 1 gm in 200 mls @ 133.333 mls/hr IVPB Q12H [facility]; Protocol Stop: 12/01/18 11:01 Last Admin: 11/27/18 22:26 Dose: 133.333 mls/hr Levetiracetam 750 mg/ Sodium (Chloride) 107.5 mls @ 420 mls/hr IVPB Q12H [facility] Last Admin: 11/27/18 21:23 Dose: 420 mls/hr Heparin Sodium/Sodium Chloride (Heparin 29426 Units/250ml 1/2 Normal Saline) 2 5,000 units in 250 mls @ 11.66 mls/hr IV .[id number] PRN; Protocol PRN Reason: PROTOCOL Potassium Phosphate 15 mmole/ (Dextrose) 255 mls @ 42.5 mls/hr IVPB ONCE ONE Stop: 11/28/18 12:39 Last Admin: 11/28/18 07:40 Dose: 42.5 mls/hr Potassium Chloride (Potassium Chloride 20 Meq/100 Ml) 20 meq in 100 mls @ 50 mls/hr IVPB Q1H [facility] Stop: 11/28/18 10:44 Last Admin: 11/28/18 08:34 Dose: 50 mls/hr Metoclopramide HCl (Reglan) 10 mg IVP Q12 [facility] Potassium Chloride (Potassium Chloride Oral Soln) 40 meq PO Q6H [facility] Stop: 11/28/18 18:46 Last Admin: 11/28/18 07:24 Dose: 40 meq - Labs Labs: 11/28/18 05:31 11/28/18 05:31 PT 12.8 SECONDS (9.7-12.2) H 11/27/18 20:16 INR 1.2 11/27/18 20:16 APTT 31.0 SECONDS (21-34) D 11/27/18 20:16 - Constitutional Appears: Other (intubated) - Head Exam Head Exam: ATRAUMATIC, NORMOCEPHALIC - Eye Exam Pupil Exam: Miosis Additional comments: absent corneal reflex - Respiratory Exam Respiratory Exam: absent: Accessory Muscle Use, Wheezes Additional comments: Pt is intubated - Cardiovascular Exam Cardiovascular Exam: RRR, +S1, +S2. absent: Gallop, Rubs - GI/Abdominal Exam GI & Abdominal Exam: Soft, Normal Bowel Sounds. absent: Rigid, Tenderness - Extremities Exam Extremities Exam: absent: Full ROM - Back Exam Back Exam: NORMAL INSPECTION. absent: CVA tenderness (L), CVA tenderness (R) - Neurological Exam Neurological Exam: Awake Additional comments: Intubated Assessment and Plan - Assessment and Plan (Free Text) Plan: Cardiac Arrest: - Pt restarted on Amio and coreg - Poor overall prognosis.
--- NOTE | 2018-11-28 09:32 | PCM.RRT ---
SHOE SALESPERSON Nurses Assessment - Situation Date: 11/28/18 Time SHOE SALESPERSON was called: 09:20 SHOE SALESPERSON Location:: CT Scan - Ventilator Settings Mode: PRVC Ventilator Respiratory Rate Settin Ventilator Tidal Volume Settin PEEP/CPAP (cm H2O): 5 SAO2 %: 95 FIO2 (% Oxygen): 60 - Constitutional Appears: In Acute Distress, Chronically Ill - Head Head Exam: ATRAUMATIC, NORMAL INSPECTION - Respiratory Exam Respiratory Exam: Decreased Breath Sounds, Wheezes. absent: Rales, Rhonchi Additional comments: On mechanical ventilation - Cardiovascular Exam Cardiovascular Exam: REGULAR RHYTHM, +S1, +S2. absent: Gallop, Rubs, Murmur - GI/Abdominal Exam GI & Abdominal Exam: Soft, Normal Bowel Sounds - Neurological Exam Neurological Exam: absent: Alert, Awake, Oriented x3 - Extremities Exam Extremities Exam: Normal Inspection Plan - Assessment of Findings&Treatment Plan SHOE SALESPERSON was called at 9:20Am. Patient was in CT scan. SHOE SALESPERSON was called due to patient being in atrial fibrillation on monitor, having a seizure episode, having agonal breathing, and patient vomited. Atrial fibrillation resolved. Patient is off- sedation since 10AM on 11/27. VS: Hr: 86, O2: 94% on vent Plan: - Patient brought back to ICU - Insert central line - Re-insert peripheral lines - Further management as per ICU team Sohail Brice, PGY-1
--- NOTE | 2018-11-28 10:29 | PN ---
DATE: 11/26/2018 This case was discussed with Dr. Hernandez. She is in agreement with treatment plan. SUBJECTIVE: A 58-year-old male, who was admitted with ST-elevation, cardiac arrest. The patient has a past medical history of chronic obstructive pulmonary disease, obesity, hypertension and hypercholesterolemia. Seen the patient today. The patient continues in ICU, intubated. REVIEW OF SYSTEMS: Deferred. The patient is nonverbal. The patient appeared acutely ill, intubated, comatose. PHYSICAL EXAMINATION HEENT: Normocephalic, atraumatic. The patient is unresponsive. Mucous membranes moist. NECK: Supple. LUNGS: Respirations clear to auscultation. Basilar rales. CARDIOVASCULAR: S1 and S2. ABDOMEN: Soft, distended. No organomegaly. SKIN: Intact. No cyanosis. No edema. NEUROLOGIC: The patient is nonresponsive, neurologically deferred. LABORATORY DATA: White blood cells 13, hemoglobin 15.7, hematocrit 46.6, platelet count 166. Sodium 140, potassium 3.7, BUN 22, creatinine 1.3, GFR 56, glucose 120, calcium is 7.9. MEDICATIONS: Aspirin, Pepcid, Lasix, heparin, Bactrim, Ipacillin, fluconazole, gentamicin. ASSESSMENT AND PLAN: This is a 58-year-old male with cardiac arrest, hypoglycemia, obesity, seizure activity, sitting in chair. The patient was coded while having a myocardial infarction, was intubated. The patient's prognosis looks quite poor. The patient is unresponsive, intubated. The patient is given Keppra. The patient is given Lasix, heparin. Neurology is on the case. Cardiology is on the case. Reviewed notes. Palliative consultation for today. We anticipate family meeting with the patient with respect to plans of hospice care or palliative care. We will monitor labs. Follow up the patient. ALL ABOVE NOTED , AGREED WITH PROFESSOR OF SPECIAL EDUCATION TREATMENT PLAN , CHART , LABS AND MEDS NOTED . NEW LABS ORDERED , CONT. SAME TREATMENT . WILL F/U Phong Campbell APN Kamilla Hernandez MD [facility] # [id number] PANDA
[2018-11-28] MEDS: Propofol 10 mg/ml 1,000 MG/100 ML VIAL IV PRN ×2 (10:34→19:29)
--- NOTE | 2018-11-28 10:41 | PN ---
DATE: 11/27/2018 This case was discussed with Dr. Hernandez. She is in agreement with treatment plan. SUBJECTIVE: This is a 48-year-old male who suffered cardiac arrest. He was coded. The patient intubated. Past medical history of obesity, COPD, hypertension, hyperlipidemia. The patient remains in ICU. I saw the patient today at the bedside. Family is at the bedside. The patient remained intubated, eyes were open, intermittent responsiveness via eye opening and closing. Unable to do review of systems. PHYSICAL EXAMINATION VITAL SIGNS: Temperature 98.7, pulse rate 91, blood pressure 134/80, respiratory rate 21, sating at 97% oral endotracheal. GENERAL: The patient appears acutely ill. HEENT: Normocephalic, atraumatic. PERRLA. Mucous membranes moist. NECK: Supple. Normal inspection. RESPIRATORY: Basilar rales. CARDIOVASCULAR: S1, S2. No JVD. ABDOMEN: Distended. Soft. No organomegaly. SKIN: Intact. No edema. No cyanosis. NEUROLOGIC: The patient is unresponsive, opening eyes at times. MEDICATIONS: Tylenol, aspirin, Pepcid, Lasix, heparin, Leva-Bactrim, piperacillin, Propofol, vancomycin, gastro and DVT prophylaxis remained. LABORATORY DATA: For today white blood cell 11.2, hemoglobin 15.1, hematocrit 46.1, platelet count 185. Sodium 140, potassium 2.9, BUN is 24, creatinine is 1.5, GFR is 48, random glucose 137, calcium is 7.8, AST 104. Blood cultures and urine cultures reviewed. ASSESSMENT AND PLAN: This is a 48-year-old male who had cardiac arrest, currently at ICU, intubated, oral endotracheal, obesity, hypertension, hyperlipidemia. I saw the patient today, family is at bedside. Palliative care was consulted on the case. is at bedside. I had a discussion with family. The family is in the process of DNR, We will monitor labs. Monitor medications. We will follow up. ALL ABOVE NOTED , AGREED WITH CIVIL TECHNICIAN TREATMENT PLAN , CHART , LABS AND MEDS NOTED . NEW LABS ORDERED , CONT. SAME TREATMENT . WILL F/U Phong Campbell APN Kamilla Hernandez MD [facility] # [id number] PANDA
[2018-11-28] MEDS: Vancomycin 1 gm/NS 200 ml 1 GM/200 ML BAG IVPB SCH ×2 (11:05→23:20)
--- NOTE | 2018-11-28 11:12 | CP.PCM.PN ---
Subjective - Date & Time of Evaluation Date of Evaluation: 11/28/18 Time of Evaluation: 11:10 - Subjective Subjective: absent corneal reflex DANCE ARTIST at CT Scan for afib/seizure Objective - Vital Signs/Intake and Output Vital Signs (last 24 hours): Temp Pulse Resp BP Pulse Ox 99.2 F 95 H 21 165/98 H 95 11/28/18 04:00 11/28/18 09:00 11/28/18 09:00 11/28/18 10:29 11/28/18 09:00 Intake and Output: 11/28/18 11/28/18 06:59 18:59 Intake Total 300 475 Output Total 1400 180 Balance -1100 295 - Medications Medications: Current Medications Acetaminophen (Tylenol 650mg/20.3ml Solution Ud) 975 mg GT Q6 PRN Last Admin: 11/27/18 02:49 Dose: 975 mg Amiodarone HCl (Cordarone) 200 mg PO BID [facility] Last Admin: 11/28/18 10:31 Dose: 200 mg Aspirin (Aspirin) 325 mg PO DAILY [facility] Last Admin: 11/27/18 09:52 Dose: 325 mg Carvedilol (Coreg) 6.25 mg PO BID [facility] Last Admin: 11/28/18 10:31 Dose: 6.25 mg Famotidine (Pepcid) 20 mg IVP Q12 [facility] Last Admin: 11/28/18 10:30 Dose: 20 mg Furosemide (Lasix) 40 mg IV Q12 [facility] Last Admin: 11/28/18 10:29 Dose: 40 mg Piperacillin Sod/Tazobactam (Sod 3.375 gm/ Sodium Chloride) 100 mls @ 200 mls/hr IVPB Q6H [facility]; Protocol Last Admin: 11/28/18 04:48 Dose: 200 mls/hr Propofol (Diprivan) 1,000 mg in 100 mls @ 3.702 mls/hr IV .Q24H PRN; Protocol PRN Reason: TITRATE PER MD ORDER Last Admin: 11/28/18 10:34 Dose: 10 mcg/kg/min, 7.404 mls/hr Vancomycin/Sodium Chloride (Vancomycin 1 Gm/Ns 200 Ml) 1 gm in 200 mls @ 133.333 mls/hr IVPB Q12H [facility]; Protocol Stop: 12/01/18 11:01 Last Admin: 11/28/18 11:05 Dose: 133.333 mls/hr Levetiracetam 750 mg/ Sodium (Chloride) 107.5 mls @ 420 mls/hr IVPB Q12H [facility] Last Admin: 11/28/18 10:32 Dose: 420 mls/hr Heparin Sodium/Sodium Chloride (Heparin 75921 Units/250ml 1/2 Normal Saline) 25,000 units in 250 mls @ 11.66 mls/hr IV .[id number] PRN; Protocol PRN Reason: PROTOCOL Potassium Phosphate 15 mmole/ (Dextrose) 255 mls @ 42.5 mls/hr IVPB ONCE ONE Stop: 11/28/18 12:39 Last Admin: 11/28/18 07:40 Dose: 42.5 mls/hr Metoclopramide HCl (Reglan) 10 mg IVP Q12 [facility] Last Admin: 11/28/18 10:30 Dose: 10 mg - Labs Labs: 11/28/18 05:31 11/28/18 05:31 PT 12.8 SECONDS (9.7-12.2) H 11/27/18 20:16 INR 1.2 11/27/18 20:16 APTT 31.0 SECONDS (21-34) D 11/27/18 20:16 - Constitutional Appears: Toxic - Head Exam Head Exam: ATRAUMATIC, NORMAL INSPECTION, NORMOCEPHALIC - Eye Exam Pupil Exam: Fixed, Miosis - ENT Exam ENT Exam: Mucous Membranes Moist, Normal Exam - Neck Exam Neck Exam: Full ROM, Normal Inspection. absent: Lymphadenopathy - Respiratory Exam Respiratory Exam: Clear to Ausculation Bilateral, NORMAL BREATHING PATTERN - Cardiovascular Exam Cardiovascular Exam: REGULAR RHYTHM, +S1, +S2, Murmur - GI/Abdominal Exam GI & Abdominal Exam: Soft, Normal Bowel Sounds. absent: Tenderness - Extremities Exam Extremities Exam: Full ROM, Normal Capillary Refill, Normal Inspection. absent: Joint Swelling, Pedal Edema - Back Exam Back Exam: NORMAL INSPECTION - Neurological Exam Neurological Exam: Altered - Psychiatric Exam Psychiatric exam: Normal Affect, Normal Mood - Skin Skin Exam: Dry, Intact, Normal Color, Warm Assessment and Plan (1) Cardiac arrest Assessment & Plan: DANCE ARTIST today at CT for possible afib/seizure poor overall prognosis amiodarone IV heparin possible terminal extubation if no recovery in 24 hours Status: Acute
[2018-11-28] MEDS ORDERED: levETIRAcetam 1,000 MG in Sodium Chloride 0.9% 100 ML IVPB ONE (13:53)
--- NOTE | 2018-11-28 13:54 | CP.PCM.PN ---
<Valentin Sanders - Last Filed: 11/28/18 15:37> Subjective - Date & Time of Evaluation Date of Evaluation: 11/28/18 Time of Evaluation: 10:00 - Subjective Subjective: PGY-1 neurology progress note for Dr Matos Patient seen and examined at bedside. Patient had a rapid response earlier in the morning at CT scan for vomiting/seizure activity. Patient was given IV ativan stat and returned to ICU. Patient did not have repeat CT scan, Patient remains intubated, back on sedation. Responds to sternal rub but not to voice, no seizure activity noted. ROS unattainable due to patient's status. Objective - Vital Signs/Intake and Output Vital Signs (last 24 hours): Temp Pulse Resp BP Pulse Ox 99.2 F 95 H 21 165/98 H 95 11/28/18 04:00 11/28/18 09:00 11/28/18 09:00 11/28/18 10:29 11/28/18 09:00 Intake and Output: 11/28/18 11/28/18 06:59 18:59 Intake Total 300 475 Output Total 1400 180 Balance -1100 295 - Medications Medications: Current Medications Acetaminophen (Tylenol 650mg/20.3ml Solution Ud) 975 mg GT Q6 PRN Last Admin: 11/27/18 02:49 Dose: 975 mg Amiodarone HCl (Cordarone) 200 mg PO BID [facility] Last Admin: 11/28/18 10:31 Dose: 200 mg Aspirin (Aspirin) 325 mg PO DAILY [facility] Last Admin: 11/27/18 09:52 Dose: 325 mg Carvedilol (Coreg) 6.25 mg PO BID [facility] Last Admin: 11/28/18 10:31 Dose: 6.25 mg Famotidine (Pepcid) 20 mg IVP Q12 [facility] Last Admin: 11/28/18 10:30 Dose: 20 mg Furosemide (Lasix) 40 mg IV Q12 [facility] Last Admin: 11/28/18 10:29 Dose: 40 mg Piperacillin Sod/Tazobactam (Sod 3.375 gm/ Sodium Chloride) 100 mls @ 200 mls/hr IVPB Q6H [facility]; Protocol Last Admin: 11/28/18 11:00 Dose: 200 mls/hr Propofol (Diprivan) 1,000 mg in 100 mls @ 3.702 mls/hr IV .Q24H PRN; Protocol PRN Reason: TITRATE PER MD ORDER Last Admin: 11/28/18 10:34 Dose: 10 mcg/kg/min, 7.404 mls/hr Vancomycin/Sodium Chloride (Vancomycin 1 Gm/Ns 200 Ml) 1 gm in 200 mls @ 133.333 mls/hr IVPB Q12H [facility]; Protocol Stop: 12/01/18 11:01 Last Admin: 11/28/18 11:05 Dose: 133.333 mls/hr Levetiracetam 750 mg/ Sodium (Chloride) 107.5 mls @ 420 mls/hr IVPB Q12H [facility] Last Admin: 11/28/18 10:32 Dose: 420 mls/hr Heparin Sodium/Sodium Chloride (Heparin 80444 Units/250ml 1/2 Normal Saline) 25,000 units in 250 mls @ 11.66 mls/hr IV .[id number] PRN; Protocol PRN Reason: PROTOCOL Levetiracetam 1,000 mg/ Sodium (Chloride) 110 mls @ 420 mls/hr IVPB ONCE ONE Stop: 11/28/18 14:08 Metoclopramide HCl (Reglan) 10 mg IVP Q12 [facility] Last Admin: 11/28/18 10:30 Dose: 10 mg - Labs Labs: 11/28/18 05:31 11/28/18 05:31 PT 12.8 SECONDS (9.7-12.2) H 11/27/18 20:16 INR 1.2 11/27/18 20:16 APTT 31.0 SECONDS (21-34) D 11/27/18 20:16 - Constitutional Appears: Chronically Ill - Head Exam Head Exam: ATRAUMATIC, NORMOCEPHALIC - Eye Exam Pupil Exam: Mydriatic, NORMAL ACCOMODATION - ENT Exam Additional comments: intubated - Neurological Exam Neurological Exam: absent: Alert, Awake Additional comments: not awake, on sedation does not respond to verbal command, respond to sternal rub Pupils reactive to light negative corneal reflex no facial asymmetry no spontaneous movement in limbs. + babinski sign Assessment and Plan - Assessment and Plan (Free Text) Plan: 58 year old male with pmhx of COPD, CHF, AICD placement s/p cardiac arrest and with anoxic encephalopathy, CT head showing Probable trace interval right posterior frontal parietal convexity sulcal subarachnoid blood and Interval increased cerebral marked cerebral edema suspect. [employer] for convulsion early today previous to CT scan. 1. Loading dose of IV Keppra x1 today 2. continue Keppra 750 Q12H 3. prognosis guarded 4. continue management as per ICU team Plan discuss with Dr Joaquin Sanders, PGY-1 <Humaira Matos - Last Filed: 12/01/18 21:44> Objective - Vital Signs/Intake and Output Vital Signs (last 24 hours): Temp Pulse Resp BP Pulse Ox 98.9 F 60 0 L 46/21 L 83 L 12/01/18 04:00 12/01/18 05:41 12/01/18 06:00 12/01/18 05:41 12/01/18 05:41 - Labs Labs: 11/29/18 05:52 11/29/18 05:47 PT 12.8 SECONDS (9.7-12.2) H 11/27/18 20:16 INR 1.2 11/27/18 20:16 APTT 31.0 SECONDS (21-34) D 11/27/18 20:16 Assessment and Plan - Assessment and Plan (Free Text) Plan: All medical record entries made by the Resident were at my direction and personally dictated by me. I have reviewed the chart and agree that the record accurately reflects my personal performance of the history, physical exam, medical decision making, and the department course for this patient. I have also personally directed, reviewed, and agree with the discharge instructions and disposition. Patient who is now anoxic encephalopathy and has brainstem reflexes intact with possible seizures. We will monitor him and assist familiy in decisions of prognosis. Dr. matos Neurology
--- NOTE | 2018-11-28 16:14 | CP.CCUPN ---
<Ruslan Mary - Last Filed: 11/28/18 16:14> CCU Subjective - Physician Review Subjective (Free Text): 11/28/18 16:14 PGY-1 Critical Care Progress Note for Dr. Love Patient seen and examined at bedside this AM [employer] this AM en route to CT for agonal breathing, vomiting, afib on cardiac mon itor, seizure activity Remains on mechanical ventilation, FIO2 60% Sedated, on propofol gtt Heparin gtt, amiodarone Keppra 750 mg IVPB BID poor overall prognosis, palliative on board CCU Objective - Vital Signs / Intake & Output Vital Signs (Last 4 hours): Vital Signs Temp Pulse Resp BP Pulse Ox 11/28/18 15:56 99.2 F 11/28/18 15:26 84 24 127/84 11/28/18 15:00 81 21 95 11/28/18 14:04 80 25 H 146/99 H 97 11/28/18 14:00 78 22 98 11/28/18 13:05 87 26 H 143/104 H 99 11/28/18 13:00 80 21 97 Intake and Output (Last 8hrs): Intake & Output 11/28/18 11/28/18 11/28/18 06:59 14:59 22:59 Intake Total 200 475 Output Total 1400 180 Balance -1200 295 Weight 116.12 kg Intake: IV 0 Intake, IV Amount 200 300 Left Antecubital 200 Left Forearm 200 Left Hand 100 Right Medial Port Femoral 0 Oral 0 175 Output: Urine 1400 180 Urethral (Grove) 1400 180 Emesis 0 Oral Regurgitation 0 Other 0 Other: # Bowel Movements 1 0 - Physical Exam Head: Positive for: Atraumatic Pupils: Positive for: Sluggish Conjunctiva: Positive for: Normal Ears: Positive for: Normal Nose (External): Positive for: Atraumatic Neck: Positive for: Normal Range of Motion Respiratory/Chest: Positive for: Rhonchi Cardiovascular: Positive for: Regular Rate and Rhythm Abdomen: Positive for: Normal Bowel Sounds, Other (obese) Upper Extremity: Positive for: Normal Inspection Lower Extremity: Positive for: Normal Inspection Neurological: Positive for: Other (no response to any stimuli, on ventilator) - Medications Active Medications: Active Medications Generic Name Dose Route Start Last Admin Trade Name Freq PRN Reason Stop Dose Admin Acetaminophen 975 mg 11/26/18 11:45 11/27/18 02:49 Tylenol 650mg/20.3ml Solution Ud GT 975 mg Q6 PRN Administration Amiodarone HCl 200 mg 11/28/18 10:00 11/28/18 10:31 Cordarone PO 200 mg BID MILEY Administration Aspirin 325 mg 11/25/18 10:00 11/27/18 09:52 Aspirin PO 325 mg DAILY MILEY Administration Carvedilol 6.25 mg 11/28/18 10:00 11/28/18 10:31 Coreg PO 6.25 mg BID MILEY Administration Famotidine 20 mg 11/24/18 23:00 11/28/18 10:30 Pepcid IVP 20 mg Q12 MILEY Administration Furosemide 40 mg 11/25/18 01:30 11/28/18 10:29 Lasix IV 40 mg Q12 MILEY Administration Piperacillin Sod/Tazobactam 100 mls @ 200 mls/hr 11/24/18 22:45 11/28/18 15:49 Sod 3.375 gm/ Sodium Chloride IVPB 200 mls/hr Q6H MILEY Administration Protocol Propofol 1,000 mg in 100 mls @ 3.702 mls/hr 11/25/18 12:27 11/28/18 10:34 Diprivan IV 10 mcg/kg/min .Q24H PRN 7.404 mls/hr TITRATE PER MD ORDER Administration Protocol 5 MCG/KG/MIN Vancomycin/Sodium Chloride 1 gm in 200 mls @ 133.333 mls/hr 11/26/18 11:00 11/28/18 11:05 Vancomycin 1 Gm/Ns 200 Ml IVPB 12/01/18 11:01 133.333 mls/hr Q12H MILEY Administration Protocol Levetiracetam 750 mg/ Sodium 107.5 mls @ 420 mls/hr 11/27/18 10:00 11/28/18 10:32 Chloride IVPB 420 mls/hr Q12H MILEY Administration Heparin Sodium/Sodium Chloride 25,000 units in 250 mls @ 11.66 mls/hr 11/27/18 09:00 Heparin 55889 Units/250ml 1/2 Normal Saline IV .[id number] PRN PROTOCOL Protocol 10 UNITS/KG/HR Metoclopramide HCl 10 mg 11/28/18 10:00 11/28/18 10:30 Reglan IVP 10 mg Q12 MILEY Administration - Patient Studies Lab Studies: Microbiology Studies 11/24/18 23:35 S.aureus & Coag-Neg Staph PNA FISH - Final Blood Blood Culture - Final Coagulase Neg Staphylococcus Gram Stain - Final 11/24/18 23:35 Blood Culture - Preliminary Blood NO GROWTH AFTER 3 DAYS Lab Studies 11/28/18 11/28/18 11/28/18 Range/Units 06:06 05:31 05:31 WBC 11.0 H (4.8-10.8) K/uL RBC 4.70 (4.40-5.90) Mil/uL Hgb 15.0 (12.0-18.0) g/dL Hct 45.2 (35.0-51.0) % MCV 96.1 H (80.0-94.0) fL MCH 32.0 H (27.0-31.0) pg MCHC 33.3 (33.0-37.0) g/dL RDW 16.2 H (11.5-14.5) % Plt Count 187 (130-400) K/uL MPV 9.2 (7.2-11.7) fL Neut % (Auto) 82.6 H (50.0-75.0) % Lymph % (Auto) 8.4 L (20.0-40.0) % Nash % (Auto) 8.6 (0.0-10.0) % Eos % (Auto) 0.1 (0.0-4.0) % Baso % (Auto) 0.3 (0.0-2.0) % Neut # (Auto) 9.1 H (1.8-7.0) K/uL Lymph # (Auto) 0.9 L (1.0-4.3) K/uL Nash # (Auto) 0.9 H (0.0-0.8) K/uL Eos # (Auto) 0.0 (0.0-0.7) K/uL Baso # (Auto) 0.0 (0.0-0.2) K/uL Neutrophils % (Manual) 83 H (50-75) % Band Neutrophils % 2 (0-2) % Lymphocytes % (Manual) 8 L (20-40) % Monocytes % (Manual) 7 (0-10) % Platelet Estimate Normal (NORMAL) PT (9.7-12.2) SECONDS INR APTT (21-34) SECONDS Puncture Site pCO2 (35-45) mm/Hg pO2 (80-100) mm/Hg HCO3 (21-28) mmol/L ABG pH (7.35-7.45) ABG Total CO2 (22-28) mmol/L ABG O2 Saturation (95-98) % ABG Base Excess (-2.0-3.0) mmol/L Albert Test ABG Potassium (3.6-5.2) mmol/L A-a O2 Difference mm/Hg Respiratory Index Sodium 140 (132-148) mmol/l Chloride 101 (98-107) mmol/L Glucose (75-110) mg/dl Lactate (0.7-2.1) mmol/L Vent Mode Mechanical Rate FiO2 % Tidal Volume PEEP Crit Value Called To Crit Value Called By Crit Value Read Back Blood Gas Notified Time Potassium 2.7 L (3.6-5.2) mmol/L Carbon Dioxide 31 H (22-30) mmol/L Anion Gap 13 (10-20) BUN 27 H (9-20) mg/dL Creatinine 1.4 (0.8-1.5) mg/dL Est GFR ( Amer) > 60 Est GFR (Non-Af Amer) 52 POC Glucose (mg/dL) 167 H (65-110) mg/dL Random Glucose 159 H (75-110) mg/dL Calcium 8.1 L (8.6-10.4) mg/dl Phosphorus 2.3 L (2.5-4.5) mg/dL Magnesium 1.8 (1.6-2.3) mg/dL Total Bilirubin 1.6 H (0.2-1.3) mg/dL AST 107 H (17-59) U/L ALT 46 (21-72) U/L Alkaline Phosphatase 77 (38-126) U/L Total Protein 7.1 (6.3-8.3) g/dL Albumin 3.6 (3.5-5.0) g/dL Globulin 3.5 (2.2-3.9) gm/dL Albumin/Globulin Ratio 1.0 (1.0-2.1) Lipase 61 (23-300) U/L Arterial Blood Potassium (3.6-5.2) mmol/L 11/28/18 11/27/18 11/27/18 Range/Units 05:22 23:32 20:16 WBC (4.8-10.8) K/uL RBC (4.40-5.90) Mil/uL Hgb (12.0-18.0) g/dL Hct (35.0-51.0) % MCV (80.0-94.0) fL MCH (27.0-31.0) pg MCHC (33.0-37.0) g/dL RDW (11.5-14.5) % Plt Count (130-400) K/uL MPV (7.2-11.7) fL Neut % (Auto) (50.0-75.0) % Lymph % (Auto) (20.0-40.0) % Nash % (Auto) (0.0-10.0) % Eos % (Auto) (0.0-4.0) % Baso % (Auto) (0.0-2.0) % Neut # (Auto) (1.8-7.0) K/uL Lymph # (Auto) (1.0-4.3) K/uL Nash # (Auto) (0.0-0.8) K/uL Eos # (Auto) (0.0-0.7) K/uL Baso # (Auto) (0.0-0.2) K/uL Neutrophils % (Manual) (50-75) % Band Neutrophils % (0-2) % Lymphocytes % (Manual) (20-40) % Monocytes % (Manual) (0-10) % Platelet Estimate (NORMAL) PT 12.8 H (9.7-12.2) SECONDS INR 1.2 APTT 31.0 D (21-34) SECONDS Puncture Site Rr pCO2 28 L (35-45) mm/Hg pO2 82 (80-100) mm/Hg HCO3 31.3 H (21-28) mmol/L ABG pH 7.62 H* (7.35-7.45) ABG Total CO2 29.7 H (22-28) mmol/L ABG O2 Saturation 99.1 H (95-98) % ABG Base Excess 8.1 H (-2.0-3.0) mmol/L Albert Test Pos ABG Potassium 2.4 L* (3.6-5.2) mmol/L A-a O2 Difference 311.0 mm/Hg Respiratory Index 3.8 Sodium 138.0 (132-148) mmol/l Chloride 103.0 (98-107) mmol/L Glucose 158 H (75-110) mg/dl Lactate 2.1 (0.7-2.1) mmol/L Vent Mode Prvc Mechanical Rate 24 FiO2 60.0 % Tidal Volume 600 PEEP 5 Crit Value Called To Malgorzata rn Crit Value Called By [facility] Crit Value Read Back Y Blood Gas Notified Time 540 Potassium (3.6-5.2) mmol/L Carbon Dioxide (22-30) mmol/L Anion Gap (10-20) BUN (9-20) mg/dL Creatinine (0.8-1.5) mg/dL Est GFR ( Amer) Est GFR (Non-Af Amer) POC Glucose (mg/dL) 183 H (65-110) mg/dL Random Glucose (75-110) mg/dL Calcium (8.6-10.4) mg/dl Phosphorus (2.5-4.5) mg/dL Magnesium (1.6-2.3) mg/dL Total Bilirubin (0.2-1.3) mg/dL AST (17-59) U/L ALT (21-72) U/L Alkaline Phosphatase (38-126) U/L Total Protein (6.3-8.3) g/dL Albumin (3.5-5.0) g/dL Globulin (2.2-3.9) gm/dL Albumin/Globulin Ratio (1.0-2.1) Lipase (23-300) U/L Arterial Blood Potassium 2.4 L* (3.6-5.2) mmol/L 11/27/18 11/27/18 11/27/18 Range/Units 18:12 11:11 05:52 WBC (4.8-10.8) K/uL RBC (4.40-5.90) Mil/uL Hgb (12.0-18.0) g/dL Hct (35.0-51.0) % MCV (80.0-94.0) fL MCH (27.0-31.0) pg MCHC (33.0-37.0) g/dL RDW (11.5-14.5) % Plt Count (130-400) K/uL MPV (7.2-11.7) fL Neut % (Auto) (50.0-75.0) % Lymph % (Auto) (20.0-40.0) % Nash % (Auto) (0.0-10.0) % Eos % (Auto) (0.0-4.0) % Baso % (Auto) (0.0-2.0) % Neut # (Auto) (1.8-7.0) K/uL Lymph # (Auto) (1.0-4.3) K/uL Nash # (Auto) (0.0-0.8) K/uL Eos # (Auto) (0.0-0.7) K/uL Baso # (Auto) (0.0-0.2) K/uL Neutrophils % (Manual) (50-75) % Band Neutrophils % (0-2) % Lymphocytes % (Manual) (20-40) % Monocytes % (Manual) (0-10) % Platelet Estimate (NORMAL) PT (9.7-12.2) SECONDS INR APTT (21-34) SECONDS Puncture Site pCO2 (35-45) mm/Hg pO2 (80-100) mm/Hg HCO3 (21-28) mmol/L ABG pH (7.35-7.45) ABG Total CO2 (22-28) mmol/L ABG O2 Saturation (95-98) % ABG Base Excess (-2.0-3.0) mmol/L Albert Test ABG Potassium (3.6-5.2) mmol/L A-a O2 Difference mm/Hg Respiratory Index Sodium (132-148) mmol/l Chloride (98-107) mmol/L Glucose (75-110) mg/dl Lactate (0.7-2.1) mmol/L Vent Mode Mechanical Rate FiO2 % Tidal Volume PEEP Crit Value Called To Crit Value Called By Crit Value Read Back Blood Gas Notified Time Potassium (3.6-5.2) mmol/L Carbon Dioxide (22-30) mmol/L Anion Gap (10-20) BUN (9-20) mg/dL Creatinine (0.8-1.5) mg/dL Est GFR ( Amer) Est GFR (Non-Af Amer) POC Glucose (mg/dL) 163 H 181 H 153 H (65-110) mg/dL Random Glucose (75-110) mg/dL Calcium (8.6-10.4) mg/dl Phosphorus (2.5-4.5) mg/dL Magnesium (1.6-2.3) mg/dL Total Bilirubin (0.2-1.3) mg/dL AST (17-59) U/L ALT (21-72) U/L Alkaline Phosphatase (38-126) U/L Total Protein (6.3-8.3) g/dL Albumin (3.5-5.0) g/dL Globulin (2.2-3.9) gm/dL Albumin/Globulin Ratio (1.0-2.1) Lipase (23-300) U/L Arterial Blood Potassium (3.6-5.2) mmol/L 11/26/18 11/26/18 11/26/18 Range/Units 23:41 18:26 11:18 WBC (4.8-10.8) K/uL RBC (4.40-5.90) Mil/uL Hgb (12.0-18.0) g/dL Hct (35.0-51.0) % MCV (80.0-94.0) fL MCH (27.0-31.0) pg MCHC (33.0-37.0) g/dL RDW (11.5-14.5) % Plt Count (130-400) K/uL MPV (7.2-11.7) fL Neut % (Auto) (50.0-75.0) % Lymph % (Auto) (20.0-40.0) % Nash % (Auto) (0.0-10.0) % Eos % (Auto) (0.0-4.0) % Baso % (Auto) (0.0-2.0) % Neut # (Auto) (1.8-7.0) K/uL Lymph # (Auto) (1.0-4.3) K/uL Nash # (Auto) (0.0-0.8) K/uL Eos # (Auto) (0.0-0.7) K/uL Baso # (Auto) (0.0-0.2) K/uL Neutrophils % (Manual) (50-75) % Band Neutrophils % (0-2) % Lymphocytes % (Manual) (20-40) % Monocytes % (Manual) (0-10) % Platelet Estimate (NORMAL) PT (9.7-12.2) SECONDS INR APTT (21-34) SECONDS Puncture Site pCO2 (35-45) mm/Hg pO2 (80-100) mm/Hg HCO3 (21-28) mmol/L ABG pH (7.35-7.45) ABG Total CO2 (22-28) mmol/L ABG O2 Saturation (95-98) % ABG Base Excess (-2.0-3.0) mmol/L Albert Test ABG Potassium (3.6-5.2) mmol/L A-a O2 Difference mm/Hg Respiratory Index Sodium (132-148) mmol/l Chloride (98-107) mmol/L Glucose (75-110) mg/dl Lactate (0.7-2.1) mmol/L Vent Mode Mechanical Rate FiO2 % Tidal Volume PEEP Crit Value Called To Crit Value Called By Crit Value Read Back Blood Gas Notified Time Potassium (3.6-5.2) mmol/L Carbon Dioxide (22-30) mmol/L Anion Gap (10-20) BUN (9-20) mg/dL Creatinine (0.8-1.5) mg/dL Est GFR ( Amer) Est GFR (Non-Af Amer) POC Glucose (mg/dL) 146 H 117 H 109 (65-110) mg/dL Random Glucose (75-110) mg/dL Calcium (8.6-10.4) mg/dl Phosphorus (2.5-4.5) mg/dL Magnesium (1.6-2.3) mg/dL Total Bilirubin (0.2-1.3) mg/dL AST (17-59) U/L ALT (21-72) U/L Alkaline Phosphatase (38-126) U/L Total Protein (6.3-8.3) g/dL Albumin (3.5-5.0) g/dL Globulin (2.2-3.9) gm/dL Albumin/Globulin Ratio (1.0-2.1) Lipase (23-300) U/L Arterial Blood Potassium (3.6-5.2) mmol/L 11/26/18 11/25/18 11/25/18 Range/Units 05:41 23:46 17:43 WBC (4.8-10.8) K/uL RBC (4.40-5.90) Mil/uL Hgb (12.0-18.0) g/dL Hct (35.0-51.0) % MCV (80.0-94.0) fL MCH (27.0-31.0) pg MCHC (33.0-37.0) g/dL RDW (11.5-14.5) % Plt Count (130-400) K/uL MPV (7.2-11.7) fL Neut % (Auto) (50.0-75.0) % Lymph % (Auto) (20.0-40.0) % Nash % (Auto) (0.0-10.0) % Eos % (Auto) (0.0-4.0) % Baso % (Auto) (0.0-2.0) % Neut # (Auto) (1.8-7.0) K/uL Lymph # (Auto) (1.0-4.3) K/uL Nash # (Auto) (0.0-0.8) K/uL Eos # (Auto) (0.0-0.7) K/uL Baso # (Auto) (0.0-0.2) K/uL Neutrophils % (Manual) (50-75) % Band Neutrophils % (0-2) % Lymphocytes % (Manual) (20-40) % Monocytes % (Manual) (0-10) % Platelet Estimate (NORMAL) PT (9.7-12.2) SECONDS INR APTT (21-34) SECONDS Puncture Site pCO2 (35-45) mm/Hg pO2 (80-100) mm/Hg HCO3 (21-28) mmol/L ABG pH (7.35-7.45) ABG Total CO2 (22-28) mmol/L ABG O2 Saturation (95-98) % ABG Base Excess (-2.0-3.0) mmol/L Albert Test ABG Potassium (3.6-5.2) mmol/L A-a O2 Difference mm/Hg Respiratory Index Sodium (132-148) mmol/l Chloride (98-107) mmol/L Glucose (75-110) mg/dl Lactate (0.7-2.1) mmol/L Vent Mode Mechanical Rate FiO2 % Tidal Volume PEEP Crit Value Called To Crit Value Called By Crit Value Read Back Blood Gas Notified Time Potassium (3.6-5.2) mmol/L Carbon Dioxide (22-30) mmol/L Anion Gap (10-20) BUN (9-20) mg/dL Creatinine (0.8-1.5) mg/dL Est GFR ( Amer) Est GFR (Non-Af Amer) POC Glucose (mg/dL) 109 122 H 157 H (65-110) mg/dL Random Glucose (75-110) mg/dL Calcium (8.6-10.4) mg/dl Phosphorus (2.5-4.5) mg/dL Magnesium (1.6-2.3) mg/dL Total Bilirubin (0.2-1.3) mg/dL AST (17-59) U/L ALT (21-72) U/L Alkaline Phosphatase (38-126) U/L Total Protein (6.3-8.3) g/dL Albumin (3.5-5.0) g/dL Globulin (2.2-3.9) gm/dL Albumin/Globulin Ratio (1.0-2.1) Lipase (23-300) U/L Arterial Blood Potassium (3.6-5.2) mmol/L 11/25/18 Range/Units 11:30 WBC (4.8-10.8) K/uL RBC (4.40-5.90) Mil/uL Hgb (12.0-18.0) g/dL Hct (35.0-51.0) % MCV (80.0-94.0) fL MCH (27.0-31.0) pg MCHC (33.0-37.0) g/dL RDW (11.5-14.5) % Plt Count (130-400) K/uL MPV (7.2-11.7) fL Neut % (Auto) (50.0-75.0) % Lymph % (Auto) (20.0-40.0) % Nash % (Auto) (0.0-10.0) % Eos % (Auto) (0.0-4.0) % Baso % (Auto) (0.0-2.0) % Neut # (Auto) (1.8-7.0) K/uL Lymph # (Auto) (1.0-4.3) K/uL Nash # (Auto) (0.0-0.8) K/uL Eos # (Auto) (0.0-0.7) K/uL Baso # (Auto) (0.0-0.2) K/uL Neutrophils % (Manual) (50-75) % Band Neutrophils % (0-2) % Lymphocytes % (Manual) (20-40) % Monocytes % (Manual) (0-10) % Platelet Estimate (NORMAL) PT (9.7-12.2) SECONDS INR APTT (21-34) SECONDS Puncture Site pCO2 (35-45) mm/Hg pO2 (80-100) mm/Hg HCO3 (21-28) mmol/L ABG pH (7.35-7.45) ABG Total CO2 (22-28) mmol/L ABG O2 Saturation (95-98) % ABG Base Excess (-2.0-3.0) mmol/L Albert Test ABG Potassium (3.6-5.2) mmol/L A-a O2 Difference mm/Hg Respiratory Index Sodium (132-148) mmol/l Chloride (98-107) mmol/L Glucose (75-110) mg/dl Lactate (0.7-2.1) mmol/L Vent Mode Mechanical Rate FiO2 % Tidal Volume PEEP Crit Value Called To Crit Value Called By Crit Value Read Back Blood Gas Notified Time Potassium (3.6-5.2) mmol/L Carbon Dioxide (22-30) mmol/L Anion Gap (10-20) BUN (9-20) mg/dL Creatinine (0.8-1.5) mg/dL Est GFR ( Amer) Est GFR (Non-Af Amer) POC Glucose (mg/dL) 135 H (65-110) mg/dL Random Glucose (75-110) mg/dL Calcium (8.6-10.4) mg/dl Phosphorus (2.5-4.5) mg/dL Magnesium (1.6-2.3) mg/dL Total Bilirubin (0.2-1.3) mg/dL AST (17-59) U/L ALT (21-72) U/L Alkaline Phosphatase (38-126) U/L Total Protein (6.3-8.3) g/dL Albumin (3.5-5.0) g/dL Globulin (2.2-3.9) gm/dL Albumin/Globulin Ratio (1.0-2.1) Lipase (23-300) U/L Arterial Blood Potassium (3.6-5.2) mmol/L Laboratory Results - last 24 hr 11/25/18 11/25/18 11/25/18 11:30 17:43 23:46 WBC RBC Hgb Hct MCV MCH MCHC RDW Plt Count MPV Neut % (Auto) Lymph % (Auto) Nash % (Auto) Eos % (Auto) Baso % (Auto) Neut # (Auto) Lymph # (Auto) Nash # (Auto) Eos # (Auto) Baso # (Auto) Neutrophils % (Manual) Band Neutrophils % Lymphocytes % (Manual) Monocytes % (Manual) Platelet Estimate PT INR APTT Puncture Site pCO2 pO2 HCO3 ABG pH ABG Total CO2 ABG O2 Saturation ABG Base Excess Albert Test ABG Potassium A-a O2 Difference Respiratory Index Sodium Chloride Glucose Lactate Vent Mode Mechanical Rate FiO2 Tidal Volume PEEP Crit Value Called To Crit Value Called By Crit Value Read Back Blood Gas Notified Time Potassium Carbon Dioxide Anion Gap BUN Creatinine Est GFR ( Amer) Est GFR (Non-Af Amer) POC Glucose (mg/dL) 135 H 157 H 122 H Random Glucose Calcium Phosphorus Magnesium Total Bilirubin AST ALT Alkaline Phosphatase Total Protein Albumin Globulin Albumin/Globulin Ratio Lipase Arterial Blood Potassium 11/26/18 11/26/18 11/26/18 05:41 11:18 18:26 WBC RBC Hgb Hct MCV MCH MCHC RDW Plt Count MPV Neut % (Auto) Lymph % (Auto) Nash % (Auto) Eos % (Auto) Baso % (Auto) Neut # (Auto) Lymph # (Auto) Nash # (Auto) Eos # (Auto) Baso # (Auto) Neutrophils % (Manual) Band Neutrophils % Lymphocytes % (Manual) Monocytes % (Manual) Platelet Estimate PT INR APTT Puncture Site pCO2 pO2 HCO3 ABG pH ABG Total CO2 ABG O2 Saturation ABG Base Excess Albert Test ABG Potassium A-a O2 Difference Respiratory Index Sodium Chloride Glucose Lactate Vent Mode Mechanical Rate FiO2 Tidal Volume PEEP Crit Value Called To Crit Value Called By Crit Value Read Back Blood Gas Notified Time Potassium Carbon Dioxide Anion Gap BUN Creatinine Est GFR ( Amer) Est GFR (Non-Af Amer) POC Glucose (mg/dL) 109 109 117 H Random Glucose Calcium Phosphorus Magnesium Total Bilirubin AST ALT Alkaline Phosphatase Total Protein Albumin Globulin Albumin/Globulin Ratio Lipase Arterial Blood Potassium 11/26/18 11/27/18 11/27/18 23:41 05:52 11:11 WBC RBC Hgb Hct MCV MCH MCHC RDW Plt Count MPV Neut % (Auto) Lymph % (Auto) Nash % (Auto) Eos % (Auto) Baso % (Auto) Neut # (Auto) Lymph # (Auto) Nash # (Auto) Eos # (Auto) Baso # (Auto) Neutrophils % (Manual) Band Neutrophils % Lymphocytes % (Manual) Monocytes % (Manual) Platelet Estimate PT INR APTT Puncture Site pCO2 pO2 HCO3 ABG pH ABG Total CO2 ABG O2 Saturation ABG Base Excess Albert Test ABG Potassium A-a O2 Difference Respiratory Index Sodium Chloride Glucose Lactate Vent Mode Mechanical Rate FiO2 Tidal Volume PEEP Crit Value Called To Crit Value Called By Crit Value Read Back Blood Gas Notified Time Potassium Carbon Dioxide Anion Gap BUN Creatinine Est GFR ( Amer) Est GFR (Non-Af Amer) POC Glucose (mg/dL) 146 H 153 H 181 H Random Glucose Calcium Phosphorus Magnesium Total Bilirubin AST ALT Alkaline Phosphatase Total Protein Albumin Globulin Albumin/Globulin Ratio Lipase Arterial Blood Potassium 11/27/18 11/27/18 11/27/18 18:12 20:16 23:32 WBC RBC Hgb Hct MCV MCH MCHC RDW Plt Count MPV Neut % (Auto) Lymph % (Auto) Nash % (Auto) Eos % (Auto) Baso % (Auto) Neut # (Auto) Lymph # (Auto) Nash # (Auto) Eos # (Auto) Baso # (Auto) Neutrophils % (Manual) Band Neutrophils % Lymphocytes % (Manual) Monocytes % (Manual) Platelet Estimate PT 12.8 H INR 1.2 APTT 31.0 D Puncture Site pCO2 pO2 HCO3 ABG pH ABG Total CO2 ABG O2 Saturation ABG Base Excess Albert Test ABG Potassium A-a O2 Difference Respiratory Index Sodium Chloride Glucose Lactate Vent Mode Mechanical Rate FiO2 Tidal Volume PEEP Crit Value Called To Crit Value Called By Crit Value Read Back Blood Gas Notified Time Potassium Carbon Dioxide Anion Gap BUN Creatinine Est GFR ( Amer) Est GFR (Non-Af Amer) POC Glucose (mg/dL) 163 H 183 H Random Glucose Calcium Phosphorus Magnesium Total Bilirubin AST ALT Alkaline Phosphatase Total Protein Albumin Globulin Albumin/Globulin Ratio Lipase Arterial Blood Potassium 11/28/18 11/28/18 11/28/18 05:22 05:31 05:31 WBC 11.0 H RBC 4.70 Hgb 15.0 Hct 45.2 MCV 96.1 H MCH 32.0 H MCHC 33.3 RDW 16.2 H Plt Count 187 MPV 9.2 Neut % (Auto) 82.6 H Lymph % (Auto) 8.4 L Nash % (Auto) 8.6 Eos % (Auto) 0.1 Baso % (Auto) 0.3 Neut # (Auto) 9.1 H Lymph # (Auto) 0.9 L Nash # (Auto) 0.9 H Eos # (Auto) 0.0 Baso # (Auto) 0.0 Neutrophils % (Manual) 83 H Band Neutrophils % 2 Lymphocytes % (Manual) 8 L Monocytes % (Manual) 7 Platelet Estimate Normal PT INR APTT Puncture Site Rr pCO2 28 L pO2 82 HCO3 31.3 H ABG pH 7.62 H* ABG Total CO2 29.7 H ABG O2 Saturation 99.1 H ABG Base Excess 8.1 H Albert Test Pos ABG Potassium 2.4 L* A-a O2 Difference 311.0 Respiratory Index 3.8 Sodium 138.0 140 Chloride 103.0 101 Glucose 158 H Lactate 2.1 Vent Mode Prvc Mechanical Rate 24 FiO2 60.0 Tidal Volume 600 PEEP 5 Crit Value Called To [employer] Crit Value Called By [facility] attendant Crit Value Read Back Y Blood Gas Notified Time 540 Potassium 2.7 L Carbon Dioxide 31 H Anion Gap 13 BUN 27 H Creatinine 1.4 Est GFR ( Amer) > 60 Est GFR (Non-Af Amer) 52 POC Glucose (mg/dL) Random Glucose 159 H Calcium 8.1 L Phosphorus 2.3 L Magnesium 1.8 Total Bilirubin 1.6 H AST 107 H ALT 46 Alkaline Phosphatase 77 Total Protein 7.1 Albumin 3.6 Globulin 3.5 Albumin/Globulin Ratio 1.0 Lipase 61 Arterial Blood Potassium 2.4 L* 11/28/18 06:06 WBC RBC Hgb Hct MCV MCH MCHC RDW Plt Count MPV Neut % (Auto) Lymph % (Auto) Nash % (Auto) Eos % (Auto) Baso % (Auto) Neut # (Auto) Lymph # (Auto) Nash # (Auto) Eos # (Auto) Baso # (Auto) Neutrophils % (Manual) Band Neutrophils % Lymphocytes % (Manual) Monocytes % (Manual) Platelet Estimate PT INR APTT Puncture Site pCO2 pO2 HCO3 ABG pH ABG Total CO2 ABG O2 Saturation ABG Base Excess Albert Test ABG Potassium A-a O2 Difference Respiratory Index Sodium Chloride Glucose Lactate Vent Mode Mechanical Rate FiO2 Tidal Volume PEEP Crit Value Called To Crit Value Called By Crit Value Read Back Blood Gas Notified Time Potassium Carbon Dioxide Anion Gap BUN Creatinine Est GFR ( Amer) Est GFR (Non-Af Amer) POC Glucose (mg/dL) 167 H Random Glucose Calcium Phosphorus Magnesium Total Bilirubin AST ALT Alkaline Phosphatase Total Protein Albumin Globulin Albumin/Globulin Ratio Lipase Arterial Blood Potassium Radiology Impressions: Radiology Impressions Chest X-Ray 11/28/18 04:00 IMPRESSION: Little interval change in right perihilar and lower lobe atelectasis/pneumonia and small right pleural effusion. Fingerstick Blood Sugar Results: 159 Review of Systems - Review of Systems All systems: reviewed and no additional remarkable complaints except Review of Systems: as per HPI Assessment/Plan - Assessment and Plan (Free Text) Assessment: 58 year old obese male with pmhx of COPD, CHF, AICD placement brought in by ALS s/p witnessed cardiac arrest. PEA then asystole. Code approximately 22 minutes per ALS, epi x4 for PEA, defibrillation x 1 for pulseless vtach with ROSC. Patient's own defibrillator fired 2x afterwards. <Wilfredo Love S - Last Filed: 11/28/18 17:44> CCU Subjective - Physician Review Critical Care Time Spent (in minutes): 40 CCU Objective - Vital Signs / Intake & Output Vital Signs (Last 4 hours): Vital Signs Temp Pulse Resp BP Pulse Ox 11/28/18 16:04 81 21 137/83 98 11/28/18 16:00 80 20 98 11/28/18 15:56 99.2 F 11/28/18 15:26 84 24 127/84 11/28/18 15:00 81 21 95 11/28/18 14:04 80 25 H 146/99 H 97 11/28/18 14:00 78 22 98 Intake and Output (Last 8hrs): Intake & Output 11/28/18 11/28/18 11/28/18 06:59 14:59 22:59 Intake Total 200 500 Output Total 1400 515 Balance -1200 -15 Weight 256 lb Intake: IV 0 Intake, IV Amount 200 400 Left Antecubital 200 Left Forearm 200 Left Hand 200 Right Medial Port Femoral 0 Oral 0 100 Output: Urine 1400 415 Urethral (Grove) 1400 415 Emesis 100 Oral Regurgitation 0 Other 0 Other: # Bowel Movements 1 0 - Medications Active Medications: Active Medications Generic Name Dose Route Start Last Admin Trade Name Freq PRN Reason Stop Dose Admin Acetaminophen 975 mg 11/26/18 11:45 11/27/18 02:49 Tylenol 650mg/20.3ml Solution Ud GT 975 mg Q6 PRN Administration Amiodarone HCl 200 mg 11/28/18 10:00 11/28/18 10:31 Cordarone PO 200 mg BID MILEY Administration Aspirin 325 mg 11/25/18 10:00 11/27/18 09:52 Aspirin PO 325 mg DAILY MILEY Administration Carvedilol 6.25 mg 11/28/18 10:00 11/28/18 10:31 Coreg PO 6.25 mg BID MILEY Administration Famotidine 20 mg 11/24/18 23:00 11/28/18 10:30 Pepcid IVP 20 mg Q12 MILEY Administration Furosemide 40 mg 11/25/18 01:30 11/28/18 10:29 Lasix IV 40 mg Q12 MILEY Administration Piperacillin Sod/Tazobactam 100 mls @ 200 mls/hr 11/24/18 22:45 11/28/18 15:49 Sod 3.375 gm/ Sodium Chloride IVPB 200 mls/hr Q6H MILEY Administration Protocol Propofol 1,000 mg in 100 mls @ 3.702 mls/hr 11/25/18 12:27 11/28/18 10:34 Diprivan IV 10 mcg/kg/min .Q24H PRN 7.404 mls/hr TITRATE PER MD ORDER Administration Protocol 5 MCG/KG/MIN Vancomycin/Sodium Chloride 1 gm in 200 mls @ 133.333 mls/hr 11/26/18 11:00 11/28/18 11:05 Vancomycin 1 Gm/Ns 200 Ml IVPB 12/01/18 11:01 133.333 mls/hr Q12H MILEY Administration Protocol Levetiracetam 750 mg/ Sodium 107.5 mls @ 420 mls/hr 11/27/18 10:00 11/28/18 10:32 Chloride IVPB 420 mls/hr Q12H MILEY Administration Heparin Sodium/Sodium Chloride 25,000 units in 250 mls @ 11.66 mls/hr 11/27/18 09:00 Heparin 65918 Units/250ml 1/2 Normal Saline IV .[id number] PRN PROTOCOL Protocol 10 UNITS/KG/HR Metoclopramide HCl 10 mg 11/28/18 10:00 11/28/18 10:30 Reglan IVP 10 mg Q12 MILEY Administration - Patient Studies Lab Studies: Microbiology Studies 11/24/18 23:35 S.aureus & Coag-Neg Staph PNA FISH - Final Blood Blood Culture - Final Coagulase Neg Staphylococcus Gram Stain - Final 11/24/18 23:35 Blood Culture - Preliminary Blood NO GROWTH AFTER 3 DAYS Lab Studies 11/28/18 11/28/18 11/28/18 Range/Units 06:06 05:31 05:31 WBC 11.0 H (4.8-10.8) K/uL RBC 4.70 (4.40-5.90) Mil/uL Hgb 15.0 (12.0-18.0) g/dL Hct 45.2 (35.0-51.0) % MCV 96.1 H (80.0-94.0) fL MCH 32.0 H (27.0-31.0) pg MCHC 33.3 (33.0-37.0) g/dL RDW 16.2 H (11.5-14.5) % Plt Count 187 (130-400) K/uL MPV 9.2 (7.2-11.7) fL Neut % (Auto) 82.6 H (50.0-75.0) % Lymph % (Auto) 8.4 L (20.0-40.0) % Nash % (Auto) 8.6 (0.0-10.0) % Eos % (Auto) 0.1 (0.0-4.0) % Baso % (Auto) 0.3 (0.0-2.0) % Neut # (Auto) 9.1 H (1.8-7.0) K/uL Lymph # (Auto) 0.9 L (1.0-4.3) K/uL Nash # (Auto) 0.9 H (0.0-0.8) K/uL Eos # (Auto) 0.0 (0.0-0.7) K/uL Baso # (Auto) 0.0 (0.0-0.2) K/uL Neutrophils % (Manual) 83 H (50-75) % Band Neutrophils % 2 (0-2) % Lymphocytes % (Manual) 8 L (20-40) % Monocytes % (Manual) 7 (0-10) % Platelet Estimate Normal (NORMAL) PT (9.7-12.2) SECONDS INR APTT (21-34) SECONDS Puncture Site pCO2 (35-45) mm/Hg pO2 (80-100) mm/Hg HCO3 (21-28) mmol/L ABG pH (7.35-7.45) ABG Total CO2 (22-28) mmol/L ABG O2 Saturation (95-98) % ABG Base Excess (-2.0-3.0) mmol/L Albert Test ABG Potassium (3.6-5.2) mmol/L A-a O2 Difference mm/Hg Respiratory Index Sodium 140 (132-148) mmol/l Chloride 101 (98-107) mmol/L Glucose (75-110) mg/dl Lactate (0.7-2.1) mmol/L Vent Mode Mechanical Rate FiO2 % Tidal Volume PEEP Crit Value Called To Crit Value Called By Crit Value Read Back Blood Gas Notified Time Potassium 2.7 L (3.6-5.2) mmol/L Carbon Dioxide 31 H (22-30) mmol/L Anion Gap 13 (10-20) BUN 27 H (9-20) mg/dL Creatinine 1.4 (0.8-1.5) mg/dL Est GFR ( Amer) > 60 Est GFR (Non-Af Amer) 52 POC Glucose (mg/dL) 167 H (65-110) mg/dL Random Glucose 159 H (75-110) mg/dL Calcium 8.1 L (8.6-10.4) mg/dl Phosphorus 2.3 L (2.5-4.5) mg/dL Magnesium 1.8 (1.6-2.3) mg/dL Total Bilirubin 1.6 H (0.2-1.3) mg/dL AST 107 H (17-59) U/L ALT 46 (21-72) U/L Alkaline Phosphatase 77 (38-126) U/L Total Protein 7.1 (6.3-8.3) g/dL Albumin 3.6 (3.5-5.0) g/dL Globulin 3.5 (2.2-3.9) gm/dL Albumin/Globulin Ratio 1.0 (1.0-2.1) Lipase 61 (23-300) U/L Arterial Blood Potassium (3.6-5.2) mmol/L 11/28/18 11/27/18 11/27/18 Range/Units 05:22 23:32 20:16 WBC (4.8-10.8) K/uL RBC (4.40-5.90) Mil/uL Hgb (12.0-18.0) g/dL Hct (35.0-51.0) % MCV (80.0-94.0) fL MCH (27.0-31.0) pg MCHC (33.0-37.0) g/dL RDW (11.5-14.5) % Plt Count (130-400) K/uL MPV (7.2-11.7) fL Neut % (Auto) (50.0-75.0) % Lymph % (Auto) (20.0-40.0) % Nash % (Auto) (0.0-10.0) % Eos % (Auto) (0.0-4.0) % Baso % (Auto) (0.0-2.0) % Neut # (Auto) (1.8-7.0) K/uL Lymph # (Auto) (1.0-4.3) K/uL Nash # (Auto) (0.0-0.8) K/uL Eos # (Auto) (0.0-0.7) K/uL Baso # (Auto) (0.0-0.2) K/uL Neutrophils % (Manual) (50-75) % Band Neutrophils % (0-2) % Lymphocytes % (Manual) (20-40) % Monocytes % (Manual) (0-10) % Platelet Estimate (NORMAL) PT 12.8 H (9.7-12.2) SECONDS INR 1.2 APTT 31.0 D (21-34) SECONDS Puncture Site Rr pCO2 28 L (35-45) mm/Hg pO2 82 (80-100) mm/Hg HCO3 31.3 H (21-28) mmol/L ABG pH 7.62 H* (7.35-7.45) ABG Total CO2 29.7 H (22-28) mmol/L ABG O2 Saturation 99.1 H (95-98) % ABG Base Excess 8.1 H (-2.0-3.0) mmol/L Albert Test Pos ABG Potassium 2.4 L* (3.6-5.2) mmol/L A-a O2 Difference 311.0 mm/Hg Respiratory Index 3.8 Sodium 138.0 (132-148) mmol/l Chloride 103.0 (98-107) mmol/L Glucose 158 H (75-110) mg/dl Lactate 2.1 (0.7-2.1) mmol/L Vent Mode Prvc Mechanical Rate 24 FiO2 60.0 % Tidal Volume 600 PEEP 5 Crit Value Called To Malgorzata rn Crit Value Called By [facility] attendant Crit Value Read Back Y Blood Gas Notified Time 540 Potassium (3.6-5.2) mmol/L Carbon Dioxide (22-30) mmol/L Anion Gap (10-20) BUN (9-20) mg/dL Creatinine (0.8-1.5) mg/dL Est GFR ( Amer) Est GFR (Non-Af Amer) POC Glucose (mg/dL) 183 H (65-110) mg/dL Random Glucose (75-110) mg/dL Calcium (8.6-10.4) mg/dl Phosphorus (2.5-4.5) mg/dL Magnesium (1.6-2.3) mg/dL Total Bilirubin (0.2-1.3) mg/dL AST (17-59) U/L ALT (21-72) U/L Alkaline Phosphatase (38-126) U/L Total Protein (6.3-8.3) g/dL Albumin (3.5-5.0) g/dL Globulin (2.2-3.9) gm/dL Albumin/Globulin Ratio (1.0-2.1) Lipase (23-300) U/L Arterial Blood Potassium 2.4 L* (3.6-5.2) mmol/L 11/27/18 11/27/18 11/27/18 Range/Units 18:12 11:11 05:52 WBC (4.8-10.8) K/uL RBC (4.40-5.90) Mil/uL Hgb (12.0-18.0) g/dL Hct (35.0-51.0) % MCV (80.0-94.0) fL MCH (27.0-31.0) pg MCHC (33.0-37.0) g/dL RDW (11.5-14.5) % Plt Count (130-400) K/uL MPV (7.2-11.7) fL Neut % (Auto) (50.0-75.0) % Lymph % (Auto) (20.0-40.0) % Nash % (Auto) (0.0-10.0) % Eos % (Auto) (0.0-4.0) % Baso % (Auto) (0.0-2.0) % Neut # (Auto) (1.8-7.0) K/uL Lymph # (Auto) (1.0-4.3) K/uL Nash # (Auto) (0.0-0.8) K/uL Eos # (Auto) (0.0-0.7) K/uL Baso # (Auto) (0.0-0.2) K/uL Neutrophils % (Manual) (50-75) % Band Neutrophils % (0-2) % Lymphocytes % (Manual) (20-40) % Monocytes % (Manual) (0-10) % Platelet Estimate (NORMAL) PT (9.7-12.2) SECONDS INR APTT (21-34) SECONDS Puncture Site pCO2 (35-45) mm/Hg pO2 (80-100) mm/Hg HCO3 (21-28) mmol/L ABG pH (7.35-7.45) ABG Total CO2 (22-28) mmol/L ABG O2 Saturation (95-98) % ABG Base Excess (-2.0-3.0) mmol/L Albert Test ABG Potassium (3.6-5.2) mmol/L A-a O2 Difference mm/Hg Respiratory Index Sodium (132-148) mmol/l Chloride (98-107) mmol/L Glucose (75-110) mg/dl Lactate (0.7-2.1) mmol/L Vent Mode Mechanical Rate FiO2 % Tidal Volume PEEP Crit Value Called To Crit Value Called By Crit Value Read Back Blood Gas Notified Time Potassium (3.6-5.2) mmol/L Carbon Dioxide (22-30) mmol/L Anion Gap (10-20) BUN (9-20) mg/dL Creatinine (0.8-1.5) mg/dL Est GFR ( Amer) Est GFR (Non-Af Amer) POC Glucose (mg/dL) 163 H 181 H 153 H (65-110) mg/dL Random Glucose (75-110) mg/dL Calcium (8.6-10.4) mg/dl Phosphorus (2.5-4.5) mg/dL Magnesium (1.6-2.3) mg/dL Total Bilirubin (0.2-1.3) mg/dL AST (17-59) U/L ALT (21-72) U/L Alkaline Phosphatase (38-126) U/L Total Protein (6.3-8.3) g/dL Albumin (3.5-5.0) g/dL Globulin (2.2-3.9) gm/dL Albumin/Globulin Ratio (1.0-2.1) Lipase (23-300) U/L Arterial Blood Potassium (3.6-5.2) mmol/L 11/26/18 11/26/18 11/26/18 Range/Units 23:41 18:26 11:18 WBC (4.8-10.8) K/uL RBC (4.40-5.90) Mil/uL Hgb (12.0-18.0) g/dL Hct (35.0-51.0) % MCV (80.0-94.0) fL MCH (27.0-31.0) pg MCHC (33.0-37.0) g/dL RDW (11.5-14.5) % Plt Count (130-400) K/uL MPV (7.2-11.7) fL Neut % (Auto) (50.0-75.0) % Lymph % (Auto) (20.0-40.0) % Nash % (Auto) (0.0-10.0) % Eos % (Auto) (0.0-4.0) % Baso % (Auto) (0.0-2.0) % Neut # (Auto) (1.8-7.0) K/uL Lymph # (Auto) (1.0-4.3) K/uL Nash # (Auto) (0.0-0.8) K/uL Eos # (Auto) (0.0-0.7) K/uL Baso # (Auto) (0.0-0.2) K/uL Neutrophils % (Manual) (50-75) % Band Neutrophils % (0-2) % Lymphocytes % (Manual) (20-40) % Monocytes % (Manual) (0-10) % Platelet Estimate (NORMAL) PT (9.7-12.2) SECONDS INR APTT (21-34) SECONDS Puncture Site pCO2 (35-45) mm/Hg pO2 (80-100) mm/Hg HCO3 (21-28) mmol/L ABG pH (7.35-7.45) ABG Total CO2 (22-28) mmol/L ABG O2 Saturation (95-98) % ABG Base Excess (-2.0-3.0) mmol/L Albert Test ABG Potassium (3.6-5.2) mmol/L A-a O2 Difference mm/Hg Respiratory Index Sodium (132-148) mmol/l Chloride (98-107) mmol/L Glucose (75-110) mg/dl Lactate (0.7-2.1) mmol/L Vent Mode Mechanical Rate FiO2 % Tidal Volume PEEP Crit Value Called To Crit Value Called By Crit Value Read Back Blood Gas Notified Time Potassium (3.6-5.2) mmol/L Carbon Dioxide (22-30) mmol/L Anion Gap (10-20) BUN (9-20) mg/dL Creatinine (0.8-1.5) mg/dL Est GFR ( Amer) Est GFR (Non-Af Amer) POC Glucose (mg/dL) 146 H 117 H 109 (65-110) mg/dL Random Glucose (75-110) mg/dL Calcium (8.6-10.4) mg/dl Phosphorus (2.5-4.5) mg/dL Magnesium (1.6-2.3) mg/dL Total Bilirubin (0.2-1.3) mg/dL AST (17-59) U/L ALT (21-72) U/L Alkaline Phosphatase (38-126) U/L Total Protein (6.3-8.3) g/dL Albumin (3.5-5.0) g/dL Globulin (2.2-3.9) gm/dL Albumin/Globulin Ratio (1.0-2.1) Lipase (23-300) U/L Arterial Blood Potassium (3.6-5.2) mmol/L 11/26/18 11/25/18 11/25/18 Range/Units 05:41 23:46 17:43 WBC (4.8-10.8) K/uL RBC (4.40-5.90) Mil/uL Hgb (12.0-18.0) g/dL Hct (35.0-51.0) % MCV (80.0-94.0) fL MCH (27.0-31.0) pg MCHC (33.0-37.0) g/dL RDW (11.5-14.5) % Plt Count (130-400) K/uL MPV (7.2-11.7) fL Neut % (Auto) (50.0-75.0) % Lymph % (Auto) (20.0-40.0) % Nash % (Auto) (0.0-10.0) % Eos % (Auto) (0.0-4.0) % Baso % (Auto) (0.0-2.0) % Neut # (Auto) (1.8-7.0) K/uL Lymph # (Auto) (1.0-4.3) K/uL Nash # (Auto) (0.0-0.8) K/uL Eos # (Auto) (0.0-0.7) K/uL Baso # (Auto) (0.0-0.2) K/uL Neutrophils % (Manual) (50-75) % Band Neutrophils % (0-2) % Lymphocytes % (Manual) (20-40) % Monocytes % (Manual) (0-10) % Platelet Estimate (NORMAL) PT (9.7-12.2) SECONDS INR APTT (21-34) SECONDS Puncture Site pCO2 (35-45) mm/Hg pO2 (80-100) mm/Hg HCO3 (21-28) mmol/L ABG pH (7.35-7.45) ABG Total CO2 (22-28) mmol/L ABG O2 Saturation (95-98) % ABG Base Excess (-2.0-3.0) mmol/L Albert Test ABG Potassium (3.6-5.2) mmol/L A-a O2 Difference mm/Hg Respiratory Index Sodium (132-148) mmol/l Chloride (98-107) mmol/L Glucose (75-110) mg/dl Lactate (0.7-2.1) mmol/L Vent Mode Mechanical Rate FiO2 % Tidal Volume PEEP Crit Value Called To Crit Value Called By Crit Value Read Back Blood Gas Notified Time Potassium (3.6-5.2) mmol/L Carbon Dioxide (22-30) mmol/L Anion Gap (10-20) BUN (9-20) mg/dL Creatinine (0.8-1.5) mg/dL Est GFR ( Amer) Est GFR (Non-Af Amer) POC Glucose (mg/dL) 109 122 H 157 H (65-110) mg/dL Random Glucose (75-110) mg/dL Calcium (8.6-10.4) mg/dl Phosphorus (2.5-4.5) mg/dL Magnesium (1.6-2.3) mg/dL Total Bilirubin (0.2-1.3) mg/dL AST (17-59) U/L ALT (21-72) U/L Alkaline Phosphatase (38-126) U/L Total Protein (6.3-8.3) g/dL Albumin (3.5-5.0) g/dL Globulin (2.2-3.9) gm/dL Albumin/Globulin Ratio (1.0-2.1) Lipase (23-300) U/L Arterial Blood Potassium (3.6-5.2) mmol/L 05/07/19 Range/Units 11:30 WBC (4.8-10.8) K/uL RBC (4.40-5.90) Mil/uL Hgb (12.0-18.0) g/dL Hct (35.0-51.0) % MCV (80.0-94.0) fL MCH (27.0-31.0) pg MCHC (33.0-37.0) g/dL RDW (11.5-14.5) % Plt Count (130-400) K/uL MPV (7.2-11.7) fL Neut % (Auto) (50.0-75.0) % Lymph % (Auto) (20.0-40.0) % Nash % (Auto) (0.0-10.0) % Eos % (Auto) (0.0-4.0) % Baso % (Auto) (0.0-2.0) % Neut # (Auto) (1.8-7.0) K/uL Lymph # (Auto) (1.0-4.3) K/uL Nash # (Auto) (0.0-0.8) K/uL Eos # (Auto) (0.0-0.7) K/uL Baso # (Auto) (0.0-0.2) K/uL Neutrophils % (Manual) (50-75) % Band Neutrophils % (0-2) % Lymphocytes % (Manual) (20-40) % Monocytes % (Manual) (0-10) % Platelet Estimate (NORMAL) PT (9.7-12.2) SECONDS INR APTT (21-34) SECONDS Puncture Site pCO2 (35-45) mm/Hg pO2 (80-100) mm/Hg HCO3 (21-28) mmol/L ABG pH (7.35-7.45) ABG Total CO2 (22-28) mmol/L ABG O2 Saturation (95-98) % ABG Base Excess (-2.0-3.0) mmol/L Albert Test ABG Potassium (3.6-5.2) mmol/L A-a O2 Difference mm/Hg Respiratory Index Sodium (132-148) mmol/l Chloride (98-107) mmol/L Glucose (75-110) mg/dl Lactate (0.7-2.1) mmol/L Vent Mode Mechanical Rate FiO2 % Tidal Volume PEEP Crit Value Called To Crit Value Called By Crit Value Read Back Blood Gas Notified Time Potassium (3.6-5.2) mmol/L Carbon Dioxide (22-30) mmol/L Anion Gap (10-20) BUN (9-20) mg/dL Creatinine (0.8-1.5) mg/dL Est GFR ( Amer) Est GFR (Non-Af Amer) POC Glucose (mg/dL) 135 H (65-110) mg/dL Random Glucose (75-110) mg/dL Calcium (8.6-10.4) mg/dl Phosphorus (2.5-4.5) mg/dL Magnesium (1.6-2.3) mg/dL Total Bilirubin (0.2-1.3) mg/dL AST (17-59) U/L ALT (21-72) U/L Alkaline Phosphatase (38-126) U/L Total Protein (6.3-8.3) g/dL Albumin (3.5-5.0) g/dL Globulin (2.2-3.9) gm/dL Albumin/Globulin Ratio (1.0-2.1) Lipase (23-300) U/L Arterial Blood Potassium (3.6-5.2) mmol/L Laboratory Results - last 24 hr 11/25/18 11/25/18 11/25/18 11:30 17:43 23:46 WBC RBC Hgb Hct MCV MCH MCHC RDW Plt Count MPV Neut % (Auto) Lymph % (Auto) Nash % (Auto) Eos % (Auto) Baso % (Auto) Neut # (Auto) Lymph # (Auto) Nash # (Auto) Eos # (Auto) Baso # (Auto) Neutrophils % (Manual) Band Neutrophils % Lymphocytes % (Manual) Monocytes % (Manual) Platelet Estimate PT INR APTT Puncture Site pCO2 pO2 HCO3 ABG pH ABG Total CO2 ABG O2 Saturation ABG Base Excess Albert Test ABG Potassium A-a O2 Difference Respiratory Index Sodium Chloride Glucose Lactate Vent Mode Mechanical Rate FiO2 Tidal Volume PEEP Crit Value Called To Crit Value Called By Crit Value Read Back Blood Gas Notified Time Potassium Carbon Dioxide Anion Gap BUN Creatinine Est GFR ( Amer) Est GFR (Non-Af Amer) POC Glucose (mg/dL) 135 H 157 H 122 H Random Glucose Calcium Phosphorus Magnesium Total Bilirubin AST ALT Alkaline Phosphatase Total Protein Albumin Globulin Albumin/Globulin Ratio Lipase Arterial Blood Potassium 11/26/18 11/26/18 11/26/18 05:41 11:18 18:26 WBC RBC Hgb Hct MCV MCH MCHC RDW Plt Count MPV Neut % (Auto) Lymph % (Auto) Nash % (Auto) Eos % (Auto) Baso % (Auto) Neut # (Auto) Lymph # (Auto) Nash # (Auto) Eos # (Auto) Baso # (Auto) Neutrophils % (Manual) Band Neutrophils % Lymphocytes % (Manual) Monocytes % (Manual) Platelet Estimate PT INR APTT Puncture Site pCO2 pO2 HCO3 ABG pH ABG Total CO2 ABG O2 Saturation ABG Base Excess Albert Test ABG Potassium A-a O2 Difference Respiratory Index Sodium Chloride Glucose Lactate Vent Mode Mechanical Rate FiO2 Tidal Volume PEEP Crit Value Called To Crit Value Called By Crit Value Read Back Blood Gas Notified Time Potassium Carbon Dioxide Anion Gap BUN Creatinine Est GFR ( Amer) Est GFR (Non-Af Amer) POC Glucose (mg/dL) 109 109 117 H Random Glucose Calcium Phosphorus Magnesium Total Bilirubin AST ALT Alkaline Phosphatase Total Protein Albumin Globulin Albumin/Globulin Ratio Lipase Arterial Blood Potassium 11/26/18 11/27/18 11/27/18 23:41 05:52 11:11 WBC RBC Hgb Hct MCV MCH MCHC RDW Plt Count MPV Neut % (Auto) Lymph % (Auto) Nash % (Auto) Eos % (Auto) Baso % (Auto) Neut # (Auto) Lymph # (Auto) Nash # (Auto) Eos # (Auto) Baso # (Auto) Neutrophils % (Manual) Band Neutrophils % Lymphocytes % (Manual) Monocytes % (Manual) Platelet Estimate PT INR APTT Puncture Site pCO2 pO2 HCO3 ABG pH ABG Total CO2 ABG O2 Saturation ABG Base Excess Albert Test ABG Potassium A-a O2 Difference Respiratory Index Sodium Chloride Glucose Lactate Vent Mode Mechanical Rate FiO2 Tidal Volume PEEP Crit Value Called To Crit Value Called By Crit Value Read Back Blood Gas Notified Time Potassium Carbon Dioxide Anion Gap BUN Creatinine Est GFR ( Amer) Est GFR (Non-Af Amer) POC Glucose (mg/dL) 146 H 153 H 181 H Random Glucose Calcium Phosphorus Magnesium Total Bilirubin AST ALT Alkaline Phosphatase Total Protein Albumin Globulin Albumin/Globulin Ratio Lipase Arterial Blood Potassium 11/27/18 11/27/18 11/27/18 18:12 20:16 23:32 WBC RBC Hgb Hct MCV MCH MCHC RDW Plt Count MPV Neut % (Auto) Lymph % (Auto) Nash % (Auto) Eos % (Auto) Baso % (Auto) Neut # (Auto) Lymph # (Auto) Nash # (Auto) Eos # (Auto) Baso # (Auto) Neutrophils % (Manual) Band Neutrophils % Lymphocytes % (Manual) Monocytes % (Manual) Platelet Estimate PT 12.8 H INR 1.2 APTT 31.0 D Puncture Site pCO2 pO2 HCO3 ABG pH ABG Total CO2 ABG O2 Saturation ABG Base Excess Albert Test ABG Potassium A-a O2 Difference Respiratory Index Sodium Chloride Glucose Lactate Vent Mode Mechanical Rate FiO2 Tidal Volume PEEP Crit Value Called To Crit Value Called By Crit Value Read Back Blood Gas Notified Time Potassium Carbon Dioxide Anion Gap BUN Creatinine Est GFR ( Amer) Est GFR (Non-Af Amer) POC Glucose (mg/dL) 163 H 183 H Random Glucose Calcium Phosphorus Magnesium Total Bilirubin AST ALT Alkaline Phosphatase Total Protein Albumin Globulin Albumin/Globulin Ratio Lipase Arterial Blood Potassium 11/28/18 11/28/18 11/28/18 05:22 05:31 05:31 WBC 11.0 H RBC 4.70 Hgb 15.0 Hct 45.2 MCV 96.1 H MCH 32.0 H MCHC 33.3 RDW 16.2 H Plt Count 187 MPV 9.2 Neut % (Auto) 82.6 H Lymph % (Auto) 8.4 L Nash % (Auto) 8.6 Eos % (Auto) 0.1 Baso % (Auto) 0.3 Neut # (Auto) 9.1 H Lymph # (Auto) 0.9 L Nash # (Auto) 0.9 H Eos # (Auto) 0.0 Baso # (Auto) 0.0 Neutrophils % (Manual) 83 H Band Neutrophils % 2 Lymphocytes % (Manual) 8 L Monocytes % (Manual) 7 Platelet Estimate Normal PT INR APTT Puncture Site Rr pCO2 28 L pO2 82 HCO3 31.3 H ABG pH 7.62 H* ABG Total CO2 29.7 H ABG O2 Saturation 99.1 H ABG Base Excess 8.1 H Albert Test Pos ABG Potassium 2.4 L* A-a O2 Difference 311.0 Respiratory Index 3.8 Sodium 138.0 140 Chloride 103.0 101 Glucose 158 H Lactate 2.1 Vent Mode Prvc Mechanical Rate 24 FiO2 60.0 Tidal Volume 600 PEEP 5 Crit Value Called To [facility] Crit Value Called By [facility] attendant Crit Value Read Back Y Blood Gas Notified Time 540 Potassium 2.7 L Carbon Dioxide 31 H Anion Gap 13 BUN 27 H Creatinine 1.4 Est GFR ( Amer) > 60 Est GFR (Non-Af Amer) 52 POC Glucose (mg/dL) Random Glucose 159 H Calcium 8.1 L Phosphorus 2.3 L Magnesium 1.8 Total Bilirubin 1.6 H AST 107 H ALT 46 Alkaline Phosphatase 77 Total Protein 7.1 Albumin 3.6 Globulin 3.5 Albumin/Globulin Ratio 1.0 Lipase 61 Arterial Blood Potassium 2.4 L* 11/28/18 06:06 WBC RBC Hgb Hct MCV MCH MCHC RDW Plt Count MPV Neut % (Auto) Lymph % (Auto) Nash % (Auto) Eos % (Auto) Baso % (Auto) Neut # (Auto) Lymph # (Auto) Nash # (Auto) Eos # (Auto) Baso # (Auto) Neutrophils % (Manual) Band Neutrophils % Lymphocytes % (Manual) Monocytes % (Manual) Platelet Estimate PT INR APTT Puncture Site pCO2 pO2 HCO3 ABG pH ABG Total CO2 ABG O2 Saturation ABG Base Excess Albert Test ABG Potassium A-a O2 Difference Respiratory Index Sodium Chloride Glucose Lactate Vent Mode Mechanical Rate FiO2 Tidal Volume PEEP Crit Value Called To Crit Value Called By Crit Value Read Back Blood Gas Notified Time Potassium Carbon Dioxide Anion Gap BUN Creatinine Est GFR ( Amer) Est GFR (Non-Af Amer) POC Glucose (mg/dL) 167 H Random Glucose Calcium Phosphorus Magnesium Total Bilirubin AST ALT Alkaline Phosphatase Total Protein Albumin Globulin Albumin/Globulin Ratio Lipase Arterial Blood Potassium Radiology Impressions: Radiology Impressions Chest X-Ray 11/28/18 04:00 IMPRESSION: Little interval change in right perihilar and lower lobe atelectasis/pneumonia and small right pleural effusion. Attending/Attestation - Attestation I have personally seen and examined this patient.: Yes I have fully participated in the care of the patient.: Yes I have reviewed all pertinent clinical information: Yes Notes (Text): 11/28/18 17:43 Patient seen and examined in the intensive care unit. Case discussed with housestaff in the morning rounds. CAT scan of the head canceled as patient en route developed vomiting, bradycardia and became very tachypneic And responded to sedation Continue ventilatory support No change in neurological status Prognosis poor
[2018-11-28 23:01] LABS: ALBUMIN 3.6 g/dL (3.5-5.0); ALT/SGPT 39 U/L (21-72); AST/SGOT 104 U/L (17-59); BLOOD UREA NITROGEN 31 mg/dL (9-20); CALCIUM 7.9 mg/dl (8.6-10.4); GFR NON-AFRICAN AMERICAN 56
--- NOTE | 2018-11-28 23:13 | PN ---
DATE: 11/28/2018 SUBJECTIVE: The patient is a 58-year-old male. The patient is seen and examined at the bedside on 11/28/2018. The patient went for CAT scan today, and there was repaid response. The patient is sedated on propofol, heparin drip, amiodarone. Rapid response this a.m. en route to CT of abdomen for agonal breathing, vomiting. cafeteria monitor shows atrial fibrillation, showing a seizure activity, still intubated. It is hard to get review of system. PHYSICAL EXAMINATION: VITAL SIGNS: Temperature 99.2, pulse 84, respiratory rate 24, blood pressure 157/83. HEENT: Head: Normocephalic, atraumatic. Eyes, closed. Nose, patent. Pupils are sluggish. Ear, normal. NECK: Supple. RESPIRATORY: Positive for rhonchi. CARDIOVASCULAR: Positive for atrial fibrillation. ABDOMEN: Normal bowel sound. No organomegaly. EXTREMITIES: Normal on inspection. NEUROLOGICAL: No response without any stimuli on the ventilator. MEDICATIONS: Tylenol, amiodarone, aspirin, Coreg, Pepcid, Lasix, Piperacillin/tazobactam, propofol, vancomycin, Reglan, and heparin. LABORATORY DATA: White blood cells 11, hemoglobin 15, hematocrit 45, platelets 187. Sodium 140, potassium 2.7, chloride 101, BUN 27, creatinine 1.4, AST 107, ALT 47, INR 1.2, glucose 163. ASSESSMENT AND PLAN: Mr. 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 The patient on defibrillator fired x2 afterward, little interval change in the right perihilar and lower lobes, atelectasis/pneumonia and somewhat right effusion. Discussion done with Dr. Wilfredo Love, patient's carbon accountant, and paying teller of the day. Discussion done with the house staff in the morning round. CAT scan of the head canceled. The patient en route developed vomiting and bradycardia and became very tachypneic and responded to sedation, continue ventilatory support. No changes in neurological status. Poor prognosis. 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 Continue Keppra as per Neurology. Dr. Nuñez is on the case. Repeat labs. We will follow up. Kamilla Hernandez MD
[2018-11-28] MEDS ORDERED: Potassium Chloride 20 mEq/15 ml LIQ UD PO STA (23:54)
[2018-11-29] MEDS: Propofol 10 mg/ml 1,000 MG/100 ML VIAL IV PRN (01:30)
[2018-11-29] MEDS: Piperacillin/Tazobact 3.375 GM in Sodium Chloride 100 ML IVPB SCH ×3 (04:52→15:45)
[2018-11-29 05:03] LABS: ABG ALLEN TEST POS; ARTERIAL BLOOD GAS HEMOGLOBIN 12.9 g/dL (11.7-17.4); ARTERIAL BLOOD GAS O2 SAT 99.4 % (95-98); ARTERIAL BLOOD GAS PCO2 39 mm/Hg (35-45); ARTERIAL BLOOD GAS PH 7.48 (7.35-7.45); ARTERIAL BLOOD GAS PO2 122 mm/Hg (80-100); ARTERIAL BLOOD GAS TCO2 30.2 mmol/L (22-28)
[2018-11-29 05:59] LABS: BASO # 0.1 K/uL (0.0-0.2); BASO % 0.6 % (0.0-2.0); EOS # 0.1 K/uL (0.0-0.7); EOS % 0.8 % (0.0-4.0); HEMOGLOBIN 13.8 g/dL (12.0-18.0); LYMPH # 1.7 K/uL (1.0-4.3); LYMPH % 15.8 % (20.0-40.0); MEAN CELL VOLUME 97.2 fL (80.0-94.0); MEAN CORPUSCULAR HEMOGLOBIN 32.3 pg (27.0-31.0); MEAN CORPUSCULAR HGB CONC 33.2 g/dL (33.0-37.0); MEAN PLATELET VOLUME 9.4 fL (7.2-11.7); MONO # 1.2 K/uL (0.0-0.8); NEUT # 7.5 K/uL (1.8-7.0); NEUT % 71.8 % (50.0-75.0); NRBC % 0.2 % (0.0-2.0); RBC 4.29 Mil/uL (4.40-5.90); RED CELL DISTRIBUTION WIDTH 16.2 % (11.5-14.5); WHITE BLOOD COUNT 10.5 K/uL (4.8-10.8)
[2018-11-29 06:28] LABS: BLOOD UREA NITROGEN 34 mg/dL (9-20); GFR NON-AFRICAN AMERICAN 52
[2018-11-29 06:29] LABS: ALBUMIN 3.4 g/dL (3.5-5.0); ALT/SGPT 40 U/L (21-72); AST/SGOT 95 U/L (17-59); CALCIUM 7.8 mg/dl (8.6-10.4)
--- NOTE | 2018-11-29 10:03 | CP.CCUPN ---
CCU Subjective - Physician Review Events Since Last Encounter (Free Text): 11/29/18 10:03 58-year-old male admitted to the intensive care unit the following a cardiac arrest, patient developed pulseless electrical activity and also V. tach. Patient has a history of AICD which was fired during this episode. He has a history of heart failure, obesity, COPD, heart disease. Post cardiac arrest patient underwent hypothermia protocol. Patient currently on ventilator. Full support ventilation. Mild sedation is ongoing Patient responding only to deep stimuli. The eyes are rolled upwards. On examination: Currently the vital signs are stable Upward gauze paralyzes noted Chest bilateral good air entry Heart sounds are regular Abdomen soft. Obesity Edema noted CBC nonspecific. Blood gas analysis showing some improvement in the oxygenation Chemistry renal functions are normal Chest x-ray ET tube in position. Bibasilar atelectatic changes noted CT head which was done on 11/27/2018 showing increased cerebral edema pattern. Assessment and recommendation: Patient is a 58-year-old male with a history of heart disease. History of heart failure. AICD. COPD obesity hypertension. Admitted following witnessed cardiac arrest. Now patient is having worsening cerebral edema and associated with anoxic encephalopathy Comatose We will discontinue the sedation Neuro watch Overall prognosis very poor and condition is critical. Palliative care consultation obtained earlier. We will continue with supportive treatment. We speak to the family. We will discuss with him about the further care 11/29/18 18:08 I spoke to the patient's family this evening. Patient's family decided for foregoing treatment. Family requested for terminal extubation and comfort care. We will place the patient on morphine drip as needed. Will extubate in the presence of family Patient will be DNR. Discussed with the family in detail CCU Objective - Vital Signs / Intake & Output Vital Signs (Last 4 hours): Vital Signs Temp Pulse Resp BP Pulse Ox 11/29/18 09:10 115/69 11/29/18 09:04 115/69 11/29/18 09:03 76 20 98 11/29/18 08:04 77 22 107/66 97 11/29/18 08:00 99.6 F 11/29/18 07:04 79 22 132/85 99 11/29/18 06:06 80 21 120/76 98 Intake and Output (Last 8hrs): Intake & Output 0511/29/18 11/29/18 22:59 06:59 14:59 Intake Total 508.0 440.0 129.0 Output Total 650 800 135 Balance -142.0 -360.0 -6.0 Intake: IV 100 100 60 Intake, IV Amount 408.0 340.0 49.0 Left Proximal Port Hand 108.0 140.0 49.0 Right Forearm 300 200 Tube Feeding 20 Output: Urine 650 800 135 Urethral (Grove) 650 800 135 - Physical Exam Head: Positive for: Atraumatic Pupils: Positive for: Sluggish Conjunctiva: Positive for: Normal Ears: Positive for: Normal Nose (External): Positive for: Atraumatic Neck: Positive for: Normal Range of Motion Respiratory/Chest: Positive for: Rhonchi Cardiovascular: Positive for: Regular Rate and Rhythm Abdomen: Positive for: Normal Bowel Sounds, Other (obese) Upper Extremity: Positive for: Normal Inspection Lower Extremity: Positive for: Normal Inspection Neurological: Positive for: Other (no response to any stimuli, on ventilator) - Medications Active Medications: Active Medications Generic Name Dose Route Start Last Admin Trade Name Freq PRN Reason Stop Dose Admin Acetaminophen 975 mg 11/26/18 11:45 11/27/18 02:49 Tylenol 650mg/20.3ml Solution Ud GT 975 mg Q6 PRN Administration Amiodarone HCl 200 mg 11/28/18 10:00 11/29/18 09:09 Cordarone PO 200 mg BID MILEY Administration Aspirin 325 mg 11/25/18 10:00 11/27/18 09:52 Aspirin PO 325 mg DAILY MILEY Administration Carvedilol 6.25 mg 11/28/18 10:00 11/29/18 09:10 Coreg PO 6.25 mg BID MILEY Administration Famotidine 20 mg 11/24/18 23:00 11/29/18 09:10 Pepcid IVP 20 mg Q12 MILEY Administration Furosemide 40 mg 11/25/18 01:30 11/29/18 09:10 Lasix IV 40 mg Q12 IMLEY Administration Piperacillin Sod/Tazobactam 100 mls @ 200 mls/hr 11/24/18 22:45 11/29/18 04:52 Sod 3.375 gm/ Sodium Chloride IVPB 200 mls/hr Q6H MILEY Administration Protocol Propofol 1,000 mg in 100 mls @ 3.702 mls/hr 11/25/18 12:27 11/29/18 09:44 Diprivan IV 0 mcg/kg/min .Q24H PRN 0 mls/hr TITRATE PER MD ORDER Titration Protocol 5 MCG/KG/MIN Vancomycin/Sodium Chloride 1 gm in 200 mls @ 133.333 mls/hr 11/26/18 11:00 11/28/18 23:20 Vancomycin 1 Gm/Ns 200 Ml IVPB 12/01/18 11:01 133.333 mls/hr Q12H MILEY Administration Protocol Levetiracetam 750 mg/ Sodium 107.5 mls @ 420 mls/hr 11/27/18 10:00 11/29/18 09:16 Chloride IVPB 420 mls/hr Q12H MILEY Administration Heparin Sodium/Sodium Chloride 25,000 units in 250 mls @ 11.66 mls/hr 11/27/18 09:00 Heparin 04984 Units/250ml 1/2 Normal Saline IV .[id number] PRN PROTOCOL Protocol 10 UNITS/KG/HR Metoclopramide HCl 10 mg 11/28/18 10:00 11/29/18 09:10 Reglan IVP 10 mg Q12 MILEY Administration - Patient Studies Lab Studies: Microbiology Studies 11/24/18 23:35 Blood Culture - Preliminary Blood NO GROWTH AFTER 4 DAYS 11/24/18 23:35 S.aureus & Coag-Neg Staph PNA FISH - Final Blood Blood Culture - Final Coagulase Neg Staphylococcus Gram Stain - Final Lab Studies 11/29/18 11/29/18 11/29/18 Range/Units 05:52 05:47 04:55 WBC 10.5 (4.8-10.8) K/uL RBC 4.29 L (4.40-5.90) Mil/uL Hgb 13.8 (12.0-18.0) g/dL Hct 41.7 (35.0-51.0) % MCV 97.2 H (80.0-94.0) fL MCH 32.3 H (27.0-31.0) pg MCHC 33.2 (33.0-37.0) g/dL RDW 16.2 H (11.5-14.5) % Plt Count 181 (130-400) K/uL MPV 9.4 (7.2-11.7) fL Neut % (Auto) 71.8 (50.0-75.0) % Lymph % (Auto) 15.8 L (20.0-40.0) % [place] % (Auto) 11.0 H (0.0-10.0) % Eos % (Auto) 0.8 (0.0-4.0) % Baso % (Auto) 0.6 (0.0-2.0) % Neut # (Auto) 7.5 H (1.8-7.0) K/uL Lymph # (Auto) 1.7 (1.0-4.3) K/uL [place] # (Auto) 1.2 H (0.0-0.8) K/uL Eos # (Auto) 0.1 (0.0-0.7) K/uL Baso # (Auto) 0.1 (0.0-0.2) K/uL Puncture Site Rr pCO2 39 (35-45) mm/Hg pO2 122 H (80-100) mm/Hg HCO3 29.0 H (21-28) mmol/L ABG pH 7.48 H (7.35-7.45) ABG Total CO2 30.2 H (22-28) mmol/L ABG O2 Saturation 99.4 H (95-98) % ABG Base Excess 5.2 H (-2.0-3.0) mmol/L ABG Hemoglobin 12.9 (11.7-17.4) g/dL ABG Carboxyhemoglobin 1.3 (0.5-1.5) % POC ABG HHb (Measured) 0.6 (0.0-5.0) % ABG Methemoglobin 1.1 (0.0-3.0) % Albert Test Pos A-a O2 Difference 542.0 mm/Hg Respiratory Index 4.4 Hgb O2 Saturation 97.0 (95.0-98.0) % Vent Mode Prvc Mechanical Rate 14 FiO2 100.0 % Tidal Volume 450 PEEP 5 Sodium 142 (132-148) mmol/L Potassium 3.3 L (3.6-5.2) mmol/L Chloride 102 (98-107) mmol/L Carbon Dioxide 30 (22-30) mmol/L Anion Gap 14 (10-20) BUN 34 H (9-20) mg/dL Creatinine 1.4 (0.8-1.5) mg/dL Est GFR ( Amer) > 60 Est GFR (Non-Af Amer) 52 Random Glucose 109 D (75-110) mg/dL Calcium 7.8 L (8.6-10.4) mg/dl Phosphorus 3.2 (2.5-4.5) mg/dL Magnesium 2.4 H (1.6-2.3) mg/dL Total Bilirubin 1.0 (0.2-1.3) mg/dL AST 95 H (17-59) U/L ALT 40 (21-72) U/L Alkaline Phosphatase 73 (38-126) U/L Total Protein 6.8 (6.3-8.3) g/dL Albumin 3.4 L (3.5-5.0) g/dL Globulin 3.5 (2.2-3.9) gm/dL Albumin/Globulin Ratio 1.0 (1.0-2.1) 11/28/18 Range/Units 22:34 WBC (4.8-10.8) K/uL RBC (4.40-5.90) Mil/uL Hgb (12.0-18.0) g/dL Hct (35.0-51.0) % MCV (80.0-94.0) fL MCH (27.0-31.0) pg MCHC (33.0-37.0) g/dL RDW (11.5-14.5) % Plt Count (130-400) K/uL MPV (7.2-11.7) fL Neut % (Auto) (50.0-75.0) % Lymph % (Auto) (20.0-40.0) % [place] % (Auto) (0.0-10.0) % Eos % (Auto) (0.0-4.0) % Baso % (Auto) (0.0-2.0) % Neut # (Auto) (1.8-7.0) K/uL Lymph # (Auto) (1.0-4.3) K/uL [place] # (Auto) (0.0-0.8) K/uL Eos # (Auto) (0.0-0.7) K/uL Baso # (Auto) (0.0-0.2) K/uL Puncture Site pCO2 (35-45) mm/Hg pO2 (80-100) mm/Hg HCO3 (21-28) mmol/L ABG pH (7.35-7.45) ABG Total CO2 (22-28) mmol/L ABG O2 Saturation (95-98) % ABG Base Excess (-2.0-3.0) mmol/L ABG Hemoglobin (11.7-17.4) g/dL ABG Carboxyhemoglobin (0.5-1.5) % POC ABG HHb (Measured) (0.0-5.0) % ABG Methemoglobin (0.0-3.0) % Albert Test A-a O2 Difference mm/Hg Respiratory Index Hgb O2 Saturation (95.0-98.0) % Vent Mode Mechanical Rate FiO2 % Tidal Volume PEEP Sodium 140 (132-148) mmol/L Potassium 3.4 L (3.6-5.2) mmol/L Chloride 100 (98-107) mmol/L Carbon Dioxide 30 (22-30) mmol/L Anion Gap 14 (10-20) BUN 31 H (9-20) mg/dL Creatinine 1.3 (0.8-1.5) mg/dL Est GFR ( Amer) > 60 Est GFR (Non-Af Amer) 56 Random Glucose 139 H (75-110) mg/dL Calcium 7.9 L (8.6-10.4) mg/dl Phosphorus (2.5-4.5) mg/dL Magnesium (1.6-2.3) mg/dL Total Bilirubin 1.2 (0.2-1.3) mg/dL AST 104 H (17-59) U/L ALT 39 (21-72) U/L Alkaline Phosphatase 74 (38-126) U/L Total Protein 7.2 (6.3-8.3) g/dL Albumin 3.6 (3.5-5.0) g/dL Globulin 3.6 (2.2-3.9) gm/dL Albumin/Globulin Ratio 1.0 (1.0-2.1) Laboratory Results - last 24 hr 11/28/18 11/29/18 11/29/18 22:34 04:55 05:47 WBC RBC Hgb Hct MCV MCH MCHC RDW Plt Count MPV Neut % (Auto) Lymph % (Auto) [place] % (Auto) Eos % (Auto) Baso % (Auto) Neut # (Auto) Lymph # (Auto) [place] # (Auto) Eos # (Auto) Baso # (Auto) Puncture Site Rr pCO2 39 pO2 122 H HCO3 29.0 H ABG pH 7.48 H ABG Total CO2 30.2 H ABG O2 Saturation 99.4 H ABG Base Excess 5.2 H ABG Hemoglobin 12.9 ABG Carboxyhemoglobin 1.3 POC ABG HHb (Measured) 0.6 ABG Methemoglobin 1.1 Albert Test Pos A-a O2 Difference 542.0 Respiratory Index 4.4 Hgb O2 Saturation 97.0 Vent Mode Prvc Mechanical Rate 14 FiO2 100.0 Tidal Volume 450 PEEP 5 Sodium 140 142 Potassium 3.4 L 3.3 L Chloride 100 102 Carbon Dioxide 30 30 Anion Gap 14 14 BUN 31 H 34 H Creatinine 1.3 1.4 Est GFR ( Amer) > 60 > 60 Est GFR (Non-Af Amer) 56 52 Random Glucose 139 H 109 D Calcium 7.9 L 7.8 L Phosphorus 3.2 Magnesium 2.4 H Total Bilirubin 1.2 1.0 AST 104 H 95 H ALT 39 40 Alkaline Phosphatase 74 73 Total Protein 7.2 6.8 Albumin 3.6 3.4 L Globulin 3.6 3.5 Albumin/Globulin Ratio 1.0 1.0 11/29/18 05:52 WBC 10.5 RBC 4.29 L Hgb 13.8 Hct 41.7 MCV 97.2 H MCH 32.3 H MCHC 33.2 RDW 16.2 H Plt Count 181 MPV 9.4 Neut % (Auto) 71.8 Lymph % (Auto) 15.8 L [place] % (Auto) 11.0 H Eos % (Auto) 0.8 Baso % (Auto) 0.6 Neut # (Auto) 7.5 H Lymph # (Auto) 1.7 [place] # (Auto) 1.2 H Eos # (Auto) 0.1 Baso # (Auto) 0.1 Puncture Site pCO2 pO2 HCO3 ABG pH ABG Total CO2 ABG O2 Saturation ABG Base Excess ABG Hemoglobin ABG Carboxyhemoglobin POC ABG HHb (Measured) ABG Methemoglobin Albert Test A-a O2 Difference Respiratory Index Hgb O2 Saturation Vent Mode Mechanical Rate FiO2 Tidal Volume PEEP Sodium Potassium Chloride Carbon Dioxide Anion Gap BUN Creatinine Est GFR ( Amer) Est GFR (Non-Af Amer) Random Glucose Calcium Phosphorus Magnesium Total Bilirubin AST ALT Alkaline Phosphatase Total Protein Albumin Globulin Albumin/Globulin Ratio Fingerstick Blood Sugar Results: 137
[2018-11-29] MEDS: Vancomycin 1 gm/NS 200 ml 1 GM/200 ML BAG IVPB SCH (10:36)
--- NOTE | 2018-11-29 13:59 | RAD ---
Date of service: 11/29/2018 HISTORY: ff up/ vent COMPARISON: Comparison chest 11/28/2018 TECHNIQUE: 1 view obtained. FINDINGS: In situ ETT, the tip of which lies approximately 5.3 cm above yasemin. NGT is present, the tip of which has not been included on this film though distal aspect does lie well below EG junction. LUNGS: Bibasilar atelectasis and/or infiltrates and suspected bilateral effusions right larger than left. PLEURA: As above. No pneumothorax apparent. CARDIOVASCULAR: Cardiomediastinal silhouette stable. No change bipolar pacemaker-defibrillator. No aortic atherosclerotic calcification OSSEOUS STRUCTURES: No significant abnormalities. VISUALIZED UPPER ABDOMEN: Normal. OTHER FINDINGS: None. IMPRESSION: ETT and NGT as above. Bibasilar atelectasis and/or infiltrates and suspected bilateral effusions right larger than left.
--- NOTE | 2018-11-29 16:13 | CT ---
Date of service: 11/29/2018 PROCEDURE: CT HEAD WITHOUT CONTRAST. HISTORY: Dizziness COMPARISON: None available. TECHNIQUE: Axial computed tomography images were obtained through the head/brain without intravenous contrast. Radiation dose: Total exam DLP = 1536.12 mGy-cm. This CT exam was performed using one or more of the following dose reduction techniques: Automated exposure control, adjustment of the mA and/or kV according to patient size, and/or use of iterative reconstruction technique. FINDINGS: HEMORRHAGE: No acute parenchymal, subarachnoid or extra-axial hemorrhage. BRAIN: There is diffuse homogeneous appearance of the brain parenchyma with loss of the corticomedullary distinction. Findings suggest underlying sequela of global hypoxia. Clinical correlation recommended. There also appears to be underlying mild to moderate periventricular white matter ischemic changes seen extending peripherally Moderate generalized volume loss VENTRICLES: No obstructive hydrocephalus. CALVARIUM: There are no acute calvarial fractures. PARANASAL SINUSES: Unremarkable as visualized. No significant inflammatory changes. MASTOID AIR CELLS: Unremarkable as visualized. No inflammatory changes. OTHER FINDINGS: None. IMPRESSION: No acute intracranial hemorrhage. Diffuse homogeneous appearance of the brain parenchyma with loss of the corticomedullary distinction. Findings suggest underlying global hypoxia. Clinical correlation recommended. There are also underlying chronic white matter ischemic changes seen. Note that these findings were placed in PA review folder for follow up. Case also discussed with ER MAL Hopson at 10:50 a.m. with written down and read back verification. Case also discussed with ICU Scuba Instructor Dr. Tyler at 11:15 a.m.
[2018-11-29] MEDS ORDERED: Morphine 100 MG in Sodium Chloride 0.9% 90 ML IV PRN (19:00)
[2018-11-29] MEDS: Morphine 100 MG in Sodium Chloride 0.9% 90 ML IV PRN ×2 (21:30→23:30)
--- NOTE | 2018-11-29 22:09 | PN ---
DATE: 11/29/2018 SUBJECTIVE: The patient is a 58-year-old male. The patient was seen and examined at the bedside on 11/29/2018. No much change in the status. Intubated, placed portal ventilation. Mild sedation is going. The patient is responding only to deep stimuli. The eyes are rolled upward once in a while. Cannot get review of systems. PHYSICAL EXAMINATION: VITAL SIGNS: Blood pressure 115/69, temperature 97.6, pulse 77, respiratory rate 20. HEENT: Head: Normocephalic, atraumatic. Eyes closed. Extraocular movements intact. Conjunctivae clear. Nose patent. Mucous membranes moist. NECK: Supple. No carotid bruits. No JVD or thyromegaly. CHEST: Bilaterally symmetrical. HEART: S1 and S2 positive. LUNGS: Clear to auscultation. ABDOMEN: Soft. Bowel sounds present. No organomegaly. EXTREMITIES: No edema. No cyanosis. NEUROLOGICAL: The patient cannot do neurological examination. MEDICATIONS: Tylenol, aspirin, Coreg, Pepcid, Lasix, piperacillin/tazobactam, Diprivan, vancomycin, heparin, and Reglan. LABORATORY DATA: White blood cells 10.5, hemoglobin 13.8, hematocrit 41.7, platelets 181. ASSESSMENT AND PLAN: Mr. Eric Ford is a 58-year-old male, was admitted to the intensive care unit due to cardiac arrest. The patient developed pulseless electrical activity and also ventricular tachycardia. The patient has history of automatic implantable cardioverter-defibrillator which was fired during this episode, history of congestive heart failure, obesity, chronic obstructive pulmonary disease, heart disease. Post cardiac arrest, the patient underwent hypothermia protocol. Continued on ventilator, full support of ventilation, mild sedation is going on. The patient is responding only to deep stimuli, once in a while rolls the eyes upward. CT of the head was done at the time of admission. Tried to do repeat the CT of the head. Repeat CT on 11/29/2018 showed no acute intracranial hemorrhage, but there was homogeneous appearance of the brain parenchyma with loss of corticomedullary dysfunction. Findings suggestive of underlying global hypoxemia. There are also underlying chronic white matter ischemic changes. Talked with the family to make the patient a Do Not Resuscitate. Poor prognosis. Repeat labs. We will follow up. Kamilla Hernandez MD [facility] # [id number] PANDA
[2018-11-30] MEDS: Morphine 100 MG in Sodium Chloride 0.9% 90 ML IV PRN ×5 (02:56→19:33)
--- NOTE | 2018-11-30 09:35 | CP.CCUPN ---
CCU Subjective - Physician Review Events Since Last Encounter (Free Text): 11/30/18 09:35 58-year-old male admitted to the intensive care unit the following a cardiac arrest, patient developed pulseless electrical activity and also V. tach. Patient has a history of AICD which was fired during this episode. He has a history of heart failure, obesity, COPD, heart disease. Post cardiac arrest patient underwent hypothermia protocol. Patient currently on ventilator. Full support ventilation. Mild sedation is ongoing Patient responding only to deep stimuli. The eyes are rolled upwards. Patient is a 58-year-old male with a history of heart disease. History of heart failure. AICD. COPD obesity hypertension. Admitted following witnessed cardiac arrest. Now patient is having worsening cerebral edema and associated with anoxic encephalopathy Comatose We will discontinue the sedation Neuro watch Overall prognosis very poor and condition is critical. Palliative care consultation obtained earlier. We will continue with supportive treatment. We speak to the family. We will discuss with him about the further care Patient last night was extubated terminally. Currently patient is on comfort care, and also patient is on morphine drip. We will continue the supportive care only. Patient is DNR/DNI, and continue the morphine drip CCU Objective - Vital Signs / Intake & Output Vital Signs (Last 4 hours): Vital Signs Temp Pulse Resp BP Pulse Ox 11/30/18 09:04 94 H 7 L 79/42 L 84 L 11/30/18 08:52 102 F H 11/30/18 08:04 94 H 7 L 61/16 L 92 L 11/30/18 08:00 102.0 F H 11/30/18 07:05 97 H 9 L 62/15 L 93 L 11/30/18 07:00 96 H 8 L 92 L 11/30/18 06:04 98 H 15 100/40 L 89 L 11/30/18 06:00 99 H 8 L 93 L Intake and Output (Last 8hrs): Intake & Output 11/29/18 11/30/18 11/30/18 22:59 06:59 14:59 Intake Total 250.0 240 90 Output Total 360 70 15 Balance -110.0 170 75 Weight 256 lb Intake: IV 40 Intake, IV Amount 190.0 240 90 Left Hand 30 Left Proximal Port Hand 90.0 240 60 Right Forearm 100 Tube Feeding 20 0 0 Output: Urine 360 70 15 Urethral (Grove) 360 70 15 Other: # Bowel Movements 0 - Physical Exam Head: Positive for: Atraumatic Pupils: Positive for: Sluggish Conjunctiva: Positive for: Normal Ears: Positive for: Normal Nose (External): Positive for: Atraumatic Neck: Positive for: Normal Range of Motion Respiratory/Chest: Positive for: Rhonchi Cardiovascular: Positive for: Regular Rate and Rhythm Abdomen: Positive for: Normal Bowel Sounds, Other (obese) Upper Extremity: Positive for: Normal Inspection Lower Extremity: Positive for: Normal Inspection Neurological: Positive for: Other (no response to any stimuli, on ventilator) - Medications Active Medications: Active Medications Generic Name Dose Route Start Last Admin Trade Name Freq PRN Reason Stop Dose Admin Acetaminophen 975 mg 11/26/18 11:45 11/27/18 02:49 Tylenol 650mg/20.3ml Solution Ud GT 975 mg Q6 PRN Administration Morphine Sulfate 100 mg/ 100 mls @ 30 mls/hr 11/29/18 21:22 11/30/18 06:16 Sodium Chloride IV 30 mls/hr .Q3H20M PRN Administration Pain, severe (8-10) Protocol - Patient Studies Lab Studies: Microbiology Studies 11/24/18 23:35 Blood Culture - Final Blood NO GROWTH AFTER 5 DAYS Gram Stain - Final TEST NOT PERFORMED Radiology Impressions: Radiology Impressions Head CT 11/29/18 05:00 IMPRESSION: No acute intracranial hemorrhage. Diffuse homogeneous appearance of the brain parenchyma with loss of the corticomedullary distinction. Findings suggest underlying global hypoxia. Clinical correlation recommended. There are also underlying chronic white matter ischemic changes seen. Note that these findings were placed in PA review folder for follow up. Case also discussed with ER MAL Hopson at 10:50 a.m. with written down and read back verification. Case also discussed with ICU Sanitor Dr. Tyler at 11:15 a.m. Chest X-Ray 11/29/18 06:00 IMPRESSION: ETT and NGT as above. Bibasilar atelectasis and/or infiltrates and suspected bilateral effusions right larger than left. Fingerstick Blood Sugar Results: 137
[2018-11-30] MEDS ORDERED: HYDROmorphone 1 mg/ml ISec IVP PRN (13:39)
[2018-12-01 04:32] VITALS: TEMP 98.9
--- NOTE | 2018-12-01 06:09 | CP.PCM.PRO ---
Pronouncement of Note - Clinical Findings Physical Exam: No Response Verbal/Painful Stimuli, Absent Peripheral Puls es{Carotid & Femoral}, Absent Heart & Breath Sounds, No Pupillary Light Reflex, No Corneal Reflex, Pupils Fixed & Dilated, Absence of Vital Signs - Pronouncement Time Time of Pronouncement of : 06:05 - Notifications Pronouncement Notifications: Atending Notified Broom Man Notified: Yes - Autopsy Autopsy Requested: No - [place] [id number]
[2018-12-01 06:41] VITALS: BP 46/21; PULSE 60; RESP 0; O2SAT 83
--- NOTE | 2018-12-01 07:39 | CP.PCM.CON ---
History of Present Illness - History of Present Illness History of Present Illness: Neurology consult dictated. 58 yr old male who is s/p cardiac arrest with minimal brainstem funcitoning. Poor prognosis. Dr. matos Neurology Past Patient History - Past Medical History & Family History Past Medical History?: Yes - Past Social History Smoking Status: Never Smoked - CARDIAC Hx Hypertension: Yes Hx Pacemaker: Yes - PULMONARY Hx Chronic Obstructive Pulmonary Disease (COPD): Yes Hx Sleep Apnea: Yes - NEUROLOGICAL Hx Migraine: Yes - HEENT Hx Cataracts: Yes - INTEGUMENTARY Other/Comment: rash - MUSCULOSKELETAL/RHEUMATOLOGICAL Hx Back Pain: Yes Hx Falls: No - GASTROINTESTINAL Hx Gastroesophageal Reflux: Yes Hx Nausea: Yes - PSYCHIATRIC Hx Anxiety: Yes Hx Depression: Yes Hx Substance Use: No - SURGICAL HISTORY Other/Comment: pacemaker 1 month ago - ANESTHESIA Hx Anesthesia: Yes (unknown) Hx Anesthesia Reactions: No Meds Allergies/Adverse Reactions: Allergies Allergy/AdvReac Type Severity Reaction Status Date / Time Unobtainable Allergy Verified 11/24/18 21:04 - Medications Medications: Current Medications Acetaminophen (Tylenol 650mg/20.3ml Solution Ud) 975 mg GT Q6 PRN Last Admin: 11/27/18 02:49 Dose: 975 mg Hydromorphone HCl (Dilaudid) 1 mg IVP Q4H PRN PRN Reason: Agitation Morphine Sulfate 100 mg/ (Sodium Chloride) 100 mls @ 30 mls/hr IV .Q3H20M PRN; Protocol PRN Reason: Pain, severe (8-10) Last Admin: 11/30/18 19:33 Dose: 30 mls/hr Results - Vital Signs Recent Vital Signs: Last Vital Signs Temp 98.9 F 12/01/18 04:00 Pulse 60 12/01/18 05:41 Resp 0 L 12/01/18 06:00 BP 46/21 L 12/01/18 05:41 Pulse Ox 83 L 12/01/18 05:41 - Labs Result Diagrams: 11/29/18 05:52 11/29/18 05:47
--- NOTE | 2018-12-02 08:28 | PN ---
DATE: 11/30/2018 SUBJECTIVE: This is a 58-year-old male with cardiac arrest who had endotracheal vent. Has past medical history of obesity, hypertension, CHF, . I saw the patient today at the bedside. Eyes closed, open every now and then. The patient's eyes rolled to the back of his head, nonverbal. The patient was seen by palliative care nurse. Family is wanting DNR/DNI, palliative care. Unable to obtain review of systems. PHYSICAL EXAMINATION: VITAL SIGNS: Temperature 99.3, heart rate 93, blood pressure 79/42, respiratory rate 14, and sat 92%. GENERAL: The patient appears chronically ill, palliative care, unresponsive. HEENT: Normocephalic, atraumatic. Pupils fixed. Mucous membranes moist. NECK: Supple. Normal on inspection. RESPIRATORY: Basilar rales. CARDIOVASCULAR: S1, S2. ABDOMEN: Soft, distended. SKIN: Intact. Pitting edema noted. NEUROLOGIC: The patient is unresponsive, opens eyes. MEDICATIONS: Dilaudid, morphine drip. LABORATORY DATA: White blood cells 10.5, hemoglobin 13.8, hematocrit 41.7, platelet count 181. Sodium 142, potassium 3.3, BUN is 34, creatinine 1.4. ASSESSMENT AND PLAN: This is 58 years old who had cardiac arrest. He was intubated. Palliative care was consulted. Family chose to have patient do not resuscitate/do not intubate on palliative care. Due to patient prognosis which is quite poor, the patient is unresponsive, receiving palliative care, we will monitor the patient in followup. all ABOVE NOTED , AGREED WITH FLORAL DESIGNER SALESPERSON , EDUCATION DONE , D/D WITH FLORAL DESIGNER SALESPERSON , MANY SP, ARE ON THE CASE , WILL F/U Phong Campbell APN Kamilla Hernandez MD PANDA
--- NOTE | 2018-12-02 09:52 | DS ---
This is a 58-year-old patient who came in with cardiac arrest, ST-elevation. The patient had endotracheal vent. PAST MEDICAL HISTORY: CHF, obesity, hypertension, COPD, hyperlipidemia. SOCIAL HISTORY: The patient is living at home with family. Had history of nicotine dependence, 15 years. No alcohol history. The patient was in ICU. The patient is a 58-year-old male came in with cardiac arrest, sedated, and endotracheal intubation. Remained in ICU. Cardiology is on the case. Critical care team is on the case. Palliative care was also consulted. Spoke with family. Family agreed to DNR/DNI. The patient was then put on palliative care consult measures. The patient was seen yesterday, very unresponsive. Respirations were 12 at that time. Family was at the bedside. The patient early this a.m. at 6:05 a.m. Family made aware. Primary doctor made aware. all ABOVE NOTED , AGREED WITH DUPLIGRAPH OPERATOR , EDUCATION DONE , D/D WITH DUPLIGRAPH OPERATOR , PSYCHE IS ON THE CASE , WILL F/U Phong Campbell APN Kamilla Hernadnez MD MTDMachelle
== END 2018-12-01 06:05 | DRG 123 ==
LOC: C.ER 20:50 → C.9I 22:10
PROVIDERS: ADMIT Internal Medicine; ATTEND Internal Medicine
PROC: 5A1955Z Respiratory Ventilation, Greater than 96 Consecutive Hours (ICD-10-PCS; principal; 2018-11-24)
PROC: 0BH17EZ Insertion of Endotracheal Airway into Trachea, Via Natural or Artificial Opening (ICD-10-PCS; 2018-11-24)
DX: I21.9 Acute myocardial infarction, unspecified (principal); G93.1 Anoxic brain damage, not elsewhere classified; I26.99 Other pulmonary embolism without acute cor pulmonale; J18.9 Pneumonia, unspecified organism; J96.90 Respiratory failure, unspecified, unspecified whether with hypoxia or hypercapnia; I46.9 Cardiac arrest, cause unspecified; G12.21 Amyotrophic lateral sclerosis; I11.0 Hypertensive heart disease with heart failure; I50.9 Heart failure, unspecified; I47.2 Ventricular tachycardia; I65.29 Occlusion and stenosis of unspecified carotid artery; J44.0 Chronic obstructive pulmonary disease with (acute) lower respiratory infection; R56.9 Unspecified convulsions; E66.9 Obesity, unspecified; E78.00 Pure hypercholesterolemia, unspecified; E78.5 Hyperlipidemia, unspecified; G25.3 Myoclonus; G47.30 Sleep apnea, unspecified; G93.6 Cerebral edema; I48.91 Unspecified atrial fibrillation; I77.819 Aortic ectasia, unspecified site; K21.9 Gastro-esophageal reflux disease without esophagitis; Z51.5 Encounter for palliative care; Z66 Do not resuscitate; Z79.899 Other long term (current) drug therapy; Z87.891 Personal history of nicotine dependence; Z95.0 Presence of cardiac pacemaker; Z68.41 Body mass index [BMI] 40.0-44.9, adult